=== PATIENT | female | born 1975 | race African-American/Black ===

== ENCOUNTER 2017-07-09 13:22 | Observation (INO) ==
--- NOTE | 2017-07-09 14:04 | Emergency Department Note ---
Edwin Ryan Gwan, am scribing for, and in the presence of, Abhishek Edwards MD 13:46 . Grace Ryan James D, MD, personally performed the services described in this documentation, ascribed by Wilda Pineda in my presence, and it is both accurate and complete 404 . Arrival - Arrival Chief Complaint: Chest Pain Stated Complaint: chest pain ED Nursing Triage Note: chest pain 30 minutes into dialysis this morning. Mode of Arrival: Stretcher Limitations: No Limitations Source: Patient, Old Records Reviewed, RN Notes Reviewed - History of Present Illness HPI Narrative: Patient is a 41 y/o female who presents to the ED with a c/o chest pain 30 minutes into dialysis with an onset today. Patient describes her pain as sharp and is located in the center of her chest. Patient is followed by Dr. Gautam and said that she has a hx of stent placement. The pain she has felt today is similar to that chest pain before. No other problems/complaints reported in ED. Onset (ago): minute(s) Consistency: constant Date of Last Menstrual Period: hyst Allergies/Adverse Reactions: Allergies Allergy/AdvReac Type Severity Reaction Status Date / Time clindamycin Allergy Severe Seizure Verified 12/13/16 19:17 levofloxacin [From Levaquin] Allergy Intermediate RASH Verified 12/13/16 19:17 morphine Allergy Intermediate RASH Verified 12/13/16 19:17 Sulfa (Sulfonamide Allergy Intermediate RASH Verified 12/13/16 19:17 Antibiotics) adhesive Allergy Mild RASH Verified 12/13/16 19:17 atorvastatin [From Lipitor] Allergy Mild HIVES Verified 12/13/16 19:17 hydrocodone [From [place]] Allergy Mild RASH Verified 12/13/16 19:17 metoclopramide [From Reglan] Allergy Mild RASH Verified 12/13/16 19:17 Oxycodone [From Percocet] Allergy Mild RASH Verified 12/13/16 19:17 ranolazine [From Ranexa] Allergy Mild Dizziness Verified 12/18/16 09:51 tramadol [From Ultram] Allergy Mild RASH Verified 12/13/16 19:17 Home Medications: Home Medications Medication Instructions Recorded Confirmed Type HYDROcodone/ACETAMIN 10-325 [[place] 1 tablet PO Q6H PRN 05/08/15 07/09/17 History 10-325] Carvedilol [Coreg] 25 mg PO BID #60 tablet 06/09/15 07/09/17 Rx Insulin NPH Hum/Reg Insulin Hm 65 unit SUBCUT DAILY W/BREAKFAST 08/28/15 History [NovoLIN 70/30] Nitroglycerin [Nitroglycerin SL 0.4 mg SL Q5M PRN 05/30/16 07/09/17 History Tab] clonazePAM [Clonazepam] 0.5 mg PO BID 05/30/16 07/09/17 History Pantoprazole Tab [Protonix Tab] 40 mg PO DAILY #30 tablet 06/04/16 07/09/17 Rx Amitriptyline [Elavil] 25 mg PO BEDTIME 07/09/17 07/09/17 History Cinacalcet [Sensipar] 30 mg PO DAILY W/SUPPER 07/09/17 07/09/17 History Ergocalciferol (Vitamin D2) 50,000 unit PO DAILY 07/09/17 07/09/17 History [Vitamin D2] Insulin NPH Hum/Reg Insulin Hm 35 units PO BEDTIME 07/09/17 07/09/17 History [NovoLIN 70/30] Naproxen Sodium [Naproxen Sodium 550 mg PO DAILY PRN 07/09/17 07/09/17 History Ds Tab] Nortriptyline [Pamelor] 10 mg PO DAILY 07/09/17 07/09/17 History amLODIPine [Norvasc] 10 mg PO DAILY 07/09/17 07/09/17 History hydroCHLOROthiazide 25 mg PO DAILY 07/09/17 07/09/17 History [Hydrochlorothiazide] Review of System - Review of System 12 point system: reviewed and no additional remarkable complaints except as stated - Review of System Eyes: Absent: discharge, pain, vision change Cardiovascular: Present: as per HPI, chest pain. Absent: palpitations Medical,Surgical,& Family Hx - Medical History Cardio: History of: CHF, CAD (PCI of the LAD in the remote past and recent PCI the distal left circumflex), Hypertension, SC, Cardiovascular Problems No history of: Aneurysm, Cardiac Dysrhythmia, Cerebrovascular Disease, Pacemaker, PVD, Valvular Heart Disease Psychological: History of: Depression (2011) No history of: Anxiety Disorders, ADHD, Behavior Problems, Bipolar Disorder, Previous Suicide Attempt, Psychiatric/Substance Abuse Tx, Violent Behavior, Psychiatric Problems Neurology: History of: Migraine, Peripheral Neuropathy, Seizures, Vertigo No history of: Brain Aneurysm, Cerebral Hemorrhage, Cerebrovascular Accident , Cerebral Palsy, Dementia, Multiple Sclerosis, Parkinson's Disease, TIA, Neurologocal Cancer HEENT: History of: Ear Problem (ruptured ear drum 10/2014), Eye Problem (wears glasses) No history of: Dental Problems, Glaucoma, Oral Cancer, HEENT Problems Endocrine: History of: Diabetes Mellitus (IDDM), Thyroid Disorder, Endocrine Problems (enlarged thyroid 2013) No history of: Diabetes Mellitus (NIDDM), Endocrine Cancer Rheumatology: No history of;: Fibromyalgia, Gout, Myasthenia Gravis, Rheumatoid Arthritis, Rheumatological Problems Respiratory: History of: Pneumonia No history of: Asthma, Bronchitis, COPD, Intubation, Obstructive Sleep Apnea , Pulmonary Hypertension, Lung Cancer, Respiratory Problems Renal: History of: Renal Failure, Renal Problems (CKD stage 3, followed chronically by Dr Orozco) No history of: Renal (Kidney) Cancer, Dialysis Genitourinary: No history of: Bladder Problem, Kidney Stones, Recurring Urinary Tract Infections, Genitourinary Cancer Gastrointestinal: History of: GERD, GI Problems (GASTROPARESIS) No history of: Bowel Obstruction, Clostridium Difficile, Gastrointestinal Bleed, Hemorrhoids, Hepatitis, Liver Problems, Pancreatitis, Gastrointestinal Cancer Musculoskeletal: History of: Back/Neck Problems (TAKES DILAUDID DAILY), Musculoskeletal Problems No history of: Amputation, Degenerative Disk Disease, Osteoporosis, Musculoskeletal Cancer Hematology: History of: Anemia No history of: Blood Transfusion Reaction, Bleeding Problems, Clotting Problems, Sickle Cell Disease, Hematologic Cancer, Blood Disorders Reproductive: No history of: Abnormal Pap Smear Other: History of: Skin Problems (severly allergic to tape) No history of: Anesthesia Reactions, Cancer, Vancomycin-Resistant Enterococci - Surgical History Cardiac Surgeries: Sugical HX of: Cardiac Catheterization (stents) Patient Denies: Femoral-Popliteal Bypass Graft, Cardiac Surgery, Carotid Endarterectomy, Internal Defibrillator, Vascular Access Devices Thoracic Surgeries: Patient denies;: Kidney (Renal Surgery), Lithotripsy, Nephrectomy, Organ Transplant, Lobectomy Neurologic Surgeries: Patient denies: Brain Aneurysm, Cerebral Hemorrhage, Neurologic Surgery HEENT Surgeries: Surgical HX of: Eye Surgery (right eye unknown surgery) Patient denies: Carotid Endarterectomy, Tonsilectomy & Adenoidectomy Abdominal Surgeries: Surgical HX of: Abdominal Surgery, Cholecystectomy, Colonoscopy Patient denies: Appendectomy, Gastric Bypass Surgery, Hernia Repair, Splenectomy Reproductive Surgeries: Surgical HX of;: Section, Gynecologic Surgery ( hyst), Hysterectomy, Tubal Ligation Patient denies;: Breast Surgery, Cystoscopy, Genitourinary Surgery Orthopedic Surgeries: Surgical HX of;: 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) Patient denies;: Implanted Devices, Total Hip Replacement, Total Knee Replacement - Family History Family History: Reports;: Family Diabetes (mother), Family Hypertension (mother) Denies;: Family Anesthesia Reaction, Family Cancer, Family Heart Disease, Family Psychiatric Problems, Family Stroke - Social History Smoking Status: Never smoker Exam Physical Examination: GENERAL: This is a female in no apparent distress. VITAL SIGNS: HEENT: Head is normocephalic and atraumatic. Pupils are equally round and reactive to light. Extraocular movement are intact. Oropharynx is benign with moist mucous membranes. NECK: Neck is soft and supple without tenderness. There are no masses. There is no lymphadenopathy. LUNGS: Lungs are clear to auscultation bilaterally. Chest rises symmetrically. There is no chest wall tenderness. CV: Heart is regular rate and rhythm without murmurs, rubs, or gallops. ABDOMEN: Abdomen is soft, non-tender to palpation. There are no abnormal masses palpated. There is no organomegaly. Bowel sounds are present and active. SKIN: Skin is warm and dry. No rash. EXTREMITIES: Patient has full range of motion without tenderness. There is no pedal edema. NEUROLOGIC: Awake, alert, and oriented x4. Cranial nerves II through XII are grossly intact. There are no motorsensory deficits. PSYCHIATRIC: Normal affect. Normal mood. Vital Signs: Vital Signs Temperature 98.0 F 07/09/17 13:25 Pulse Rate 89 07/09/17 16:15 Respiratory Rate 18 07/09/17 16:15 Blood Pressure 143/96 07/09/17 16:15 O2 Sat by Pulse Oximetry 95 07/09/17 16:15 Course - Consultations Consultation #1: Discussed with Dr. Lozada. Patient will be admitted to their service. Time: 16:27 Results - Labs CBC & BMP: 07/09/17 14:05 07/09/17 14:05 Lab Results: I have reviewed the patients labs - EKG EKG results: interpreted by ERMD - Impressions EKG: Sinus tachycardia with a rate of 100, nonspecific ST-T wave changes, right axis deviation. - Diagnostic Findings Procedure: Chest x-ray: image reviewed by me (Dialysis catheter present with the tip in the superior vena cava, no infiltrates, no pleural effusions.) Disposition Clinical Impression: Chest pain, End-stage renal disease on hemodialysis Case discussed with: patient Disposition: Still a Patient Condition: Stable Time of Disposition: 16:26
[2017-07-09] MEDS ORDERED: NITROGLYCERIN SL 0.4 MG TABLET SL PRN ×2 (14:05→17:29)
[2017-07-09] MEDS ORDERED: ASPIRIN 325 MG TABLET PO STA (14:05)
[2017-07-09] MEDS ORDERED: ENOXAPARIN 100 MG/ML SYRINGE SUBCUT STA (14:05)
[2017-07-09] MEDS ORDERED: NITROGLYCERIN 2% OINT 1 INCH/GM PACK TOP STA (14:05)
--- NOTE | 2017-07-09 14:08 | EKG Report ---
Stationary ECG Study [facility] ER Test Date: 07/09/2017 1:44:18 PM Pat Name: LINDEN LOERA Department: Room: 272 Gender: F Payment Analyst: : [id number] Requested by: Abhishek Bansal Order Number: [id number] Reading MD: RELL DOYLE Intervals [place] Rate: 100 P: 51 MA: 157 QRS: 94 QRSD: 85 T: 6 QT: 361 QTc: 418 Interpretive Statements SINUS TACHYCARDIA RIGHT ATRIAL ABNORMALITY POSSIBLE LEFT ATRIAL ABNORMALITY NONSPECIFIC T-WAVE ABNORMALITY Electronically Signed On 07-12-17 17:10:50 CDT by RELL DOYLE [email or web address]
[2017-07-09] MEDS ORDERED: ENOXAPARIN 100 MG/ML SYRINGE SUBCUT ONE (14:10)
[2017-07-09] MEDS ORDERED: NITROGLYCERIN 2% OINT 1 INCH/GM PACK TOP ONE (14:11)
[2017-07-09] MEDS ORDERED: ASPIRIN 325 MG TABLET ONE (14:11)
[2017-07-09 14:13] LABS: Basophils % 0.3 % (0.0-0.8); Eosinophils # 0.2 10*3/uL (0.0-0.87); Eosinophils % 1.9 % (0.00-10.9); Hematocrit 32.9 VOL% (35.7-47.0); Hemoglobin 10.6 GM/DL (12.0-16.0); Immature Granulocytes Absolute 0.09 #; Lymphocytes % 21.6 % (21.3-54.2); Mean Corpuscular HGB Conc 32.2 GM/DL (32-36); Mean Corpuscular Hemoglobin 28 PG (27-34); Mean Corpuscular Volume 85.2 FL (87-102); Mean Platelet Volume 10.5 FL (9.6-12.0); Monocytes # 0.4 10*3/uL (0.11-0.8); Monocytes % 4.1 % (1.7-12.7); Neutrophils # 6.5 10*3/uL (1.4-7.4); Neutrophils % 71.1 % (38.7-73.9); Platelet Count 352 T/CUMM (130-400); Red Blood Count 3.86 MC/CUMM (3.8-5.5); Red Cell Distribution Width 14.4 % (9.3-17.3); White Blood Count 9.2 T/CUMM (4-12)
--- NOTE | 2017-07-09 14:27 | XRay Report ---
XR chest 1V portable Indication: Chest pain Comparison: Chest x-ray dated December 16, 2016 Technique: Single frontal view of the chest. Findings: Stable borderline cardiomegaly. Right-sided central venous catheter tip near the atriocaval junction. No focal consolidation, pleural effusion, or pneumothorax. Visualized osseous and surrounding soft tissue structures appear grossly unchanged. IMPRESSION: No acute cardiopulmonary process demonstrated. PROCEDURE INTERPRETED AT [facility] DEPARTMENT OF RADIOLOGY Final Report Signed by: Dr Josse Li
[2017-07-09 14:47] LABS: INR 1.2; PT Patient Result 12.9 SECS
[2017-07-09 14:52] LABS: Alanine Aminotransferase < 9 U/L (13-56); Albumin 2.9 G/DL (3.4-5.0); Alkaline Phosphatase 204 U/L (45-117); Aspartate Amino Transferase 13 U/L (0-37); Blood Urea Nitrogen 31 MG/DL (7-18); Calcium 7.4 MG/DL (8.5-10.1); Glucose 299 MG/DL (74-106); Potassium 4.1 MMOL/L (3.5-5.1); Sodium 136 MMOL/L (136-145); Total Protein 7.2 G/DL (6.4-8.3)
--- NOTE | 2017-07-09 17:40 | Cardiology History & Physical ---
Assessment and Plan - Time spent with patient Time spent with patient: Greater than 30 minutes (1) End stage renal disease Status: Chronic Assessment and plan: SEE PLAN OF CARE LISTED BELOW Current Visit: Yes (2) Seizure Status: Chronic Assessment and plan: SEE PLAN OF CARE LISTED BELOW Current Visit: Yes (3) Chest pain Status: Acute Assessment and plan: SEE PLAN OF CARE LISTED BELOW Current Visit: No Qualifiers: Chest pain type: precordial chest pain (4) Coronary artery disease Status: Chronic Assessment and plan: SEE PLAN OF CARE LISTED BELOW Current Visit: No Qualifiers: Coronary Disease-Associated Artery/Lesion type: rincon coronary artery Associated angina: with unspecified angina pectoris (5) History of coronary artery stent placement Problem details: LAD 2001, OM3 06/28/15 Status: Chronic Assessment and plan: SEE PLAN OF CARE LISTED BELOW Current Visit: No (6) Hyperlipidemia Status: Chronic Assessment and plan: SEE PLAN OF CARE LISTED BELOW Current Visit: No Qualifiers: Hyperlipidemia type: Mixed hyperlipidemia (7) Diabetes mellitus Status: Chronic Assessment and plan: SEE PLAN OF CARE LISTED BELOW Current Visit: No Qualifiers: Diabetes mellitus complication status: with other specified complication (8) Gastroparesis Status: Chronic Assessment and plan: SEE PLAN OF CARE LISTED BELOW Current Visit: No History of Present Illness Chief complaint: Chest pain 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 WILKES Patient is being seen in the emergency department Ms. Bell, 41BF, with risk factors significant for: CAD, hypertension, dyslipidemia, diabetes obesity, sedentary lifestyle. History of grand mal seizures, gastroparesis and end-stage renal disease on hemodialysis. Patient required PCI to mid LAD 2001, PCI to OM 3 June 28, 2015. Patient presented to the emergency department today after experiencing recurrent chest pain since last evening. Patient was sitting when this occurred. She is a poor historian and finds it more difficult to elaborate. She states it was in the center of her chest without radiation to her arm but towards her neck. Associated with mild shortness of breath and nausea. Lasted intermittently and worsened while she was at hemodialysis today. Described as squeezing and heavy. She can identify no aggravating nor any alleviating factors. Rates the discomfort as a 7 on a scale of 1-10. Currently chest pain-free. Cardiac biomarkers are negative, EKG does not reveal acute TX. Patient has been seen by Dr. Mora in the emergency department and will be admitted for following of her cardiac biomarkers, EKG. I will keep her NPO after midnight tonight for possible further cardiac workup tomorrow. We will limit her narcotic use with Ms. Bell, using only her home medications for treatment of her chronic pain. WE WILL AVOID NITRATES WITH THIS PATIENT THIS FREQUENTLY CAUSES MIGRAINE HEADACHES WHICH PROLONGS HER HOSPITALIZATION IMPRESSION/PLAN: 1. CHEST PAIN - patient's cardiac biomarkers will be followed. We will avoid use of nitroglycerin with this patient as she frequently has migraines while using nitroglycerin. Therefore, treat with aspirin, Lovenox, beta-blockers, lipid-lowering agents. Patient did have recent swelling of her right lower extremity. Will do venous ultrasound to rule out DVT 2. KNOWN CAD - last PCI June 28, 2015 to OM 3. Prior PCI to mid LAD 2001. Aspirin continues. 3. HYPERTENSION - usually well controlled. Avoiding NANETTE inhibitors for fear of worsening renal insufficiency. Continue beta-blockade 4. DYSLIPIDEMIA - fasting lipid profile in the morning. Patient has previously been statin intolerant (myalgias). We will try to incorporate a statin drug as able during hospital stay 5. DIABETES - sliding scale during hospitalization. Hold metformin. 6. GASTROPARESIS - this is been a severe and ongoing problem for patient. Often, her gastroparesis is mistaken for chest pain. Will verify she is continuing to take her medications for this. 7. END-STAGE RENAL DISEASE - underwent dialysis today. If patient stays for several days we will consult nephrology to dialyze. Hopefully, she will be discharged home tomorrow 8. CHRONIC PAIN - we will use only her home medications to treat her pain. Home Medications Medication Instructions Recorded Confirmed Type HYDROcodone/ACETAMIN 10-325 [[place] 1 tablet PO Q6H PRN 05/08/15 07/09/17 History 10-325] Carvedilol [Coreg] 25 mg PO BID #60 tablet 06/09/15 07/09/17 Rx Insulin NPH Hum/Reg Insulin Hm 65 unit SUBCUT DAILY W/BREAKFAST 08/28/15 History [NovoLIN 70/30] Nitroglycerin [Nitroglycerin SL 0.4 mg SL Q5M PRN 05/30/16 07/09/17 History Tab] clonazePAM [Clonazepam] 0.5 mg PO BID 05/30/16 07/09/17 History Pantoprazole Tab [Protonix Tab] 40 mg PO DAILY #30 tablet 06/04/16 07/09/17 Rx Amitriptyline [Elavil] 25 mg PO BEDTIME 07/09/17 07/09/17 History Cinacalcet [Sensipar] 30 mg PO DAILY W/SUPPER 07/09/17 07/09/17 History Ergocalciferol (Vitamin D2) 50,000 unit PO DAILY 07/09/17 07/09/17 History [Vitamin D2] Insulin NPH Hum/Reg Insulin Hm 35 units PO BEDTIME 07/09/17 07/09/17 History [NovoLIN 70/30] Naproxen Sodium [Naproxen Sodium 550 mg PO DAILY PRN 07/09/17 07/09/17 History Ds Tab] Nortriptyline [Pamelor] 10 mg PO DAILY 07/09/17 07/09/17 History amLODIPine [Norvasc] 10 mg PO DAILY 07/09/17 07/09/17 History hydroCHLOROthiazide 25 mg PO DAILY 07/09/17 07/09/17 History [Hydrochlorothiazide] Allergies Allergy/AdvReac Type Severity Reaction Status Date / Time clindamycin Allergy Severe Seizure Verified 12/13/16 19:17 levofloxacin [From Levaquin] Allergy Intermediate RASH Verified 12/13/16 19:17 morphine Allergy Intermediate RASH Verified 12/13/16 19:17 Sulfa (Sulfonamide Allergy Intermediate RASH Verified 12/13/16 19:17 Antibiotics) adhesive Allergy Mild RASH Verified 12/13/16 19:17 atorvastatin [From Lipitor] Allergy Mild HIVES Verified 12/13/16 19:17 hydrocodone [From [place]] Allergy Mild RASH Verified 12/13/16 19:17 metoclopramide [From Reglan] Allergy Mild RASH Verified 12/13/16 19:17 Oxycodone [From Percocet] Allergy Mild RASH Verified 12/13/16 19:17 ranolazine [From Ranexa] Allergy Mild Dizziness Verified 12/18/16 09:51 tramadol [From Ultram] Allergy Mild RASH Verified 12/13/16 19:17 Review of systems: REVIEW OF SYSTEMS: - Constitutional Constitutional: Present: Fatigue. Loss of stress in her personal life absent: syncope, anorexia, night sweats - EENT Eyes: Absent: blurry vision, loss of vision, diplopia Ears: Absent: decreased hearing, ear pain, ear discharge - Cardiovascular Cardiovascular: Present: chest pain with exertion and at rest. Recent right lower extremity edema. Denies palpitations. - Respiratory Respiratory: Present: Chronic NUNES, denies cough. Absent: wheezing, hemoptysis, change in phlegm color - Gastrointestinal Gastrointestinal: Denies: constipation. Absent: abdominal pain, hematemesis, hematochezia, melena, change in bowel habits, nausea - Genitourinary Genitourinary: Absent: difficulty urinating, dysuria, urinary hesitancy, flank pain - Musculoskeletal Musculoskeletal: Present: back pain Absent: joint swelling, muscle cramps, muscle weakness - Neurological Neurological: Present: normal gait without frequent falls. Absent: dizziness, hemiparesis - Psychiatric Psychiatric: Anxiety is present. Absent: depression, difficulty concentrating - Endocrine Endocrine: Present: fatigue. Absent: cold intolerance, heat intolerance, polyuria, polyphagia, polydipsia - Hematologic/Lymphatic Hematologic/Lymphatic: Present: easy bruising. Absent: easy bleeding -Integumentary Integumentary: Absent: lesions, rashes, skin breakdown Medical,Surgical,& Family Hx - Medical History Cardio: History of: CHF, CAD (PCI of the LAD in the remote past and recent PCI the distal left circumflex), Hypertension, TX, Cardiovascular Problems No history of: Aneurysm, Cardiac Dysrhythmia, Cerebrovascular Disease, Pacemaker, PVD, Valvular Heart Disease Psychological: History of: Depression (2011) No history of: Anxiety Disorders, ADHD, Behavior Problems, Bipolar Disorder, Previous Suicide Attempt, Psychiatric/Substance Abuse Tx, Violent Behavior, Psychiatric Problems Neurology: History of: Migraine, Peripheral Neuropathy, Seizures, Vertigo No history of: Brain Aneurysm, Cerebral Hemorrhage, Cerebrovascular Accident , Cerebral Palsy, Dementia, Multiple Sclerosis, Parkinson's Disease, TIA, Neurologocal Cancer HEENT: History of: Ear Problem (ruptured ear drum 10/2014), Eye Problem (wears glasses) No history of: Dental Problems, Glaucoma, Oral Cancer, HEENT Problems Endocrine: History of: Diabetes Mellitus (IDDM), Thyroid Disorder, Endocrine Problems (enlarged thyroid 2013) No history of: Diabetes Mellitus (NIDDM), Endocrine Cancer Rheumatology: No history of;: Fibromyalgia, Gout, Myasthenia Gravis, Rheumatoid Arthritis, Rheumatological Problems Respiratory: History of: Pneumonia No history of: Asthma, Bronchitis, COPD, Intubation, Obstructive Sleep Apnea , Pulmonary Hypertension, Lung Cancer, Respiratory Problems Renal: History of: Renal Failure, Renal Problems (CKD stage 3, followed chronically by Dr Orozco) No history of: Renal (Kidney) Cancer, Dialysis Genitourinary: No history of: Bladder Problem, Kidney Stones, Recurring Urinary Tract Infections, Genitourinary Cancer Gastrointestinal: History of: GERD, GI Problems (GASTROPARESIS) No history of: Bowel Obstruction, Clostridium Difficile, Gastrointestinal Bleed, Hemorrhoids, Hepatitis, Liver Problems, Pancreatitis, Gastrointestinal Cancer Musculoskeletal: History of: Back/Neck Problems (TAKES DILAUDID DAILY), Musculoskeletal Problems No history of: Amputation, Degenerative Disk Disease, Osteoporosis, Musculoskeletal Cancer Hematology: History of: Anemia No history of: Blood Transfusion Reaction, Bleeding Problems, Clotting Problems, Sickle Cell Disease, Hematologic Cancer, Blood Disorders Reproductive: No history of: Abnormal Pap Smear Other: History of: Skin Problems (severly allergic to tape) No history of: Anesthesia Reactions, Cancer, Vancomycin-Resistant Enterococci - Surgical History Cardiac Surgeries: Sugical HX of: Cardiac Catheterization (stents) Patient Denies: Femoral-Popliteal Bypass Graft, Cardiac Surgery, Carotid Endarterectomy, Internal Defibrillator, Vascular Access Devices Thoracic Surgeries: Patient denies;: Kidney (Renal Surgery), Lithotripsy, Nephrectomy, Organ Transplant, Lobectomy Neurologic Surgeries: Patient denies: Brain Aneurysm, Cerebral Hemorrhage, Neurologic Surgery HEENT Surgeries: Surgical HX of: Eye Surgery (right eye unknown surgery) Patient denies: Carotid Endarterectomy, Tonsilectomy & Adenoidectomy Abdominal Surgeries: Surgical HX of: Abdominal Surgery, Cholecystectomy, Colonoscopy Patient denies: Appendectomy, Gastric Bypass Surgery, Hernia Repair, Splenectomy Reproductive Surgeries: Surgical HX of;: Section, Gynecologic Surgery ( hyst), Hysterectomy, Tubal Ligation Patient denies;: Breast Surgery, Cystoscopy, Genitourinary Surgery Orthopedic Surgeries: Surgical HX of;: 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) Patient denies;: Implanted Devices, Total Hip Replacement, Total Knee Replacement - Family History Family History: Reports;: Family Diabetes (mother), Family Hypertension (mother) Denies;: Family Anesthesia Reaction, Family Cancer, Family Heart Disease, Family Psychiatric Problems, Family Stroke - Social History Smoking Status: Never smoker Have you smoked in the last 12 months: No Frequency of Alcohol Use: None Type of Drug Use: None Functional capacity: independent ambulation Cardiology Physical Exam - Constitutional Vitals: Vital Signs Temp Pulse Resp BP Pulse Ox 98.0 F 89 18 143/96 95 07/09/17 13:25 07/09/17 16:15 07/09/17 16:15 07/09/17 16:15 07/09/17 16:15 Intake and Output 07/09/17 07/09/17 07/09/17 07:59 15:59 23:59 Other: Weight 78.018 kg Patient Weight 07/09/17 23:59 Weight 78.018 kg Exam: General: [Appears well with no apparent distress.] [Pleasant and cooperative. ] [Appears comfortable.] HEENT: [PERRL, normocephalic, atraumatic. Mucous membranes moist. No jaundice noted. Conjunctiva moist and clear, sclerae anicteric] Neck: No JVD/HJR, no thyromegaly or lymphadenopathy noted. No carotid bruit appreciated Cardiac: [Regular rate and rhythm.] [No obvious murmur rub or gallop.] Lungs: [Clear to auscultation without accessory muscle use to assist the respiratory pattern.] Oxygen in use via nasal cannula Abdomen: Soft, bowel sounds normoactive. Nontender and nondistended. No abdominal bruit or thrill noted. No masses noted. Musculoskeletal: No fluid collection. Decreased range of motion is noted. Extremities: No clubbing, cyanosis noted. [ No edema noted.] Upper extremity pulses 2+. Lower extremity pulses 2+. Capillary refill less than 3 seconds. Skin: No unusual lesions or rashes. No skin breakdown appreciated. Neuro: Awake, alert and oriented 3. Moves all extremities well without hemiparesis or paralysis. No essential tremor is appreciated. Result/EKG - Labs CBC & BMP: 07/09/17 14:05 07/09/17 14:05 Lab Results: I have reviewed the past 24 hour labs Labs: Laboratory Results - last 24 hr 07/09/17 07/09/17 07/09/17 14:05 14:05 14:05 WBC 9.2 RBC 3.86 Hgb 10.6 L Hct 32.9 L MCV 85.2 L MCH 28 MCHC 32.2 RDW 14.4 Plt Count 352 MPV 10.5 Neut % (Auto) 71.1 Lymph % (Auto) 21.6 [place] % (Auto) 4.1 Eos % (Auto) 1.9 Baso % (Auto) 0.3 Neut # (Auto) 6.5 Lymph # (Auto) 2.0 [place] # (Auto) 0.4 Eos # (Auto) 0.2 Baso # (Auto) 0.0 Immature Gran % 1.0 Nucleated RBC % 0.0 Immature Gran # 0.09 Nucleated RBCs # 0.00 Immature Plt Fraction 0.0 INR 1.2 PT Patient/Control Mix 12.9 D Circ Anticoag PTT 57.0 H D Sodium 136 Potassium 4.1 Chloride 100 Carbon Dioxide 27 Anion Gap 13.1 BUN 31 H Creatinine 5.60 H GFR Calculation 11 BUN/Creatinine Ratio 5.00 L Glucose 299 H Calculated Osmolality 289.0 Calcium 7.4 L Total Bilirubin 0.60 AST 13 ALT < 9 L Alkaline Phosphatase 204 H Troponin I Total Protein 7.2 Albumin 2.9 L Globulin 4.3 H Albumin/Globulin Ratio 0.6 L 07/09/17 14:05 WBC RBC Hgb Hct MCV MCH MCHC RDW Plt Count MPV Neut % (Auto) Lymph % (Auto) [place] % (Auto) Eos % (Auto) Baso % (Auto) Neut # (Auto) Lymph # (Auto) [place] # (Auto) Eos # (Auto) Baso # (Auto) Immature Gran % Nucleated RBC % Immature Gran # Nucleated RBCs # Immature Plt Fraction INR PT Patient/Control Mix Circ Anticoag PTT Sodium Potassium Chloride Carbon Dioxide Anion Gap BUN Creatinine GFR Calculation BUN/Creatinine Ratio Glucose Calculated Osmolality Calcium Total Bilirubin AST ALT Alkaline Phosphatase Troponin I < 0.015 Total Protein Albumin Globulin Albumin/Globulin Ratio - Diagnostic Findings Procedure: Chest x-ray: report reviewed by me - EKG EKG results: interpreted by me EKG shows: sinus rhythm
[2017-07-09] MEDS ORDERED: ACETAMINOPHEN 500 MG TABLET PO PRN (17:47)
[2017-07-09] MEDS ORDERED: DEXTROSE 50% 25 GM/50 ML SYRINGE IV PRN (18:30)
[2017-07-09] MEDS ORDERED: GLUCAGON 1 MG VIAL IM PRN (18:30)
[2017-07-09] MEDS ORDERED: MAGNESIUM SULF RIDER 4 GM in PREMIX 1 EACH IV PRN (18:30)
[2017-07-09] MEDS ORDERED: MAGNESIUM SULF RIDER 2 GM in PREMIX 1 EACH IV PRN (18:30)
[2017-07-09 20:31] LABS: Free T4 (Free Thyroxine) 1.15 NG/DL (0.76-1.46); Thyroid Stimulating Hormone < 0.005 uIU/ml (0.358-3.74)
[2017-07-09] MEDS ORDERED: INSULIN NPH/REGULAR 70/30 100 UNIT/ML SUBCUT SCH (21:00)
[2017-07-09] MEDS ORDERED: AMITRIPTYLINE 25 MG TABLET PO SCH (21:00)
[2017-07-09] MEDS: clonazePAM 0.5 MG TABLET PO SCH (21:40)
[2017-07-09] MEDS: INSULIN LISPRO 100 UNIT/ML SUBCUT SCH (21:40)
[2017-07-09] MEDS: CARVEDILOL 25 MG TABLET PO SCH (21:40)
[2017-07-10 05:50] LABS: Basophils % 0.6 % (0.0-0.8); Eosinophils # 0.1 10*3/uL (0.0-0.87); Eosinophils % 1.8 % (0.00-10.9); Hematocrit 34.6 VOL% (35.7-47.0); Immature Granulocytes % 0.4 %; Immature Granulocytes Absolute 0.03 #; Lymphocytes # 2.1 10*3/uL (1.4-4.0); Lymphocytes % 28.8 % (21.3-54.2); Mean Corpuscular HGB Conc 31.8 GM/DL (32-36); Mean Corpuscular Hemoglobin 27 PG (27-34); Mean Corpuscular Volume 84.8 FL (87-102); Mean Platelet Volume 10.7 FL (9.6-12.0); Monocytes # 0.4 10*3/uL (0.11-0.8); Monocytes % 5.1 % (1.7-12.7); Neutrophils # 4.6 10*3/uL (1.4-7.4); Neutrophils % 63.3 % (38.7-73.9); Platelet Count 375 T/CUMM (130-400); Red Blood Count 4.08 MC/CUMM (3.8-5.5); Red Cell Distribution Width 14.2 % (9.3-17.3); White Blood Count 7.2 T/CUMM (4-12)
--- NOTE | 2017-07-10 06:18 | EKG Report ---
Stationary ECG Study 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
[2017-07-10 06:34] LABS: Calcium 7.8 MG/DL (8.5-10.1); Magnesium 2.7 MG/DL (1.8-2.4); Osmolality,Calculated 296.5 MOS/KG (273-304); Potassium 5.1 MMOL/L (3.5-5.1); Risk Ratio 3.28; VLDL CHOLESTEROL 15.2 MG/DL
[2017-07-10] MEDS ORDERED: INSULIN NPH/REGULAR 70/30 100 UNIT/ML SUBCUT SCH (08:00)
--- NOTE | 2017-07-10 08:23 | EKG Report ---
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
--- NOTE | 2017-07-10 08:23 | EKG Report ---
Stationary ECG Study 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
[2017-07-10] MEDS ORDERED: ERGOCALCIFEROL 50,000 UNIT CAPSULE PO SCH (09:00)
[2017-07-10] MEDS ORDERED: NORTRIPTYLINE 10 MG CAPSULE PO SCH (09:00)
[2017-07-10] MEDS ORDERED: hydroCHLOROthiazide 25 MG TABLET PO SCH (09:00)
[2017-07-10] MEDS ORDERED: amLODIPine 10 MG TABLET PO SCH (09:00)
[2017-07-10] MEDS ORDERED: PANTOPRAZOLE 40 MG TABLET PO SCH (09:00)
--- NOTE | 2017-07-10 09:23 | Discharge Summary ---
Hospital Course - Hospital Course Hospital Course: WARDROBE ASSISTANT: DR. GAUTAM PCP: COSME CAZARES SUMMARY: Ms. Bell, 41BF, has risk factors significant for: CAD, hypertension, dyslipidemia, diabetes obesity, sedentary lifestyle. History of grand mal seizures, gastroparesis and end-stage renal disease on hemodialysis. History of migraine headaches worsened with nitroglycerin. Consists patient required PCI to mid LAD 2001, PCI to OM 3 June 28, 2015). Admitted July 09, 2017 through the ED after experiencing atypical chest pain. Cardiac biomarkers negative, EKG stable unchanged. Patient slept through the majority of my interview in the emergency department initially though she was in an exquisite amount of chest pain reproducible in certain positions. Patient was treated according to the acute coronary protocol with the exception of use of nitroglycerin. AVOID NITRATES WITH THIS PATIENT THIS FREQUENTLY CAUSES MIGRAINE HEADACHES WHICH PROLONGS HER HOSPITALIZATIONS. It is felt that her chest pain was musculoskeletal in nature versus GI. Also, we avoid narcotic use with this patient other than her home medications. Refuses statin drugs because they worsen myalgias. Having that she is met maximal medical therapy, patient is being discharged home in stable condition. Avoiding NANETTE for fear of worsening renal insufficiency with history of hyperkalemia. Increasing PPI to twice daily for 2 weeks. Patient will resume all of her preadmission medications. She has been given a date for stress testing within the week to take place at [facility]. She is also being given a follow-up appoint with Dr. Gautam 1 week following the stress test. Also, she has been given a follow-up appointment within 1 week with COSME Cazares to treat her noncardiac chest pain and abnormal TSH. - Time spent with patient Time with patient DS: Greater than 30 minutes Diagnosis - Discharge Diagnosis (1) End stage renal disease Status: Chronic (2) Seizure Status: Chronic (3) Chest pain Status: Acute (4) Coronary artery disease Status: Chronic (5) History of coronary artery stent placement Status: Chronic (6) Hyperlipidemia Status: Chronic (7) Diabetes mellitus Status: Chronic (8) Gastroparesis Status: Chronic Specialty Discharge - Follow Up or Referrals Follow up with: Gabrielle Gautam MD [Physician] - (Please schedule outpatient cardiolyte stress test at [facility] within one week. Also, please obtain F/U appointment with Dr. Gautam within 1-2 weeks after stress test. ) Amy Palacio [Primary Care Provider] - 1 Week (F/U appointment within one week. Non-cardiac chest pain. Also, low TSH. ) Discharge Plan - Discharge Data Disposition: Disch To Home/Self Care Condition at Discharge: Stable Discharge Diet: heart healthy Activity: resume usual activities as tolerated Hygiene: no restrictions Weight Bearing at Discharge: full weight bearing Driving: not until seen by doctor Contact your physician if you experience:: fever over 101, Difficulty voiding, Redness or swelling, Nausea/Vomiting, Shortness of breath, Bleeding, pain uncontrolled by pain medications - Discharge Medications New Omeprazole [Prilosec] 20 mg PO BID #60 capsule Aspirin EC Tab 325 mg PO DAILY #30 tablet Continue HYDROcodone/ACETAMIN 10-325 [[place] 10-325] 1 tablet PO Q6H PRN PRN Reason: Pain Mild To Moderate (1-7) Carvedilol [Coreg] 25 mg PO BID #60 tablet Insulin NPH Hum/Reg Insulin Hm [NovoLIN 70/30] 65 unit SUBCUT DAILY W/ BREAKFAST clonazePAM [Clonazepam] 0.5 mg PO BID Nitroglycerin [Nitroglycerin SL Tab] 0.4 mg SL Q5M PRN PRN Reason: Chest Pain amLODIPine [Norvasc] 10 mg PO DAILY Nortriptyline [Pamelor] 10 mg PO DAILY hydroCHLOROthiazide [Hydrochlorothiazide] 25 mg PO DAILY Amitriptyline [Elavil] 25 mg PO BEDTIME Ergocalciferol (Vitamin D2) [Vitamin D2] 50,000 unit PO DAILY Cinacalcet [Sensipar] 30 mg PO DAILY W/SUPPER Insulin NPH Hum/Reg Insulin Hm [NovoLIN 70/30] 35 units PO BEDTIME Discontinued Pantoprazole Tab [Protonix Tab] 40 mg PO DAILY #30 tablet Naproxen Sodium [Naproxen Sodium Ds Tab] 550 mg PO DAILY PRN PRN Reason: Pain - Follow Up or Referral - Forms/Instructions Exam - Constitutional Vitals: Period Temp Pulse Resp BP Sys/Rodriguez Pulse Ox Last 24 Hr 96.6 F-98.5 F 78-99 16-21 129-171/83-101 94-100 Exam: General: [Appears well with no apparent distress.] [Pleasant and cooperative. ] [Appears comfortable.] HEENT: [PERRL, normocephalic, atraumatic. Mucous membranes moist. No jaundice noted. Conjunctiva moist and clear, sclerae anicteric] Neck: No JVD/HJR, no thyromegaly or lymphadenopathy noted. No carotid bruit appreciated Cardiac: [Regular rate and rhythm.] [No murmur rub or gallop.] Lungs: [Clear to auscultation without accessory muscle use to assist the respiratory pattern.] Not requiring oxygen Abdomen: Soft, bowel sounds normoactive. Nontender and nondistended. No abdominal bruit or thrill noted. No masses noted. Musculoskeletal: No fluid collection. Decreased range of motion is noted. Extremities: No clubbing, cyanosis noted. [ No edema noted.] Upper extremity pulses 2+. Lower extremity pulses 1+. Capillary refill less than 3 seconds. Skin: No unusual lesions or rashes. No skin breakdown appreciated. Neuro: Awake, alert and oriented 3. Moves all extremities well without hemiparesis or paralysis. No essential tremor is appreciated. Discharge Results Labs on day of discharge: Labs from last 24 hours 07/10/17 07/10/17 07/10/17 08:08 04:55 04:55 WBC 7.2 RBC 4.08 Hgb 11.0 L Hct 34.6 L MCV 84.8 L MCH 27 MCHC 31.8 L RDW 14.2 Plt Count 375 MPV 10.7 Neut % (Auto) 63.3 Lymph % (Auto) 28.8 [place] % (Auto) 5.1 Eos % (Auto) 1.8 Baso % (Auto) 0.6 Neut # (Auto) 4.6 Lymph # (Auto) 2.1 [place] # (Auto) 0.4 Eos # (Auto) 0.1 Baso # (Auto) 0.0 Immature Gran % 0.4 Nucleated RBC % 0.0 Immature Gran # 0.03 Nucleated RBCs # 0.00 Immature Plt Fraction 0.0 INR PT Patient/Control Mix Circ Anticoag PTT Sodium 139 Potassium 5.1 Chloride 102 Carbon Dioxide 27 Anion Gap 15.1 H BUN 40 H Creatinine 6.50 H GFR Calculation 9 BUN/Creatinine Ratio 6.00 Glucose 279 H POC Glucose 201 H Calculated Osmolality 296.5 Calcium 7.8 L Magnesium 2.7 H Total Bilirubin AST ALT Alkaline Phosphatase Troponin I Total Protein Albumin Globulin Albumin/Globulin Ratio Triglycerides 76 Cholesterol 210 H LDL Cholesterol 133.0 VLDL Cholesterol 15.2 HDL Cholesterol 64 H Heart Disease Risk Ratio 3.28 Free T4 TSH 3rd Generation 07/09/17 07/09/17 07/09/17 19:42 19:42 19:42 WBC RBC Hgb Hct MCV MCH MCHC RDW Plt Count MPV Neut % (Auto) Lymph % (Auto) [place] % (Auto) Eos % (Auto) Baso % (Auto) Neut # (Auto) Lymph # (Auto) [place] # (Auto) Eos # (Auto) Baso # (Auto) Immature Gran % Nucleated RBC % Immature Gran # Nucleated RBCs # Immature Plt Fraction INR PT Patient/Control Mix Circ Anticoag PTT Sodium Potassium Chloride Carbon Dioxide Anion Gap BUN Creatinine GFR Calculation BUN/Creatinine Ratio Glucose POC Glucose Calculated Osmolality Calcium Magnesium Total Bilirubin AST ALT Alkaline Phosphatase Troponin I < 0.015 Cancelled Total Protein Albumin Globulin Albumin/Globulin Ratio Triglycerides Cholesterol LDL Cholesterol VLDL Cholesterol HDL Cholesterol Heart Disease Risk Ratio Free T4 1.15 TSH 3rd Generation < 0.005 L 07/09/17 07/09/17 07/09/17 19:18 14:05 14:05 WBC 9.2 RBC 3.86 Hgb 10.6 L Hct 32.9 L MCV 85.2 L MCH 28 MCHC 32.2 RDW 14.4 Plt Count 352 MPV 10.5 Neut % (Auto) 71.1 Lymph % (Auto) 21.6 [place] % (Auto) 4.1 Eos % (Auto) 1.9 Baso % (Auto) 0.3 Neut # (Auto) 6.5 Lymph # (Auto) 2.0 [place] # (Auto) 0.4 Eos # (Auto) 0.2 Baso # (Auto) 0.0 Immature Gran % 1.0 Nucleated RBC % 0.0 Immature Gran # 0.09 Nucleated RBCs # 0.00 Immature Plt Fraction 0.0 INR PT Patient/Control Mix Circ Anticoag PTT Sodium Potassium Chloride Carbon Dioxide Anion Gap BUN Creatinine GFR Calculation BUN/Creatinine Ratio Glucose POC Glucose 231 H Calculated Osmolality Calcium Magnesium Total Bilirubin AST ALT Alkaline Phosphatase Troponin I < 0.015 Total Protein Albumin Globulin Albumin/Globulin Ratio Triglycerides Cholesterol LDL Cholesterol VLDL Cholesterol HDL Cholesterol Heart Disease Risk Ratio Free T4 TSH 3rd Generation 07/09/17 07/09/17 14:05 14:05 WBC RBC Hgb Hct MCV MCH MCHC RDW Plt Count MPV Neut % (Auto) Lymph % (Auto) [place] % (Auto) Eos % (Auto) Baso % (Auto) Neut # (Auto) Lymph # (Auto) [place] # (Auto) Eos # (Auto) Baso # (Auto) Immature Gran % Nucleated RBC % Immature Gran # Nucleated RBCs # Immature Plt Fraction INR 1.2 PT Patient/Control Mix 12.9 D Circ Anticoag PTT 57.0 H D Sodium 136 Potassium 4.1 Chloride 100 Carbon Dioxide 27 Anion Gap 13.1 BUN 31 H Creatinine 5.60 H GFR Calculation 11 BUN/Creatinine Ratio 5.00 L Glucose 299 H POC Glucose Calculated Osmolality 289.0 Calcium 7.4 L Magnesium Total Bilirubin 0.60 AST 13 ALT < 9 L Alkaline Phosphatase 204 H Troponin I Total Protein 7.2 Albumin 2.9 L Globulin 4.3 H Albumin/Globulin Ratio 0.6 L Triglycerides Cholesterol LDL Cholesterol VLDL Cholesterol HDL Cholesterol Heart Disease Risk Ratio Free T4 TSH 3rd Generation - Imaging and Cardiology Cardiology Procedure: report reviewed by Procedure: Chest x-ray: report reviewed by DS: Provider Date of admission: 07/09/17 16:46 Primary care physician: Amy Palacio Attending physician on admission: Aj Dale Discharging clinician: Lynn Venegas NP Expected date of discharge: 07/10/17
[2017-07-10] MEDS: clonazePAM 0.5 MG TABLET PO SCH (10:14)
[2017-07-10] MEDS: CARVEDILOL 25 MG TABLET PO SCH (10:14)
[2017-07-10] MEDS: INSULIN LISPRO 100 UNIT/ML SUBCUT SCH ×2 (10:18→12:08)
[2017-07-10 12:27] VITALS: BP 142/92
[2017-07-10] MEDS ORDERED: ENOXAPARIN 30 MG/0.3 ML SYRINGE SUBCUT SCH (14:00)
[2017-07-10] MEDS ORDERED: CINACALCET 30 MG TABLET PO SCH (17:00)
== END 2017-07-10 13:34 | disposition home or self-care (01) ==
LOC: EDUNIT# → EDBD → N.ED 13:22 → N.EDINP 13:22 → N.TELES 18:00
PROVIDERS: ADMIT Internal Medicine Cardiovascular Disease; ATTEND Internal Medicine Cardiovascular Disease

== ENCOUNTER 2017-09-05 08:31 | Inpatient (IN) ==
[2017-09-05] MEDS ORDERED: HEPARIN LOCK FLUSH 500 UNIT/5 ML SYRINGE IV ONE (09:09)
[2017-09-05 09:23] LABS: Basophils # 0.1 10*3/uL (0.0-0.2); Basophils % 0.5 % (0.0-0.8); Eosinophils # 0.4 10*3/uL (0.0-0.87); Eosinophils % 4.1 % (0.00-10.9); Hematocrit 31.9 VOL% (35.7-47.0); Hemoglobin 10.4 GM/DL (12.0-16.0); Immature Granulocytes % 0.4 %; Immature Granulocytes Absolute 0.04 #; Lymphocytes % 32.3 % (21.3-54.2); Mean Corpuscular HGB Conc 32.6 GM/DL (32-36); Mean Corpuscular Hemoglobin 27 PG (27-34); Mean Corpuscular Volume 83.3 FL (87-102); Mean Platelet Volume 9.8 FL (9.6-12.0); Monocytes # 0.5 10*3/uL (0.11-0.8); Monocytes % 5.1 % (1.7-12.7); Neutrophils # 5.4 10*3/uL (1.4-7.4); Neutrophils % 57.6 % (38.7-73.9); Platelet Count 310 T/CUMM (130-400); Red Blood Count 3.83 MC/CUMM (3.8-5.5); White Blood Count 9.3 T/CUMM (4-12)
[2017-09-05 09:59] LABS: Alanine Aminotransferase 15 U/L (13-56); Albumin 3.3 G/DL (3.4-5.0); Alkaline Phosphatase 203 U/L (45-117); Aspartate Amino Transferase 16 U/L (0-37); Bilirubin,Total < 0.39 MG/DL (0.2-1.0); Blood Urea Nitrogen 63 MG/DL (7-18); Calcium 7.3 MG/DL (8.5-10.1); Glucose 191 MG/DL (74-106); Magnesium 2.3 MG/DL (1.8-2.4); Osmolality,Calculated 292.1 MOS/KG (273-304); Potassium 4.3 MMOL/L (3.5-5.1); Sodium 135 MMOL/L (136-145); Total Protein 7.6 G/DL (6.4-8.3)
[2017-09-05] MEDS ORDERED: GLUCAGON 1 MG VIAL IM PRN (11:25)
[2017-09-05] MEDS ORDERED: DEXTROSE 50% 25 GM/50 ML VIAL IV PRN (11:25)
[2017-09-05] MEDS: INSULIN REGULAR 100 UNIT/ML SUBCUT SCH ×3 (14:47→21:18)
[2017-09-05] MEDS: CARVEDILOL 3.125 MG TABLET PO SCH ×2 (15:31→21:18)
[2017-09-05] MEDS ORDERED: NITROGLYCERIN SL 0.4 MG TABLET SL PRN (16:00)
[2017-09-05] MEDS ORDERED: PROCHLORPERAZINE 10 MG TABLET PO PRN (16:00)
[2017-09-05] MEDS ORDERED: ACETAMINOPHEN 325 MG TABLET PO PRN (16:02)
[2017-09-05] MEDS: CINACALCET 30 MG TABLET PO SCH (17:13)
[2017-09-05] MEDS: CALCITRIOL 0.5 MCG CAPSULE PO SCH (17:13)
[2017-09-05] MEDS: PREGABALIN 75 MG CAPSULE PO SCH (17:14)
[2017-09-05] MEDS: PANTOPRAZOLE 40 MG TABLET PO SCH (21:18)
[2017-09-05] MEDS: ROSUVASTATIN 10 MG TABLET PO SCH (21:18)
[2017-09-05] MEDS: clonazePAM 0.5 MG TABLET PO SCH (21:18)
[2017-09-05] MEDS: AMITRIPTYLINE 25 MG TABLET PO SCH (21:18)
[2017-09-06] MEDS: PREGABALIN 75 MG CAPSULE PO SCH ×3 (00:10→17:17)
[2017-09-06 06:15] LABS: Basophils # 0.1 10*3/uL (0.0-0.2); Basophils % 0.6 % (0.0-0.8); Eosinophils # 0.4 10*3/uL (0.0-0.87); Eosinophils % 5.2 % (0.00-10.9); Hematocrit 33.7 VOL% (35.7-47.0); Hemoglobin 10.7 GM/DL (12.0-16.0); Immature Granulocytes % 0.5 %; Immature Granulocytes Absolute 0.04 #; Lymphocytes # 3.2 10*3/uL (1.4-4.0); Lymphocytes % 40.7 % (21.3-54.2); Mean Corpuscular HGB Conc 31.8 GM/DL (32-36); Mean Corpuscular Hemoglobin 26 PG (27-34); Mean Corpuscular Volume 82.6 FL (87-102); Mean Platelet Volume 10.3 FL (9.6-12.0); Monocytes # 0.4 10*3/uL (0.11-0.8); Monocytes % 5.6 % (1.7-12.7); Neutrophils # 3.8 10*3/uL (1.4-7.4); Neutrophils % 47.4 % (38.7-73.9); Platelet Count 354 T/CUMM (130-400); Red Blood Count 4.08 MC/CUMM (3.8-5.5); Red Cell Distribution Width 15.9 % (9.3-17.3); White Blood Count 7.9 T/CUMM (4-12)
[2017-09-06 06:45] LABS: Calcium 7.7 MG/DL (8.5-10.1); Magnesium 2.6 MG/DL (1.8-2.4); Potassium 5.1 MMOL/L (3.5-5.1)
[2017-09-06] MEDS: INSULIN REGULAR 100 UNIT/ML SUBCUT SCH ×4 (08:44→22:42)
[2017-09-06] MEDS: CARVEDILOL 3.125 MG TABLET PO SCH ×2 (08:45→22:41)
[2017-09-06] MEDS: PANTOPRAZOLE 40 MG TABLET PO SCH ×2 (08:46→22:42)
[2017-09-06] MEDS: ASPIRIN EC 325 MG TABLET PO SCH (08:46)
[2017-09-06] MEDS: clonazePAM 0.5 MG TABLET PO SCH ×2 (08:46→22:41)
[2017-09-06] MEDS: hydroCHLOROthiazide 25 MG TABLET PO SCH (08:46)
[2017-09-06] MEDS: amLODIPine 10 MG TABLET PO SCH (08:46)
[2017-09-06] MEDS: NORTRIPTYLINE 10 MG CAPSULE PO SCH (08:57)
[2017-09-06] MEDS ORDERED: ALUM/MAG/SIMETH/LIDO VISC 1:1 30 ML BOTTLE PO ONE (09:05)
[2017-09-06] MEDS: ONDANSETRON 4 MG/2 ML VIAL IV PRN ×2 (12:53→17:24)
[2017-09-06] MEDS: CINACALCET 30 MG TABLET PO SCH (17:17)
[2017-09-06] MEDS: ROSUVASTATIN 10 MG TABLET PO SCH (22:41)
[2017-09-06] MEDS: AMITRIPTYLINE 25 MG TABLET PO SCH (22:41)
[2017-09-07] MEDS: PREGABALIN 75 MG CAPSULE PO SCH ×3 (00:27→16:46)
[2017-09-07] MEDS: ONDANSETRON 4 MG/2 ML VIAL IV PRN ×2 (00:32→10:40)
[2017-09-07 06:20] LABS: Basophils # 0.1 10*3/uL (0.0-0.2); Eosinophils # 0.3 10*3/uL (0.0-0.87); Eosinophils % 4.6 % (0.00-10.9); Hematocrit 34.7 VOL% (35.7-47.0); Hemoglobin 11.4 GM/DL (12.0-16.0); Immature Granulocytes % 0.2 %; Immature Granulocytes Absolute 0.01 #; Lymphocytes # 2.3 10*3/uL (1.4-4.0); Mean Corpuscular HGB Conc 32.9 GM/DL (32-36); Mean Corpuscular Hemoglobin 27 PG (27-34); Mean Platelet Volume 10.1 FL (9.6-12.0); Monocytes # 0.3 10*3/uL (0.11-0.8); Monocytes % 4.8 % (1.7-12.7); Neutrophils # 3.3 10*3/uL (1.4-7.4); Neutrophils % 52.4 % (38.7-73.9); Platelet Count 348 T/CUMM (130-400); Red Blood Count 4.23 MC/CUMM (3.8-5.5); White Blood Count 6.3 T/CUMM (4-12)
[2017-09-07 06:50] LABS: Calcium 8.1 MG/DL (8.5-10.1)
[2017-09-07 06:51] LABS: Magnesium 2.4 MG/DL (1.8-2.4); Osmolality,Calculated 273.1 MOS/KG (273-304); Potassium 5.3 MMOL/L (3.5-5.1)
[2017-09-07] MEDS: INSULIN REGULAR 100 UNIT/ML SUBCUT SCH ×4 (08:30→22:13)
[2017-09-07] MEDS: amLODIPine 10 MG TABLET PO SCH (08:32)
[2017-09-07] MEDS: CARVEDILOL 3.125 MG TABLET PO SCH ×2 (08:33→22:08)
[2017-09-07] MEDS: clonazePAM 0.5 MG TABLET PO SCH ×2 (08:33→22:08)
[2017-09-07] MEDS: PANTOPRAZOLE 40 MG TABLET PO SCH ×2 (08:33→22:08)
[2017-09-07] MEDS: hydroCHLOROthiazide 25 MG TABLET PO SCH (08:33)
[2017-09-07] MEDS: ASPIRIN EC 325 MG TABLET PO SCH (08:33)
[2017-09-07] MEDS: NORTRIPTYLINE 10 MG CAPSULE PO SCH (08:36)
[2017-09-07] MEDS: CINACALCET 30 MG TABLET PO SCH (16:46)
[2017-09-07] MEDS: ROSUVASTATIN 10 MG TABLET PO SCH (22:08)
[2017-09-07] MEDS: AMITRIPTYLINE 25 MG TABLET PO SCH (22:08)
[2017-09-07] MEDS: HYDROmorphone 2 MG/1 ML VIAL IV PRN (22:30)
[2017-09-08] MEDS: PREGABALIN 75 MG CAPSULE PO SCH ×3 (00:36→17:17)
[2017-09-08] MEDS: HYDROmorphone 2 MG/1 ML VIAL IV PRN ×3 (01:48→15:59)
[2017-09-08 06:05] LABS: Basophils # 0.1 10*3/uL (0.0-0.2); Basophils % 0.7 % (0.0-0.8); Eosinophils # 0.3 10*3/uL (0.0-0.87); Eosinophils % 4.7 % (0.00-10.9); Hematocrit 35.2 VOL% (35.7-47.0); Hemoglobin 11.4 GM/DL (12.0-16.0); Immature Granulocytes % 0.3 %; Immature Granulocytes Absolute 0.02 #; Lymphocytes # 2.9 10*3/uL (1.4-4.0); Lymphocytes % 39.7 % (21.3-54.2); Mean Corpuscular HGB Conc 32.4 GM/DL (32-36); Mean Corpuscular Hemoglobin 27 PG (27-34); Mean Corpuscular Volume 82.6 FL (87-102); Mean Platelet Volume 9.8 FL (9.6-12.0); Monocytes # 0.5 10*3/uL (0.11-0.8); Monocytes % 6.2 % (1.7-12.7); Neutrophils # 3.5 10*3/uL (1.4-7.4); Neutrophils % 48.4 % (38.7-73.9); Platelet Count 362 T/CUMM (130-400); Red Blood Count 4.26 MC/CUMM (3.8-5.5); White Blood Count 7.3 T/CUMM (4-12)
[2017-09-08 06:31] LABS: Calcium 7.7 MG/DL (8.5-10.1); Magnesium 2.6 MG/DL (1.8-2.4); Osmolality,Calculated 281.2 MOS/KG (273-304)
[2017-09-08 06:40] LABS: Potassium 6.4 MMOL/L (3.5-5.1)
[2017-09-08] MEDS: INSULIN REGULAR 100 UNIT/ML SUBCUT SCH ×3 (13:36→17:18)
[2017-09-08] MEDS ORDERED: PROPOFOL 200 MG/20 ML VIAL IV ONE (14:46)
[2017-09-08] MEDS ORDERED: LIDOCAINE 1% 5 ML VIAL ONE (14:46)
[2017-09-08] MEDS ORDERED: PHENYLEPHRINE 1 MG/10 ML SYRINGE IV ONE (14:46)
[2017-09-08] MEDS: NORTRIPTYLINE 10 MG CAPSULE PO SCH (16:01)
[2017-09-08] MEDS: amLODIPine 10 MG TABLET PO SCH (16:01)
[2017-09-08] MEDS: hydroCHLOROthiazide 25 MG TABLET PO SCH (16:01)
[2017-09-08] MEDS: clonazePAM 0.5 MG TABLET PO SCH (16:02)
[2017-09-08] MEDS: PANTOPRAZOLE 40 MG TABLET PO SCH (16:02)
[2017-09-08] MEDS: ASPIRIN EC 325 MG TABLET PO SCH (16:02)
[2017-09-08] MEDS: CARVEDILOL 3.125 MG TABLET PO SCH (16:02)
[2017-09-08 16:47] VITALS: BP 117/72
[2017-09-08] MEDS: CALCITRIOL 0.5 MCG CAPSULE PO SCH (17:21)
[2017-09-08] MEDS: CINACALCET 30 MG TABLET PO SCH (17:29)
== END 2017-09-08 18:45 | disposition home or self-care (01) | DRG 313 ==
LOC: EDBD → EDUNIT# → N.ED 08:31 → N.EDINP 08:31 → N.TELEN 11:03
PROVIDERS: ADMIT Internal Medicine; ATTEND Internal Medicine

== ENCOUNTER 2018-01-05 07:16 | Observation (INO) ==
[2018-01-05] MEDS ORDERED: ONDANSETRON 4 MG/2 ML VIAL IV PRN (07:57)
[2018-01-05] MEDS ORDERED: ASPIRIN 325 MG TABLET PO STA (07:57)
[2018-01-05] MEDS ORDERED: NITROGLYCERIN 2% OINT 1 INCH/GM PACK TOP STA (07:57)
[2018-01-05] MEDS ORDERED: ALUM/MAG/SIMETH/LIDO VISC 1:1 30 ML BOTTLE PO STA (07:57)
[2018-01-05] MEDS ORDERED: NITROGLYCERIN 2% OINT 1 INCH/GM PACK TOP ONE (08:32)
[2018-01-05] MEDS ORDERED: ASPIRIN 325 MG TABLET ONE (08:33)
[2018-01-05] MEDS ORDERED: ALUM/MAG/SIMETH/LIDO VISC 1:1 30 ML BOTTLE PO ONE (08:33)
[2018-01-05] MEDS ORDERED: ONDANSETRON ODT 4 MG TABLET PO ONE (08:33)
[2018-01-05 08:35] LABS: Basophils # 0.1 10*3/uL (0.0-0.2); Basophils % 0.9 % (0.0-0.8); Eosinophils # 0.2 10*3/uL (0.0-0.87); Eosinophils % 2.8 % (0.00-10.9); Hematocrit 41.4 VOL% (35.7-47.0); Hemoglobin 12.7 GM/DL (12.0-16.0); Immature Granulocytes % 0.3 %; Immature Granulocytes Absolute 0.02 #; Lymphocytes # 1.7 10*3/uL (1.4-4.0); Lymphocytes % 26.3 % (21.3-54.2); Mean Corpuscular HGB Conc 30.7 GM/DL (32-36); Mean Corpuscular Hemoglobin 25 PG (27-34); Mean Corpuscular Volume 82.5 FL (87-102); Monocytes # 0.4 10*3/uL (0.11-0.8); Monocytes % 6.6 % (1.7-12.7); Neutrophils % 63.1 % (38.7-73.9); Platelet Count 351 T/CUMM (130-400); Red Blood Count 5.02 MC/CUMM (3.8-5.5); Red Cell Distribution Width 17.1 % (9.3-17.3); White Blood Count 6.4 T/CUMM (4-12)
[2018-01-05] MEDS ORDERED: ONDANSETRON ODT 4 MG TABLET PO STA (08:57)
[2018-01-05 09:06] LABS: Alanine Aminotransferase < 9 U/L (13-56); Albumin 3.4 G/DL (3.4-5.0); Alkaline Phosphatase 153 U/L (45-117); Aspartate Amino Transferase 10 U/L (0-37); Blood Urea Nitrogen 33 MG/DL (7-18); Calcium 8.4 MG/DL (8.5-10.1); Glucose 106 MG/DL (74-106); Osmolality,Calculated 279.8 MOS/KG (273-304); Potassium 3.6 MMOL/L (3.5-5.1); Sodium 137 MMOL/L (136-145); Total Protein 7.8 G/DL (6.4-8.3); Troponin I Only < 0.015 NG/ML (0.00-0.045)
[2018-01-05] MEDS ORDERED: ACETAMINOPHEN 325 MG TABLET ONE (09:35)
[2018-01-05] MEDS ORDERED: ACETAMINOPHEN 325 MG TABLET PO ONE (09:36)
[2018-01-05] MEDS ORDERED: NITROGLYCERIN SL 0.4 MG TABLET SL PRN (09:59)
[2018-01-05] MEDS ORDERED: amLODIPine 10 MG TABLET PO SCH (10:00)
[2018-01-05] MEDS: CALCITRIOL 0.5 MCG CAPSULE PO SCH (12:31)
[2018-01-05] MEDS: CALCIUM ACETATE 667 MG CAPSULE PO SCH ×2 (12:33→18:38)
[2018-01-05] MEDS: hydroCHLOROthiazide 25 MG TABLET PO SCH (12:34)
[2018-01-05] MEDS: CARVEDILOL 3.125 MG TABLET PO SCH ×2 (12:34→21:33)
[2018-01-05] MEDS: PANTOPRAZOLE 40 MG TABLET PO SCH ×2 (12:34→21:33)
[2018-01-05] MEDS: ONDANSETRON 4 MG/2 ML VIAL IV PRN ×2 (14:44→19:58)
[2018-01-05] MEDS: PREGABALIN 75 MG CAPSULE PO SCH ×2 (14:44→21:33)
[2018-01-05] MEDS ORDERED: HEPARIN 10,000 UNIT/10 ML VIAL IV PRN (16:02)
[2018-01-05] MEDS: CINACALCET 30 MG TABLET PO SCH (18:38)
[2018-01-05] MEDS ORDERED: ERYTHROMYCIN INJ 125 MG in SODIUM CHLORIDE 0.9% 100 ML IV SCH (20:00)
[2018-01-05] MEDS: ZALEPLON 5 MG CAPSULE PO SCH (21:33)
[2018-01-05] MEDS: clonazePAM 0.5 MG TABLET PO SCH ×2 (21:33→21:36)
[2018-01-05] MEDS: INSULIN NPH/REGULAR 70/30 100 UNIT/ML SUBCUT SCH (21:33)
[2018-01-06] MEDS: PREGABALIN 75 MG CAPSULE PO SCH ×3 (06:11→21:15)
[2018-01-06 07:09] LABS: Basophils # 0.1 10*3/uL (0.0-0.2); Basophils % 1.1 % (0.0-0.8); Eosinophils # 0.4 10*3/uL (0.0-0.87); Eosinophils % 5.1 % (0.00-10.9); Hematocrit 42.2 VOL% (35.7-47.0); Hemoglobin 13.2 GM/DL (12.0-16.0); Immature Granulocytes % 0.3 %; Immature Granulocytes Absolute 0.02 #; Lymphocytes # 1.6 10*3/uL (1.4-4.0); Lymphocytes % 23.1 % (21.3-54.2); Mean Corpuscular HGB Conc 31.3 GM/DL (32-36); Mean Corpuscular Hemoglobin 25 PG (27-34); Mean Corpuscular Volume 81.2 FL (87-102); Monocytes # 0.6 10*3/uL (0.11-0.8); Monocytes % 7.7 % (1.7-12.7); Neutrophils # 4.5 10*3/uL (1.4-7.4); Neutrophils % 62.7 % (38.7-73.9); Platelet Count 356 T/CUMM (130-400); Red Cell Distribution Width 17.1 % (9.3-17.3); White Blood Count 7.1 T/CUMM (4-12)
[2018-01-06 07:47] LABS: Alanine Aminotransferase < 6 U/L (13-56); Albumin 3.4 G/DL (3.4-5.0); Alkaline Phosphatase 159 U/L (45-117); Aspartate Amino Transferase 13 U/L (0-37); Blood Urea Nitrogen 19 MG/DL (7-18); Calcium 8.2 MG/DL (8.5-10.1); Glucose 94 MG/DL (74-106); Osmolality,Calculated 271.1 MOS/KG (273-304); Potassium 4.1 MMOL/L (3.5-5.1); Sodium 135 MMOL/L (136-145); Total Protein 7.3 G/DL (6.4-8.3)
[2018-01-06] MEDS: ONDANSETRON 4 MG/2 ML VIAL IV PRN ×2 (08:24→14:14)
[2018-01-06] MEDS: CALCIUM ACETATE 667 MG CAPSULE PO SCH ×3 (08:25→17:33)
[2018-01-06] MEDS: INSULIN NPH/REGULAR 70/30 100 UNIT/ML SUBCUT SCH ×2 (08:25→21:15)
[2018-01-06] MEDS: hydroCHLOROthiazide 25 MG TABLET PO SCH (08:25)
[2018-01-06] MEDS: ASPIRIN EC 325 MG TABLET PO SCH (08:26)
[2018-01-06] MEDS: PANTOPRAZOLE 40 MG TABLET PO SCH ×2 (08:26→21:14)
[2018-01-06] MEDS: levETIRAcetam 500 MG TABLET PO SCH (08:26)
[2018-01-06] MEDS: clonazePAM 0.5 MG TABLET PO SCH ×2 (08:26→21:14)
[2018-01-06] MEDS: CARVEDILOL 3.125 MG TABLET PO SCH ×2 (08:26→21:19)
[2018-01-06] MEDS: ERYTHROMYCIN BASE 250 MG TABLET PO SCH ×2 (13:10→21:13)
[2018-01-06] MEDS: CINACALCET 30 MG TABLET PO SCH (17:34)
[2018-01-06] MEDS: ZALEPLON 5 MG CAPSULE PO SCH (21:14)
[2018-01-07] MEDS: ERYTHROMYCIN BASE 250 MG TABLET PO SCH ×2 (05:34→14:56)
[2018-01-07] MEDS: PREGABALIN 75 MG CAPSULE PO SCH ×2 (05:34→14:56)
[2018-01-07 07:33] LABS: Calcium 7.6 MG/DL (8.5-10.1); Osmolality,Calculated 267.5 MOS/KG (273-304); Potassium 4.6 MMOL/L (3.5-5.1)
[2018-01-07] MEDS: INSULIN NPH/REGULAR 70/30 100 UNIT/ML SUBCUT SCH (10:50)
[2018-01-07] MEDS ORDERED: PROPOFOL 200 MG/20 ML VIAL IV ONE (14:09)
[2018-01-07] MEDS ORDERED: LIDOCAINE 2% 5 ML VIAL ONE (14:09)
[2018-01-07] MEDS: CALCIUM ACETATE 667 MG CAPSULE PO SCH ×2 (14:55→17:15)
[2018-01-07 15:06] VITALS: BP 136/90
[2018-01-07] MEDS: hydroCHLOROthiazide 25 MG TABLET PO SCH (16:16)
[2018-01-07] MEDS: CARVEDILOL 3.125 MG TABLET PO SCH (16:16)
[2018-01-07] MEDS: ASPIRIN EC 325 MG TABLET PO SCH (16:16)
[2018-01-07] MEDS: PANTOPRAZOLE 40 MG TABLET PO SCH (16:17)
[2018-01-07] MEDS: levETIRAcetam 500 MG TABLET PO SCH (16:17)
[2018-01-07] MEDS: clonazePAM 0.5 MG TABLET PO SCH (16:26)
[2018-01-07] MEDS: CALCITRIOL 0.5 MCG CAPSULE PO SCH (16:26)
[2018-01-07] MEDS: CINACALCET 30 MG TABLET PO SCH (17:15)
== END 2018-01-07 19:24 | disposition home or self-care (01) ==
LOC: EDBD → EDUNIT# → N.EDINP 07:16 → N.ED 07:16 → N.EDINP 11:21 → N.TELES 11:26
PROVIDERS: ADMIT Family Medicine; ATTEND Family Medicine

== ENCOUNTER 2018-01-21 17:23 | Inpatient (IN) ==
[2018-01-21 18:03] LABS: Basophils # 0.1 10*3/uL (0.0-0.2); Basophils % 0.7 % (0.0-0.8); Eosinophils % 0.1 % (0.00-10.9); Hematocrit 32.7 VOL% (35.7-47.0); Hemoglobin 10.6 GM/DL (12.0-16.0); Immature Granulocytes % 0.6 %; Immature Granulocytes Absolute 0.05 #; Lymphocytes # 1.4 10*3/uL (1.4-4.0); Lymphocytes % 15.6 % (21.3-54.2); Mean Corpuscular HGB Conc 32.4 GM/DL (32-36); Mean Corpuscular Hemoglobin 26 PG (27-34); Mean Corpuscular Volume 78.6 FL (87-102); Mean Platelet Volume 11.7 FL (9.6-12.0); Monocytes # 0.4 10*3/uL (0.11-0.8); Neutrophils # 6.9 10*3/uL (1.4-7.4); Platelet Count 261 T/CUMM (130-400); Red Blood Count 4.16 MC/CUMM (3.8-5.5); White Blood Count 8.7 T/CUMM (4-12)
[2018-01-21 18:23] LABS: Alanine Aminotransferase 11 U/L (13-56); Albumin 3.1 G/DL (3.4-5.0); Alkaline Phosphatase 143 U/L (45-117); Aspartate Amino Transferase 13 U/L (0-37); Blood Urea Nitrogen 75 MG/DL (7-18); Calcium 8.2 MG/DL (8.5-10.1); Glucose 68 MG/DL (74-106); Osmolality,Calculated 287.2 MOS/KG (273-304); Potassium 5.5 MMOL/L (3.5-5.1); Sodium 134 MMOL/L (136-145); Total Protein 7.6 G/DL (6.4-8.3)
[2018-01-21 18:24] LABS: Lactic Acid 0.9 MMOL/L (0.4-2.0)
[2018-01-21 18:27] LABS: Ammonia < 10 UMOL/L (11-32)
[2018-01-21 18:36] LABS: Acetaminophen < 2.0 UG/ML (10-30); Salicylate < 2.8 MG/DL (2.8-20)
[2018-01-21] MEDS ORDERED: DEXTROSE 50% 25 GM/50 ML VIAL IV STA (18:40)
[2018-01-21] MEDS ORDERED: CALCIUM GLUCONATE 1,000 MG in SODIUM CHLORIDE 0.9% 100 ML IV ONE (19:24)
[2018-01-21] MEDS ORDERED: DEXTROSE 50% 25 GM/50 ML VIAL IV ONE (19:28)
[2018-01-21 19:31] LABS: T4 (Thyroxine) 8.1 UG/DL (4.7-13.3); Thyroid Stimulating Hormone 0.094 uIU/ml (0.358-3.74)
[2018-01-21] MEDS ORDERED: GLUCAGON 1 MG VIAL IM PRN (21:12)
[2018-01-21] MEDS: hydrALAZINE 20 MG/1 ML VIAL IV PRN (21:57)
[2018-01-21] MEDS: DEXTROSE 50% 25 GM/50 ML VIAL IV PRN (23:12)
[2018-01-22] MEDS: PIPERACILLIN/TAZOBACTAM 3,375 MG in SODIUM CHLORIDE 0.9% 100 ML IV SCH ×2 (00:07→17:15)
[2018-01-22] MEDS ORDERED: ACETAMINOPHEN 650 MG SUPP RECTAL ONE (01:12)
[2018-01-22] MEDS ORDERED: ACETAMINOPHEN 650 MG SUPP RECTAL PRN (01:19)
[2018-01-22] MEDS ORDERED: ASPIRIN CHEW 81 MG TABLET PO PRN (01:29)
[2018-01-22 01:42] LABS: Apearance,Urine CLEAR (Clear); Bacteria,Urine Occasional /HPF (Few); Bilirubin,Urine Negative (Negative); Blood, Urine Small mg/dL (Negative); Glucose,Urine (UA) 50 mg/dL (Negative); Hyaline Casts,Urine 1 /LPF (0-3); Ketones,Urine 5 mg/dL (Negative); Nitrite,Urine Negative (Negative); Protein,Urine >=500 MG/DL; RBC,Urine 3 /HPF (0-4); Squamous Epithelial Cell,Urine Occasional /HPF (0-10); Urine Color Yellow (Yellow); Urine Specific Gravity 1.014 (1.001-1.035); Urine Urobilinogen < 2.0 EU/DL (0.2-1.0); WBC,Urine 2 /HPF (0-6)
[2018-01-22 02:05] LABS: Barbiturates Screen,Urine Negative (Negative); Benzodiazepines Screen,Urine Positive (Negative); Cannabinoid Screen,Urine Negative (Negative); Opiate Screen,Urine Negative (Negative); Phencyclidine Screen,Urine Negative (Negative)
[2018-01-22] MEDS: hydrALAZINE 20 MG/1 ML VIAL IV PRN (02:17)
[2018-01-22 02:21] LABS: Basophils # 0.1 10*3/uL (0.0-0.2); Basophils % 0.5 % (0.0-0.8); Hematocrit 32.4 VOL% (35.7-47.0); Hemoglobin 10.3 GM/DL (12.0-16.0); Immature Granulocytes % 0.6 %; Immature Granulocytes Absolute 0.06 #; Lymphocytes # 0.9 10*3/uL (1.4-4.0); Lymphocytes % 9.3 % (21.3-54.2); Mean Corpuscular HGB Conc 31.8 GM/DL (32-36); Mean Corpuscular Hemoglobin 25 PG (27-34); Mean Corpuscular Volume 79.6 FL (87-102); Mean Platelet Volume 11.2 FL (9.6-12.0); Monocytes # 0.4 10*3/uL (0.11-0.8); Neutrophils # 8.2 10*3/uL (1.4-7.4); Neutrophils % 85.6 % (38.7-73.9); Platelet Count 232 T/CUMM (130-400); Red Blood Count 4.07 MC/CUMM (3.8-5.5); Red Cell Distribution Width 18.3 % (9.3-17.3); White Blood Count 9.6 T/CUMM (4-12)
[2018-01-22 02:39] LABS: Albumin 3.3 G/DL (3.4-5.0); Bilirubin,Total 0.7 MG/DL (0.2-1.0); Osmolality,Calculated 289.4 MOS/KG (273-304); Potassium 5.4 MMOL/L (3.5-5.1); Total Protein 7.2 G/DL (6.4-8.3)
[2018-01-22] MEDS: INSULIN LISPRO 100 UNIT/ML SUBCUT SCH ×4 (07:36→18:14)
[2018-01-22] MEDS: amLODIPine 10 MG TABLET PO SCH (09:25)
[2018-01-22] MEDS ORDERED: HEPARIN 10,000 UNIT/10 ML VIAL IV SCH (11:30)
[2018-01-22] MEDS ORDERED: ONDANSETRON 4 MG TABLET PO PRN (12:17)
[2018-01-22] MEDS ORDERED: VANCOMYCIN INJ 1,000 MG in SODIUM CHLORIDE 0.9% 250 ML IV SCH (14:00)
[2018-01-22] MEDS: PROPRANOLOL 20 MG TABLET PO SCH ×2 (14:11→21:00)
[2018-01-22] MEDS ORDERED: CALCIUM ACETATE 667 MG CAPSULE PO SCH (17:00)
[2018-01-22] MEDS: ENOXAPARIN 30 MG/0.3 ML SYRINGE SUBCUT SCH (18:35)
[2018-01-22] MEDS: PANTOPRAZOLE 40 MG TABLET PO SCH (20:19)
[2018-01-22] MEDS ORDERED: ASPIRIN 325 MG TABLET PO ONE (21:00)
[2018-01-23] MEDS: DEXTROSE 50% 25 GM/50 ML VIAL IV PRN ×2 (00:57→06:19)
[2018-01-23] MEDS: INSULIN LISPRO 100 UNIT/ML SUBCUT SCH ×5 (00:57→23:58)
[2018-01-23] MEDS: PIPERACILLIN/TAZOBACTAM 3,375 MG in SODIUM CHLORIDE 0.9% 100 ML IV SCH ×2 (03:34→17:29)
[2018-01-23] MEDS: PROPRANOLOL 20 MG TABLET PO SCH ×3 (06:12→21:58)
[2018-01-23] MEDS: PANTOPRAZOLE 40 MG TABLET PO SCH ×2 (08:38→21:57)
[2018-01-23] MEDS: levETIRAcetam 500 MG TABLET PO SCH (08:38)
[2018-01-23] MEDS: LOPERAMIDE 2 MG CAPSULE PO PRN ×2 (08:38→22:00)
[2018-01-23] MEDS: ASPIRIN CHEW 81 MG TABLET PO SCH (08:39)
[2018-01-23] MEDS: amLODIPine 10 MG TABLET PO SCH (08:39)
[2018-01-23] MEDS: CINACALCET 30 MG TABLET PO SCH (08:39)
[2018-01-23] MEDS ORDERED: PREGABALIN 75 MG CAPSULE PO SCH (09:00)
[2018-01-23 09:21] LABS: Basophils # 0.1 10*3/uL (0.0-0.2); Basophils % 1.1 % (0.0-0.8); Eosinophils # 0.1 10*3/uL (0.0-0.87); Eosinophils % 1.1 % (0.00-10.9); Hematocrit 36.7 VOL% (35.7-47.0); Hemoglobin 11.4 GM/DL (12.0-16.0); Immature Granulocytes % 0.5 %; Immature Granulocytes Absolute 0.03 #; Lymphocytes # 1.1 10*3/uL (1.4-4.0); Mean Corpuscular HGB Conc 31.1 GM/DL (32-36); Mean Corpuscular Hemoglobin 25 PG (27-34); Mean Corpuscular Volume 81.4 FL (87-102); Mean Platelet Volume 12.1 FL (9.6-12.0); Monocytes # 0.3 10*3/uL (0.11-0.8); NRBC # 0.06 10*3/uL; Neutrophils % 76.3 % (38.7-73.9); Platelet Count 284 T/CUMM (130-400); Red Blood Count 4.51 MC/CUMM (3.8-5.5); Red Cell Distribution Width 18.2 % (9.3-17.3); White Blood Count 6.5 T/CUMM (4-12)
[2018-01-23 10:36] LABS: Calcium 8.1 MG/DL (8.5-10.1); Osmolality,Calculated 283.1 MOS/KG (273-304); Potassium 4.5 MMOL/L (3.5-5.1)
[2018-01-23 11:19] LABS: VLDL CHOLESTEROL 29.8 MG/DL
[2018-01-23] MEDS: ENOXAPARIN 30 MG/0.3 ML SYRINGE SUBCUT SCH (18:18)
[2018-01-23] MEDS ORDERED: ZINC OXIDE PASTE 113 GM TUBE TOP PRN (21:27)
[2018-01-23] MEDS: BENZONATATE 100 MG CAPSULE PO PRN (21:57)
[2018-01-24] MEDS: PIPERACILLIN/TAZOBACTAM 3,375 MG in SODIUM CHLORIDE 0.9% 100 ML IV SCH (04:36)
[2018-01-24] MEDS: INSULIN LISPRO 100 UNIT/ML SUBCUT SCH ×2 (06:27→13:53)
[2018-01-24] MEDS: PROPRANOLOL 20 MG TABLET PO SCH ×2 (06:28→13:59)
[2018-01-24] MEDS: LOPERAMIDE 2 MG CAPSULE PO PRN (06:41)
[2018-01-24] MEDS: BENZONATATE 100 MG CAPSULE PO PRN (08:02)
[2018-01-24 09:42] LABS: Basophils % 0.7 % (0.0-0.8); Eosinophils # 0.3 10*3/uL (0.0-0.87); Eosinophils % 6.6 % (0.00-10.9); Hematocrit 33.5 VOL% (35.7-47.0); Hemoglobin 10.4 GM/DL (12.0-16.0); Immature Granulocytes % 0.7 %; Immature Granulocytes Absolute 0.03 #; Lymphocytes # 1.5 10*3/uL (1.4-4.0); Lymphocytes % 33.6 % (21.3-54.2); Mean Corpuscular Hemoglobin 26 PG (27-34); Mean Corpuscular Volume 82.3 FL (87-102); Mean Platelet Volume 11.2 FL (9.6-12.0); Monocytes # 0.2 10*3/uL (0.11-0.8); Monocytes % 4.2 % (1.7-12.7); Neutrophils # 2.5 10*3/uL (1.4-7.4); Neutrophils % 54.2 % (38.7-73.9); Platelet Count 264 T/CUMM (130-400); Red Blood Count 4.07 MC/CUMM (3.8-5.5); Red Cell Distribution Width 17.9 % (9.3-17.3); White Blood Count 4.6 T/CUMM (4-12)
[2018-01-24 10:18] LABS: Osmolality,Calculated 277.4 MOS/KG (273-304); Potassium 4.4 MMOL/L (3.5-5.1)
[2018-01-24 13:48] VITALS: BP 111/77
[2018-01-24] MEDS: amLODIPine 10 MG TABLET PO SCH (13:57)
[2018-01-24] MEDS: levETIRAcetam 500 MG TABLET PO SCH (13:58)
[2018-01-24] MEDS: PANTOPRAZOLE 40 MG TABLET PO SCH (13:58)
[2018-01-24] MEDS: CINACALCET 30 MG TABLET PO SCH (13:58)
[2018-01-24] MEDS: ASPIRIN CHEW 81 MG TABLET PO SCH (13:59)
== END 2018-01-24 16:00 | disposition home or self-care (01) | DRG 70 ==
LOC: EDBD → EDUNIT# → N.ED 17:23 → SUATTDRO 21:01 → N.EDINP 21:01 → N.ICU 21:25 → N.5E 01-23 18:51
PROVIDERS: ADMIT Internal Medicine; ATTEND Internal Medicine Infectious Disease

== ENCOUNTER 2018-02-18 03:40 | Inpatient (IN) ==
[2018-02-18] MEDS ORDERED: ONDANSETRON 4 MG/2 ML VIAL IV PRN (04:02)
[2018-02-18] MEDS ORDERED: ACETAMINOPHEN 325 MG TABLET PO PRN (04:02)
[2018-02-18] MEDS ORDERED: GLUCAGON 1 MG VIAL IM PRN (04:02)
[2018-02-18] MEDS ORDERED: PROMETHAZINE 25 MG/1 ML VIAL IM PRN (04:02)
[2018-02-18] MEDS ORDERED: DEXTROSE 50% 25 GM/50 ML VIAL IV PRN (04:02)
[2018-02-18] MEDS: INSULIN REGULAR 100 UNIT/ML SUBCUT SCH ×4 (08:32→21:52)
[2018-02-18] MEDS: PANTOPRAZOLE 40 MG TABLET PO SCH ×2 (08:33→21:54)
[2018-02-18] MEDS: ALBUTEROL/IPRATROPIUM 3 ML NEB RESP TX PRN (10:03)
[2018-02-18] MEDS ORDERED: ONDANSETRON 4 MG TABLET PO PRN (10:40)
[2018-02-18] MEDS ORDERED: NITROGLYCERIN SL 0.4 MG TABLET SL PRN (10:40)
[2018-02-18] MEDS: CINACALCET 30 MG TABLET PO SCH (12:28)
[2018-02-18] MEDS: ASPIRIN EC 325 MG TABLET PO SCH (12:28)
[2018-02-18] MEDS: hydroCHLOROthiazide 25 MG TABLET PO SCH (12:28)
[2018-02-18] MEDS: amLODIPine 10 MG TABLET PO SCH (12:28)
[2018-02-18] MEDS: PREGABALIN 75 MG CAPSULE PO SCH ×2 (12:28→18:02)
[2018-02-18] MEDS: CALCIUM ACETATE 667 MG CAPSULE PO SCH ×2 (12:28→17:53)
[2018-02-18] MEDS: CALCITRIOL 0.5 MCG CAPSULE PO SCH (12:28)
[2018-02-18] MEDS: levETIRAcetam 500 MG TABLET PO SCH (12:32)
[2018-02-18] MEDS: PROPRANOLOL 40 MG TABLET PO SCH ×2 (14:33→21:54)
[2018-02-18] MEDS: INSULIN NPH/REGULAR 70/30 100 UNIT/ML SUBCUT SCH ×2 (21:53→21:58)
[2018-02-18] MEDS: ZALEPLON 5 MG CAPSULE PO SCH (21:54)
[2018-02-19 02:05] LABS: Basophils # 0.1 10*3/uL (0.0-0.2); Basophils % 0.6 % (0.0-0.8); Eosinophils # 0.6 10*3/uL (0.0-0.87); Eosinophils % 7.1 % (0.00-10.9); Hematocrit 24.7 VOL% (35.7-47.0); Hemoglobin 7.6 GM/DL (12.0-16.0); Immature Granulocytes % 0.5 %; Immature Granulocytes Absolute 0.04 #; Lymphocytes # 2.6 10*3/uL (1.4-4.0); Lymphocytes % 32.5 % (21.3-54.2); Mean Corpuscular HGB Conc 30.8 GM/DL (32-36); Mean Corpuscular Hemoglobin 26 PG (27-34); Mean Corpuscular Volume 85.5 FL (87-102); Mean Platelet Volume 11.5 FL (9.6-12.0); Monocytes # 0.5 10*3/uL (0.11-0.8); Monocytes % 5.6 % (1.7-12.7); Neutrophils # 4.3 10*3/uL (1.4-7.4); Neutrophils % 53.7 % (38.7-73.9); Platelet Count 317 T/CUMM (130-400); Red Blood Count 2.89 MC/CUMM (3.8-5.5); Red Cell Distribution Width 20.1 % (9.3-17.3)
[2018-02-19] MEDS: ALBUTEROL/IPRATROPIUM 3 ML NEB RESP TX PRN (02:09)
[2018-02-19] MEDS: PREGABALIN 75 MG CAPSULE PO SCH ×3 (02:20→18:10)
[2018-02-19 02:27] LABS: Alanine Aminotransferase < 9 U/L (13-56); Albumin 2.8 G/DL (3.4-5.0); Alkaline Phosphatase 143 U/L (45-117); Aspartate Amino Transferase 11 U/L (0-37); Blood Urea Nitrogen 41 MG/DL (7-18); Calcium 7.5 MG/DL (8.5-10.1); Glucose 151 MG/DL (74-106); Osmolality,Calculated 289.5 MOS/KG (273-304); Sodium 139 MMOL/L (136-145); Total Protein 6.1 G/DL (6.4-8.3)
[2018-02-19 02:38] LABS: Potassium 6.5 MMOL/L (3.5-5.1)
[2018-02-19] MEDS ORDERED: SODIUM POLYSTYRENE SULFATE 15 GM/60 ML BOTTLE PO ONE (02:44)
[2018-02-19] MEDS ORDERED: CALCIUM GLUCONATE 1,000 MG in SODIUM CHLORIDE 0.9% 100 ML IV ONE (02:45)
[2018-02-19] MEDS: PROPRANOLOL 40 MG TABLET PO SCH ×3 (05:37→22:04)
[2018-02-19] MEDS ORDERED: SODIUM CHLORIDE 0.9% 1,000 ML IV PRN (08:03)
[2018-02-19] MEDS: CALCIUM ACETATE 667 MG CAPSULE PO SCH ×3 (08:12→17:37)
[2018-02-19] MEDS: levETIRAcetam 500 MG TABLET PO SCH (08:12)
[2018-02-19] MEDS: ASPIRIN EC 325 MG TABLET PO SCH (08:12)
[2018-02-19] MEDS: CINACALCET 30 MG TABLET PO SCH (08:12)
[2018-02-19] MEDS: PANTOPRAZOLE 40 MG TABLET PO SCH ×3 (08:12→22:03)
[2018-02-19] MEDS: hydroCHLOROthiazide 25 MG TABLET PO SCH (08:12)
[2018-02-19] MEDS: amLODIPine 10 MG TABLET PO SCH (08:12)
[2018-02-19] MEDS: INSULIN NPH/REGULAR 70/30 100 UNIT/ML SUBCUT SCH ×3 (08:14→22:04)
[2018-02-19] MEDS: INSULIN REGULAR 100 UNIT/ML SUBCUT SCH ×4 (09:58→22:04)
[2018-02-19] MEDS: ZALEPLON 5 MG CAPSULE PO SCH (22:03)
[2018-02-20] MEDS: PREGABALIN 75 MG CAPSULE PO SCH ×2 (02:33→11:28)
[2018-02-20] MEDS: PROPRANOLOL 40 MG TABLET PO SCH ×2 (05:23→14:14)
[2018-02-20] MEDS: INSULIN REGULAR 100 UNIT/ML SUBCUT SCH ×2 (10:09→12:44)
[2018-02-20] MEDS: INSULIN NPH/REGULAR 70/30 100 UNIT/ML SUBCUT SCH (10:12)
[2018-02-20] MEDS: hydroCHLOROthiazide 25 MG TABLET PO SCH (10:12)
[2018-02-20] MEDS: ASPIRIN EC 325 MG TABLET PO SCH (10:12)
[2018-02-20] MEDS: CALCIUM ACETATE 667 MG CAPSULE PO SCH ×2 (10:12→12:20)
[2018-02-20] MEDS: levETIRAcetam 500 MG TABLET PO SCH (10:12)
[2018-02-20] MEDS: CINACALCET 30 MG TABLET PO SCH (10:13)
[2018-02-20] MEDS: amLODIPine 10 MG TABLET PO SCH (10:13)
[2018-02-20] MEDS: PANTOPRAZOLE 40 MG TABLET PO SCH ×2 (10:13)
[2018-02-20] MEDS: CALCITRIOL 0.5 MCG CAPSULE PO SCH (11:28)
[2018-02-20 11:47] VITALS: BP 160/80
== END 2018-02-20 16:03 | disposition home or self-care (01) | DRG 640 ==
LOC: N.TELES 05:25 → SUATTDRO 05:25
PROVIDERS: ADMIT Internal Medicine; ATTEND Internal Medicine Geriatric Medicine

== ENCOUNTER 2018-03-07 00:38 | Inpatient (IN) ==
[2018-03-07 01:08] LABS: Basophils # 0.1 10*3/uL (0.0-0.2); Basophils % 0.4 % (0.0-0.8); Eosinophils # 0.2 10*3/uL (0.0-0.87); Eosinophils % 1.5 % (0.00-10.9); Hematocrit 42.3 VOL% (35.7-47.0); Hemoglobin 13.1 GM/DL (12.0-16.0); Immature Granulocytes % 0.5 %; Immature Granulocytes Absolute 0.06 #; Lymphocytes # 2.7 10*3/uL (1.4-4.0); Lymphocytes % 22.1 % (21.3-54.2); Mean Corpuscular Hemoglobin 27 PG (27-34); Mean Corpuscular Volume 86.3 FL (87-102); Mean Platelet Volume 10.6 FL (9.6-12.0); Monocytes # 0.5 10*3/uL (0.11-0.8); Monocytes % 3.7 % (1.7-12.7); NRBC # 0.02 10*3/uL; Neutrophils # 8.8 10*3/uL (1.4-7.4); Neutrophils % 71.8 % (38.7-73.9); Platelet Count 155 T/CUMM (130-400); Red Cell Distribution Width 18.1 % (9.3-17.3); White Blood Count 12.3 T/CUMM (4-12)
[2018-03-07 01:37] LABS: Blood Urea Nitrogen 29 MG/DL (7-18); Calcium 8.6 MG/DL (8.5-10.1); Glucose 189 MG/DL (74-106); Osmolality,Calculated 280.1 MOS/KG (273-304); Potassium 5.7 MMOL/L (3.5-5.1); Sodium 135 MMOL/L (136-145)
[2018-03-07] MEDS ORDERED: cefTRIAXone 1,000 MG VIAL IM STA (01:46)
[2018-03-07 01:47] LABS: PT Patient Result 10.7 SECS; Partial Thromboplastin Time 29.2 SECS (0-40)
[2018-03-07 01:49] LABS: Troponin I Only < 0.015 NG/ML (0.00-0.045)
[2018-03-07 02:23] LABS: Albumin 3.2 G/DL (3.4-5.0); Bilirubin,Direct 0.13 MG/DL (0.0-0.20); Bilirubin,Indirect 0.5 MG/DL (0.0-1.0); Bilirubin,Total 0.6 MG/DL (0.2-1.0); Total Protein 7.7 G/DL (6.4-8.3)
[2018-03-07 02:41] LABS: Platelet Estimate Normal; Polychromasia Few
[2018-03-07 02:42] LABS: Giant Platelets Few; Hypochromasia 1+; Ovalocytes 2+
[2018-03-07] MEDS ORDERED: BISACODYL 5 MG TABLET PO PRN (02:49)
[2018-03-07] MEDS ORDERED: ONDANSETRON 4 MG/2 ML VIAL IV PRN (02:49)
[2018-03-07] MEDS ORDERED: ACETAMINOPHEN 325 MG TABLET PO PRN (02:49)
[2018-03-07] MEDS ORDERED: ONDANSETRON 4 MG TABLET PO PRN (02:51)
[2018-03-07] MEDS ORDERED: NITROGLYCERIN SL 0.4 MG TABLET SL PRN (02:51)
[2018-03-07] MEDS ORDERED: GLUCAGON 1 MG VIAL IM PRN (03:06)
[2018-03-07] MEDS ORDERED: DEXTROSE 50% 25 GM/50 ML VIAL IV PRN (03:06)
[2018-03-07] MEDS: CALCIUM ACETATE 667 MG CAPSULE PO SCH ×3 (07:20→17:15)
[2018-03-07] MEDS: INSULIN NPH/REGULAR 70/30 100 UNIT/ML SUBCUT SCH (07:20)
[2018-03-07] MEDS: INSULIN REGULAR 100 UNIT/ML SUBCUT SCH ×4 (07:20→21:35)
[2018-03-07 07:21] LABS: Calcium 7.7 MG/DL (8.5-10.1); Osmolality,Calculated 276.2 MOS/KG (273-304)
[2018-03-07 07:24] LABS: Potassium 6.3 MMOL/L (3.5-5.1)
[2018-03-07] MEDS ORDERED: PANTOPRAZOLE 40 MG TABLET PO SCH (09:00)
[2018-03-07] MEDS: clonazePAM 0.5 MG TABLET PO SCH ×2 (12:40→21:50)
[2018-03-07] MEDS: levETIRAcetam 500 MG TABLET PO SCH ×2 (12:40→21:50)
[2018-03-07] MEDS: amLODIPine 10 MG TABLET PO SCH (12:40)
[2018-03-07] MEDS: AZITHROMYCIN 250 MG TABLET PO SCH (12:40)
[2018-03-07] MEDS: PANTOPRAZOLE 40 MG TABLET PO SCH ×2 (12:40→21:50)
[2018-03-07] MEDS: PREGABALIN 75 MG CAPSULE PO SCH ×2 (13:20→21:50)
[2018-03-07] MEDS: CYCLOBENZAPRINE 10 MG TABLET PO SCH ×2 (15:45→21:50)
[2018-03-07] MEDS ORDERED: cefTRIAXone 1,000 MG VIAL IM SCH (21:00)
[2018-03-07] MEDS ORDERED: INSULIN NPH/REGULAR 70/30 100 UNIT/ML SUBCUT SCH (21:00)
[2018-03-08] MEDS ORDERED: cefTRIAXone 1,000 MG in SYRINGE 1 EACH IV SCH (02:00)
[2018-03-08 02:51] LABS: Calcium 8.1 MG/DL (8.5-10.1); Osmolality,Calculated 275.1 MOS/KG (273-304)
[2018-03-08 02:52] LABS: Risk Ratio 2.52; VLDL CHOLESTEROL 15.6 MG/DL
[2018-03-08] MEDS: PREGABALIN 75 MG CAPSULE PO SCH ×2 (05:55→12:30)
[2018-03-08] MEDS: INSULIN REGULAR 100 UNIT/ML SUBCUT SCH ×2 (08:00→12:00)
[2018-03-08] MEDS: PANTOPRAZOLE 40 MG TABLET PO SCH (08:15)
[2018-03-08] MEDS: INSULIN NPH/REGULAR 70/30 100 UNIT/ML SUBCUT SCH (08:15)
[2018-03-08] MEDS: CYCLOBENZAPRINE 10 MG TABLET PO SCH (08:15)
[2018-03-08] MEDS: levETIRAcetam 500 MG TABLET PO SCH (08:15)
[2018-03-08] MEDS: amLODIPine 10 MG TABLET PO SCH (08:15)
[2018-03-08] MEDS: AZITHROMYCIN 250 MG TABLET PO SCH (08:15)
[2018-03-08] MEDS: clonazePAM 0.5 MG TABLET PO SCH (08:15)
[2018-03-08] MEDS: CALCIUM ACETATE 667 MG CAPSULE PO SCH ×2 (08:15→12:30)
[2018-03-08 12:35] VITALS: BP 110/77
[2018-03-09] MEDS ORDERED: CALCITRIOL 0.5 MCG CAPSULE PO SCH (02:51)
== END 2018-03-08 13:10 | disposition home or self-care (01) | DRG 640 ==
LOC: N.ED 00:38 → N.EDINP 02:02 → N.3E 02:22
PROVIDERS: ADMIT Internal Medicine Infectious Disease; ATTEND Internal Medicine Infectious Disease

== ENCOUNTER 2018-03-17 10:24 | Inpatient (IN) ==
[2018-03-17] MEDS ORDERED: FUROSEMIDE 100 MG/10 ML VIAL IV STA (10:31)
[2018-03-17] MEDS ORDERED: PROPOFOL 1,000 MG/100 ML BOTTLE IV ONE (10:34)
[2018-03-17] MEDS ORDERED: ETOMIDATE 20 MG/10 ML VIAL IV ONE (10:42)
[2018-03-17] MEDS ORDERED: ROCURONIUM 100 MG/10 ML VIAL IV ONE (10:42)
[2018-03-17 10:47] LABS: Basophils # 0.1 10*3/uL (0.0-0.2); Basophils % 0.6 % (0.0-0.8); Eosinophils # 0.2 10*3/uL (0.0-0.87); Eosinophils % 2.2 % (0.00-10.9); Hematocrit 39.7 VOL% (35.7-47.0); Hemoglobin 12.2 GM/DL (12.0-16.0); Immature Granulocytes % 0.5 %; Immature Granulocytes Absolute 0.05 #; Lymphocytes # 2.7 10*3/uL (1.4-4.0); Mean Corpuscular HGB Conc 30.7 GM/DL (32-36); Mean Corpuscular Hemoglobin 27 PG (27-34); Mean Corpuscular Volume 87.8 FL (87-102); Mean Platelet Volume 10.5 FL (9.6-12.0); Monocytes # 0.4 10*3/uL (0.11-0.8); Monocytes % 4.1 % (1.7-12.7); NRBC # 0.05 10*3/uL; Neutrophils # 7.3 10*3/uL (1.4-7.4); Neutrophils % 67.6 % (38.7-73.9); Platelet Count 392 T/CUMM (130-400); Red Blood Count 4.52 MC/CUMM (3.8-5.5); Red Cell Distribution Width 18.6 % (9.3-17.3); White Blood Count 10.8 T/CUMM (4-12)
[2018-03-17] MEDS ORDERED: MIDAZOLAM 10 MG/2 ML VIAL IV STA (10:49)
[2018-03-17 10:57] LABS: ABG Base Excess -0.6 MMOL/L (-2.5-2.5); ABG PCO2 47.5 MM HG (35-48); ABG PH 7.339 (7.35-7.45)
[2018-03-17 10:58] LABS: PT Patient Result 10.4 SECS; Partial Thromboplastin Time 28.9 SECS (0-40)
[2018-03-17] MEDS: PROPOFOL 1,000 MG/100 ML BOTTLE IV SCH ×2 (11:11→19:19)
[2018-03-17 11:25] LABS: Alanine Aminotransferase 13 U/L (13-56); Albumin 3.3 G/DL (3.4-5.0); Alkaline Phosphatase 178 U/L (45-117); Aspartate Amino Transferase 19 U/L (0-37); Blood Urea Nitrogen 37 MG/DL (7-18); Calcium 8.2 MG/DL (8.5-10.1); Glucose 173 MG/DL (74-106); Osmolality,Calculated 285.8 MOS/KG (273-304); Sodium 137 MMOL/L (136-145); Total Protein 8.1 G/DL (6.4-8.3); Troponin I Only < 0.015 NG/ML (0.00-0.045)
[2018-03-17] MEDS ORDERED: ALBUTEROL 2.5 MG/3 ML NEB RESP TX PRN (11:27)
[2018-03-17 11:29] LABS: Potassium 6.3 MMOL/L (3.5-5.1)
[2018-03-17] MEDS ORDERED: INSULIN REGULAR 100 UNIT/ML IV STA (11:32)
[2018-03-17] MEDS ORDERED: DEXTROSE 50% 25 GM/50 ML VIAL IV STA (11:32)
[2018-03-17] MEDS ORDERED: SODIUM BICARBONATE 50 MEQ/50 ML VIAL IV STA (11:32)
[2018-03-17] MEDS ORDERED: SODIUM BICARBONATE 50 MEQ/50 ML SYRINGE IV ONE (11:37)
[2018-03-17] MEDS ORDERED: SODIUM POLYSTYRENE SULFATE 15 GM/60 ML BOTTLE PO STA (11:38)
[2018-03-17] MEDS ORDERED: DEXTROSE 50% 25 GM/50 ML SYRINGE IV ONE (11:46)
[2018-03-17 12:03] LABS: Thyroid Stimulating Hormone 1.02 uIU/ml (0.358-3.74)
[2018-03-17] MEDS ORDERED: GLUCAGON 1 MG VIAL IM PRN (12:20)
[2018-03-17] MEDS: ENOXAPARIN 30 MG/0.3 ML SYRINGE SUBCUT SCH (13:16)
[2018-03-17] MEDS: PANTOPRAZOLE 40 MG VIAL IV SCH (13:17)
[2018-03-17 13:55] LABS: ABG Base Excess 3.4 MMOL/L (-2.5-2.5); ABG HCO3 27.5 MMOL/L (20-26); ABG Oxygen Saturation 98.7 % (95-100); ABG PCO2 39.8 MM HG (35-48); ABG PH 7.449 (7.35-7.45); ABG TCO2 24.9 MMOL/L (23-27)
[2018-03-17] MEDS ORDERED: MIDAZOLAM 2 MG/2 ML VIAL IV STA ×2 (14:06→15:39)
[2018-03-17 17:59] LABS: ABG Base Excess 3.7 MMOL/L (-2.5-2.5); ABG HCO3 27.8 MMOL/L (20-26); ABG Oxygen Saturation 99.5 % (95-100); ABG PCO2 38.3 MM HG (35-48); ABG PH 7.465 (7.35-7.45); ABG TCO2 24.5 MMOL/L (23-27)
[2018-03-17] MEDS: INSULIN LISPRO 100 UNIT/ML SUBCUT SCH (19:18)
[2018-03-18] MEDS: INSULIN LISPRO 100 UNIT/ML SUBCUT SCH ×4 (00:37→17:22)
[2018-03-18] MEDS: DEXTROSE 50% 25 GM/50 ML VIAL IV PRN (00:38)
[2018-03-18 03:19] LABS: ABG Base Excess 6.1 MMOL/L (-2.5-2.5); ABG PCO2 27.5 MM HG (35-48); ABG TCO2 24.6 MMOL/L (23-27)
[2018-03-18 03:22] LABS: ABG PH 7.604 (7.35-7.45)
[2018-03-18 05:21] LABS: ABG Base Excess 5.6 MMOL/L (-2.5-2.5); ABG HCO3 29.4 MMOL/L (20-26); ABG Oxygen Saturation 95.8 % (95-100); ABG PCO2 42.2 MM HG (35-48); ABG PO2 81.6 MM HG (80-95); ABG TCO2 26.9 MMOL/L (23-27); Allen Test Positive; Pt O2 Delivery Device Ventilator
[2018-03-18 05:23] LABS: Basophils # 0.1 10*3/uL (0.0-0.2); Basophils % 0.6 % (0.0-0.8); Eosinophils # 0.3 10*3/uL (0.0-0.87); Hematocrit 33.1 VOL% (35.7-47.0); Hemoglobin 10.3 GM/DL (12.0-16.0); Immature Granulocytes % 0.5 %; Immature Granulocytes Absolute 0.05 #; Lymphocytes # 1.5 10*3/uL (1.4-4.0); Lymphocytes % 14.3 % (21.3-54.2); Mean Corpuscular HGB Conc 31.1 GM/DL (32-36); Mean Corpuscular Hemoglobin 26 PG (27-34); Mean Corpuscular Volume 84.7 FL (87-102); Mean Platelet Volume 10.7 FL (9.6-12.0); Monocytes # 0.4 10*3/uL (0.11-0.8); Monocytes % 3.7 % (1.7-12.7); Neutrophils # 8.1 10*3/uL (1.4-7.4); Neutrophils % 77.9 % (38.7-73.9); Platelet Count 299 T/CUMM (130-400); Red Blood Count 3.91 MC/CUMM (3.8-5.5); Red Cell Distribution Width 18.6 % (9.3-17.3); White Blood Count 10.3 T/CUMM (4-12)
[2018-03-18 06:01] LABS: Albumin 3.1 G/DL (3.4-5.0); Bilirubin,Total 0.8 MG/DL (0.2-1.0); Calcium 8.4 MG/DL (8.5-10.1); Osmolality,Calculated 275.8 MOS/KG (273-304); Potassium 5.4 MMOL/L (3.5-5.1)
[2018-03-18] MEDS: PROPOFOL 1,000 MG/100 ML BOTTLE IV SCH ×3 (09:05→20:45)
[2018-03-18] MEDS: PANTOPRAZOLE 40 MG VIAL IV SCH (12:49)
[2018-03-18] MEDS: ENOXAPARIN 30 MG/0.3 ML SYRINGE SUBCUT SCH (12:49)
[2018-03-18] MEDS ORDERED: CYCLOBENZAPRINE 10 MG TABLET PO PRN (17:04)
[2018-03-18] MEDS ORDERED: ONDANSETRON 4 MG TABLET PO PRN (17:04)
[2018-03-18] MEDS ORDERED: amLODIPine 10 MG TABLET PO ONE (17:13)
[2018-03-18] MEDS ORDERED: hydroCHLOROthiazide 25 MG TABLET PO ONE (17:14)
[2018-03-18] MEDS: CALCITRIOL 0.5 MCG CAPSULE PO SCH (17:31)
[2018-03-18] MEDS: INSULIN ASPART PROTAMINE/ASPART 70/30 100 UNIT/ML SUBCUT SCH (17:31)
[2018-03-18] MEDS ORDERED: PANTOPRAZOLE 40 MG TABLET PO SCH (21:00)
[2018-03-18] MEDS: clonazePAM 0.5 MG TABLET PO SCH (21:33)
[2018-03-18] MEDS: PREGABALIN 75 MG CAPSULE PO SCH (21:33)
[2018-03-19] MEDS: INSULIN LISPRO 100 UNIT/ML SUBCUT SCH ×4 (00:16→19:11)
[2018-03-19] MEDS: PROPOFOL 1,000 MG/100 ML BOTTLE IV SCH ×4 (02:00→22:15)
[2018-03-19 04:56] LABS: ABG Base Excess 3.5 MMOL/L (-2.5-2.5); ABG HCO3 27.6 MMOL/L (20-26); ABG Oxygen Saturation 97.5 % (95-100); ABG PCO2 41.9 MM HG (35-48); ABG PH 7.434 (7.35-7.45); ABG PO2 98.9 MM HG (80-95); ABG TCO2 25.5 MMOL/L (23-27); Allen Test Positive; Pt O2 Delivery Device Ventilator
[2018-03-19 05:55] LABS: Calcium 8.4 MG/DL (8.5-10.1); Osmolality,Calculated 280.8 MOS/KG (273-304); Potassium 4.8 MMOL/L (3.5-5.1)
[2018-03-19] MEDS: PREGABALIN 75 MG CAPSULE PO SCH ×3 (06:01→21:47)
[2018-03-19 06:13] LABS: Prealbumin 19.8 MG/DL (20-40)
[2018-03-19] MEDS: CALCIUM ACETATE 667 MG CAPSULE PO SCH ×3 (07:51→16:55)
[2018-03-19] MEDS: INSULIN ASPART PROTAMINE/ASPART 70/30 100 UNIT/ML SUBCUT SCH ×2 (07:53→16:55)
[2018-03-19 07:54] LABS: Basophils # 0.1 10*3/uL (0.0-0.2); Basophils % 0.5 % (0.0-0.8); Eosinophils # 0.3 10*3/uL (0.0-0.87); Eosinophils % 3.3 % (0.00-10.9); Hematocrit 30.2 VOL% (35.7-47.0); Hemoglobin 9.6 GM/DL (12.0-16.0); Immature Granulocytes % 0.6 %; Immature Granulocytes Absolute 0.06 #; Lymphocytes # 1.8 10*3/uL (1.4-4.0); Lymphocytes % 17.5 % (21.3-54.2); Mean Corpuscular HGB Conc 31.8 GM/DL (32-36); Mean Corpuscular Hemoglobin 26 PG (27-34); Mean Corpuscular Volume 83.2 FL (87-102); Mean Platelet Volume 10.8 FL (9.6-12.0); Monocytes # 0.8 10*3/uL (0.11-0.8); Monocytes % 8.1 % (1.7-12.7); Neutrophils # 7.2 10*3/uL (1.4-7.4); Platelet Count 272 T/CUMM (130-400); Red Blood Count 3.63 MC/CUMM (3.8-5.5); Red Cell Distribution Width 18.6 % (9.3-17.3); White Blood Count 10.3 T/CUMM (4-12)
[2018-03-19] MEDS: hydroCHLOROthiazide 25 MG TABLET PO SCH (08:01)
[2018-03-19] MEDS: clonazePAM 0.5 MG TABLET PO SCH ×2 (08:01→21:47)
[2018-03-19] MEDS: amLODIPine 10 MG TABLET PO SCH (08:01)
[2018-03-19] MEDS: ENOXAPARIN 30 MG/0.3 ML SYRINGE SUBCUT SCH (12:13)
[2018-03-19] MEDS: PANTOPRAZOLE 40 MG VIAL IV SCH (12:13)
[2018-03-19] MEDS: DEXTROSE 50% 25 GM/50 ML VIAL IV PRN (12:25)
[2018-03-19] MEDS: hydrALAZINE 20 MG/1 ML VIAL IV PRN ×2 (16:56→23:06)
[2018-03-20] MEDS: INSULIN LISPRO 100 UNIT/ML SUBCUT SCH ×4 (01:09→18:33)
[2018-03-20 04:38] LABS: ABG Base Excess 4.8 MMOL/L (-2.5-2.5); ABG HCO3 28.7 MMOL/L (20-26); ABG Oxygen Saturation 98.7 % (95-100); ABG PH 7.387 (7.35-7.45); ABG TCO2 28.1 MMOL/L (23-27); Allen Test Positive; Pt O2 Delivery Device Ventilator
[2018-03-20 05:06] LABS: Basophils % 0.3 % (0.0-0.8); Eosinophils # 0.2 10*3/uL (0.0-0.87); Eosinophils % 1.5 % (0.00-10.9); Hematocrit 29.6 VOL% (35.7-47.0); Hemoglobin 9.5 GM/DL (12.0-16.0); Immature Granulocytes % 0.5 %; Immature Granulocytes Absolute 0.06 #; Lymphocytes # 1.5 10*3/uL (1.4-4.0); Lymphocytes % 12.6 % (21.3-54.2); Mean Corpuscular HGB Conc 32.1 GM/DL (32-36); Mean Corpuscular Hemoglobin 27 PG (27-34); Mean Corpuscular Volume 82.9 FL (87-102); Mean Platelet Volume 10.6 FL (9.6-12.0); Monocytes # 0.9 10*3/uL (0.11-0.8); Monocytes % 7.6 % (1.7-12.7); Neutrophils # 9.1 10*3/uL (1.4-7.4); Neutrophils % 77.5 % (38.7-73.9); Platelet Count 251 T/CUMM (130-400); Red Blood Count 3.57 MC/CUMM (3.8-5.5); Red Cell Distribution Width 17.8 % (9.3-17.3); White Blood Count 11.7 T/CUMM (4-12)
[2018-03-20 05:24] LABS: Calcium 8.7 MG/DL (8.5-10.1); Osmolality,Calculated 277.8 MOS/KG (273-304); Potassium 4.9 MMOL/L (3.5-5.1)
[2018-03-20] MEDS: PROPOFOL 1,000 MG/100 ML BOTTLE IV SCH ×2 (06:15→12:40)
[2018-03-20] MEDS: PREGABALIN 75 MG CAPSULE PO SCH ×3 (06:37→23:51)
[2018-03-20] MEDS: clonazePAM 0.5 MG TABLET PO SCH ×2 (10:15→23:50)
[2018-03-20] MEDS: INSULIN ASPART PROTAMINE/ASPART 70/30 100 UNIT/ML SUBCUT SCH ×2 (10:15→18:33)
[2018-03-20] MEDS: amLODIPine 10 MG TABLET PO SCH (10:15)
[2018-03-20] MEDS: CALCITRIOL 0.5 MCG CAPSULE PO SCH (10:15)
[2018-03-20] MEDS: hydroCHLOROthiazide 25 MG TABLET PO SCH (10:16)
[2018-03-20] MEDS: CALCIUM ACETATE 667 MG CAPSULE PO SCH ×3 (10:16→18:33)
[2018-03-20] MEDS: PANTOPRAZOLE 40 MG VIAL IV SCH (12:00)
[2018-03-20] MEDS: ENOXAPARIN 30 MG/0.3 ML SYRINGE SUBCUT SCH (12:40)
[2018-03-20] MEDS: DEXTROSE 50% 25 GM/50 ML VIAL IV PRN (14:20)
[2018-03-20] MEDS: levETIRAcetam 500 MG TABLET PO SCH (20:30)
[2018-03-21] MEDS: INSULIN LISPRO 100 UNIT/ML SUBCUT SCH ×4 (00:38→18:47)
[2018-03-21] MEDS: DEXTROSE 50% 25 GM/50 ML VIAL IV PRN (00:46)
[2018-03-21 03:35] LABS: ABG HCO3 29.9 MMOL/L (20-26); ABG Oxygen Saturation 96.2 % (95-100); ABG PCO2 46.2 MM HG (35-48); ABG PH 7.429 (7.35-7.45); ABG PO2 92.7 MM HG (80-95); ABG TCO2 31.3 MMOL/L (23-27); Allen Test Positive
[2018-03-21 05:36] LABS: Basophils # 0.1 10*3/uL (0.0-0.2); Basophils % 0.5 % (0.0-0.8); Eosinophils # 0.5 10*3/uL (0.0-0.87); Eosinophils % 4.1 % (0.00-10.9); Hematocrit 26.8 VOL% (35.7-47.0); Hemoglobin 8.6 GM/DL (12.0-16.0); Immature Granulocytes % 0.5 %; Immature Granulocytes Absolute 0.05 #; Lymphocytes # 1.8 10*3/uL (1.4-4.0); Lymphocytes % 16.8 % (21.3-54.2); Mean Corpuscular HGB Conc 32.1 GM/DL (32-36); Mean Corpuscular Hemoglobin 27 PG (27-34); Mean Corpuscular Volume 82.7 FL (87-102); Mean Platelet Volume 10.8 FL (9.6-12.0); Monocytes % 8.9 % (1.7-12.7); Neutrophils # 7.5 10*3/uL (1.4-7.4); Neutrophils % 69.2 % (38.7-73.9); Platelet Count 260 T/CUMM (130-400); Red Blood Count 3.24 MC/CUMM (3.8-5.5); Red Cell Distribution Width 17.6 % (9.3-17.3); White Blood Count 10.9 T/CUMM (4-12)
[2018-03-21 06:20] LABS: Calcium 8.9 MG/DL (8.5-10.1); Potassium 4.6 MMOL/L (3.5-5.1)
[2018-03-21] MEDS: PREGABALIN 75 MG CAPSULE PO SCH ×3 (06:35→22:01)
[2018-03-21] MEDS: INSULIN ASPART PROTAMINE/ASPART 70/30 100 UNIT/ML SUBCUT SCH ×2 (07:15→17:31)
[2018-03-21] MEDS: CALCIUM ACETATE 667 MG CAPSULE PO SCH ×3 (07:55→18:17)
[2018-03-21] MEDS: levETIRAcetam 500 MG TABLET PO SCH ×2 (09:53→22:02)
[2018-03-21] MEDS ORDERED: PHENOL 1.4% THROAT SPRAY 177 ML BOTTLE PO PRN (12:14)
[2018-03-21] MEDS: amLODIPine 10 MG TABLET PO SCH (13:53)
[2018-03-21] MEDS: hydroCHLOROthiazide 25 MG TABLET PO SCH (13:53)
[2018-03-21] MEDS: clonazePAM 0.5 MG TABLET PO SCH ×2 (13:54→22:02)
[2018-03-21] MEDS: ENOXAPARIN 30 MG/0.3 ML SYRINGE SUBCUT SCH (13:55)
[2018-03-21] MEDS: PANTOPRAZOLE 40 MG VIAL IV SCH (13:57)
[2018-03-22] MEDS: INSULIN LISPRO 100 UNIT/ML SUBCUT SCH ×4 (00:13→18:32)
[2018-03-22] MEDS: PREGABALIN 75 MG CAPSULE PO SCH ×3 (06:13→21:34)
[2018-03-22] MEDS: CALCIUM ACETATE 667 MG CAPSULE PO SCH ×3 (07:30→16:43)
[2018-03-22] MEDS: INSULIN ASPART PROTAMINE/ASPART 70/30 100 UNIT/ML SUBCUT SCH ×2 (07:55→18:30)
[2018-03-22] MEDS: amLODIPine 10 MG TABLET PO SCH (10:00)
[2018-03-22] MEDS: hydroCHLOROthiazide 25 MG TABLET PO SCH (10:00)
[2018-03-22] MEDS: levETIRAcetam 500 MG TABLET PO SCH ×2 (10:01→21:33)
[2018-03-22] MEDS: clonazePAM 0.5 MG TABLET PO SCH ×2 (10:01→21:33)
[2018-03-22] MEDS: PANTOPRAZOLE 40 MG VIAL IV SCH (11:38)
[2018-03-22] MEDS: ENOXAPARIN 30 MG/0.3 ML SYRINGE SUBCUT SCH (14:40)
[2018-03-22] MEDS: hydrALAZINE 20 MG/1 ML VIAL IV PRN (23:08)
[2018-03-23] MEDS: INSULIN LISPRO 100 UNIT/ML SUBCUT SCH ×4 (00:34→18:00)
[2018-03-23 06:17] LABS: Prealbumin 19.4 MG/DL (20-40)
[2018-03-23] MEDS: PREGABALIN 75 MG CAPSULE PO SCH ×2 (08:01→16:50)
[2018-03-23] MEDS: amLODIPine 10 MG TABLET PO SCH (08:01)
[2018-03-23] MEDS: hydroCHLOROthiazide 25 MG TABLET PO SCH (08:01)
[2018-03-23] MEDS: CALCITRIOL 0.5 MCG CAPSULE PO SCH (08:01)
[2018-03-23] MEDS: clonazePAM 0.5 MG TABLET PO SCH (08:01)
[2018-03-23] MEDS: CALCIUM ACETATE 667 MG CAPSULE PO SCH ×3 (08:02→17:59)
[2018-03-23] MEDS: levETIRAcetam 500 MG TABLET PO SCH (08:02)
[2018-03-23] MEDS: INSULIN ASPART PROTAMINE/ASPART 70/30 100 UNIT/ML SUBCUT SCH ×2 (08:03→17:59)
[2018-03-23 11:52] VITALS: BP 166/86
[2018-03-23] MEDS: PANTOPRAZOLE 40 MG VIAL IV SCH (12:04)
[2018-03-23] MEDS: ENOXAPARIN 30 MG/0.3 ML SYRINGE SUBCUT SCH (13:19)
== END 2018-03-23 19:10 | disposition home or self-care (01) | DRG 208 ==
LOC: N.ED 10:24 → SUATTDRO 11:27 → N.EDINP 11:27 → N.ICU 16:43 → N.2E 03-20 21:19
PROVIDERS: ADMIT Family Medicine; ATTEND Internal Medicine

== ENCOUNTER 2018-04-10 09:34 | Observation (INO) ==
[2018-04-10] MEDS ORDERED: amLODIPine 5 MG TABLET PO STA (10:18)
[2018-04-10 10:53] LABS: Calcium 9.5 MG/DL (8.5-10.1); Osmolality,Calculated 276.5 MOS/KG (273-304); Potassium 4.7 MMOL/L (3.5-5.1)
[2018-04-10 13:41] LABS: Basophils % 0.7 % (0.0-0.8); Eosinophils # 0.1 10*3/uL (0.0-0.87); Eosinophils % 2.1 % (0.00-10.9); Hematocrit 34.5 VOL% (35.7-47.0); Hemoglobin 10.6 GM/DL (12.0-16.0); Immature Granulocytes % 0.2 %; Immature Granulocytes Absolute 0.01 #; Lymphocytes # 0.9 10*3/uL (1.4-4.0); Lymphocytes % 21.6 % (21.3-54.2); Mean Corpuscular HGB Conc 30.7 GM/DL (32-36); Mean Corpuscular Hemoglobin 27 PG (27-34); Mean Corpuscular Volume 87.1 FL (87-102); Mean Platelet Volume 10.9 FL (9.6-12.0); Monocytes # 0.2 10*3/uL (0.11-0.8); Neutrophils % 70.4 % (38.7-73.9); Platelet Count 326 T/CUMM (130-400); Red Blood Count 3.96 MC/CUMM (3.8-5.5); Red Cell Distribution Width 16.5 % (9.3-17.3); White Blood Count 4.2 T/CUMM (4-12)
[2018-04-10] MEDS ORDERED: hydrALAZINE 20 MG/1 ML VIAL IV PRN (13:50)
[2018-04-10] MEDS ORDERED: NITROGLYCERIN SL 0.4 MG TABLET SL PRN (13:51)
[2018-04-10] MEDS ORDERED: DEXTROSE 50% 25 GM/50 ML VIAL IV PRN (15:28)
[2018-04-10] MEDS ORDERED: GLUCAGON 1 MG VIAL IM PRN (15:28)
[2018-04-10] MEDS: INSULIN LISPRO 100 UNIT/ML SUBCUT SCH ×2 (19:13→21:50)
[2018-04-10] MEDS: CALCIUM ACETATE 667 MG CAPSULE PO SCH (19:14)
[2018-04-10] MEDS: CALCITRIOL 0.5 MCG CAPSULE PO SCH (19:14)
[2018-04-10] MEDS: levETIRAcetam 500 MG TABLET PO SCH (21:49)
[2018-04-10] MEDS: PROPRANOLOL 40 MG TABLET PO SCH (21:49)
[2018-04-10 22:30] LABS: Apearance,Urine CLOUDY (Clear); Bilirubin,Urine Negative (Negative); Blood, Urine Small mg/dL (Negative); Glucose,Urine (UA) Negative (Negative); Ketones,Urine 20 mg/dL (Negative); Nitrite,Urine Negative (Negative); Protein,Urine >=500 MG/DL; RBC,Urine 15 /HPF (0-4); Squamous Epithelial Cell,Urine Many /HPF (0-10); Urine Color Yellow (Yellow); Urine Specific Gravity 1.009 (1.001-1.035); Urine Urobilinogen < 2.0 EU/DL (0.2-1.0); WBC,Urine 244 /HPF (0-6)
[2018-04-11] MEDS: PROPRANOLOL 40 MG TABLET PO SCH ×3 (06:00→21:07)
[2018-04-11 07:35] LABS: Basophils % 0.9 % (0.0-0.8); Eosinophils # 0.2 10*3/uL (0.0-0.87); Eosinophils % 3.5 % (0.00-10.9); Hematocrit 35.5 VOL% (35.7-47.0); Hemoglobin 10.8 GM/DL (12.0-16.0); Immature Granulocytes % 0.4 %; Immature Granulocytes Absolute 0.02 #; Lymphocytes # 1.8 10*3/uL (1.4-4.0); Lymphocytes % 39.1 % (21.3-54.2); Mean Corpuscular HGB Conc 30.4 GM/DL (32-36); Mean Corpuscular Hemoglobin 26 PG (27-34); Mean Corpuscular Volume 85.1 FL (87-102); Mean Platelet Volume 10.5 FL (9.6-12.0); Monocytes # 0.4 10*3/uL (0.11-0.8); Monocytes % 8.6 % (1.7-12.7); Neutrophils # 2.2 10*3/uL (1.4-7.4); Neutrophils % 47.5 % (38.7-73.9); Platelet Count 271 T/CUMM (130-400); Red Blood Count 4.17 MC/CUMM (3.8-5.5); Red Cell Distribution Width 16.2 % (9.3-17.3); White Blood Count 4.5 T/CUMM (4-12)
[2018-04-11 07:50] LABS: Calcium 9.3 MG/DL (8.5-10.1); Osmolality,Calculated 275.7 MOS/KG (273-304); Potassium 4.4 MMOL/L (3.5-5.1)
[2018-04-11 08:00] LABS: Free T4 (Free Thyroxine) 1.41 NG/DL (0.76-1.46); Thyroid Stimulating Hormone 0.064 uIU/ml (0.358-3.74)
[2018-04-11] MEDS: INSULIN LISPRO 100 UNIT/ML SUBCUT SCH ×4 (08:40→21:07)
[2018-04-11] MEDS: CALCIUM ACETATE 667 MG CAPSULE PO SCH ×3 (09:01→17:23)
[2018-04-11] MEDS: CINACALCET 30 MG TABLET PO SCH (09:01)
[2018-04-11] MEDS: CITALOPRAM 20 MG TABLET PO SCH (09:01)
[2018-04-11] MEDS: levETIRAcetam 500 MG TABLET PO SCH ×2 (09:02→21:07)
[2018-04-11] MEDS: cefTRIAXone 1,000 MG in SYRINGE 1 EACH IV SCH (09:02)
[2018-04-11] MEDS: amLODIPine 10 MG TABLET PO SCH (09:02)
[2018-04-12] MEDS ORDERED: ASPIRIN 325 MG TABLET ONE (01:31)
[2018-04-12] MEDS ORDERED: NITROGLYCERIN SL 0.4 MG TABLET SL PRN (01:32)
[2018-04-12] MEDS ORDERED: ASPIRIN CHEW 81 MG TABLET PO ONE (02:00)
[2018-04-12] MEDS ORDERED: HYDROmorphone 2 MG/1 ML VIAL IV ONE (02:00)
[2018-04-12 02:08] LABS: Basophils # 0.1 10*3/uL (0.0-0.2); Basophils % 0.9 % (0.0-0.8); Eosinophils # 0.2 10*3/uL (0.0-0.87); Eosinophils % 4.5 % (0.00-10.9); Hematocrit 35.5 VOL% (35.7-47.0); Hemoglobin 10.8 GM/DL (12.0-16.0); Immature Granulocytes % 0.4 %; Immature Granulocytes Absolute 0.02 #; Lymphocytes # 2.3 10*3/uL (1.4-4.0); Lymphocytes % 43.9 % (21.3-54.2); Mean Corpuscular HGB Conc 30.4 GM/DL (32-36); Mean Corpuscular Hemoglobin 26 PG (27-34); Mean Corpuscular Volume 84.9 FL (87-102); Mean Platelet Volume 11.2 FL (9.6-12.0); Monocytes # 0.6 10*3/uL (0.11-0.8); Monocytes % 11.3 % (1.7-12.7); Neutrophils # 2.1 10*3/uL (1.4-7.4); Platelet Count 225 T/CUMM (130-400); Red Blood Count 4.18 MC/CUMM (3.8-5.5); Red Cell Distribution Width 16.3 % (9.3-17.3); White Blood Count 5.3 T/CUMM (4-12)
[2018-04-12 02:29] LABS: Alanine Aminotransferase 11 U/L (13-56); Albumin 2.9 G/DL (3.4-5.0); Alkaline Phosphatase 117 U/L (45-117); Aspartate Amino Transferase 14 U/L (0-37); Blood Urea Nitrogen 22 MG/DL (7-18); Glucose 105 MG/DL (74-106); Osmolality,Calculated 264.7 MOS/KG (273-304); Potassium 4.1 MMOL/L (3.5-5.1); Sodium 131 MMOL/L (136-145); Total Protein 7.7 G/DL (6.4-8.3); Troponin I Only < 0.015 NG/ML (0.00-0.045)
[2018-04-12 02:48] LABS: Lymphocytes 41 % (20-55); Platelet Estimate Normal; Segmented Neutrophils 55 % (50-85); Total Cells Counted 100
[2018-04-12] MEDS: PROPRANOLOL 40 MG TABLET PO SCH ×4 (06:20→23:36)
[2018-04-12] MEDS: cefTRIAXone 1,000 MG in SYRINGE 1 EACH IV SCH (08:43)
[2018-04-12] MEDS: levETIRAcetam 500 MG TABLET PO SCH ×2 (08:44→20:23)
[2018-04-12] MEDS: CINACALCET 30 MG TABLET PO SCH (08:45)
[2018-04-12] MEDS: INSULIN LISPRO 100 UNIT/ML SUBCUT SCH ×4 (08:45→23:36)
[2018-04-12] MEDS: CITALOPRAM 20 MG TABLET PO SCH (08:47)
[2018-04-12] MEDS: CALCIUM ACETATE 667 MG CAPSULE PO SCH ×3 (08:47→18:44)
[2018-04-12] MEDS: amLODIPine 10 MG TABLET PO SCH (08:47)
[2018-04-12] MEDS ORDERED: ONDANSETRON 4 MG/2 ML VIAL ONE (09:02)
[2018-04-12] MEDS ORDERED: ONDANSETRON 4 MG/2 ML VIAL IV PRN (09:09)
[2018-04-12] MEDS ORDERED: PROMETHAZINE 25 MG/1 ML VIAL IM PRN ×2 (14:44→19:45)
[2018-04-12 15:19] LABS: Barbiturates Screen,Urine Negative (Negative); Benzodiazepines Screen,Urine Negative (Negative); Cannabinoid Screen,Urine Negative (Negative); Opiate Screen,Urine Positive (Negative); Phencyclidine Screen,Urine Negative (Negative)
[2018-04-12] MEDS ORDERED: LORazepam 2 MG/1 ML VIAL IM PRN (15:26)
[2018-04-12 22:55] LABS: Barbiturates Screen,Urine Negative (Negative); Benzodiazepines Screen,Urine Negative (Negative); Cannabinoid Screen,Urine Negative (Negative); Opiate Screen,Urine Positive (Negative); Phencyclidine Screen,Urine Negative (Negative)
[2018-04-13] MEDS: PROPRANOLOL 40 MG TABLET PO SCH (05:24)
[2018-04-13] MEDS: CITALOPRAM 20 MG TABLET PO SCH (09:10)
[2018-04-13] MEDS: amLODIPine 10 MG TABLET PO SCH (09:10)
[2018-04-13] MEDS: CALCITRIOL 0.5 MCG CAPSULE PO SCH (09:13)
[2018-04-13] MEDS: levETIRAcetam 500 MG TABLET PO SCH (09:13)
[2018-04-13] MEDS: CALCIUM ACETATE 667 MG CAPSULE PO SCH (09:13)
[2018-04-13] MEDS: CINACALCET 30 MG TABLET PO SCH (09:13)
[2018-04-13] MEDS: cefTRIAXone 1,000 MG in SYRINGE 1 EACH IV SCH (09:14)
[2018-04-13] MEDS ORDERED: ALBUTEROL 1.25 MG/3 ML NEB RESP TX STA (10:33)
[2018-04-13] MEDS: INSULIN LISPRO 100 UNIT/ML SUBCUT SCH (12:50)
[2018-04-13] MEDS ORDERED: ALBUTEROL/IPRATROPIUM 3 ML NEB RESP TX SCH (13:00)
[2018-04-13 14:33] VITALS: BP 155/97
== END 2018-04-13 14:50 | disposition home health service (06) ==
LOC: EDUNIT# → N.ED 09:34 → N.EDINP 09:34 → SUATTDRO 11:04 → N.5E 13:21
PROVIDERS: ADMIT Internal Medicine; ATTEND Internal Medicine

== ENCOUNTER 2018-07-30 22:09 | Inpatient (IN) ==
[2018-07-30] MEDS ORDERED: NITROGLYCERIN 2% OINT 1 INCH/GM PACK TOP STA (22:39)
[2018-07-30] MEDS ORDERED: ONDANSETRON 4 MG/2 ML VIAL IV STA (22:39)
[2018-07-30] MEDS ORDERED: ASPIRIN 325 MG TABLET PO STA (22:39)
[2018-07-30] MEDS ORDERED: MEPERIDINE 25 MG/1 ML VIAL IV STA (22:40)
[2018-07-30 23:39] LABS: Basophils # 0.1 10*3/uL (0.0-0.2); Basophils % 0.7 % (0.0-0.8); Eosinophils # 0.2 10*3/uL (0.0-0.87); Eosinophils % 2.3 % (0.00-10.9); Hematocrit 37.8 VOL% (35.7-47.0); Hemoglobin 11.8 GM/DL (12.0-16.0); Immature Granulocytes % 0.3 %; Immature Granulocytes Absolute 0.02 #; Lymphocytes # 2.6 10*3/uL (1.4-4.0); Lymphocytes % 35.9 % (21.3-54.2); Mean Corpuscular HGB Conc 31.2 GM/DL (32-36); Mean Corpuscular Hemoglobin 28 PG (27-34); Mean Corpuscular Volume 88.1 FL (87-102); Mean Platelet Volume 10.2 FL (9.6-12.0); Monocytes # 0.4 10*3/uL (0.11-0.8); Monocytes % 5.9 % (1.7-12.7); Neutrophils % 54.9 % (38.7-73.9); Platelet Count 258 T/CUMM (130-400); Red Blood Count 4.29 MC/CUMM (3.8-5.5); Red Cell Distribution Width 18.5 % (9.3-17.3); White Blood Count 7.4 T/CUMM (4-12)
[2018-07-30 23:48] LABS: PT Patient Result 10.2 SECS
[2018-07-30 23:59] LABS: Alanine Aminotransferase 16 U/L (13-56); Albumin 3.7 G/DL (3.4-5.0); Alkaline Phosphatase 78 U/L (45-117); Aspartate Amino Transferase 15 U/L (0-37); Blood Urea Nitrogen 40 MG/DL (7-18); Calcium 9.5 MG/DL (8.5-10.1); Glucose 80 MG/DL (74-106); Osmolality,Calculated 285.5 MOS/KG (273-304); Sodium 139 MMOL/L (136-145); Total Protein 8.1 G/DL (6.4-8.3); Troponin I < 0.015 NG/ML (0.00-0.045)
[2018-07-31 00:07] LABS: Potassium 6.2 MMOL/L (3.5-5.1)
[2018-07-31] MEDS ORDERED: CALCIUM CHLORIDE 1,000 MG/10 ML SYRINGE IV STA (00:11)
[2018-07-31] MEDS ORDERED: ONDANSETRON 4 MG/2 ML VIAL IV STA (00:33)
[2018-07-31] MEDS ORDERED: HYDROmorphone 2 MG/1 ML VIAL IV ONE (00:33)
[2018-07-31] MEDS ORDERED: hydrALAZINE 20 MG/1 ML VIAL IV STA (01:06)
[2018-07-31] MEDS ORDERED: cloNIDine 0.1 MG TABLET PO STA (02:05)
[2018-07-31] MEDS ORDERED: cloNIDine 0.1 MG TABLET PO PRN (02:13)
[2018-07-31] MEDS ORDERED: ONDANSETRON 4 MG/2 ML VIAL IV PRN (02:13)
[2018-07-31] MEDS ORDERED: NITROGLYCERIN SL 0.4 MG TABLET SL PRN (02:18)
[2018-07-31] MEDS: ACETAMINOPHEN 325 MG TABLET PO PRN (03:27)
[2018-07-31] MEDS: PREGABALIN 75 MG CAPSULE PO SCH ×3 (06:16→21:01)
[2018-07-31] MEDS: MEPERIDINE 25 MG/1 ML VIAL IV PRN ×4 (06:32→22:07)
[2018-07-31] MEDS ORDERED: CALCIUM ACETATE 667 MG CAPSULE PO SCH (08:00)
[2018-07-31 08:06] LABS: Basophils % 0.7 % (0.0-0.8); Eosinophils # 0.2 10*3/uL (0.0-0.87); Eosinophils % 2.6 % (0.00-10.9); Hematocrit 33.9 VOL% (35.7-47.0); Hemoglobin 10.4 GM/DL (12.0-16.0); Immature Granulocytes % 0.2 %; Immature Granulocytes Absolute 0.01 #; Lymphocytes # 2.3 10*3/uL (1.4-4.0); Lymphocytes % 37.2 % (21.3-54.2); Mean Corpuscular HGB Conc 30.7 GM/DL (32-36); Mean Corpuscular Hemoglobin 27 PG (27-34); Mean Corpuscular Volume 87.1 FL (87-102); Mean Platelet Volume 10.4 FL (9.6-12.0); Monocytes # 0.4 10*3/uL (0.11-0.8); Monocytes % 6.6 % (1.7-12.7); Neutrophils # 3.2 10*3/uL (1.4-7.4); Neutrophils % 52.7 % (38.7-73.9); Platelet Count 245 T/CUMM (130-400); Red Blood Count 3.89 MC/CUMM (3.8-5.5); Red Cell Distribution Width 18.4 % (9.3-17.3); White Blood Count 6.1 T/CUMM (4-12)
[2018-07-31 08:32] LABS: Risk Ratio 3.09; Thyroid Stimulating Hormone 0.197 uIU/ml (0.358-3.74); VLDL CHOLESTEROL 11.6 MG/DL
[2018-07-31 08:33] LABS: Calcium 9.9 MG/DL (8.5-10.1); Osmolality,Calculated 287.5 MOS/KG (273-304)
[2018-07-31] MEDS ORDERED: CINACALCET 30 MG TABLET PO SCH (09:00)
[2018-07-31] MEDS: SEVELAMER CARBONATE 800 MG TABLET PO SCH ×3 (09:46→16:00)
[2018-07-31] MEDS: amLODIPine 10 MG TABLET PO SCH (09:46)
[2018-07-31] MEDS: CITALOPRAM 20 MG TABLET PO SCH (09:46)
[2018-07-31] MEDS: PANTOPRAZOLE 40 MG TABLET PO SCH ×2 (09:47→21:01)
[2018-07-31] MEDS: levETIRAcetam 500 MG TABLET PO SCH (09:47)
[2018-07-31] MEDS ORDERED: CALCIUM GLUCONATE 1,000 MG in SODIUM CHLORIDE 0.9% 100 ML IV ONE (11:04)
[2018-07-31] MEDS ORDERED: DEXTROSE 50% 25 GM/50 ML VIAL IV ONE (11:05)
[2018-07-31] MEDS ORDERED: INSULIN REGULAR 100 UNIT/ML IV ONE (11:05)
[2018-07-31] MEDS: hydrALAZINE 25 MG TABLET PO SCH ×3 (12:08→21:01)
[2018-07-31] MEDS: CARVEDILOL 6.25 MG TABLET PO SCH ×2 (12:44→16:00)
[2018-08-01] MEDS: PREGABALIN 75 MG CAPSULE PO SCH (05:34)
[2018-08-01 07:32] LABS: Basophils # 0.1 10*3/uL (0.0-0.2); Basophils % 0.7 % (0.0-0.8); Eosinophils # 0.2 10*3/uL (0.0-0.87); Eosinophils % 2.8 % (0.00-10.9); Hematocrit 34.1 VOL% (35.7-47.0); Hemoglobin 10.7 GM/DL (12.0-16.0); Immature Granulocytes % 0.3 %; Immature Granulocytes Absolute 0.02 #; Lymphocytes # 2.6 10*3/uL (1.4-4.0); Lymphocytes % 37.1 % (21.3-54.2); Mean Corpuscular HGB Conc 31.4 GM/DL (32-36); Mean Corpuscular Hemoglobin 28 PG (27-34); Mean Corpuscular Volume 87.7 FL (87-102); Mean Platelet Volume 9.8 FL (9.6-12.0); Monocytes # 0.5 10*3/uL (0.11-0.8); Monocytes % 7.5 % (1.7-12.7); Neutrophils # 3.6 10*3/uL (1.4-7.4); Neutrophils % 51.6 % (38.7-73.9); Platelet Count 219 T/CUMM (130-400); Red Blood Count 3.89 MC/CUMM (3.8-5.5); Red Cell Distribution Width 18.2 % (9.3-17.3)
[2018-08-01 07:57] LABS: Potassium 5.4 MMOL/L (3.5-5.1)
[2018-08-01] MEDS: amLODIPine 10 MG TABLET PO SCH (09:00)
[2018-08-01] MEDS: ASPIRIN EC 81 MG TABLET PO SCH (09:00)
[2018-08-01] MEDS: PANTOPRAZOLE 40 MG TABLET PO SCH ×2 (09:00→20:21)
[2018-08-01] MEDS: SEVELAMER CARBONATE 800 MG TABLET PO SCH ×3 (09:00→17:01)
[2018-08-01] MEDS: levETIRAcetam 500 MG TABLET PO SCH (09:00)
[2018-08-01] MEDS: CITALOPRAM 20 MG TABLET PO SCH (09:00)
[2018-08-01] MEDS: CARVEDILOL 6.25 MG TABLET PO SCH (09:01)
[2018-08-01] MEDS: hydrALAZINE 25 MG TABLET PO SCH ×3 (09:01→20:21)
[2018-08-01] MEDS: ACETAMINOPHEN 325 MG TABLET PO PRN (12:31)
[2018-08-01] MEDS: CARVEDILOL 12.5 MG TABLET PO SCH (17:01)
[2018-08-02] MEDS: PANTOPRAZOLE 40 MG TABLET PO SCH ×2 (08:49→21:03)
[2018-08-02] MEDS: CITALOPRAM 20 MG TABLET PO SCH (08:49)
[2018-08-02] MEDS: SEVELAMER CARBONATE 800 MG TABLET PO SCH ×3 (08:49→17:18)
[2018-08-02] MEDS: amLODIPine 10 MG TABLET PO SCH (08:49)
[2018-08-02] MEDS: levETIRAcetam 500 MG TABLET PO SCH (08:50)
[2018-08-02] MEDS: PREGABALIN 75 MG CAPSULE PO SCH (08:50)
[2018-08-02] MEDS: ASPIRIN EC 81 MG TABLET PO SCH (08:50)
[2018-08-02] MEDS: CARVEDILOL 12.5 MG TABLET PO SCH (08:50)
[2018-08-02] MEDS: hydrALAZINE 25 MG TABLET PO SCH ×3 (08:50→21:03)
[2018-08-02] MEDS ORDERED: metOLazone 5 MG TABLET PO SCH (10:30)
[2018-08-02] MEDS ORDERED: FUROSEMIDE 80 MG TABLET PO SCH (16:00)
[2018-08-02] MEDS: CARVEDILOL 25 MG TABLET PO SCH (17:18)
[2018-08-03] MEDS: PREGABALIN 75 MG CAPSULE PO SCH (09:16)
[2018-08-03] MEDS: CARVEDILOL 25 MG TABLET PO SCH (09:17)
[2018-08-03] MEDS: IBUPROFEN 200 MG TABLET PO SCH ×2 (09:17→14:49)
[2018-08-03] MEDS: SEVELAMER CARBONATE 800 MG TABLET PO SCH ×2 (09:17→12:47)
[2018-08-03] MEDS: hydrALAZINE 25 MG TABLET PO SCH ×2 (09:17→14:49)
[2018-08-03] MEDS: ASPIRIN EC 81 MG TABLET PO SCH (12:45)
[2018-08-03] MEDS: PANTOPRAZOLE 40 MG TABLET PO SCH (12:46)
[2018-08-03] MEDS: amLODIPine 10 MG TABLET PO SCH (12:46)
[2018-08-03] MEDS: levETIRAcetam 500 MG TABLET PO SCH (12:46)
[2018-08-03] MEDS: CITALOPRAM 20 MG TABLET PO SCH (12:47)
[2018-08-03 15:58] VITALS: BP 139/81
== END 2018-08-03 16:31 | disposition home or self-care (01) | DRG 313 ==
LOC: EDBD → EDUNIT# → N.ED 22:09 → N.EDINP 22:09 → N.TELEN 07-31 01:59 → SUATTDRO 07-31 13:12
PROVIDERS: ADMIT Internal Medicine

== ENCOUNTER 2018-09-07 20:07 | Inpatient (IN) ==
[2018-09-07] MEDS ORDERED: ONDANSETRON 4 MG/2 ML VIAL IV PRN (20:09)
[2018-09-07] MEDS ORDERED: ALBUTEROL 2.5 MG/3 ML NEB RESP TX PRN (20:09)
[2018-09-07] MEDS ORDERED: cloNIDine 0.1 MG TABLET PO PRN (23:22)
[2018-09-07] MEDS ORDERED: amLODIPine 10 MG TABLET PO ONE (23:30)
[2018-09-07] MEDS: ENOXAPARIN 30 MG/0.3 ML SYRINGE SUBCUT SCH (23:34)
[2018-09-07] MEDS: levETIRAcetam 500 MG TABLET PO SCH (23:35)
[2018-09-07] MEDS ORDERED: DEXTROSE 50% 25 GM/50 ML VIAL IV PRN (23:40)
[2018-09-07] MEDS ORDERED: GLUCAGON 1 MG VIAL IM PRN (23:40)
[2018-09-08 08:09] LABS: Basophils # 0.1 10*3/uL (0.0-0.2); Basophils % 0.7 % (0.0-0.8); Eosinophils # 0.1 10*3/uL (0.0-0.87); Eosinophils % 1.8 % (0.00-10.9); Hematocrit 25.8 VOL% (35.7-47.0); Hemoglobin 8.2 GM/DL (12.0-16.0); Immature Granulocytes % 0.3 %; Immature Granulocytes Absolute 0.02 #; Lymphocytes # 1.8 10*3/uL (1.4-4.0); Lymphocytes % 24.5 % (21.3-54.2); Mean Corpuscular HGB Conc 31.8 GM/DL (32-36); Mean Corpuscular Hemoglobin 28 PG (27-34); Mean Corpuscular Volume 88.1 FL (87-102); Monocytes # 0.5 10*3/uL (0.11-0.8); Monocytes % 6.8 % (1.7-12.7); Neutrophils # 4.9 10*3/uL (1.4-7.4); Neutrophils % 65.9 % (38.7-73.9); Platelet Count 296 T/CUMM (130-400); Red Blood Count 2.93 MC/CUMM (3.8-5.5); Red Cell Distribution Width 15.6 % (9.3-17.3); White Blood Count 7.4 T/CUMM (4-12)
[2018-09-08] MEDS: amLODIPine 10 MG TABLET PO SCH (08:22)
[2018-09-08] MEDS: ASPIRIN EC 81 MG TABLET PO SCH (08:22)
[2018-09-08] MEDS: levETIRAcetam 500 MG TABLET PO SCH ×2 (08:22→21:23)
[2018-09-08] MEDS: PANTOPRAZOLE 40 MG TABLET PO SCH (08:22)
[2018-09-08] MEDS: INSULIN REGULAR 100 UNIT/ML SUBCUT SCH ×4 (08:23→21:22)
[2018-09-08 08:55] LABS: Albumin 3.3 G/DL (3.4-5.0); Bilirubin,Total 0.6 MG/DL (0.2-1.0); Calcium 9.5 MG/DL (8.5-10.1); Total Protein 6.9 G/DL (6.4-8.3)
[2018-09-08 08:58] LABS: Potassium 6.3 MMOL/L (3.5-5.1)
[2018-09-08] MEDS: PREGABALIN 75 MG CAPSULE PO SCH (17:07)
[2018-09-08] MEDS: ENOXAPARIN 30 MG/0.3 ML SYRINGE SUBCUT SCH (21:23)
[2018-09-09] MEDS: PREGABALIN 75 MG CAPSULE PO SCH ×2 (01:18→10:15)
[2018-09-09 07:29] VITALS: BP 163/84
[2018-09-09 08:03] LABS: Basophils # 0.1 10*3/uL (0.0-0.2); Basophils % 0.9 % (0.0-0.8); Eosinophils # 0.2 10*3/uL (0.0-0.87); Eosinophils % 4.6 % (0.00-10.9); Hematocrit 26.7 VOL% (35.7-47.0); Hemoglobin 8.6 GM/DL (12.0-16.0); Immature Granulocytes % 0.4 %; Immature Granulocytes Absolute 0.02 #; Lymphocytes # 1.6 10*3/uL (1.4-4.0); Lymphocytes % 29.6 % (21.3-54.2); Mean Corpuscular HGB Conc 32.2 GM/DL (32-36); Mean Corpuscular Hemoglobin 28 PG (27-34); Mean Corpuscular Volume 87.8 FL (87-102); Mean Platelet Volume 10.3 FL (9.6-12.0); Monocytes # 0.4 10*3/uL (0.11-0.8); Neutrophils % 57.5 % (38.7-73.9); Platelet Count 312 T/CUMM (130-400); Red Blood Count 3.04 MC/CUMM (3.8-5.5); Red Cell Distribution Width 15.8 % (9.3-17.3); White Blood Count 5.3 T/CUMM (4-12)
[2018-09-09 08:21] LABS: Calcium 9.6 MG/DL (8.5-10.1); Osmolality,Calculated 278.7 MOS/KG (273-304); Potassium 4.7 MMOL/L (3.5-5.1)
[2018-09-09] MEDS ORDERED: CLOPIDOGREL 75 MG TABLET PO SCH (09:00)
[2018-09-09] MEDS ORDERED: CITALOPRAM 20 MG TABLET PO SCH (09:30)
[2018-09-09] MEDS ORDERED: ATENOLOL 50 MG TABLET PO SCH (09:30)
[2018-09-09] MEDS: levETIRAcetam 500 MG TABLET PO SCH (10:00)
[2018-09-09] MEDS: PANTOPRAZOLE 40 MG TABLET PO SCH (10:05)
[2018-09-09] MEDS: ASPIRIN EC 81 MG TABLET PO SCH (10:10)
[2018-09-09] MEDS: INSULIN REGULAR 100 UNIT/ML SUBCUT SCH ×2 (10:58→13:00)
[2018-09-09] MEDS ORDERED: ACETAMINOPHEN 325 MG TABLET PO PRN (12:25)
[2018-09-09] MEDS: amLODIPine 10 MG TABLET PO SCH (12:26)
[2018-09-09] MEDS ORDERED: DICLOFENAC 1% GEL 100 GM TUBE TOP SCH (13:00)
[2018-09-09] MEDS ORDERED: HEPARIN 5,000 UNIT/1 ML VIAL SUBCUT SCH (21:00)
[2018-09-09] MEDS ORDERED: amLODIPine 10 MG TABLET PO SCH (21:00)
== END 2018-09-09 16:07 | disposition home or self-care (01) | DRG 291 ==
LOC: N.CC 22:13 → SUATTDRO 22:13 → N.5E 09-08 18:33
PROVIDERS: ADMIT Internal Medicine; ATTEND Internal Medicine

== ENCOUNTER 2018-11-20 08:14 | Observation (INO) ==
[2018-11-20] MEDS ORDERED: NITROGLYCERIN SL 0.4 MG TABLET SL PRN (08:31)
[2018-11-20] MEDS ORDERED: ASPIRIN 325 MG TABLET PO STA (08:31)
[2018-11-20] MEDS ORDERED: NITROGLYCERIN 2% OINT 1 INCH/GM PACK TOP STA (08:31)
[2018-11-20] MEDS ORDERED: ONDANSETRON 4 MG/2 ML VIAL IV STA (08:33)
[2018-11-20] MEDS ORDERED: HYDROmorphone 2 MG/1 ML VIAL IV STA (08:33)
[2018-11-20 09:36] LABS: Basophils # 0.1 10*3/uL (0.0-0.2); Basophils % 0.8 % (0.0-0.8); Eosinophils # 0.1 10*3/uL (0.0-0.87); Hematocrit 38.1 VOL% (35.7-47.0); Immature Granulocytes % 0.6 %; Immature Granulocytes Absolute 0.04 #; Lymphocytes # 1.5 10*3/uL (1.4-4.0); Lymphocytes % 23.4 % (21.3-54.2); Mean Corpuscular HGB Conc 30.4 GM/DL (32-36); Mean Corpuscular Hemoglobin 27 PG (27-34); Mean Platelet Volume 11.6 FL (9.6-12.0); Monocytes # 0.5 10*3/uL (0.11-0.8); Monocytes % 7.3 % (1.7-12.7); NRBC # 0.03 10*3/uL; Neutrophils # 4.2 10*3/uL (1.4-7.4); Neutrophils % 65.9 % (38.7-73.9); Platelet Count 291 T/CUMM (130-400); Red Blood Count 4.33 MC/CUMM (3.8-5.5); Red Cell Distribution Width 19.9 % (9.3-17.3); White Blood Count 6.4 T/CUMM (4-12)
[2018-11-20 09:37] LABS: Hemoglobin 11.6 GM/DL (12.0-16.0)
[2018-11-20 10:07] LABS: Calcium 9.3 MG/DL (8.5-10.1); Osmolality,Calculated 272.1 MOS/KG (273-304); Potassium 5.1 MMOL/L (3.5-5.1)
[2018-11-20] MEDS ORDERED: MAGNESIUM SULF RIDER 4 GM in PREMIX 1 EACH IV PRN (10:12)
[2018-11-20] MEDS ORDERED: DOCUSATE SODIUM 100 MG CAPSULE PO PRN (10:12)
[2018-11-20] MEDS ORDERED: BISACODYL 5 MG TABLET PO PRN (10:12)
[2018-11-20] MEDS ORDERED: MAGNESIUM SULF RIDER 2 GM in PREMIX 1 EACH IV PRN (10:12)
[2018-11-20] MEDS ORDERED: ONDANSETRON 4 MG/2 ML VIAL IV PRN (10:12)
[2018-11-20] MEDS ORDERED: ACETAMINOPHEN 325 MG TABLET PO PRN (10:12)
[2018-11-20] MEDS ORDERED: PANTOPRAZOLE 40 MG TABLET PO STA (10:12)
[2018-11-20] MEDS ORDERED: cloNIDine 0.1 MG TABLET PO PRN (10:15)
[2018-11-20] MEDS ORDERED: DEXTROSE 50% 25 GM/50 ML SYRINGE IV PRN (13:44)
[2018-11-20] MEDS ORDERED: GLUCAGON 1 MG VIAL IM PRN (13:44)
[2018-11-20] MEDS: INSULIN REGULAR 100 UNIT/ML SUBCUT SCH ×2 (16:51→22:53)
[2018-11-20] MEDS: CARVEDILOL 6.25 MG TABLET PO SCH (17:31)
[2018-11-20] MEDS: FERROUS SULFATE 325 MG TABLET PO SCH ×3 (17:35→17:43)
[2018-11-20] MEDS ORDERED: amLODIPine 10 MG TABLET PO SCH (21:00)
[2018-11-20] MEDS ORDERED: NITROGLYCERIN 2% OINT 1 INCH/GM PACK TOP SCH (21:00)
[2018-11-20] MEDS: ENOXAPARIN 30 MG/0.3 ML SYRINGE SUBCUT SCH (21:34)
[2018-11-20] MEDS: DICLOFENAC 1% GEL 100 GM TUBE TOP SCH (21:37)
[2018-11-20] MEDS: ONDANSETRON 4 MG/2 ML VIAL IV PRN (22:06)
[2018-11-20] MEDS: CLOPIDOGREL 75 MG TABLET PO SCH (22:53)
[2018-11-20] MEDS: levETIRAcetam 500 MG TABLET PO SCH (22:53)
[2018-11-20] MEDS: METOCLOPRAMIDE 5 MG TABLET PO SCH (22:53)
[2018-11-21] MEDS: HYDROmorphone 2 MG/1 ML VIAL IV PRN ×3 (01:07→16:41)
[2018-11-21 05:53] LABS: Albumin 3.1 G/DL (3.4-5.0); Bilirubin,Total 0.8 MG/DL (0.2-1.0); Calcium 9.5 MG/DL (8.5-10.1); Osmolality,Calculated 271.8 MOS/KG (273-304); Potassium 4.6 MMOL/L (3.5-5.1); Risk Ratio 3.18; Total Protein 6.8 G/DL (6.4-8.3); VLDL CHOLESTEROL 17.4 MG/DL
[2018-11-21] MEDS: INSULIN REGULAR 100 UNIT/ML SUBCUT SCH ×4 (08:15→23:55)
[2018-11-21] MEDS: METOCLOPRAMIDE 5 MG TABLET PO SCH (08:54)
[2018-11-21] MEDS: CITALOPRAM 20 MG TABLET PO SCH (08:55)
[2018-11-21] MEDS: CARVEDILOL 6.25 MG TABLET PO SCH ×2 (08:55→16:41)
[2018-11-21] MEDS: FERROUS SULFATE 325 MG TABLET PO SCH ×3 (08:55→16:41)
[2018-11-21] MEDS: PREGABALIN 75 MG CAPSULE PO SCH (08:55)
[2018-11-21] MEDS: ASPIRIN EC 81 MG TABLET PO SCH (08:56)
[2018-11-21] MEDS ORDERED: PANTOPRAZOLE 40 MG TABLET PO SCH (09:00)
[2018-11-21] MEDS ORDERED: PREGABALIN 75 MG CAPSULE PO SCH (09:00)
[2018-11-21 09:32] LABS: Basophils # 0.1 10*3/uL (0.0-0.2); Basophils % 0.8 % (0.0-0.8); Eosinophils # 0.2 10*3/uL (0.0-0.87); Eosinophils % 3.1 % (0.00-10.9); Hemoglobin 10.4 GM/DL (12.0-16.0); Immature Granulocytes % 0.3 %; Immature Granulocytes Absolute 0.02 #; Lymphocytes % 32.1 % (21.3-54.2); Mean Corpuscular HGB Conc 29.7 GM/DL (32-36); Mean Corpuscular Hemoglobin 27 PG (27-34); Mean Corpuscular Volume 89.5 FL (87-102); Monocytes # 0.6 10*3/uL (0.11-0.8); Monocytes % 9.5 % (1.7-12.7); NRBC # 0.04 10*3/uL; Neutrophils # 3.3 10*3/uL (1.4-7.4); Neutrophils % 54.2 % (38.7-73.9); Platelet Count 259 T/CUMM (130-400); Red Blood Count 3.91 MC/CUMM (3.8-5.5); Red Cell Distribution Width 19.7 % (9.3-17.3); White Blood Count 6.1 T/CUMM (4-12)
[2018-11-21] MEDS ORDERED: SIMETHICONE CHEW 125 MG TABLET PO PRN (14:35)
[2018-11-21] MEDS: ONDANSETRON 4 MG/2 ML VIAL IV PRN (20:00)
[2018-11-22] MEDS: CLOPIDOGREL 75 MG TABLET PO SCH (00:04)
[2018-11-22] MEDS: DILTIAZEM CD 180 MG CAPSULE PO SCH ×2 (00:04→09:00)
[2018-11-22] MEDS: ENOXAPARIN 30 MG/0.3 ML SYRINGE SUBCUT SCH (00:05)
[2018-11-22] MEDS: DICLOFENAC 1% GEL 100 GM TUBE TOP SCH (00:05)
[2018-11-22] MEDS: levETIRAcetam 500 MG TABLET PO SCH (00:05)
[2018-11-22] MEDS: METOCLOPRAMIDE 5 MG TABLET PO SCH ×2 (00:05→09:00)
[2018-11-22] MEDS: PANTOPRAZOLE 40 MG TABLET PO SCH ×2 (00:05→09:02)
[2018-11-22] MEDS: HYDROmorphone 2 MG/1 ML VIAL IV PRN ×3 (00:19→11:59)
[2018-11-22] MEDS: ONDANSETRON 4 MG/2 ML VIAL IV PRN (06:12)
[2018-11-22] MEDS: INSULIN REGULAR 100 UNIT/ML SUBCUT SCH ×2 (08:43→12:23)
[2018-11-22] MEDS: PREGABALIN 75 MG CAPSULE PO SCH (09:00)
[2018-11-22] MEDS: CITALOPRAM 20 MG TABLET PO SCH (09:01)
[2018-11-22] MEDS: FERROUS SULFATE 325 MG TABLET PO SCH ×2 (09:01→12:00)
[2018-11-22] MEDS: ASPIRIN EC 81 MG TABLET PO SCH (09:01)
[2018-11-22] MEDS: CARVEDILOL 6.25 MG TABLET PO SCH (09:02)
[2018-11-22 13:23] VITALS: BP 125/79
== END 2018-11-22 16:35 | disposition home or self-care (01) ==
LOC: EDBD → EDUNIT# → N.EDINP 08:14 → N.ED 08:14 → N.EDINP 11:30 → N.TELES 15:48
PROVIDERS: ADMIT Internal Medicine Cardiovascular Disease; ATTEND Internal Medicine Cardiovascular Disease

== ENCOUNTER 2018-12-05 13:58 | Observation (INO) ==
[2018-12-05] MEDS ORDERED: LACTULOSE 20 GM/30 ML UDCUP PO PRN (16:07)
[2018-12-05] MEDS ORDERED: ACETAMINOPHEN 325 MG TABLET PO PRN (16:07)
[2018-12-05] MEDS ORDERED: PROMETHAZINE 25 MG/1 ML VIAL IM PRN (16:07)
[2018-12-05] MEDS: PANTOPRAZOLE 40 MG TABLET PO SCH ×2 (17:05→20:53)
[2018-12-05] MEDS: CARVEDILOL 6.25 MG TABLET PO SCH (17:05)
[2018-12-05 17:11] LABS: Basophils # 0.1 10*3/uL (0.0-0.2); Basophils % 0.8 % (0.0-0.8); Eosinophils # 0.2 10*3/uL (0.0-0.87); Eosinophils % 2.3 % (0.00-10.9); Hematocrit 40.4 VOL% (35.7-47.0); Hemoglobin 12.2 GM/DL (12.0-16.0); Immature Granulocytes % 0.4 %; Immature Granulocytes Absolute 0.03 #; Lymphocytes # 1.3 10*3/uL (1.4-4.0); Lymphocytes % 17.6 % (21.3-54.2); Mean Corpuscular HGB Conc 30.2 GM/DL (32-36); Mean Corpuscular Hemoglobin 26 PG (27-34); Mean Corpuscular Volume 86.3 FL (87-102); Mean Platelet Volume 10.2 FL (9.6-12.0); Monocytes # 0.5 10*3/uL (0.11-0.8); Monocytes % 7.3 % (1.7-12.7); NRBC # 0.02 10*3/uL; Neutrophils # 5.2 10*3/uL (1.4-7.4); Neutrophils % 71.6 % (38.7-73.9); Platelet Count 265 T/CUMM (130-400); Red Blood Count 4.68 MC/CUMM (3.8-5.5); Red Cell Distribution Width 18.6 % (9.3-17.3); White Blood Count 7.3 T/CUMM (4-12)
[2018-12-05 17:41] LABS: Albumin 3.3 G/DL (3.4-5.0); Bilirubin,Total 0.6 MG/DL (0.2-1.0); Calcium 9.3 MG/DL (8.5-10.1); Osmolality,Calculated 272.8 MOS/KG (273-304); Potassium 3.8 MMOL/L (3.5-5.1); Thyroid Stimulating Hormone 0.036 uIU/ml (0.358-3.74); Total Protein 7.2 G/DL (6.4-8.3)
[2018-12-05 18:17] LABS: Apearance,Urine CLOUDY (Clear); Bacteria,Urine Many /HPF (Few); Bilirubin,Urine Negative (Negative); Blood, Urine Small mg/dL (Negative); Glucose,Urine (UA) 150 mg/dL (Negative); Ketones,Urine Negative (Negative); Mucus,Urine Occasional /LPF (Occasional); Nitrite,Urine Negative (Negative); Protein,Urine >=500 MG/DL; RBC,Urine 40 /HPF (0-4); Squamous Epithelial Cell,Urine Moderate /HPF (0-10); Urine Color Yellow (Yellow); Urine Specific Gravity 1.004 (1.001-1.035); Urine Urobilinogen < 2.0 EU/DL (0.2-1.0); WBC,Urine 183 /HPF (0-6)
[2018-12-05] MEDS: DILTIAZEM CD 180 MG CAPSULE PO SCH (20:53)
[2018-12-05] MEDS: levETIRAcetam 500 MG TABLET PO SCH (20:53)
[2018-12-05] MEDS: DICLOFENAC 1% GEL 100 GM TUBE TOP SCH (20:53)
[2018-12-05] MEDS: CLOPIDOGREL 75 MG TABLET PO SCH (20:53)
[2018-12-06] MEDS: ONDANSETRON 4 MG/2 ML VIAL IV PRN ×3 (08:19→19:38)
[2018-12-06] MEDS: DILTIAZEM CD 180 MG CAPSULE PO SCH ×2 (08:20→21:06)
[2018-12-06] MEDS: CARVEDILOL 6.25 MG TABLET PO SCH ×2 (08:21→17:48)
[2018-12-06] MEDS: ASPIRIN EC 81 MG TABLET PO SCH (08:21)
[2018-12-06] MEDS: PANTOPRAZOLE 40 MG TABLET PO SCH ×3 (08:21→21:06)
[2018-12-06] MEDS: CITALOPRAM 20 MG TABLET PO SCH (08:22)
[2018-12-06] MEDS ORDERED: KETOROLAC 15 MG/1 ML VIAL IV PRN (08:39)
[2018-12-06] MEDS ORDERED: cefTRIAXone 1,000 MG in SYRINGE 1 EACH IV SCH (09:00)
[2018-12-06] MEDS: diphenhydrAMINE CAP 25 MG CAPSULE PO PRN ×3 (09:54→23:31)
[2018-12-06] MEDS: levETIRAcetam 500 MG TABLET PO SCH (21:06)
[2018-12-06] MEDS: DOXYCYCLINE HYCLATE 100 MG CAPSULE PO SCH (21:06)
[2018-12-06] MEDS: CLOPIDOGREL 75 MG TABLET PO SCH (21:06)
[2018-12-06] MEDS: DICLOFENAC 1% GEL 100 GM TUBE TOP SCH (21:08)
[2018-12-07] MEDS: ONDANSETRON 4 MG/2 ML VIAL IV PRN ×2 (05:09→09:39)
[2018-12-07] MEDS: diphenhydrAMINE CAP 25 MG CAPSULE PO PRN (07:37)
[2018-12-07 08:10] LABS: Free T4 (Free Thyroxine) 1.45 NG/DL (0.76-1.46); Thyroid Stimulating Hormone 0.036 uIU/ml (0.358-3.74)
[2018-12-07] MEDS: CITALOPRAM 20 MG TABLET PO SCH (09:33)
[2018-12-07] MEDS: DOXYCYCLINE HYCLATE 100 MG CAPSULE PO SCH (09:33)
[2018-12-07] MEDS: ASPIRIN EC 81 MG TABLET PO SCH (09:35)
[2018-12-07] MEDS: PANTOPRAZOLE 40 MG TABLET PO SCH (09:35)
[2018-12-07] MEDS: DILTIAZEM CD 180 MG CAPSULE PO SCH (09:36)
[2018-12-07] MEDS: CARVEDILOL 6.25 MG TABLET PO SCH (09:37)
[2018-12-07 12:48] VITALS: BP 145/71
== END 2018-12-07 16:08 | disposition home or self-care (01) ==
LOC: N.TELEN → SUATTDRO 15:41 → N.5E 12-06 16:15
PROVIDERS: ADMIT Internal Medicine; ATTEND Emergency Medicine

== ENCOUNTER 2019-02-02 18:32 | Observation (INO) ==
[2019-02-02] MEDS ORDERED: ALUM/MAG/SIMETH/LIDO VISC 1:1 30 ML BOTTLE PO STA (18:55)
[2019-02-02] MEDS ORDERED: ONDANSETRON 4 MG/2 ML VIAL IV STA (18:55)
[2019-02-02] MEDS ORDERED: NITROGLYCERIN 2% OINT 1 INCH/GM PACK TOP STA (18:55)
[2019-02-02] MEDS ORDERED: MEPERIDINE 25 MG/1 ML VIAL IV STA (18:55)
[2019-02-02] MEDS ORDERED: ASPIRIN 325 MG TABLET PO STA (18:55)
[2019-02-02] MEDS ORDERED: hydrALAZINE 20 MG/1 ML VIAL IV STA (19:04)
[2019-02-02 19:57] LABS: Lipase < 50.0 U/L (73-393)
[2019-02-02 19:59] LABS: Albumin 3.5 G/DL (3.4-5.0); Bilirubin,Total 0.6 MG/DL (0.2-1.0); Calcium 9.6 MG/DL (8.5-10.1); Osmolality,Calculated 275.5 MOS/KG (273-304); Potassium 4.7 MMOL/L (3.5-5.1); Total Protein 7.3 G/DL (6.4-8.3)
[2019-02-02 20:02] LABS: Basophils % 0.6 % (0.0-0.8); Eosinophils # 0.4 10*3/uL (0.0-0.87); Eosinophils % 7.2 % (0.00-10.9); Hematocrit 42.7 VOL% (35.7-47.0); Hemoglobin 12.5 GM/DL (12.0-16.0); Immature Granulocytes % 0.4 %; Immature Granulocytes Absolute 0.02 #; Lymphocytes # 1.4 10*3/uL (1.4-4.0); Lymphocytes % 27.1 % (21.3-54.2); Mean Corpuscular HGB Conc 29.3 GM/DL (32-36); Mean Corpuscular Hemoglobin 26 PG (27-34); Mean Corpuscular Volume 87.7 FL (87-102); Mean Platelet Volume 10.4 FL (9.6-12.0); Monocytes # 0.3 10*3/uL (0.11-0.8); Monocytes % 6.4 % (1.7-12.7); Neutrophils % 58.3 % (38.7-73.9); Platelet Count 234 T/CUMM (130-400); Red Blood Count 4.87 MC/CUMM (3.8-5.5); Red Cell Distribution Width 19.9 % (9.3-17.3); White Blood Count 5.1 T/CUMM (4-12)
[2019-02-02 20:09] LABS: PT Patient Result 10.4 SECS
[2019-02-02] MEDS ORDERED: DEXTROSE 50% 25 GM/50 ML VIAL IV STA (20:11)
[2019-02-02] MEDS ORDERED: DEXTROSE 50% 25 GM/50 ML SYRINGE IV ONE (21:01)
[2019-02-02] MEDS ORDERED: NITROGLYCERIN SL 0.4 MG TABLET SL PRN (21:13)
[2019-02-02] MEDS ORDERED: ALBUTEROL/IPRATROPIUM 3 ML NEB RESP TX PRN (21:13)
[2019-02-02] MEDS ORDERED: ACETAMINOPHEN 325 MG TABLET PO PRN (21:16)
[2019-02-02] MEDS: HEPARIN 5,000 UNIT/1 ML VIAL SUBCUT SCH (23:50)
[2019-02-02] MEDS: CYCLOBENZAPRINE 10 MG TABLET PO SCH (23:58)
[2019-02-03 01:11] LABS: Basophils % 0.8 % (0.0-0.8); Eosinophils # 0.4 10*3/uL (0.0-0.87); Eosinophils % 6.8 % (0.00-10.9); Hematocrit 45.4 VOL% (35.7-47.0); Hemoglobin 13.3 GM/DL (12.0-16.0); Immature Granulocytes % 0.2 %; Immature Granulocytes Absolute 0.01 #; Lymphocytes # 1.9 10*3/uL (1.4-4.0); Mean Corpuscular HGB Conc 29.3 GM/DL (32-36); Mean Corpuscular Hemoglobin 26 PG (27-34); Mean Platelet Volume 10.1 FL (9.6-12.0); Monocytes # 0.3 10*3/uL (0.11-0.8); Neutrophils # 2.6 10*3/uL (1.4-7.4); Neutrophils % 50.2 % (38.7-73.9); Platelet Count 245 T/CUMM (130-400); Red Blood Count 5.16 MC/CUMM (3.8-5.5); White Blood Count 5.1 T/CUMM (4-12)
[2019-02-03 01:35] LABS: Calcium 9.5 MG/DL (8.5-10.1); Osmolality,Calculated 275.7 MOS/KG (273-304); Potassium 4.3 MMOL/L (3.5-5.1)
[2019-02-03 01:39] LABS: Troponin I < 0.015 NG/ML (0.00-0.045)
[2019-02-03] MEDS: HEPARIN 5,000 UNIT/1 ML VIAL SUBCUT SCH ×3 (05:32→21:15)
[2019-02-03] MEDS ORDERED: CARVEDILOL 6.25 MG TABLET PO SCH (08:00)
[2019-02-03] MEDS ORDERED: GLUCAGON 1 MG VIAL IM PRN (08:30)
[2019-02-03] MEDS ORDERED: DILTIAZEM CD 180 MG CAPSULE PO SCH (09:00)
[2019-02-03 10:35] LABS: Troponin I < 0.015 NG/ML (0.00-0.045)
[2019-02-03] MEDS: CYCLOBENZAPRINE 10 MG TABLET PO SCH ×3 (10:53→22:53)
[2019-02-03] MEDS: INSULIN LISPRO 100 UNIT/ML SUBCUT SCH ×3 (13:37→21:17)
[2019-02-03] MEDS: PANTOPRAZOLE 40 MG TABLET PO SCH (13:40)
[2019-02-03] MEDS: CITALOPRAM 20 MG TABLET PO SCH (13:40)
[2019-02-03] MEDS: ASPIRIN EC 325 MG TABLET PO SCH (13:40)
[2019-02-03] MEDS: CINACALCET 30 MG TABLET PO SCH (13:40)
[2019-02-03] MEDS: PREGABALIN 75 MG CAPSULE PO SCH (13:41)
[2019-02-03] MEDS: DILTIAZEM CD 180 MG CAPSULE PO SCH (13:41)
[2019-02-03] MEDS: amLODIPine 10 MG TABLET PO SCH (13:41)
[2019-02-03] MEDS: CARVEDILOL 12.5 MG TABLET PO SCH ×2 (13:41→21:16)
[2019-02-03] MEDS ORDERED: ONDANSETRON 4 MG/2 ML VIAL IV PRN (17:47)
[2019-02-03] MEDS: levETIRAcetam 500 MG TABLET PO SCH (21:15)
[2019-02-03] MEDS: CLOPIDOGREL 75 MG TABLET PO SCH (21:16)
[2019-02-03] MEDS: ROSUVASTATIN 10 MG TABLET PO SCH (21:24)
[2019-02-04] MEDS: HEPARIN 5,000 UNIT/1 ML VIAL SUBCUT SCH ×3 (05:48→21:03)
[2019-02-04] MEDS: CYCLOBENZAPRINE 10 MG TABLET PO SCH ×3 (06:02→23:03)
[2019-02-04] MEDS: INSULIN LISPRO 100 UNIT/ML SUBCUT SCH ×4 (07:39→21:04)
[2019-02-04] MEDS: ASPIRIN EC 325 MG TABLET PO SCH (08:25)
[2019-02-04] MEDS: CITALOPRAM 20 MG TABLET PO SCH (08:25)
[2019-02-04] MEDS: CARVEDILOL 12.5 MG TABLET PO SCH ×2 (08:25→16:32)
[2019-02-04] MEDS: PREGABALIN 75 MG CAPSULE PO SCH (08:25)
[2019-02-04] MEDS: CINACALCET 30 MG TABLET PO SCH (08:25)
[2019-02-04] MEDS: PANTOPRAZOLE 40 MG TABLET PO SCH (08:26)
[2019-02-04] MEDS: amLODIPine 10 MG TABLET PO SCH (09:58)
[2019-02-04] MEDS: CLOPIDOGREL 75 MG TABLET PO SCH (21:02)
[2019-02-04] MEDS: levETIRAcetam 500 MG TABLET PO SCH (21:02)
[2019-02-04] MEDS: ROSUVASTATIN 10 MG TABLET PO SCH (21:02)
[2019-02-05] MEDS: HEPARIN 5,000 UNIT/1 ML VIAL SUBCUT SCH ×2 (05:47→13:00)
[2019-02-05] MEDS: DILTIAZEM CD 180 MG CAPSULE PO SCH (07:35)
[2019-02-05 08:44] LABS: Calcium 8.3 MG/DL (8.5-10.1); Osmolality,Calculated 270.1 MOS/KG (273-304); Potassium 4.5 MMOL/L (3.5-5.1)
[2019-02-05 08:49] LABS: Eosinophils # 0.3 10*3/uL (0.0-0.87); Eosinophils % 7.9 % (0.00-10.9); Hematocrit 37.6 VOL% (35.7-47.0); Lymphocytes # 1.8 10*3/uL (1.4-4.0); Lymphocytes % 43.8 % (21.3-54.2); Mean Corpuscular HGB Conc 30.1 GM/DL (32-36); Mean Corpuscular Hemoglobin 26 PG (27-34); Mean Corpuscular Volume 85.3 FL (87-102); Mean Platelet Volume 10.9 FL (9.6-12.0); Monocytes # 0.2 10*3/uL (0.11-0.8); Monocytes % 5.9 % (1.7-12.7); Neutrophils # 1.7 10*3/uL (1.4-7.4); Neutrophils % 41.4 % (38.7-73.9); Platelet Count 177 T/CUMM (130-400); Red Blood Count 4.41 MC/CUMM (3.8-5.5); Red Cell Distribution Width 19.5 % (9.3-17.3); White Blood Count 4.1 T/CUMM (4-12)
[2019-02-05 08:50] LABS: Hemoglobin 11.3 GM/DL (12.0-16.0)
[2019-02-05] MEDS ORDERED: NITROGLYCERIN 0.4 MG/HR PATCH TRANSDERM SCH (09:00)
[2019-02-05] MEDS: CYCLOBENZAPRINE 10 MG TABLET PO SCH (09:02)
[2019-02-05] MEDS: CARVEDILOL 12.5 MG TABLET PO SCH (09:03)
[2019-02-05] MEDS: INSULIN LISPRO 100 UNIT/ML SUBCUT SCH ×2 (09:03→12:49)
[2019-02-05] MEDS: CITALOPRAM 20 MG TABLET PO SCH (11:36)
[2019-02-05] MEDS: CINACALCET 30 MG TABLET PO SCH (11:36)
[2019-02-05] MEDS: PANTOPRAZOLE 40 MG TABLET PO SCH (11:37)
[2019-02-05] MEDS: PREGABALIN 75 MG CAPSULE PO SCH (11:37)
[2019-02-05] MEDS: amLODIPine 10 MG TABLET PO SCH (11:37)
[2019-02-05] MEDS: ASPIRIN EC 325 MG TABLET PO SCH (11:37)
[2019-02-05 12:40] VITALS: BP 125/64
== END 2019-02-05 14:07 | disposition home or self-care (01) ==
LOC: EDUNIT# → EDBD → N.EDINP 18:32 → N.ED 18:32 → N.TELEN 22:24
PROVIDERS: ADMIT Emergency Medicine; ATTEND Emergency Medicine

== ENCOUNTER 2019-02-11 19:19 | Observation (INO) ==
[2019-02-11] MEDS ORDERED: ONDANSETRON 4 MG/2 ML VIAL IV STA (19:46)
[2019-02-11] MEDS ORDERED: ASPIRIN 325 MG TABLET PO STA (19:46)
[2019-02-11] MEDS ORDERED: ALUM/MAG/SIMETH/LIDO VISC 1:1 30 ML BOTTLE PO STA (19:46)
[2019-02-11] MEDS ORDERED: NITROGLYCERIN 2% OINT 1 INCH/GM PACK TOP STA (19:46)
[2019-02-11] MEDS ORDERED: hydrALAZINE 20 MG/1 ML VIAL IV STA (19:47)
[2019-02-11] MEDS ORDERED: hydrALAZINE 20 MG/1 ML VIAL IM STA (21:06)
[2019-02-11] MEDS ORDERED: ONDANSETRON ODT 4 MG TABLET PO STA (21:06)
[2019-02-12 00:16] LABS: Albumin 3.4 G/DL (3.4-5.0); Bilirubin,Total 0.8 MG/DL (0.2-1.0); Calcium 8.9 MG/DL (8.5-10.1); Osmolality,Calculated 276.8 MOS/KG (273-304); Total Protein 7.4 G/DL (6.4-8.3)
[2019-02-12] MEDS ORDERED: CALCIUM CHLORIDE 1,000 MG/10 ML SYRINGE IV STA (00:44)
[2019-02-12] MEDS ORDERED: DEXTROSE 50% 25 GM/50 ML VIAL IV STA (00:48)
[2019-02-12 01:33] LABS: Basophils # 0.1 10*3/uL (0.0-0.2); Basophils % 1.2 % (0.0-0.8); Eosinophils # 0.3 10*3/uL (0.0-0.87); Eosinophils % 6.8 % (0.00-10.9); Immature Granulocytes % 0.2 %; Immature Granulocytes Absolute 0.01 #; Lymphocytes # 1.8 10*3/uL (1.4-4.0); Lymphocytes % 37.3 % (21.3-54.2); Mean Corpuscular HGB Conc 29.3 GM/DL (32-36); Mean Corpuscular Volume 87.1 FL (87-102); Mean Platelet Volume 10.7 FL (9.6-12.0); Monocytes % 8.5 % (1.7-12.7); Platelet Count 229 T/CUMM (130-400); Red Blood Count 5.13 MC/CUMM (3.8-5.5); Red Cell Distribution Width 18.6 % (9.3-17.3); White Blood Count 4.8 T/CUMM (4-12)
[2019-02-12 01:42] LABS: Hematocrit 44.4 VOL% (35.7-47.0); Hemoglobin 13.1 GM/DL (12.0-16.0)
[2019-02-12 01:45] LABS: INR 0.9
[2019-02-12] MEDS ORDERED: MORPHINE 4 MG/1 ML VIAL IV ONE (03:09)
[2019-02-12] MEDS ORDERED: ACETAMINOPHEN 325 MG TABLET PO PRN (03:14)
[2019-02-12] MEDS ORDERED: DOCUSATE SODIUM 100 MG CAPSULE PO PRN (03:14)
[2019-02-12] MEDS ORDERED: ONDANSETRON 4 MG/2 ML VIAL IV PRN (03:14)
[2019-02-12] MEDS ORDERED: NITROGLYCERIN SL 0.4 MG TABLET SL PRN (03:24)
[2019-02-12] MEDS ORDERED: ATENOLOL 50 MG TABLET PO ONE (04:27)
[2019-02-12] MEDS ORDERED: amLODIPine 10 MG TABLET PO ONE (04:28)
[2019-02-12] MEDS ORDERED: CARVEDILOL 6.25 MG TABLET PO ONE (04:28)
[2019-02-12] MEDS: levETIRAcetam 500 MG TABLET PO SCH (10:34)
[2019-02-12] MEDS: amLODIPine 10 MG TABLET PO SCH (10:34)
[2019-02-12] MEDS: CINACALCET 30 MG TABLET PO SCH (10:34)
[2019-02-12] MEDS: SEVELAMER CARBONATE 800 MG TABLET PO SCH ×2 (13:34→17:24)
[2019-02-12 13:50] LABS: Basophils # 0.1 10*3/uL (0.0-0.2); Basophils % 1.4 % (0.0-0.8); Eosinophils # 0.3 10*3/uL (0.0-0.87); Eosinophils % 7.3 % (0.00-10.9); Immature Granulocytes % 0.3 %; Immature Granulocytes Absolute 0.01 #; Lymphocytes # 1.4 10*3/uL (1.4-4.0); Lymphocytes % 38.4 % (21.3-54.2); Mean Platelet Volume 10.7 FL (9.6-12.0); Monocytes % 6.8 % (1.7-12.7); Neutrophils % 45.8 % (38.7-73.9); Platelet Count 205 T/CUMM (130-400); Red Blood Count 4.65 MC/CUMM (3.8-5.5); Red Cell Distribution Width 18.3 % (9.3-17.3); White Blood Count 3.5 T/CUMM (4-12)
[2019-02-12 14:18] LABS: Calcium 8.6 MG/DL (8.5-10.1); Osmolality,Calculated 274.1 MOS/KG (273-304)
[2019-02-12] MEDS: CLOPIDOGREL 75 MG TABLET PO SCH (16:04)
[2019-02-12] MEDS: CARVEDILOL 6.25 MG TABLET PO SCH (17:23)
[2019-02-12] MEDS ORDERED: ROSUVASTATIN 10 MG TABLET PO SCH (21:00)
[2019-02-13] MEDS ORDERED: ASPIRIN EC 81 MG TABLET PO SCH (09:00)
[2019-02-13] MEDS: levETIRAcetam 500 MG TABLET PO SCH (09:20)
[2019-02-13] MEDS: CARVEDILOL 6.25 MG TABLET PO SCH (09:20)
[2019-02-13] MEDS: CINACALCET 30 MG TABLET PO SCH (09:21)
[2019-02-13] MEDS: SEVELAMER CARBONATE 800 MG TABLET PO SCH ×2 (09:23→13:00)
[2019-02-13] MEDS: amLODIPine 10 MG TABLET PO SCH (09:23)
[2019-02-13] MEDS: CLOPIDOGREL 75 MG TABLET PO SCH (09:23)
[2019-02-13 14:06] VITALS: BP 146/88
== END 2019-02-13 15:35 | disposition home or self-care (01) ==
LOC: EDBD → EDUNIT# → N.EDINP 19:19 → N.ED 19:19 → N.ICU 02-12 02:17 → N.TELEN 02-12 17:28
PROVIDERS: ADMIT Internal Medicine; ATTEND Internal Medicine

== ENCOUNTER 2019-03-18 17:29 | Observation (INO) ==
[2019-03-18] MEDS ORDERED: ONDANSETRON 4 MG/2 ML VIAL IV PRN (20:01)
[2019-03-18] MEDS ORDERED: GLUCAGON 1 MG VIAL IM PRN (20:01)
[2019-03-18] MEDS ORDERED: DEXTROSE 50% 25 GM/50 ML SYRINGE IV PRN (20:01)
[2019-03-18] MEDS ORDERED: hydrALAZINE 20 MG/1 ML VIAL IV PRN (20:29)
[2019-03-19] MEDS ORDERED: NITROGLYCERIN SL 0.4 MG TABLET SL ONE (02:05)
[2019-03-19] MEDS: ACETAMINOPHEN 325 MG TABLET PO PRN ×2 (02:15→08:17)
[2019-03-19] MEDS: INSULIN LISPRO 100 UNIT/ML SUBCUT SCH ×3 (02:17→10:59)
[2019-03-19 05:00] LABS: Basophils # 0.1 10*3/uL (0.0-0.2); Basophils % 0.8 % (0.0-0.8); Eosinophils # 0.1 10*3/uL (0.0-0.87); Eosinophils % 1.4 % (0.00-10.9); Hemoglobin 11.3 GM/DL (12.0-16.0); Immature Granulocytes % 0.3 %; Immature Granulocytes Absolute 0.02 #; Lymphocytes # 1.3 10*3/uL (1.4-4.0); Lymphocytes % 19.2 % (21.3-54.2); Mean Corpuscular HGB Conc 30.5 GM/DL (32-36); Mean Corpuscular Volume 85.8 FL (87-102); Mean Platelet Volume 10.6 FL (9.6-12.0); Monocytes % 7.3 % (1.7-12.7); Platelet Count 273 T/CUMM (130-400); Red Blood Count 4.31 MC/CUMM (3.8-5.5); Red Cell Distribution Width 17.1 % (9.3-17.3); White Blood Count 6.6 T/CUMM (4-12)
[2019-03-19 05:22] LABS: Albumin 3.8 G/DL (3.4-5.0); Bilirubin,Total 0.9 MG/DL (0.2-1.0); Osmolality,Calculated 271.1 MOS/KG (273-304); Risk Ratio 2.11; Thyroid Stimulating Hormone 0.043 uIU/ml (0.358-3.74); Total Protein 7.9 G/DL (6.4-8.3)
[2019-03-19 08:06] VITALS: BP 200/110
[2019-03-19] MEDS ORDERED: PANTOPRAZOLE 40 MG TABLET PO SCH (09:00)
[2019-03-19] MEDS ORDERED: CLOPIDOGREL 75 MG TABLET PO SCH (10:00)
[2019-03-19] MEDS ORDERED: ASPIRIN EC 81 MG TABLET PO SCH (10:00)
[2019-03-19] MEDS ORDERED: amLODIPine 10 MG TABLET PO SCH (10:00)
[2019-03-19] MEDS ORDERED: POLYETHYLENE GLYCOL POWDER 17 GM PACK PO PRN (10:02)
[2019-03-19] MEDS: LACTULOSE 20 GM/30 ML UDCUP PO ONE ×2 (10:11→10:14)
[2019-03-19] MEDS ORDERED: CITALOPRAM 20 MG TABLET PO SCH (11:42)
[2019-03-19] MEDS ORDERED: ONDANSETRON ODT 4 MG TABLET PO PRN (12:51)
[2019-03-19] MEDS ORDERED: NITROGLYCERIN SL 0.4 MG TABLET SL PRN (13:00)
[2019-03-19] MEDS ORDERED: PREGABALIN 75 MG CAPSULE PO SCH (14:00)
[2019-03-19] MEDS ORDERED: SEVELAMER CARBONATE 800 MG TABLET PO SCH (17:00)
[2019-03-19] MEDS ORDERED: CARVEDILOL 6.25 MG TABLET PO SCH (17:00)
[2019-03-19] MEDS ORDERED: DILTIAZEM CD 180 MG CAPSULE PO SCH (21:00)
[2019-03-19] MEDS ORDERED: ROSUVASTATIN 10 MG TABLET PO SCH (21:00)
[2019-03-19] MEDS ORDERED: DICLOFENAC 1% GEL 100 GM TUBE TOP SCH (21:00)
[2019-03-20] MEDS ORDERED: hydrOXYzine HCL 25 MG TABLET PO SCH (09:00)
[2019-03-20] MEDS ORDERED: ATENOLOL 50 MG TABLET PO SCH (09:00)
[2019-03-20] MEDS ORDERED: PANTOPRAZOLE 40 MG TABLET PO SCH (09:00)
[2019-03-20] MEDS ORDERED: levETIRAcetam 500 MG TABLET PO SCH (09:00)
[2019-03-20] MEDS ORDERED: CITALOPRAM 20 MG TABLET PO SCH (09:00)
== END 2019-03-19 15:40 | disposition home or self-care (01) ==
LOC: INTOOBSV 19:34 → N.TELEN 19:34 → SUATTDRO 19:34
PROVIDERS: ADMIT Internal Medicine; ATTEND Internal Medicine

== ENCOUNTER 2019-05-04 21:23 | Observation (INO) ==
[2019-05-04] MEDS ORDERED: LABETALOL 20 MG/4 ML SYRINGE IV ONE (23:18)
[2019-05-04] MEDS ORDERED: LABETALOL 20 MG/4 ML SYRINGE IV PRN (23:30)
[2019-05-05] MEDS ORDERED: DIAZEPAM 5 MG TABLET PO PRN (00:40)
[2019-05-05] MEDS ORDERED: NITROGLYCERIN SL 0.4 MG TABLET SL PRN (00:40)
[2019-05-05] MEDS ORDERED: cloNIDine 0.1 MG TABLET PO PRN (00:44)
[2019-05-05] MEDS ORDERED: DOCUSATE SODIUM 100 MG CAPSULE PO PRN (00:49)
[2019-05-05] MEDS ORDERED: ACETAMINOPHEN 325 MG TABLET PO PRN (00:49)
[2019-05-05] MEDS ORDERED: ONDANSETRON 4 MG/2 ML VIAL IV PRN (00:49)
[2019-05-05] MEDS: DILTIAZEM 90 MG TABLET PO SCH ×3 (01:26→22:43)
[2019-05-05] MEDS: levETIRAcetam 500 MG TABLET PO SCH ×2 (01:27→08:27)
[2019-05-05] MEDS: CARVEDILOL 6.25 MG TABLET PO SCH ×3 (01:27→17:17)
[2019-05-05] MEDS: PREGABALIN 75 MG CAPSULE PO SCH ×3 (01:27→17:17)
[2019-05-05 01:35] LABS: Basophils % 0.6 % (0.0-0.8); Eosinophils # 0.2 10*3/uL (0.0-0.87); Eosinophils % 3.3 % (0.00-10.9); Hematocrit 36.1 VOL% (35.7-47.0); Hemoglobin 10.7 GM/DL (12.0-16.0); Immature Granulocytes % 0.4 %; Immature Granulocytes Absolute 0.03 #; Lymphocytes # 1.5 10*3/uL (1.4-4.0); Lymphocytes % 21.7 % (21.3-54.2); Mean Corpuscular HGB Conc 29.6 GM/DL (32-36); Mean Corpuscular Volume 90.3 FL (87-102); Monocytes % 5.5 % (1.7-12.7); Neutrophils % 68.5 % (38.7-73.9); Platelet Count 230 T/CUMM (130-400); Red Cell Distribution Width 16.4 % (9.3-17.3); White Blood Count 6.9 T/CUMM (4-12)
[2019-05-05 01:58] LABS: Albumin 3.5 G/DL (3.4-5.0); Bilirubin,Total 0.5 MG/DL (0.2-1.0); Calcium 8.9 MG/DL (8.5-10.1); Osmolality,Calculated 285.4 MOS/KG (273-304); Total Protein 7.4 G/DL (6.4-8.3)
[2019-05-05] MEDS: HEPARIN 5,000 UNIT/1 ML VIAL SUBCUT SCH ×3 (02:02→17:18)
[2019-05-05] MEDS: CINACALCET 30 MG TABLET PO SCH (08:27)
[2019-05-05] MEDS: CITALOPRAM 20 MG TABLET PO SCH (08:27)
[2019-05-05] MEDS: ASPIRIN EC 81 MG TABLET PO SCH (08:28)
[2019-05-05] MEDS: CLOPIDOGREL 75 MG TABLET PO SCH (08:28)
[2019-05-05] MEDS: PANTOPRAZOLE 40 MG TABLET PO SCH (08:28)
[2019-05-05] MEDS: SEVELAMER CARBONATE 800 MG TABLET PO SCH ×3 (08:28→17:17)
[2019-05-05] MEDS: amLODIPine 10 MG TABLET PO SCH (09:16)
[2019-05-05] MEDS ORDERED: METOPROLOL TARTRATE 5 MG/5 ML VIAL IV ONE (12:30)
[2019-05-05] MEDS ORDERED: DILTIAZEM 60 MG TABLET PO ONE (12:58)
[2019-05-05] MEDS: ROSUVASTATIN 10 MG TABLET PO SCH (21:25)
[2019-05-06] MEDS: PREGABALIN 75 MG CAPSULE PO SCH ×3 (01:49→17:30)
[2019-05-06] MEDS: HEPARIN 5,000 UNIT/1 ML VIAL SUBCUT SCH ×3 (03:11→17:31)
[2019-05-06 07:53] LABS: Basophils % 0.9 % (0.0-0.8); Eosinophils # 0.3 10*3/uL (0.0-0.87); Eosinophils % 5.5 % (0.00-10.9); Hematocrit 31.3 VOL% (35.7-47.0); Hemoglobin 9.5 GM/DL (12.0-16.0); Immature Granulocytes % 0.2 %; Immature Granulocytes Absolute 0.01 #; Lymphocytes # 1.3 10*3/uL (1.4-4.0); Lymphocytes % 29.3 % (21.3-54.2); Mean Corpuscular HGB Conc 30.4 GM/DL (32-36); Mean Corpuscular Volume 89.7 FL (87-102); Mean Platelet Volume 10.5 FL (9.6-12.0); Monocytes % 9.4 % (1.7-12.7); Neutrophils % 54.7 % (38.7-73.9); Platelet Count 199 T/CUMM (130-400); Red Blood Count 3.49 MC/CUMM (3.8-5.5); Red Cell Distribution Width 16.1 % (9.3-17.3); White Blood Count 4.6 T/CUMM (4-12)
[2019-05-06 08:24] LABS: Calcium 8.5 MG/DL (8.5-10.1); Osmolality,Calculated 269.2 MOS/KG (273-304)
[2019-05-06] MEDS: SEVELAMER CARBONATE 800 MG TABLET PO SCH ×3 (09:40→16:30)
[2019-05-06] MEDS: DILTIAZEM 90 MG TABLET PO SCH ×2 (09:40→20:44)
[2019-05-06] MEDS: CITALOPRAM 20 MG TABLET PO SCH (09:41)
[2019-05-06] MEDS: CINACALCET 30 MG TABLET PO SCH (09:41)
[2019-05-06] MEDS: CLOPIDOGREL 75 MG TABLET PO SCH (09:41)
[2019-05-06] MEDS: amLODIPine 10 MG TABLET PO SCH (09:42)
[2019-05-06] MEDS: CARVEDILOL 6.25 MG TABLET PO SCH ×2 (09:42→16:31)
[2019-05-06] MEDS: PANTOPRAZOLE 40 MG TABLET PO SCH (09:43)
[2019-05-06] MEDS: levETIRAcetam 500 MG TABLET PO SCH (09:44)
[2019-05-06] MEDS: ASPIRIN EC 81 MG TABLET PO SCH (09:49)
[2019-05-06] MEDS: ROSUVASTATIN 10 MG TABLET PO SCH (20:43)
[2019-05-07] MEDS: PREGABALIN 75 MG CAPSULE PO SCH ×3 (02:19→16:36)
[2019-05-07] MEDS: HEPARIN 5,000 UNIT/1 ML VIAL SUBCUT SCH ×3 (02:19→18:24)
[2019-05-07 05:29] LABS: Basophils % 0.4 % (0.0-0.8); Eosinophils # 0.3 10*3/uL (0.0-0.87); Eosinophils % 5.2 % (0.00-10.9); Hematocrit 31.7 VOL% (35.7-47.0); Hemoglobin 9.3 GM/DL (12.0-16.0); Immature Granulocytes % 0.2 %; Immature Granulocytes Absolute 0.01 #; Lymphocytes # 1.6 10*3/uL (1.4-4.0); Lymphocytes % 33.1 % (21.3-54.2); Mean Corpuscular HGB Conc 29.3 GM/DL (32-36); Mean Corpuscular Volume 90.1 FL (87-102); Mean Platelet Volume 10.5 FL (9.6-12.0); Monocytes % 8.2 % (1.7-12.7); Neutrophils % 52.9 % (38.7-73.9); Platelet Count 205 T/CUMM (130-400); Red Blood Count 3.52 MC/CUMM (3.8-5.5); Red Cell Distribution Width 15.9 % (9.3-17.3); White Blood Count 4.8 T/CUMM (4-12)
[2019-05-07 05:58] LABS: Calcium 8.7 MG/DL (8.5-10.1); Osmolality,Calculated 274.1 MOS/KG (273-304)
[2019-05-07] MEDS: CARVEDILOL 6.25 MG TABLET PO SCH ×2 (08:05→16:35)
[2019-05-07] MEDS: SEVELAMER CARBONATE 800 MG TABLET PO SCH ×3 (08:06→16:35)
[2019-05-07] MEDS: CITALOPRAM 20 MG TABLET PO SCH (08:19)
[2019-05-07] MEDS: DILTIAZEM 90 MG TABLET PO SCH ×2 (08:19→20:32)
[2019-05-07] MEDS: CINACALCET 30 MG TABLET PO SCH (08:19)
[2019-05-07] MEDS: PANTOPRAZOLE 40 MG TABLET PO SCH (08:20)
[2019-05-07] MEDS: ASPIRIN EC 81 MG TABLET PO SCH (08:20)
[2019-05-07] MEDS: levETIRAcetam 500 MG TABLET PO SCH (08:20)
[2019-05-07] MEDS: amLODIPine 10 MG TABLET PO SCH (08:20)
[2019-05-07] MEDS: CLOPIDOGREL 75 MG TABLET PO SCH (08:20)
[2019-05-07] MEDS: ROSUVASTATIN 10 MG TABLET PO SCH (20:32)
[2019-05-08] MEDS: PREGABALIN 75 MG CAPSULE PO SCH ×2 (01:31→08:33)
[2019-05-08] MEDS: HEPARIN 5,000 UNIT/1 ML VIAL SUBCUT SCH ×3 (01:31→10:36)
[2019-05-08 04:44] LABS: Basophils % 0.5 % (0.0-0.8); Eosinophils # 0.2 10*3/uL (0.0-0.87); Eosinophils % 4.2 % (0.00-10.9); Hematocrit 30.7 VOL% (35.7-47.0); Immature Granulocytes % 0.2 %; Immature Granulocytes Absolute 0.01 #; Lymphocytes # 1.5 10*3/uL (1.4-4.0); Lymphocytes % 34.9 % (21.3-54.2); Mean Corpuscular HGB Conc 29.3 GM/DL (32-36); Mean Corpuscular Volume 90.3 FL (87-102); Mean Platelet Volume 10.4 FL (9.6-12.0); Monocytes % 10.4 % (1.7-12.7); Neutrophils % 49.8 % (38.7-73.9); Platelet Count 184 T/CUMM (130-400); Red Cell Distribution Width 15.6 % (9.3-17.3); White Blood Count 4.3 T/CUMM (4-12)
[2019-05-08 05:05] LABS: Calcium 8.5 MG/DL (8.5-10.1); Osmolality,Calculated 274.8 MOS/KG (273-304)
[2019-05-08 08:09] VITALS: BP 180/97
[2019-05-08] MEDS: DILTIAZEM 90 MG TABLET PO SCH (08:32)
[2019-05-08] MEDS: levETIRAcetam 500 MG TABLET PO SCH (08:32)
[2019-05-08] MEDS: CITALOPRAM 20 MG TABLET PO SCH (08:32)
[2019-05-08] MEDS: CLOPIDOGREL 75 MG TABLET PO SCH (08:33)
[2019-05-08] MEDS: PANTOPRAZOLE 40 MG TABLET PO SCH (08:33)
[2019-05-08] MEDS: ASPIRIN EC 81 MG TABLET PO SCH (08:33)
[2019-05-08] MEDS: amLODIPine 10 MG TABLET PO SCH (08:33)
[2019-05-08] MEDS: CINACALCET 30 MG TABLET PO SCH (08:33)
[2019-05-08] MEDS: CARVEDILOL 6.25 MG TABLET PO SCH (08:34)
[2019-05-08] MEDS: SEVELAMER CARBONATE 800 MG TABLET PO SCH (08:35)
== END 2019-05-08 14:15 | disposition home or self-care (01) ==
LOC: N.CC 22:54 → INTOOBSV 22:54 → SUATTDRO 05-05 00:40 → N.TELEN 05-05 16:54
PROVIDERS: ADMIT Internal Medicine; ATTEND Internal Medicine

== ENCOUNTER 2019-07-14 14:30 | Observation (INO) ==
[2019-07-14] MEDS ORDERED: ONDANSETRON 4 MG/2 ML VIAL IV STA (14:53)
[2019-07-14] MEDS ORDERED: ENOXAPARIN 100 MG/ML SYRINGE SUBCUT STA (14:53)
[2019-07-14] MEDS ORDERED: ASPIRIN 325 MG TABLET PO STA (14:53)
[2019-07-14] MEDS ORDERED: NITROGLYCERIN 2% OINT 1 INCH/GM PACK TOP STA (14:53)
[2019-07-14 16:04] LABS: Basophils % 0.8 % (0.0-0.8); Eosinophils # 0.1 10*3/uL (0.0-0.87); Hematocrit 36.1 VOL% (35.7-47.0); Immature Granulocytes % 0.2 %; Immature Granulocytes Absolute 0.01 #; Lymphocytes # 1.1 10*3/uL (1.4-4.0); Lymphocytes % 23.2 % (21.3-54.2); Mean Corpuscular HGB Conc 30.5 GM/DL (32-36); Mean Platelet Volume 9.8 FL (9.6-12.0); Monocytes % 4.9 % (1.7-12.7); NRBC # 0.02 10*3/uL; Neutrophils % 67.9 % (38.7-73.9); Platelet Count 240 T/CUMM (130-400); Red Blood Count 4.15 MC/CUMM (3.8-5.5); White Blood Count 4.7 T/CUMM (4-12)
[2019-07-14 16:13] LABS: PT Patient Result 10.6 SECS (9.6-12.2); Partial Thromboplastin Time 29.5 SECS (20.8-36.0)
[2019-07-14 16:37] LABS: Albumin 3.8 G/DL (3.4-5.0); Bilirubin,Total 0.9 MG/DL (0.2-1.0); Calcium 9.1 MG/DL (8.5-10.1); Osmolality,Calculated 277.4 MOS/KG (273-304); Total Protein 8.3 G/DL (6.4-8.3)
[2019-07-14] MEDS ORDERED: hydrALAZINE 20 MG/1 ML VIAL ONE (18:17)
[2019-07-14] MEDS ORDERED: hydrALAZINE 20 MG/1 ML VIAL IV STA (18:25)
[2019-07-14] MEDS ORDERED: ACETAMINOPHEN 325 MG TABLET PO PRN (18:36)
[2019-07-14] MEDS ORDERED: MORPHINE 4 MG/1 ML VIAL IV PRN (18:36)
[2019-07-14] MEDS ORDERED: NITROGLYCERIN SL 0.4 MG TABLET SL PRN (18:38)
[2019-07-14 19:14] LABS: Troponin I 0.025 NG/ML (0.00-0.045)
[2019-07-14] MEDS: PREGABALIN 75 MG CAPSULE PO SCH (21:27)
[2019-07-14] MEDS: amLODIPine 10 MG TABLET PO SCH (21:27)
[2019-07-14] MEDS: CINACALCET 30 MG TABLET PO SCH (21:27)
[2019-07-14] MEDS: CITALOPRAM 20 MG TABLET PO SCH (21:27)
[2019-07-14] MEDS: ASPIRIN EC 81 MG TABLET PO SCH (21:28)
[2019-07-14] MEDS: ENOXAPARIN 30 MG/0.3 ML SYRINGE SUBCUT SCH (21:28)
[2019-07-14] MEDS: carvediloL 6.25 MG TABLET PO SCH (21:28)
[2019-07-14] MEDS: levETIRAcetam 500 MG TABLET PO SCH (21:28)
[2019-07-14] MEDS: CLOPIDOGREL 75 MG TABLET PO SCH (21:28)
[2019-07-14] MEDS: ONDANSETRON 4 MG/2 ML VIAL IV PRN (21:38)
[2019-07-14] MEDS: diphenhydrAMINE CAP 25 MG CAPSULE PO PRN (23:46)
[2019-07-15] MEDS: diphenhydrAMINE CAP 25 MG CAPSULE PO PRN (03:27)
[2019-07-15 06:35] LABS: Eosinophils # 0.1 10*3/uL (0.0-0.87); Eosinophils % 3.4 % (0.00-10.9); Hematocrit 32.6 VOL% (35.7-47.0); Hemoglobin 9.7 GM/DL (12.0-16.0); Immature Granulocytes % 0.2 %; Immature Granulocytes Absolute 0.01 #; Lymphocytes # 1.4 10*3/uL (1.4-4.0); Lymphocytes % 32.8 % (21.3-54.2); Mean Corpuscular HGB Conc 29.8 GM/DL (32-36); Mean Corpuscular Volume 87.9 FL (87-102); Mean Platelet Volume 10.5 FL (9.6-12.0); Monocytes % 9.6 % (1.7-12.7); Platelet Count 238 T/CUMM (130-400); Red Blood Count 3.71 MC/CUMM (3.8-5.5); Red Cell Distribution Width 17.2 % (9.3-17.3); White Blood Count 4.2 T/CUMM (4-12)
[2019-07-15 07:01] LABS: Alanine Aminotransferase < 6 U/L (13-56); Albumin 3.2 G/DL (3.4-5.0); Alkaline Phosphatase 76 U/L (45-117); Aspartate Amino Transferase 8 U/L (0-37); Blood Urea Nitrogen 16 MG/DL (7-18); Calcium 8.6 MG/DL (8.5-10.1); Estimated Glom Filtration Rate 8 ML/MIN; Glucose 72 MG/DL (74-106); HDL Cholesterol 78 MG/DL (40-60); Osmolality,Calculated 278.4 MOS/KG (273-304); Risk Ratio 2.04; Total Protein 6.4 G/DL (6.4-8.3); Triglycerides 53 MG/DL (2-150); VLDL CHOLESTEROL 10.6 MG/DL
[2019-07-15] MEDS: PANTOPRAZOLE 40 MG TABLET PO SCH (08:11)
[2019-07-15] MEDS: carvediloL 6.25 MG TABLET PO SCH ×2 (08:12→16:11)
[2019-07-15] MEDS: SEVELAMER CARBONATE 800 MG TABLET PO SCH ×3 (08:12→16:11)
[2019-07-15 15:02] LABS: Free T4 (Free Thyroxine) 1.25 NG/DL (0.76-1.46)
[2019-07-15] MEDS: ENOXAPARIN 30 MG/0.3 ML SYRINGE SUBCUT SCH (21:49)
[2019-07-15] MEDS: levETIRAcetam 500 MG TABLET PO SCH (21:49)
[2019-07-15] MEDS: amLODIPine 10 MG TABLET PO SCH (21:50)
[2019-07-15] MEDS: ASPIRIN EC 81 MG TABLET PO SCH (21:50)
[2019-07-15] MEDS: PREGABALIN 75 MG CAPSULE PO SCH (21:50)
[2019-07-15] MEDS: CITALOPRAM 20 MG TABLET PO SCH (21:50)
[2019-07-15] MEDS: CINACALCET 30 MG TABLET PO SCH (21:50)
[2019-07-15] MEDS: CLOPIDOGREL 75 MG TABLET PO SCH (21:51)
[2019-07-15] MEDS: ONDANSETRON 4 MG/2 ML VIAL IV PRN (22:07)
[2019-07-16] MEDS: SEVELAMER CARBONATE 800 MG TABLET PO SCH ×2 (08:18→14:15)
[2019-07-16] MEDS: carvediloL 6.25 MG TABLET PO SCH (08:18)
[2019-07-16] MEDS: PANTOPRAZOLE 40 MG TABLET PO SCH (08:19)
[2019-07-16] MEDS: ONDANSETRON 4 MG/2 ML VIAL IV PRN (08:24)
[2019-07-16 15:30] VITALS: BP 150/70
== END 2019-07-16 15:30 | disposition home or self-care (01) ==
LOC: N.ED 14:30 → N.EDINP 14:30 → N.5E 19:12
PROVIDERS: ADMIT Internal Medicine; ATTEND Internal Medicine

== ENCOUNTER 2019-08-02 08:38 | Observation (INO) ==
[2019-08-02] MEDS ORDERED: ONDANSETRON 4 MG/2 ML VIAL IV STA (08:57)
[2019-08-02] MEDS ORDERED: ASPIRIN 325 MG TABLET PO STA (08:57)
[2019-08-02] MEDS ORDERED: NITROGLYCERIN 2% OINT 1 INCH/GM PACK TOP STA (08:57)
[2019-08-02] MEDS ORDERED: NITROGLYCERIN SL 0.4 MG TABLET SL PRN (08:57)
[2019-08-02 09:27] LABS: Basophils % 0.5 % (0.0-0.8); Eosinophils # 0.2 10*3/uL (0.0-0.87); Hematocrit 33.6 VOL% (35.7-47.0); Hemoglobin 10.4 GM/DL (12.0-16.0); Immature Granulocytes % 0.5 %; Immature Granulocytes Absolute 0.02 #; Lymphocytes # 0.8 10*3/uL (1.4-4.0); Lymphocytes % 20.9 % (21.3-54.2); Mean Corpuscular Volume 85.3 FL (87-102); Mean Platelet Volume 9.8 FL (9.6-12.0); Monocytes % 6.5 % (1.7-12.7); Neutrophils % 66.6 % (38.7-73.9); Platelet Count 193 T/CUMM (130-400); Red Blood Count 3.94 MC/CUMM (3.8-5.5); Red Cell Distribution Width 16.5 % (9.3-17.3)
[2019-08-02 09:38] LABS: PT Patient Result 10.5 SECS (9.6-12.2); Partial Thromboplastin Time 29.9 SECS (20.8-36.0)
[2019-08-02 10:01] LABS: Calcium 8.9 MG/DL (8.5-10.1); Osmolality,Calculated 280.5 MOS/KG (273-304)
[2019-08-02] MEDS ORDERED: ONDANSETRON 4 MG/2 ML VIAL IV PRN (10:21)
[2019-08-02] MEDS ORDERED: ACETAMINOPHEN 325 MG TABLET PO PRN (10:23)
[2019-08-02] MEDS ORDERED: hydrALAZINE 20 MG/1 ML VIAL IV PRN (10:28)
[2019-08-02] MEDS ORDERED: hydrALAZINE 20 MG/1 ML VIAL IV STA (10:28)
[2019-08-02] MEDS: SEVELAMER CARBONATE 800 MG TABLET PO SCH ×2 (11:45→16:37)
[2019-08-02] MEDS: HEPARIN 5,000 UNIT/1 ML VIAL SUBCUT SCH ×2 (12:25→17:41)
[2019-08-02] MEDS: SUCRALFATE 1 GM/10 ML UDCUP PO SCH ×3 (15:23→21:53)
[2019-08-02] MEDS ORDERED: CLOPIDOGREL 75 MG TABLET PO SCH (21:00)
[2019-08-02] MEDS ORDERED: levETIRAcetam 500 MG TABLET PO SCH (21:00)
[2019-08-02] MEDS ORDERED: ASPIRIN EC 81 MG TABLET PO SCH (21:00)
[2019-08-02] MEDS ORDERED: PREGABALIN 75 MG CAPSULE PO SCH (21:00)
[2019-08-02] MEDS ORDERED: amLODIPine 10 MG TABLET PO SCH (21:00)
[2019-08-02] MEDS ORDERED: CINACALCET 30 MG TABLET PO SCH (21:00)
[2019-08-02] MEDS ORDERED: CITALOPRAM 20 MG TABLET PO SCH (21:00)
[2019-08-02] MEDS: PANTOPRAZOLE 40 MG TABLET PO SCH (21:50)
[2019-08-02] MEDS: carvediloL 6.25 MG TABLET PO SCH (21:50)
[2019-08-02] MEDS: DOCUSATE SODIUM 100 MG CAPSULE PO SCH (22:05)
[2019-08-03] MEDS: HEPARIN 5,000 UNIT/1 ML VIAL SUBCUT SCH ×2 (02:04→11:01)
[2019-08-03 05:42] LABS: Alanine Aminotransferase < 9 U/L (13-56); Albumin 2.9 G/DL (3.4-5.0); Alkaline Phosphatase 71 U/L (45-117); Aspartate Amino Transferase 11 U/L (0-37); Blood Urea Nitrogen 15 MG/DL (7-18); Calcium 8.4 MG/DL (8.5-10.1); Estimated Glom Filtration Rate 10 ML/MIN; Glucose 76 MG/DL (74-106); Osmolality,Calculated 274.7 MOS/KG (273-304); Total Protein 6.3 G/DL (6.4-8.3)
[2019-08-03 05:45] LABS: Basophils % 0.9 % (0.0-0.8); Eosinophils # 0.2 10*3/uL (0.0-0.87); Eosinophils % 5.7 % (0.00-10.9); Hematocrit 32.9 VOL% (35.7-47.0); Hemoglobin 9.9 GM/DL (12.0-16.0); Lymphocytes # 1.1 10*3/uL (1.4-4.0); Lymphocytes % 32.1 % (21.3-54.2); Mean Corpuscular HGB Conc 30.1 GM/DL (32-36); Mean Corpuscular Volume 86.4 FL (87-102); Mean Platelet Volume 10.7 FL (9.6-12.0); Monocytes % 9.2 % (1.7-12.7); Neutrophils % 52.1 % (38.7-73.9); Platelet Count 203 T/CUMM (130-400); Red Blood Count 3.81 MC/CUMM (3.8-5.5); Red Cell Distribution Width 16.5 % (9.3-17.3); White Blood Count 3.4 T/CUMM (4-12)
[2019-08-03] MEDS ORDERED: SODIUM POLYSTYRENE SULFATE 15 GM/60 ML BOTTLE PO STA (07:24)
[2019-08-03] MEDS: DOCUSATE SODIUM 100 MG CAPSULE PO SCH ×2 (07:50→08:24)
[2019-08-03] MEDS: carvediloL 6.25 MG TABLET PO SCH ×2 (07:50→08:23)
[2019-08-03] MEDS: SEVELAMER CARBONATE 800 MG TABLET PO SCH ×2 (07:50→12:45)
[2019-08-03] MEDS: SUCRALFATE 1 GM/10 ML UDCUP PO SCH ×3 (07:51→14:35)
[2019-08-03] MEDS: PANTOPRAZOLE 40 MG TABLET PO SCH ×2 (07:51→08:23)
[2019-08-03] MEDS ORDERED: carvediloL 12.5 MG TABLET PO SCH (11:00)
[2019-08-03 16:25] VITALS: BP 149/79
== END 2019-08-03 16:41 | disposition home or self-care (01) ==
LOC: N.ED 08:38 → N.EDINP 08:38 → N.2W 10:40

== ENCOUNTER 2019-08-07 08:50 | Inpatient (IN) ==
[2019-08-07] MEDS ORDERED: PANTOPRAZOLE 40 MG VIAL IV STA (09:14)
[2019-08-07] MEDS ORDERED: ONDANSETRON 4 MG/2 ML VIAL IV STA (09:14)
[2019-08-07 09:54] LABS: Basophils % 0.4 % (0.0-0.8); Eosinophils # 0.1 10*3/uL (0.0-0.87); Eosinophils % 1.1 % (0.00-10.9); Hematocrit 19.4 VOL% (35.7-47.0); Immature Granulocytes % 0.6 %; Immature Granulocytes Absolute 0.07 #; Lymphocytes # 1.5 10*3/uL (1.4-4.0); Mean Corpuscular HGB Conc 30.4 GM/DL (32-36); Mean Corpuscular Volume 86.6 FL (87-102); Mean Platelet Volume 10.7 FL (9.6-12.0); Monocytes % 4.2 % (1.7-12.7); Neutrophils % 80.7 % (38.7-73.9); Platelet Count 174 T/CUMM (130-400); Red Blood Count 2.24 MC/CUMM (3.8-5.5); Red Cell Distribution Width 16.9 % (9.3-17.3); White Blood Count 11.4 T/CUMM (4-12)
[2019-08-07 09:57] LABS: Hemoglobin 5.9 GM/DL (12.0-16.0)
[2019-08-07 09:58] LABS: Partial Thromboplastin Time 26.1 SECS (20.8-36.0)
[2019-08-07] MEDS ORDERED: SODIUM CHLORIDE 0.9% 1,000 ML IV PRN ×2 (10:21→13:27)
[2019-08-07 10:26] LABS: Calcium 9.3 MG/DL (8.5-10.1); Osmolality,Calculated 307.3 MOS/KG (273-304)
[2019-08-07] MEDS ORDERED: ALBUTEROL 2.5 MG/3 ML NEB RESP TX PRN (11:48)
[2019-08-07] MEDS ORDERED: ALBUTEROL/IPRATROPIUM 3 ML NEB RESP TX PRN (11:48)
[2019-08-07] MEDS ORDERED: hydrALAZINE 20 MG/1 ML VIAL IV PRN (11:51)
[2019-08-07] MEDS ORDERED: niCARdipine INJ 25 MG in SODIUM CHLORIDE 0.9% 240 ML IV PRN (11:51)
[2019-08-07] MEDS: PANTOPRAZOLE INJ 200 MG in SODIUM CHLORIDE 0.9% 250 ML IV SCH (14:53)
[2019-08-07] MEDS: hydrALAZINE 20 MG/1 ML VIAL IV PRN (20:16)
[2019-08-07] MEDS ORDERED: amLODIPine 10 MG TABLET PO SCH (21:00)
[2019-08-07] MEDS ORDERED: carvediloL 6.25 MG TABLET PO SCH (21:00)
[2019-08-07] MEDS ORDERED: hydrALAZINE 20 MG/1 ML VIAL IV ONE (22:06)
[2019-08-08] MEDS ORDERED: LABETALOL 20 MG/4 ML SYRINGE IV ONE (01:10)
[2019-08-08] MEDS: hydrALAZINE 20 MG/1 ML VIAL IV PRN (03:25)
[2019-08-08] MEDS: amLODIPine 10 MG TABLET PO SCH (09:24)
[2019-08-08] MEDS: carvediloL 6.25 MG TABLET PO SCH ×2 (09:24→20:15)
[2019-08-08] MEDS: PANTOPRAZOLE INJ 200 MG in SODIUM CHLORIDE 0.9% 250 ML IV SCH (16:36)
[2019-08-08] MEDS ORDERED: ACETAMINOPHEN 325 MG TABLET PO PRN (19:51)
[2019-08-08] MEDS: levETIRAcetam 500 MG TABLET PO SCH (20:14)
[2019-08-08] MEDS: ONDANSETRON 4 MG/2 ML VIAL IV PRN (23:22)
[2019-08-09] MEDS ORDERED: SODIUM CHLORIDE 0.9% 250 ML IV SCH (08:30)
[2019-08-09 09:41] LABS: Basophils % 0.6 % (0.0-0.8); Eosinophils # 0.2 10*3/uL (0.0-0.87); Eosinophils % 3.4 % (0.00-10.9); Hematocrit 23.8 VOL% (35.7-47.0); Hemoglobin 7.6 GM/DL (12.0-16.0); Immature Granulocytes % 0.2 %; Immature Granulocytes Absolute 0.01 #; Lymphocytes # 1.2 10*3/uL (1.4-4.0); Lymphocytes % 23.3 % (21.3-54.2); Mean Corpuscular HGB Conc 31.9 GM/DL (32-36); Mean Corpuscular Volume 82.9 FL (87-102); Mean Platelet Volume 10.7 FL (9.6-12.0); Monocytes % 6.1 % (1.7-12.7); Neutrophils % 66.4 % (38.7-73.9); Platelet Count 170 T/CUMM (130-400); Red Blood Count 2.87 MC/CUMM (3.8-5.5); Red Cell Distribution Width 18.7 % (9.3-17.3); White Blood Count 5.1 T/CUMM (4-12)
[2019-08-09 10:00] LABS: Calcium 8.7 MG/DL (8.5-10.1); Osmolality,Calculated 293.7 MOS/KG (273-304)
[2019-08-09 10:04] LABS: Alanine Aminotransferase < 9 U/L (13-56); Albumin 3.1 G/DL (3.4-5.0); Alkaline Phosphatase 57 U/L (45-117); Aspartate Amino Transferase 14 U/L (0-37); Blood Urea Nitrogen 67 MG/DL (7-18); Calcium 8.8 MG/DL (8.5-10.1); Estimated Glom Filtration Rate 7 ML/MIN; Glucose 61 MG/DL (74-106); Osmolality,Calculated 293.5 MOS/KG (273-304); Total Protein 5.9 G/DL (6.4-8.3)
[2019-08-09] MEDS: carvediloL 6.25 MG TABLET PO SCH ×2 (13:05→20:34)
[2019-08-09] MEDS: amLODIPine 10 MG TABLET PO SCH (13:05)
[2019-08-09] MEDS: PANTOPRAZOLE INJ 200 MG in SODIUM CHLORIDE 0.9% 250 ML IV SCH (18:59)
[2019-08-09] MEDS: levETIRAcetam 500 MG TABLET PO SCH (20:33)
[2019-08-09] MEDS: diphenhydrAMINE CAP 25 MG CAPSULE PO PRN (22:39)
[2019-08-09] MEDS: ONDANSETRON 4 MG/2 ML VIAL IV PRN (23:42)
[2019-08-10] MEDS: diphenhydrAMINE CAP 25 MG CAPSULE PO PRN ×3 (04:34→21:32)
[2019-08-10] MEDS: ONDANSETRON 4 MG/2 ML VIAL IV PRN ×3 (04:45→16:16)
[2019-08-10 04:55] LABS: Basophils % 0.9 % (0.0-0.8); Eosinophils # 0.2 10*3/uL (0.0-0.87); Eosinophils % 3.4 % (0.00-10.9); Hematocrit 24.7 VOL% (35.7-47.0); Hemoglobin 7.9 GM/DL (12.0-16.0); Immature Granulocytes % 0.5 %; Immature Granulocytes Absolute 0.02 #; Lymphocytes # 1.2 10*3/uL (1.4-4.0); Lymphocytes % 26.6 % (21.3-54.2); Mean Corpuscular Volume 83.7 FL (87-102); Mean Platelet Volume 10.1 FL (9.6-12.0); Monocytes % 8.6 % (1.7-12.7); Platelet Count 176 T/CUMM (130-400); Red Blood Count 2.95 MC/CUMM (3.8-5.5); Red Cell Distribution Width 17.7 % (9.3-17.3); White Blood Count 4.4 T/CUMM (4-12)
[2019-08-10 07:18] LABS: Alanine Aminotransferase < 9 U/L (13-56); Albumin 2.9 G/DL (3.4-5.0); Alkaline Phosphatase 55 U/L (45-117); Aspartate Amino Transferase 13 U/L (0-37); Blood Urea Nitrogen 25 MG/DL (7-18); Calcium 8.8 MG/DL (8.5-10.1); Estimated Glom Filtration Rate 11 ML/MIN; Glucose 68 MG/DL (74-106); Osmolality,Calculated 280.4 MOS/KG (273-304)
[2019-08-10] MEDS ORDERED: SODIUM CHLORIDE 0.9% 250 ML IV SCH (08:00)
[2019-08-10] MEDS ORDERED: LIDOCAINE 2% 5 ML VIAL ONE (10:00)
[2019-08-10] MEDS ORDERED: PROPOFOL 200 MG/20 ML VIAL IV ONE (10:00)
[2019-08-10] MEDS ORDERED: MEPERIDINE 25 MG/1 ML VIAL IV ONE (10:15)
[2019-08-10] MEDS: carvediloL 6.25 MG TABLET PO SCH ×2 (13:47→21:32)
[2019-08-10] MEDS: amLODIPine 10 MG TABLET PO SCH (13:47)
[2019-08-10] MEDS ORDERED: DEXTROSE 10% 250 ML IV ONE (14:13)
[2019-08-10] MEDS ORDERED: DEXTROSE 10% 200 ML IV SCH (14:20)
[2019-08-10] MEDS: PANTOPRAZOLE INJ 200 MG in SODIUM CHLORIDE 0.9% 250 ML IV SCH (21:00)
[2019-08-10] MEDS: levETIRAcetam 500 MG TABLET PO SCH (21:31)
[2019-08-11] MEDS: diphenhydrAMINE CAP 25 MG CAPSULE PO PRN ×2 (03:45→11:15)
[2019-08-11] MEDS ORDERED: PANTOPRAZOLE 40 MG VIAL IV SCH (09:00)
[2019-08-11 11:47] LABS: Basophils # 0.1 10*3/uL (0.0-0.2); Basophils % 1.3 % (0.0-0.8); Eosinophils # 0.2 10*3/uL (0.0-0.87); Eosinophils % 4.4 % (0.00-10.9); Hemoglobin 9.4 GM/DL (12.0-16.0); Immature Granulocytes % 0.4 %; Immature Granulocytes Absolute 0.02 #; Lymphocytes # 1.2 10*3/uL (1.4-4.0); Lymphocytes % 25.9 % (21.3-54.2); Mean Corpuscular HGB Conc 31.3 GM/DL (32-36); Mean Corpuscular Volume 84.3 FL (87-102); Mean Platelet Volume 9.8 FL (9.6-12.0); Monocytes % 5.9 % (1.7-12.7); Neutrophils % 62.1 % (38.7-73.9); Platelet Count 229 T/CUMM (130-400); Red Blood Count 3.56 MC/CUMM (3.8-5.5); Red Cell Distribution Width 17.2 % (9.3-17.3); White Blood Count 4.7 T/CUMM (4-12)
[2019-08-11] MEDS ORDERED: hydrALAZINE 10 MG TABLET PO SCH (12:00)
[2019-08-11 12:10] LABS: Albumin 3.4 G/DL (3.4-5.0); Bilirubin,Total 0.4 MG/DL (0.2-1.0); Calcium 8.8 MG/DL (8.5-10.1); Osmolality,Calculated 276.4 MOS/KG (273-304); Total Protein 7.2 G/DL (6.4-8.3)
[2019-08-11] MEDS: amLODIPine 10 MG TABLET PO SCH (13:53)
[2019-08-11] MEDS: carvediloL 6.25 MG TABLET PO SCH (13:53)
[2019-08-11 18:21] VITALS: BP 146/70
== END 2019-08-11 18:06 | disposition home health service (06) | DRG 377 ==
LOC: EDUNIT# → N.ED 08:50 → N.EDINP 11:48 → SUATTDRO 11:48 → N.CC 12:18 → N.5E 08-09 13:54
PROVIDERS: ADMIT Internal Medicine; ATTEND Family Medicine

== ENCOUNTER 2019-09-05 14:30 | Observation (INO) ==
[2019-09-05] MEDS ORDERED: NITROGLYCERIN SL 0.4 MG TABLET SL PRN (14:54)
[2019-09-05] MEDS ORDERED: NITROGLYCERIN 2% OINT 1 INCH/GM PACK TOP STA (14:54)
[2019-09-05 15:43] LABS: Basophils % 0.7 % (0.0-0.8); Eosinophils # 0.3 10*3/uL (0.0-0.87); Eosinophils % 5.4 % (0.00-10.9); Hematocrit 29.5 VOL% (35.7-47.0); Hemoglobin 8.7 GM/DL (12.0-16.0); Immature Granulocytes % 0.9 %; Immature Granulocytes Absolute 0.05 #; Lymphocytes # 1.4 10*3/uL (1.4-4.0); Lymphocytes % 24.6 % (21.3-54.2); Mean Corpuscular HGB Conc 29.5 GM/DL (32-36); Mean Corpuscular Volume 91.3 FL (87-102); Mean Platelet Volume 9.9 FL (9.6-12.0); Monocytes % 5.2 % (1.7-12.7); NRBC # 0.04 10*3/uL; Neutrophils % 63.2 % (38.7-73.9); Platelet Count 251 T/CUMM (130-400); Red Blood Count 3.23 MC/CUMM (3.8-5.5); White Blood Count 5.7 T/CUMM (4-12)
[2019-09-05 16:02] LABS: Calcium 9.2 MG/DL (8.5-10.1); Osmolality,Calculated 280.4 MOS/KG (273-304)
[2019-09-05] MEDS ORDERED: DEXTROSE 50% 25 GM/50 ML VIAL IV STA (16:04)
[2019-09-05] MEDS ORDERED: ALBUTEROL 2.5 MG/3 ML NEB RESP TX STA (16:05)
[2019-09-05] MEDS ORDERED: INSULIN REGULAR 100 UNIT/ML IV STA (16:05)
[2019-09-05] MEDS ORDERED: DEXTROSE 50% 25 GM/50 ML SYRINGE IV ONE (16:28)
[2019-09-05] MEDS ORDERED: DOCUSATE SODIUM 100 MG CAPSULE PO PRN (16:46)
[2019-09-05] MEDS ORDERED: ACETAMINOPHEN 325 MG TABLET PO PRN (16:46)
[2019-09-05] MEDS ORDERED: SODIUM POLYSTYRENE SULFATE 15 GM/60 ML BOTTLE PO ONE (16:54)
[2019-09-05] MEDS ORDERED: ENOXAPARIN 30 MG/0.3 ML SYRINGE SUBCUT SCH (17:00)
[2019-09-05] MEDS: hydrALAZINE 20 MG/1 ML VIAL IV PRN (17:15)
[2019-09-05] MEDS: ONDANSETRON 4 MG/2 ML VIAL IV PRN (17:18)
[2019-09-05] MEDS ORDERED: DEXTROSE 10% 250 ML BAG IV PRN (18:15)
[2019-09-05] MEDS: ASPIRIN EC 81 MG TABLET PO SCH (18:24)
[2019-09-05] MEDS: SEVELAMER CARBONATE 800 MG TABLET PO SCH (18:24)
[2019-09-05] MEDS: PREGABALIN 75 MG CAPSULE PO SCH (21:38)
[2019-09-05] MEDS: CITALOPRAM 20 MG TABLET PO SCH (21:38)
[2019-09-05] MEDS: CINACALCET 30 MG TABLET PO SCH (21:38)
[2019-09-05] MEDS: carvediloL 6.25 MG TABLET PO SCH (21:39)
[2019-09-05] MEDS: amLODIPine 10 MG TABLET PO SCH (21:39)
[2019-09-05] MEDS: levETIRAcetam 500 MG TABLET PO SCH (21:39)
[2019-09-05] MEDS: CLOPIDOGREL 75 MG TABLET PO SCH (21:42)
[2019-09-06] MEDS: ONDANSETRON 4 MG/2 ML VIAL IV PRN (05:25)
[2019-09-06] MEDS: carvediloL 6.25 MG TABLET PO SCH ×2 (08:47→21:29)
[2019-09-06] MEDS: ASPIRIN EC 81 MG TABLET PO SCH (08:47)
[2019-09-06] MEDS: PANTOPRAZOLE 40 MG TABLET PO SCH (08:47)
[2019-09-06] MEDS: SEVELAMER CARBONATE 800 MG TABLET PO SCH ×3 (08:47→17:28)
[2019-09-06] MEDS: SUCRALFATE 1 GM/10 ML UDCUP PO SCH ×3 (11:52→21:29)
[2019-09-06] MEDS: hydrALAZINE 20 MG/1 ML VIAL IV PRN (11:57)
[2019-09-06 14:46] LABS: Calcium 8.5 MG/DL (8.5-10.1); Osmolality,Calculated 282.4 MOS/KG (273-304)
[2019-09-06] MEDS: HEPARIN 5,000 UNIT/1 ML VIAL SUBCUT SCH (17:28)
[2019-09-06] MEDS: CITALOPRAM 20 MG TABLET PO SCH (21:27)
[2019-09-06] MEDS: PREGABALIN 75 MG CAPSULE PO SCH (21:28)
[2019-09-06] MEDS: CLOPIDOGREL 75 MG TABLET PO SCH (21:28)
[2019-09-06] MEDS: amLODIPine 10 MG TABLET PO SCH (21:28)
[2019-09-06] MEDS: CINACALCET 30 MG TABLET PO SCH (21:29)
[2019-09-06] MEDS: levETIRAcetam 500 MG TABLET PO SCH (21:29)
[2019-09-07] MEDS: HEPARIN 5,000 UNIT/1 ML VIAL SUBCUT SCH ×2 (00:53→08:27)
[2019-09-07] MEDS: PANTOPRAZOLE 40 MG TABLET PO SCH (08:23)
[2019-09-07] MEDS: ASPIRIN EC 81 MG TABLET PO SCH (08:23)
[2019-09-07] MEDS: carvediloL 6.25 MG TABLET PO SCH (08:25)
[2019-09-07] MEDS: SUCRALFATE 1 GM/10 ML UDCUP PO SCH ×2 (08:26→12:30)
[2019-09-07] MEDS: SEVELAMER CARBONATE 800 MG TABLET PO SCH ×2 (08:26→11:36)
[2019-09-07 09:11] LABS: Calcium 8.9 MG/DL (8.5-10.1); Osmolality,Calculated 278.4 MOS/KG (273-304)
[2019-09-07 09:22] LABS: Basophils % 0.4 % (0.0-0.8); Eosinophils # 0.4 10*3/uL (0.0-0.87); Eosinophils % 5.7 % (0.00-10.9); Hematocrit 30.2 VOL% (35.7-47.0); Immature Granulocytes % 0.6 %; Immature Granulocytes Absolute 0.04 #; Lymphocytes # 1.7 10*3/uL (1.4-4.0); Mean Corpuscular HGB Conc 28.8 GM/DL (32-36); Mean Corpuscular Volume 94.1 FL (87-102); Mean Platelet Volume 9.8 FL (9.6-12.0); Monocytes % 5.8 % (1.7-12.7); NRBC # 0.05 10*3/uL; Neutrophils % 61.5 % (38.7-73.9); Platelet Count 288 T/CUMM (130-400); Red Blood Count 3.21 MC/CUMM (3.8-5.5); Red Cell Distribution Width 19.4 % (9.3-17.3); White Blood Count 6.7 T/CUMM (4-12)
[2019-09-07 09:23] LABS: Hemoglobin 8.7 GM/DL (12.0-16.0)
[2019-09-07 09:29] LABS: Hypochromasia 1+; Ovalocytes Slight; Platelet Estimate Adequate
[2019-09-07 11:55] VITALS: BP 144/85
== END 2019-09-07 13:13 | disposition home or self-care (01) ==
LOC: EDBD → EDUNIT# → N.ED 14:30 → N.EDINP 14:30 → N.2E 17:11
PROVIDERS: ADMIT Internal Medicine; ATTEND Internal Medicine

== ENCOUNTER 2019-10-06 12:26 | Inpatient (IN) ==
[2019-10-06] MEDS ORDERED: LIDOCAINE 100 MG/5 ML SYRINGE IV STA (12:55)
[2019-10-06] MEDS ORDERED: ETOMIDATE 20 MG/10 ML VIAL IV ONE (12:55)
[2019-10-06] MEDS ORDERED: ROCURONIUM 100 MG/10 ML VIAL IV ONE (12:55)
[2019-10-06 13:20] LABS: ABG Base Excess -1.2 MMOL/L (-2.5-2.5); ABG HCO3 23.4 MMOL/L (20-26); ABG PCO2 38.1 MM HG (35-48); ABG PH 7.395 (7.35-7.45)
[2019-10-06] MEDS ORDERED: ALBUTEROL 2.5 MG/3 ML NEB RESP TX PRN (13:45)
[2019-10-06] MEDS ORDERED: DOCUSATE SODIUM 100 MG CAPSULE PO PRN (13:45)
[2019-10-06] MEDS ORDERED: ONDANSETRON 4 MG/2 ML VIAL IV PRN (13:45)
[2019-10-06 15:07] LABS: Bilirubin,Total 0.8 MG/DL (0.2-1.0); Calcium 8.5 MG/DL (8.5-10.1); Osmolality,Calculated 282.4 MOS/KG (273-304); Total Protein 7.1 G/DL (6.4-8.3)
[2019-10-06] MEDS: ENOXAPARIN 30 MG/0.3 ML SYRINGE SUBCUT SCH (15:15)
[2019-10-06] MEDS: PANTOPRAZOLE 40 MG VIAL IV SCH (15:19)
[2019-10-06 15:44] LABS: Basophils % 0.4 % (0.0-0.8); Hematocrit 34.5 VOL% (35.7-47.0); Hemoglobin 10.6 GM/DL (12.0-16.0); Immature Granulocytes % 0.3 %; Immature Granulocytes Absolute 0.02 #; Lymphocytes # 0.7 10*3/uL (1.4-4.0); Lymphocytes % 9.8 % (21.3-54.2); Mean Corpuscular HGB Conc 30.7 GM/DL (32-36); Mean Corpuscular Volume 85.6 FL (87-102); Mean Platelet Volume 10.3 FL (9.6-12.0); Monocytes % 4.4 % (1.7-12.7); Neutrophils % 85.1 % (38.7-73.9); Platelet Count 215 T/CUMM (130-400); Red Blood Count 4.03 MC/CUMM (3.8-5.5); White Blood Count 7.2 T/CUMM (4-12)
[2019-10-06] MEDS ORDERED: ASPIRIN 325 MG TABLET PO ONE (16:22)
[2019-10-06] MEDS: SEVELAMER CARBONATE 800 MG TABLET PO SCH (17:13)
[2019-10-06] MEDS: SUCRALFATE 1 GM/10 ML UDCUP PO SCH ×2 (17:15→22:30)
[2019-10-06] MEDS ORDERED: SODIUM BICARBONATE 50 MEQ/50 ML SYRINGE IV ONE ×2 (18:58→19:54)
[2019-10-06] MEDS ORDERED: EPINEPHrine 1 MG/10 ML SYRINGE ONE ×2 (18:58→19:54)
[2019-10-06] MEDS ORDERED: NOREPINEPHRINE 8 MG in SODIUM CHLORIDE 0.9% 242 ML IV PRN (19:00)
[2019-10-06 19:13] LABS: ABG Base Excess -0.5 MMOL/L (-2.5-2.5); ABG Oxygen Saturation 99.5 % (95-100); ABG PCO2 47.6 MM HG (35-48); Allen Test Positive; Pt O2 Delivery Device Ventilator
[2019-10-06 20:26] LABS: Calcium 8.6 MG/DL (8.5-10.1)
[2019-10-06 20:49] LABS: Albumin 2.8 G/DL (3.4-5.0); Bilirubin,Total 0.9 MG/DL (0.2-1.0); Calcium 8.4 MG/DL (8.5-10.1); Osmolality,Calculated 283.8 MOS/KG (273-304); Total Protein 6.9 G/DL (6.4-8.3)
[2019-10-06] MEDS ORDERED: levETIRAcetam 500 MG TABLET PO SCH (21:00)
[2019-10-06] MEDS: CLOPIDOGREL 75 MG TABLET PO SCH (22:30)
[2019-10-06] MEDS: amLODIPine 10 MG TABLET PO SCH (22:30)
[2019-10-06] MEDS: CINACALCET 30 MG TABLET PO SCH (22:30)
[2019-10-06] MEDS: carvediloL 6.25 MG TABLET PO SCH (22:30)
[2019-10-06] MEDS: CITALOPRAM 20 MG TABLET PO SCH (22:48)
[2019-10-06] MEDS ORDERED: LORazepam 2 MG/1 ML VIAL ONE (22:50)
[2019-10-06] MEDS ORDERED: LORazepam 2 MG/1 ML VIAL IV PRN (22:50)
[2019-10-07 03:54] LABS: ABG Base Excess 4.3 MMOL/L (-2.5-2.5); ABG HCO3 28.3 MMOL/L (20-26); ABG Oxygen Saturation 99.8 % (95-100); ABG PCO2 30.4 MM HG (35-48); ABG PH 7.546 (7.35-7.45); ABG TCO2 23.8 MMOL/L (23-27)
[2019-10-07 03:57] LABS: Basophils % 0.2 % (0.0-0.8); Eosinophils % 0.1 % (0.00-10.9); Hemoglobin 9.2 GM/DL (12.0-16.0); Immature Granulocytes % 0.3 %; Immature Granulocytes Absolute 0.03 #; Lymphocytes # 0.6 10*3/uL (1.4-4.0); Lymphocytes % 6.7 % (21.3-54.2); Mean Corpuscular HGB Conc 32.9 GM/DL (32-36); Mean Corpuscular Volume 81.6 FL (87-102); Mean Platelet Volume 10.2 FL (9.6-12.0); Monocytes % 2.3 % (1.7-12.7); Neutrophils % 90.4 % (38.7-73.9); Platelet Count 185 T/CUMM (130-400); Red Blood Count 3.43 MC/CUMM (3.8-5.5); White Blood Count 9.3 T/CUMM (4-12)
[2019-10-07 04:57] LABS: Albumin 2.3 G/DL (3.4-5.0); Bilirubin,Total 1.1 MG/DL (0.2-1.0); Calcium 7.7 MG/DL (8.5-10.1); Osmolality,Calculated 291.7 MOS/KG (273-304); Total Protein 5.8 G/DL (6.4-8.3)
[2019-10-07] MEDS: SEVELAMER CARBONATE 800 MG TABLET PO SCH ×3 (08:41→16:46)
[2019-10-07] MEDS: ASPIRIN EC 81 MG TABLET PO SCH (09:39)
[2019-10-07] MEDS: carvediloL 6.25 MG TABLET PO SCH ×2 (09:39→22:11)
[2019-10-07] MEDS: SUCRALFATE 1 GM/10 ML UDCUP PO SCH ×4 (09:39→20:30)
[2019-10-07] MEDS ORDERED: EPOETIN ALFA 10,000 UNIT/1 ML VIAL IV PRN (10:10)
[2019-10-07] MEDS ORDERED: GLUCAGON 1 MG VIAL IM PRN (12:49)
[2019-10-07] MEDS ORDERED: DEXTROSE 50% 25 GM/50 ML VIAL IV PRN (12:49)
[2019-10-07] MEDS: PANTOPRAZOLE 40 MG VIAL IV SCH (14:41)
[2019-10-07] MEDS: ENOXAPARIN 30 MG/0.3 ML SYRINGE SUBCUT SCH (14:41)
[2019-10-07] MEDS: INSULIN REGULAR 100 UNIT/ML SUBCUT SCH (18:36)
[2019-10-07] MEDS: ROSUVASTATIN 20 MG TABLET NG SCH (20:30)
[2019-10-07] MEDS: CINACALCET 30 MG TABLET PO SCH (20:30)
[2019-10-07] MEDS: CLOPIDOGREL 75 MG TABLET PO SCH (20:30)
[2019-10-07] MEDS: CITALOPRAM 20 MG TABLET PO SCH (22:11)
[2019-10-07] MEDS: amLODIPine 10 MG TABLET PO SCH (22:12)
[2019-10-08] MEDS: INSULIN REGULAR 100 UNIT/ML SUBCUT SCH ×4 (00:40→19:03)
[2019-10-08] MEDS: LORazepam 2 MG/1 ML VIAL IV PRN (01:55)
[2019-10-08 03:59] LABS: ABG Base Excess 5.3 MMOL/L (-2.5-2.5); ABG HCO3 29.3 MMOL/L (20-26); ABG PH 7.566 (7.35-7.45); ABG TCO2 24.7 MMOL/L (23-27)
[2019-10-08 04:04] LABS: Basophils % 0.1 % (0.0-0.8); Eosinophils % 0.2 % (0.00-10.9); Hematocrit 29.7 VOL% (35.7-47.0); Hemoglobin 9.4 GM/DL (12.0-16.0); Immature Granulocytes % 0.3 %; Immature Granulocytes Absolute 0.03 #; Lymphocytes % 10.7 % (21.3-54.2); Mean Corpuscular HGB Conc 31.6 GM/DL (32-36); Mean Platelet Volume 10.9 FL (9.6-12.0); Monocytes % 3.1 % (1.7-12.7); NRBC # 0.02 10*3/uL; Neutrophils % 85.6 % (38.7-73.9); Platelet Count 239 T/CUMM (130-400); Red Blood Count 3.62 MC/CUMM (3.8-5.5); Red Cell Distribution Width 16.6 % (9.3-17.3); White Blood Count 9.2 T/CUMM (4-12)
[2019-10-08 04:29] LABS: Bilirubin,Total 0.5 MG/DL (0.2-1.0); Calcium 7.8 MG/DL (8.5-10.1); Osmolality,Calculated 298.7 MOS/KG (273-304)
[2019-10-08 04:39] LABS: Prealbumin 11.1 MG/DL (20-40)
[2019-10-08] MEDS: carvediloL 6.25 MG TABLET PO SCH ×2 (08:43→21:25)
[2019-10-08] MEDS: SEVELAMER CARBONATE 800 MG TABLET PO SCH ×3 (08:43→17:38)
[2019-10-08] MEDS: ASPIRIN EC 81 MG TABLET PO SCH (08:43)
[2019-10-08] MEDS: SUCRALFATE 1 GM/10 ML UDCUP PO SCH ×4 (08:44→21:25)
[2019-10-08] MEDS: PANTOPRAZOLE 40 MG VIAL IV SCH (14:46)
[2019-10-08] MEDS: ENOXAPARIN 30 MG/0.3 ML SYRINGE SUBCUT SCH (14:47)
[2019-10-08] MEDS: ROSUVASTATIN 20 MG TABLET NG SCH (21:25)
[2019-10-08] MEDS: CITALOPRAM 20 MG TABLET PO SCH (21:25)
[2019-10-08] MEDS: POLYVINYL ALCOHOL 1.4% OPH SOLN 15 ML BOTTLE BOTH EYES PRN (21:26)
[2019-10-08] MEDS: CLOPIDOGREL 75 MG TABLET PO SCH (21:26)
[2019-10-08] MEDS: CINACALCET 30 MG TABLET PO SCH (21:26)
[2019-10-09] MEDS: INSULIN REGULAR 100 UNIT/ML SUBCUT SCH ×4 (00:05→18:12)
[2019-10-09 05:28] LABS: ABG Base Excess 6.6 MMOL/L (-2.5-2.5); ABG HCO3 30.5 MMOL/L (20-26); ABG Oxygen Saturation 99.6 % (95-100); ABG PCO2 35.6 MM HG (35-48); ABG PH 7.527 (7.35-7.45); ABG TCO2 25.9 MMOL/L (23-27)
[2019-10-09 06:12] LABS: Basophils % 0.1 % (0.0-0.8); Eosinophils # 0.1 10*3/uL (0.0-0.87); Eosinophils % 0.9 % (0.00-10.9); Hematocrit 29.4 VOL% (35.7-47.0); Immature Granulocytes % 0.5 %; Immature Granulocytes Absolute 0.05 #; Lymphocytes # 1.2 10*3/uL (1.4-4.0); Lymphocytes % 13.1 % (21.3-54.2); Mean Corpuscular HGB Conc 30.6 GM/DL (32-36); Mean Corpuscular Volume 83.8 FL (87-102); Mean Platelet Volume 11.3 FL (9.6-12.0); NRBC # 0.03 10*3/uL; Neutrophils % 81.4 % (38.7-73.9); Platelet Count 229 T/CUMM (130-400); Red Blood Count 3.51 MC/CUMM (3.8-5.5); Red Cell Distribution Width 16.8 % (9.3-17.3); White Blood Count 9.5 T/CUMM (4-12)
[2019-10-09 06:42] LABS: Osmolality,Calculated 285.7 MOS/KG (273-304)
[2019-10-09] MEDS ORDERED: LORazepam 2 MG/1 ML VIAL ONE (07:02)
[2019-10-09] MEDS: SEVELAMER CARBONATE 800 MG TABLET PO SCH ×3 (08:01→16:26)
[2019-10-09] MEDS: SUCRALFATE 1 GM/10 ML UDCUP PO SCH ×4 (08:01→20:38)
[2019-10-09] MEDS: ASPIRIN EC 81 MG TABLET PO SCH (08:01)
[2019-10-09] MEDS: carvediloL 6.25 MG TABLET PO SCH (08:02)
[2019-10-09] MEDS: LORazepam 2 MG/1 ML VIAL IV PRN (09:05)
[2019-10-09] MEDS: carvediloL 3.125 MG TABLET PO SCH ×2 (09:22→20:39)
[2019-10-09] MEDS: PANTOPRAZOLE 40 MG VIAL IV SCH (14:44)
[2019-10-09] MEDS: ENOXAPARIN 30 MG/0.3 ML SYRINGE SUBCUT SCH (14:45)
[2019-10-09] MEDS: CITALOPRAM 20 MG TABLET PO SCH (20:39)
[2019-10-09] MEDS: CINACALCET 30 MG TABLET PO SCH (20:39)
[2019-10-09] MEDS: ROSUVASTATIN 20 MG TABLET NG SCH (20:39)
[2019-10-09] MEDS: CLOPIDOGREL 75 MG TABLET PO SCH (20:39)
[2019-10-10] MEDS: INSULIN REGULAR 100 UNIT/ML SUBCUT SCH ×4 (00:30→18:28)
[2019-10-10 04:04] LABS: ABG Base Excess 7.5 MMOL/L (-2.5-2.5); ABG HCO3 31.1 MMOL/L (20-26); ABG Oxygen Saturation 97.2 % (95-100); ABG PCO2 40.1 MM HG (35-48); ABG PH 7.508 (7.35-7.45); ABG PO2 92.4 MM HG (80-95); ABG TCO2 32.4 MMOL/L (23-27); Pt O2 Delivery Device Ventilator
[2019-10-10 04:10] LABS: Basophils % 0.2 % (0.0-0.8); Eosinophils # 0.2 10*3/uL (0.0-0.87); Eosinophils % 1.7 % (0.00-10.9); Hematocrit 27.4 VOL% (35.7-47.0); Hemoglobin 8.4 GM/DL (12.0-16.0); Immature Granulocytes % 0.9 %; Lymphocytes # 1.4 10*3/uL (1.4-4.0); Lymphocytes % 12.3 % (21.3-54.2); Mean Corpuscular HGB Conc 30.7 GM/DL (32-36); Mean Corpuscular Volume 84.6 FL (87-102); Mean Platelet Volume 10.5 FL (9.6-12.0); Monocytes % 5.8 % (1.7-12.7); NRBC # 0.02 10*3/uL; Neutrophils % 79.1 % (38.7-73.9); Platelet Count 247 T/CUMM (130-400); Red Blood Count 3.24 MC/CUMM (3.8-5.5); Red Cell Distribution Width 16.6 % (9.3-17.3); White Blood Count 11.3 T/CUMM (4-12)
[2019-10-10 04:25] LABS: Calcium 7.9 MG/DL (8.5-10.1); Osmolality,Calculated 291.8 MOS/KG (273-304)
[2019-10-10 04:52] LABS: Anisocytosis Slight; Eosinophils 5 % (0-10); Hypochromasia 1+; Lymphocytes 7 % (20-55); Nucleated Red Blood Cells 1 (0-5); Platelet Estimate Normal; Segmented Neutrophils 81 % (50-85); Total Cells Counted 100
[2019-10-10 04:53] LABS: Microcytosis 1+; Polychromasia Slight
[2019-10-10 04:54] LABS: Ovalocytes Few; Target Cells Slight
[2019-10-10] MEDS: SEVELAMER CARBONATE 800 MG TABLET PO SCH ×3 (08:09→16:35)
[2019-10-10] MEDS: carvediloL 3.125 MG TABLET PO SCH (08:09)
[2019-10-10] MEDS: ASPIRIN EC 81 MG TABLET PO SCH (08:09)
[2019-10-10] MEDS: SUCRALFATE 1 GM/10 ML UDCUP PO SCH ×4 (08:09→22:11)
[2019-10-10] MEDS: DEXMEDETOMIDINE 200 MCG in SODIUM CHLORIDE 0.9% 48 ML IV PRN (10:32)
[2019-10-10] MEDS ORDERED: POLYETHYLENE GLYCOL POWDER 17 GM PACK PO SCH (10:55)
[2019-10-10] MEDS ORDERED: POLYETHYLENE GLYCOL POWDER 17 GM PACK PO ONE (12:00)
[2019-10-10] MEDS: PANTOPRAZOLE 40 MG VIAL IV SCH (14:09)
[2019-10-10] MEDS: ENOXAPARIN 30 MG/0.3 ML SYRINGE SUBCUT SCH (14:09)
[2019-10-10] MEDS ORDERED: hydrALAZINE 25 MG TABLET ONE (17:39)
[2019-10-10] MEDS: carvediloL 6.25 MG TABLET PO SCH (22:00)
[2019-10-10] MEDS: CITALOPRAM 20 MG TABLET PO SCH (22:11)
[2019-10-10] MEDS: POLYETHYLENE GLYCOL POWDER 17 GM PACK PO SCH (22:12)
[2019-10-10] MEDS: CINACALCET 30 MG TABLET PO SCH (22:12)
[2019-10-10] MEDS: CLOPIDOGREL 75 MG TABLET PO SCH (22:12)
[2019-10-10] MEDS: ROSUVASTATIN 20 MG TABLET NG SCH (22:12)
[2019-10-11] MEDS: DEXMEDETOMIDINE 200 MCG in SODIUM CHLORIDE 0.9% 48 ML IV PRN ×4 (00:29→13:38)
[2019-10-11] MEDS: INSULIN REGULAR 100 UNIT/ML SUBCUT SCH ×4 (00:32→18:34)
[2019-10-11 04:29] LABS: ABG Base Excess 6.1 MMOL/L (-2.5-2.5); ABG Oxygen Saturation 99.3 % (95-100); ABG PCO2 36.1 MM HG (35-48); ABG PH 7.517 (7.35-7.45); ABG TCO2 26.8 MMOL/L (23-27); Allen Test Positive; Pt O2 Delivery Device Ventilator
[2019-10-11 04:57] LABS: Basophils % 0.2 % (0.0-0.8); Eosinophils # 0.3 10*3/uL (0.0-0.87); Eosinophils % 2.3 % (0.00-10.9); Hematocrit 28.6 VOL% (35.7-47.0); Hemoglobin 8.7 GM/DL (12.0-16.0); Immature Granulocytes % 0.7 %; Immature Granulocytes Absolute 0.09 #; Lymphocytes # 1.5 10*3/uL (1.4-4.0); Mean Corpuscular HGB Conc 30.4 GM/DL (32-36); Mean Corpuscular Volume 84.1 FL (87-102); Mean Platelet Volume 10.9 FL (9.6-12.0); Monocytes % 6.6 % (1.7-12.7); Neutrophils % 78.2 % (38.7-73.9); Platelet Count 320 T/CUMM (130-400); Red Cell Distribution Width 16.3 % (9.3-17.3); White Blood Count 12.3 T/CUMM (4-12)
[2019-10-11 05:13] LABS: Prealbumin 14.9 MG/DL (20-40)
[2019-10-11 05:20] LABS: Calcium 8.2 MG/DL (8.5-10.1); Osmolality,Calculated 299.8 MOS/KG (273-304)
[2019-10-11] MEDS: SEVELAMER CARBONATE 800 MG TABLET PO SCH ×3 (10:38→16:42)
[2019-10-11] MEDS: ASPIRIN CHEW 81 MG TABLET PO SCH (10:38)
[2019-10-11] MEDS: amLODIPine 10 MG TABLET PO SCH (10:38)
[2019-10-11] MEDS: POLYETHYLENE GLYCOL POWDER 17 GM PACK PO SCH ×2 (10:39→21:33)
[2019-10-11] MEDS: SUCRALFATE 1 GM/10 ML UDCUP PO SCH ×4 (10:39→21:33)
[2019-10-11] MEDS: carvediloL 6.25 MG TABLET PO SCH ×2 (11:18→21:33)
[2019-10-11] MEDS ORDERED: VANCOMYCIN INJ 500 MG in SODIUM CHLORIDE 0.9% 100 ML IV PRN (12:46)
[2019-10-11] MEDS ORDERED: diphenhydrAMINE 50 MG/1 ML VIAL IV PRN (12:52)
[2019-10-11] MEDS: PANTOPRAZOLE 40 MG VIAL IV SCH (13:39)
[2019-10-11] MEDS: ENOXAPARIN 30 MG/0.3 ML SYRINGE SUBCUT SCH (13:39)
[2019-10-11] MEDS: DOXYCYCLINE HYCLATE INJ 100 MG in SODIUM CHLORIDE 0.9% 100 ML IV SCH (16:00)
[2019-10-11] MEDS ORDERED: VANCOMYCIN INJ 1,750 MG in SODIUM CHLORIDE 0.9% 500 ML IV ONE (17:00)
[2019-10-11] MEDS ORDERED: POTASSIUM PHOSPHATE 15 MMOL in SODIUM CHLORIDE 0.9% 100 ML IV ONE (18:00)
[2019-10-11] MEDS: CITALOPRAM 20 MG TABLET PO SCH (21:33)
[2019-10-11] MEDS: CINACALCET 30 MG TABLET PO SCH (21:33)
[2019-10-11] MEDS: ROSUVASTATIN 20 MG TABLET NG SCH (21:33)
[2019-10-11] MEDS: CLOPIDOGREL 75 MG TABLET PO SCH (21:33)
[2019-10-12] MEDS: INSULIN REGULAR 100 UNIT/ML SUBCUT SCH ×5 (01:17→20:51)
[2019-10-12] MEDS: DOXYCYCLINE HYCLATE INJ 100 MG in SODIUM CHLORIDE 0.9% 100 ML IV SCH ×2 (01:17→14:39)
[2019-10-12 06:31] LABS: Basophils # 0.1 10*3/uL (0.0-0.2); Basophils % 0.4 % (0.0-0.8); Eosinophils # 0.5 10*3/uL (0.0-0.87); Eosinophils % 3.2 % (0.00-10.9); Hematocrit 29.1 VOL% (35.7-47.0); Hemoglobin 8.8 GM/DL (12.0-16.0); Immature Granulocytes % 1.6 %; Immature Granulocytes Absolute 0.25 #; Lymphocytes # 1.3 10*3/uL (1.4-4.0); Lymphocytes % 8.2 % (21.3-54.2); Mean Corpuscular HGB Conc 30.2 GM/DL (32-36); Mean Corpuscular Volume 85.3 FL (87-102); Mean Platelet Volume 10.7 FL (9.6-12.0); Monocytes % 7.5 % (1.7-12.7); Neutrophils % 79.1 % (38.7-73.9); Platelet Count 419 T/CUMM (130-400); Red Blood Count 3.41 MC/CUMM (3.8-5.5); Red Cell Distribution Width 16.3 % (9.3-17.3); White Blood Count 15.4 T/CUMM (4-12)
[2019-10-12 06:38] LABS: Calcium 8.3 MG/DL (8.5-10.1); Osmolality,Calculated 291.5 MOS/KG (273-304)
[2019-10-12] MEDS: POLYETHYLENE GLYCOL POWDER 17 GM PACK PO SCH ×2 (09:49→20:52)
[2019-10-12] MEDS: amLODIPine 10 MG TABLET PO SCH ×2 (09:49→18:43)
[2019-10-12] MEDS: SUCRALFATE 1 GM/10 ML UDCUP PO SCH ×4 (09:52→20:50)
[2019-10-12] MEDS: SEVELAMER CARBONATE 800 MG TABLET PO SCH ×3 (09:52→18:35)
[2019-10-12] MEDS: ASPIRIN CHEW 81 MG TABLET PO SCH (09:53)
[2019-10-12] MEDS: carvediloL 6.25 MG TABLET PO SCH ×2 (09:53→20:50)
[2019-10-12] MEDS: hydrALAZINE 20 MG/1 ML VIAL IV PRN ×2 (10:07→17:17)
[2019-10-12] MEDS ORDERED: NITROFURANTOIN MACRO/MONO 100 MG CAPSULE PO SCH (11:30)
[2019-10-12] MEDS: ENOXAPARIN 30 MG/0.3 ML SYRINGE SUBCUT SCH (14:40)
[2019-10-12] MEDS: PANTOPRAZOLE 40 MG VIAL IV SCH (14:40)
[2019-10-12] MEDS ORDERED: VANCOMYCIN INJ 500 MG in SODIUM CHLORIDE 0.9% 100 ML IV ONE (17:00)
[2019-10-12] MEDS: CITALOPRAM 20 MG TABLET PO SCH (20:50)
[2019-10-12] MEDS: ROSUVASTATIN 20 MG TABLET NG SCH (20:50)
[2019-10-12] MEDS: CINACALCET 30 MG TABLET PO SCH (20:52)
[2019-10-12] MEDS: CLOPIDOGREL 75 MG TABLET PO SCH (20:52)
[2019-10-13] MEDS: DOXYCYCLINE HYCLATE INJ 100 MG in SODIUM CHLORIDE 0.9% 100 ML IV SCH ×2 (01:15→13:20)
[2019-10-13 05:00] LABS: Basophils % 0.4 % (0.0-0.8); Eosinophils # 0.4 10*3/uL (0.0-0.87); Eosinophils % 3.6 % (0.00-10.9); Hematocrit 28.4 VOL% (35.7-47.0); Hemoglobin 8.5 GM/DL (12.0-16.0); Immature Granulocytes % 1.6 %; Immature Granulocytes Absolute 0.18 #; Lymphocytes # 1.2 10*3/uL (1.4-4.0); Lymphocytes % 10.8 % (21.3-54.2); Mean Corpuscular HGB Conc 29.9 GM/DL (32-36); Mean Corpuscular Volume 85.5 FL (87-102); Mean Platelet Volume 10.4 FL (9.6-12.0); Monocytes % 11.7 % (1.7-12.7); Neutrophils % 71.9 % (38.7-73.9); Platelet Count 439 T/CUMM (130-400); Red Blood Count 3.32 MC/CUMM (3.8-5.5); Red Cell Distribution Width 15.9 % (9.3-17.3); White Blood Count 11.3 T/CUMM (4-12)
[2019-10-13 05:31] LABS: Calcium 8.3 MG/DL (8.5-10.1); Osmolality,Calculated 286.1 MOS/KG (273-304)
[2019-10-13] MEDS: INSULIN REGULAR 100 UNIT/ML SUBCUT SCH ×4 (07:56→21:33)
[2019-10-13] MEDS: SUCRALFATE 1 GM/10 ML UDCUP PO SCH ×4 (08:41→21:37)
[2019-10-13] MEDS: ASPIRIN CHEW 81 MG TABLET PO SCH (08:41)
[2019-10-13] MEDS: POLYETHYLENE GLYCOL POWDER 17 GM PACK PO SCH ×2 (08:41→21:38)
[2019-10-13] MEDS: SEVELAMER CARBONATE 800 MG TABLET PO SCH ×3 (08:42→16:30)
[2019-10-13] MEDS: carvediloL 6.25 MG TABLET PO SCH ×2 (08:42→21:36)
[2019-10-13] MEDS: amLODIPine 10 MG TABLET PO SCH (08:42)
[2019-10-13] MEDS ORDERED: ALUMINUM/MAGNES/SIMETH MAX STR 30 ML UDCUP PO PRN (11:57)
[2019-10-13] MEDS: MORPHINE 4 MG/1 ML VIAL IV ONE ×2 (12:30→12:48)
[2019-10-13] MEDS: PANTOPRAZOLE 40 MG VIAL IV SCH (13:19)
[2019-10-13] MEDS: ENOXAPARIN 30 MG/0.3 ML SYRINGE SUBCUT SCH (13:20)
[2019-10-13] MEDS: levETIRAcetam 500 MG TABLET PO SCH (16:30)
[2019-10-13] MEDS ORDERED: LORazepam 2 MG/1 ML VIAL ONE (20:19)
[2019-10-13] MEDS: CINACALCET 30 MG TABLET PO SCH (21:35)
[2019-10-13] MEDS: ROSUVASTATIN 20 MG TABLET NG SCH (21:36)
[2019-10-13] MEDS: CLOPIDOGREL 75 MG TABLET PO SCH (21:36)
[2019-10-13] MEDS: POLYVINYL ALCOHOL 1.4% OPH SOLN 15 ML BOTTLE BOTH EYES PRN (21:37)
[2019-10-13] MEDS: LORazepam 2 MG/1 ML VIAL IV PRN (21:39)
[2019-10-13] MEDS: CITALOPRAM 20 MG TABLET PO SCH (21:42)
[2019-10-14] MEDS: DOXYCYCLINE HYCLATE INJ 100 MG in SODIUM CHLORIDE 0.9% 100 ML IV SCH ×2 (01:26→13:08)
[2019-10-14] MEDS: levETIRAcetam 500 MG TABLET PO SCH ×3 (01:29→16:54)
[2019-10-14] MEDS ORDERED: PREGABALIN 75 MG CAPSULE PO SCH (04:24)
[2019-10-14] MEDS ORDERED: ROSUVASTATIN 10 MG TABLET PO SCH (04:24)
[2019-10-14] MEDS ORDERED: NITROGLYCERIN SL 0.4 MG TABLET SL PRN (04:24)
[2019-10-14 05:35] LABS: Basophils # 0.1 10*3/uL (0.0-0.2); Basophils % 0.5 % (0.0-0.8); Eosinophils # 0.4 10*3/uL (0.0-0.87); Eosinophils % 4.5 % (0.00-10.9); Hematocrit 26.9 VOL% (35.7-47.0); Immature Granulocytes Absolute 0.18 #; Lymphocytes # 1.4 10*3/uL (1.4-4.0); Lymphocytes % 15.6 % (21.3-54.2); Mean Corpuscular HGB Conc 29.7 GM/DL (32-36); Mean Corpuscular Volume 85.4 FL (87-102); Mean Platelet Volume 10.3 FL (9.6-12.0); Monocytes % 12.9 % (1.7-12.7); Neutrophils % 64.5 % (38.7-73.9); Platelet Count 505 T/CUMM (130-400); Red Blood Count 3.15 MC/CUMM (3.8-5.5); Red Cell Distribution Width 16.2 % (9.3-17.3); White Blood Count 9.2 T/CUMM (4-12)
[2019-10-14 05:50] LABS: Calcium 8.1 MG/DL (8.5-10.1); Osmolality,Calculated 275.1 MOS/KG (273-304)
[2019-10-14] MEDS: INSULIN REGULAR 100 UNIT/ML SUBCUT SCH ×4 (07:40→21:52)
[2019-10-14] MEDS: POLYETHYLENE GLYCOL POWDER 17 GM PACK PO SCH ×2 (08:46→21:52)
[2019-10-14] MEDS: carvediloL 6.25 MG TABLET PO SCH ×3 (08:47→22:23)
[2019-10-14] MEDS: SUCRALFATE 1 GM/10 ML UDCUP PO SCH ×4 (08:47→21:51)
[2019-10-14] MEDS: amLODIPine 10 MG TABLET PO SCH (08:47)
[2019-10-14] MEDS: ASPIRIN CHEW 81 MG TABLET PO SCH (08:48)
[2019-10-14] MEDS: SEVELAMER CARBONATE 800 MG TABLET PO SCH ×3 (08:48→16:55)
[2019-10-14] MEDS: PREGABALIN 75 MG CAPSULE PO SCH ×2 (08:49→16:46)
[2019-10-14 13:32] LABS: ABG Base Excess 3.8 MMOL/L (-2.5-2.5); ABG HCO3 27.8 MMOL/L (20-26); ABG Oxygen Saturation 95.7 % (95-100); ABG PO2 71.9 MM HG (80-95); ABG TCO2 25.7 MMOL/L (23-27); Allen Test Positive
[2019-10-14] MEDS: ENOXAPARIN 30 MG/0.3 ML SYRINGE SUBCUT SCH (14:36)
[2019-10-14] MEDS: PANTOPRAZOLE 40 MG VIAL IV SCH (14:36)
[2019-10-14] MEDS: ROSUVASTATIN 20 MG TABLET NG SCH (21:51)
[2019-10-14] MEDS: CLOPIDOGREL 75 MG TABLET PO SCH ×2 (21:52→22:23)
[2019-10-14] MEDS: CINACALCET 30 MG TABLET PO SCH ×2 (21:52→22:24)
[2019-10-15] MEDS: levETIRAcetam 500 MG TABLET PO SCH ×3 (01:45→17:00)
[2019-10-15] MEDS: DOXYCYCLINE HYCLATE INJ 100 MG in SODIUM CHLORIDE 0.9% 100 ML IV SCH (01:45)
[2019-10-15] MEDS: SUCRALFATE 1 GM/10 ML UDCUP PO SCH ×4 (08:04→20:12)
[2019-10-15] MEDS: POLYETHYLENE GLYCOL POWDER 17 GM PACK PO SCH (08:05)
[2019-10-15] MEDS: SEVELAMER CARBONATE 800 MG TABLET PO SCH ×3 (08:05→17:00)
[2019-10-15] MEDS: carvediloL 6.25 MG TABLET PO SCH ×2 (08:06→20:12)
[2019-10-15] MEDS: amLODIPine 10 MG TABLET PO SCH (08:06)
[2019-10-15] MEDS: INSULIN REGULAR 100 UNIT/ML SUBCUT SCH ×4 (08:07→20:13)
[2019-10-15] MEDS: ASPIRIN CHEW 81 MG TABLET PO SCH (08:07)
[2019-10-15] MEDS ORDERED: VANCOMYCIN INJ 500 MG in SODIUM CHLORIDE 0.9% 100 ML IV ONE (12:00)
[2019-10-15] MEDS: ENOXAPARIN 30 MG/0.3 ML SYRINGE SUBCUT SCH (13:40)
[2019-10-15] MEDS: CLOPIDOGREL 75 MG TABLET PO SCH (20:12)
[2019-10-15] MEDS: ROSUVASTATIN 20 MG TABLET NG SCH (20:12)
[2019-10-15] MEDS: CINACALCET 30 MG TABLET PO SCH (20:12)
[2019-10-15] MEDS: DOXYCYCLINE HYCLATE 100 MG CAPSULE PO SCH (21:45)
[2019-10-16] MEDS: levETIRAcetam 500 MG TABLET PO SCH ×3 (00:35→16:13)
[2019-10-16] MEDS: carvediloL 6.25 MG TABLET PO SCH ×2 (08:12→21:47)
[2019-10-16] MEDS: INSULIN REGULAR 100 UNIT/ML SUBCUT SCH ×4 (08:12→21:49)
[2019-10-16] MEDS: amLODIPine 10 MG TABLET PO SCH (08:13)
[2019-10-16] MEDS: ASPIRIN CHEW 81 MG TABLET PO SCH (08:13)
[2019-10-16] MEDS: SUCRALFATE 1 GM/10 ML UDCUP PO SCH ×4 (08:13→21:47)
[2019-10-16] MEDS: SEVELAMER CARBONATE 800 MG TABLET PO SCH ×3 (08:13→16:14)
[2019-10-16] MEDS: DOXYCYCLINE HYCLATE 100 MG CAPSULE PO SCH ×2 (08:14→21:47)
[2019-10-16] MEDS: ENOXAPARIN 30 MG/0.3 ML SYRINGE SUBCUT SCH (14:57)
[2019-10-16] MEDS: CINACALCET 30 MG TABLET PO SCH (21:47)
[2019-10-16] MEDS: CLOPIDOGREL 75 MG TABLET PO SCH (21:47)
[2019-10-16] MEDS: ROSUVASTATIN 20 MG TABLET NG SCH (21:47)
[2019-10-17] MEDS: levETIRAcetam 500 MG TABLET PO SCH ×3 (01:25→16:56)
[2019-10-17 06:29] LABS: Hemoglobin 8.6 GM/DL (12.0-16.0); Red Blood Count 3.41 MC/CUMM (3.8-5.5); White Blood Count 8.3 T/CUMM (4-12)
[2019-10-17 06:30] LABS: Basophils % 0.5 % (0.0-0.8); Eosinophils # 0.3 10*3/uL (0.0-0.87); Eosinophils % 3.4 % (0.00-10.9); Hematocrit 28.4 VOL% (35.7-47.0); Immature Granulocytes % 0.5 %; Immature Granulocytes Absolute 0.04 #; Lymphocytes # 1.6 10*3/uL (1.4-4.0); Lymphocytes % 19.6 % (21.3-54.2); Mean Corpuscular HGB Conc 30.3 GM/DL (32-36); Mean Corpuscular Volume 83.3 FL (87-102); Mean Platelet Volume 9.5 FL (9.6-12.0); Monocytes % 9.2 % (1.7-12.7); Neutrophils % 66.8 % (38.7-73.9); Platelet Count 583 T/CUMM (130-400); Red Cell Distribution Width 15.9 % (9.3-17.3)
[2019-10-17 06:45] LABS: Calcium 8.3 MG/DL (8.5-10.1); Osmolality,Calculated 276.8 MOS/KG (273-304)
[2019-10-17] MEDS: amLODIPine 10 MG TABLET PO SCH (08:49)
[2019-10-17] MEDS: ASPIRIN CHEW 81 MG TABLET PO SCH (08:49)
[2019-10-17] MEDS: SUCRALFATE 1 GM/10 ML UDCUP PO SCH ×4 (08:49→21:26)
[2019-10-17] MEDS: SEVELAMER CARBONATE 800 MG TABLET PO SCH ×3 (08:49→16:57)
[2019-10-17] MEDS: carvediloL 6.25 MG TABLET PO SCH ×2 (08:49→21:26)
[2019-10-17] MEDS: INSULIN REGULAR 100 UNIT/ML SUBCUT SCH ×3 (08:50→17:00)
[2019-10-17] MEDS: DOXYCYCLINE HYCLATE 100 MG CAPSULE PO SCH ×2 (08:50→21:26)
[2019-10-17] MEDS: ENOXAPARIN 30 MG/0.3 ML SYRINGE SUBCUT SCH (13:28)
[2019-10-17] MEDS: ROSUVASTATIN 20 MG TABLET NG SCH (21:26)
[2019-10-17] MEDS: CLOPIDOGREL 75 MG TABLET PO SCH (21:26)
[2019-10-17] MEDS: CINACALCET 30 MG TABLET PO SCH (21:26)
[2019-10-18] MEDS: INSULIN REGULAR 100 UNIT/ML SUBCUT SCH ×5 (00:22→22:12)
[2019-10-18] MEDS: levETIRAcetam 500 MG TABLET PO SCH ×3 (01:45→17:18)
[2019-10-18] MEDS: ASPIRIN CHEW 81 MG TABLET PO SCH (08:30)
[2019-10-18] MEDS: DOXYCYCLINE HYCLATE 100 MG CAPSULE PO SCH ×2 (08:30→21:14)
[2019-10-18] MEDS: SUCRALFATE 1 GM/10 ML UDCUP PO SCH ×4 (08:30→21:14)
[2019-10-18] MEDS: SEVELAMER CARBONATE 800 MG TABLET PO SCH ×3 (08:30→17:18)
[2019-10-18] MEDS: amLODIPine 10 MG TABLET PO SCH (09:45)
[2019-10-18] MEDS: carvediloL 6.25 MG TABLET PO SCH ×2 (09:45→22:11)
[2019-10-18] MEDS: ENOXAPARIN 30 MG/0.3 ML SYRINGE SUBCUT SCH (14:12)
[2019-10-18] MEDS: ROSUVASTATIN 20 MG TABLET NG SCH (21:14)
[2019-10-18] MEDS: CLOPIDOGREL 75 MG TABLET PO SCH (21:14)
[2019-10-18] MEDS: CINACALCET 30 MG TABLET PO SCH (21:14)
[2019-10-19] MEDS: levETIRAcetam 500 MG TABLET PO SCH ×3 (00:31→18:16)
[2019-10-19 07:41] LABS: Calcium 9.2 MG/DL (8.5-10.1); Osmolality,Calculated 265.4 MOS/KG (273-304)
[2019-10-19 08:25] LABS: Basophils # 0.1 10*3/uL (0.0-0.2); Basophils % 0.6 % (0.0-0.8); Eosinophils # 0.3 10*3/uL (0.0-0.87); Hematocrit 36.5 VOL% (35.7-47.0); Immature Granulocytes % 0.6 %; Immature Granulocytes Absolute 0.07 #; Lymphocytes # 1.5 10*3/uL (1.4-4.0); Lymphocytes % 12.1 % (21.3-54.2); Mean Corpuscular HGB Conc 29.9 GM/DL (32-36); Mean Corpuscular Volume 83.9 FL (87-102); Mean Platelet Volume 9.2 FL (9.6-12.0); Monocytes % 6.5 % (1.7-12.7); Neutrophils % 78.2 % (38.7-73.9); Platelet Count 626 T/CUMM (130-400); Red Blood Count 4.35 MC/CUMM (3.8-5.5); Red Cell Distribution Width 16.1 % (9.3-17.3); White Blood Count 12.5 T/CUMM (4-12)
[2019-10-19 08:28] LABS: Hemoglobin 10.9 GM/DL (12.0-16.0)
[2019-10-19] MEDS: INSULIN REGULAR 100 UNIT/ML SUBCUT SCH ×4 (09:09→20:27)
[2019-10-19] MEDS: SEVELAMER CARBONATE 800 MG TABLET PO SCH ×3 (09:10→18:16)
[2019-10-19] MEDS: SUCRALFATE 1 GM/10 ML UDCUP PO SCH ×4 (09:10→20:29)
[2019-10-19] MEDS: ASPIRIN CHEW 81 MG TABLET PO SCH (09:11)
[2019-10-19] MEDS: DOXYCYCLINE HYCLATE 100 MG CAPSULE PO SCH ×2 (09:11→20:29)
[2019-10-19] MEDS: carvediloL 6.25 MG TABLET PO SCH ×2 (09:11→20:28)
[2019-10-19] MEDS: amLODIPine 10 MG TABLET PO SCH (09:11)
[2019-10-19] MEDS: MENTHOL/ZINC OXIDE OINT 71 GM JAR TOP SCH ×2 (14:12→20:35)
[2019-10-19] MEDS: ENOXAPARIN 30 MG/0.3 ML SYRINGE SUBCUT SCH (14:14)
[2019-10-19] MEDS: CINACALCET 30 MG TABLET PO SCH (20:29)
[2019-10-19] MEDS: ROSUVASTATIN 20 MG TABLET NG SCH (20:29)
[2019-10-19] MEDS: CLOPIDOGREL 75 MG TABLET PO SCH (20:30)
[2019-10-20] MEDS: levETIRAcetam 500 MG TABLET PO SCH ×3 (00:53→18:06)
[2019-10-20] MEDS: INSULIN REGULAR 100 UNIT/ML SUBCUT SCH ×3 (13:14→22:29)
[2019-10-20] MEDS: SEVELAMER CARBONATE 800 MG TABLET PO SCH ×3 (13:15→18:06)
[2019-10-20] MEDS: MENTHOL/ZINC OXIDE OINT 71 GM JAR TOP SCH ×2 (13:16→21:09)
[2019-10-20] MEDS: SUCRALFATE 1 GM/10 ML UDCUP PO SCH ×4 (13:16→21:08)
[2019-10-20] MEDS: carvediloL 6.25 MG TABLET PO SCH ×2 (13:16→21:08)
[2019-10-20] MEDS: ASPIRIN CHEW 81 MG TABLET PO SCH (13:16)
[2019-10-20] MEDS: ENOXAPARIN 30 MG/0.3 ML SYRINGE SUBCUT SCH (13:17)
[2019-10-20] MEDS: amLODIPine 10 MG TABLET PO SCH (13:17)
[2019-10-20] MEDS: DOXYCYCLINE HYCLATE 100 MG CAPSULE PO SCH ×2 (13:17→21:08)
[2019-10-20] MEDS: ROSUVASTATIN 20 MG TABLET NG SCH (21:08)
[2019-10-20] MEDS: CLOPIDOGREL 75 MG TABLET PO SCH (21:08)
[2019-10-20] MEDS: CINACALCET 30 MG TABLET PO SCH (21:08)
[2019-10-21] MEDS: levETIRAcetam 500 MG TABLET PO SCH ×3 (01:12→18:40)
[2019-10-21 05:53] LABS: Basophils # 0.1 10*3/uL (0.0-0.2); Basophils % 0.7 % (0.0-0.8); Eosinophils # 0.2 10*3/uL (0.0-0.87); Eosinophils % 1.9 % (0.00-10.9); Hematocrit 37.8 VOL% (35.7-47.0); Hemoglobin 11.5 GM/DL (12.0-16.0); Immature Granulocytes % 0.4 %; Immature Granulocytes Absolute 0.03 #; Lymphocytes # 1.7 10*3/uL (1.4-4.0); Lymphocytes % 19.9 % (21.3-54.2); Mean Corpuscular HGB Conc 30.4 GM/DL (32-36); Mean Corpuscular Volume 80.4 FL (87-102); Mean Platelet Volume 9.5 FL (9.6-12.0); Monocytes % 9.7 % (1.7-12.7); Neutrophils % 67.4 % (38.7-73.9); Platelet Count 544 T/CUMM (130-400); Red Cell Distribution Width 15.7 % (9.3-17.3); White Blood Count 8.4 T/CUMM (4-12)
[2019-10-21 06:19] LABS: Osmolality,Calculated 261.7 MOS/KG (273-304)
[2019-10-21] MEDS: SUCRALFATE 1 GM/10 ML UDCUP PO SCH ×4 (10:08→20:22)
[2019-10-21] MEDS: carvediloL 6.25 MG TABLET PO SCH ×2 (10:09→20:22)
[2019-10-21] MEDS: DOXYCYCLINE HYCLATE 100 MG CAPSULE PO SCH ×2 (10:10→20:22)
[2019-10-21] MEDS: amLODIPine 10 MG TABLET PO SCH (10:10)
[2019-10-21] MEDS: SEVELAMER CARBONATE 800 MG TABLET PO SCH ×3 (10:11→18:40)
[2019-10-21] MEDS: ASPIRIN CHEW 81 MG TABLET PO SCH (10:11)
[2019-10-21] MEDS: MENTHOL/ZINC OXIDE OINT 71 GM JAR TOP SCH (10:11)
[2019-10-21] MEDS: INSULIN REGULAR 100 UNIT/ML SUBCUT SCH ×4 (10:42→21:00)
[2019-10-21] MEDS: ENOXAPARIN 30 MG/0.3 ML SYRINGE SUBCUT SCH (15:45)
[2019-10-21] MEDS: DESITIN 4OZ/NYSTATIN 15 GRAM MIXTURE PASTE TOP SCH ×2 (17:54→20:22)
[2019-10-21] MEDS: ROSUVASTATIN 20 MG TABLET NG SCH (20:21)
[2019-10-21] MEDS: CINACALCET 30 MG TABLET PO SCH (20:22)
[2019-10-21] MEDS: CLOPIDOGREL 75 MG TABLET PO SCH (20:22)
[2019-10-22] MEDS: levETIRAcetam 500 MG TABLET PO SCH ×3 (02:16→17:55)
[2019-10-22] MEDS: INSULIN REGULAR 100 UNIT/ML SUBCUT SCH ×4 (08:51→21:23)
[2019-10-22] MEDS: SEVELAMER CARBONATE 800 MG TABLET PO SCH ×3 (09:17→17:55)
[2019-10-22] MEDS: ASPIRIN CHEW 81 MG TABLET PO SCH (09:18)
[2019-10-22] MEDS: DOXYCYCLINE HYCLATE 100 MG CAPSULE PO SCH ×2 (09:18→21:17)
[2019-10-22] MEDS: SUCRALFATE 1 GM/10 ML UDCUP PO SCH ×4 (09:19→21:18)
[2019-10-22] MEDS: DESITIN 4OZ/NYSTATIN 15 GRAM MIXTURE PASTE TOP SCH ×2 (09:19→21:20)
[2019-10-22] MEDS: carvediloL 6.25 MG TABLET PO SCH ×2 (14:49→21:17)
[2019-10-22] MEDS: amLODIPine 10 MG TABLET PO SCH (14:49)
[2019-10-22] MEDS: ENOXAPARIN 30 MG/0.3 ML SYRINGE SUBCUT SCH (15:07)
[2019-10-22] MEDS: CINACALCET 30 MG TABLET PO SCH (21:17)
[2019-10-22] MEDS: CLOPIDOGREL 75 MG TABLET PO SCH (21:17)
[2019-10-22] MEDS: ROSUVASTATIN 20 MG TABLET NG SCH (21:17)
[2019-10-22] MEDS: SERTRALINE 25 MG TABLET PO SCH (21:17)
[2019-10-23] MEDS: levETIRAcetam 500 MG TABLET PO SCH ×3 (00:13→16:11)
[2019-10-23] MEDS: INSULIN REGULAR 100 UNIT/ML SUBCUT SCH ×4 (08:53→21:43)
[2019-10-23] MEDS: carvediloL 6.25 MG TABLET PO SCH ×2 (09:13→21:42)
[2019-10-23] MEDS: SEVELAMER CARBONATE 800 MG TABLET PO SCH ×3 (09:13→18:48)
[2019-10-23] MEDS: SUCRALFATE 1 GM/10 ML UDCUP PO SCH ×4 (09:14→21:42)
[2019-10-23] MEDS: amLODIPine 10 MG TABLET PO SCH (09:14)
[2019-10-23] MEDS: ASPIRIN CHEW 81 MG TABLET PO SCH (09:14)
[2019-10-23] MEDS: ENOXAPARIN 30 MG/0.3 ML SYRINGE SUBCUT SCH ×2 (16:09→16:25)
[2019-10-23] MEDS: DESITIN 4OZ/NYSTATIN 15 GRAM MIXTURE PASTE TOP SCH ×2 (16:10→21:43)
[2019-10-23] MEDS: CLOPIDOGREL 75 MG TABLET PO SCH (21:42)
[2019-10-23] MEDS: CINACALCET 30 MG TABLET PO SCH (21:42)
[2019-10-23] MEDS: ROSUVASTATIN 20 MG TABLET NG SCH (21:42)
[2019-10-23] MEDS: SERTRALINE 25 MG TABLET PO SCH (21:42)
[2019-10-24] MEDS: levETIRAcetam 500 MG TABLET PO SCH ×3 (00:32→16:49)
[2019-10-24] MEDS: SEVELAMER CARBONATE 800 MG TABLET PO SCH ×3 (09:07→16:49)
[2019-10-24] MEDS: amLODIPine 10 MG TABLET PO SCH (09:07)
[2019-10-24] MEDS: ASPIRIN CHEW 81 MG TABLET PO SCH (09:08)
[2019-10-24] MEDS: carvediloL 6.25 MG TABLET PO SCH ×2 (09:08→20:42)
[2019-10-24] MEDS: SUCRALFATE 1 GM/10 ML UDCUP PO SCH ×4 (09:08→20:41)
[2019-10-24] MEDS: INSULIN REGULAR 100 UNIT/ML SUBCUT SCH ×4 (09:08→20:46)
[2019-10-24] MEDS: DESITIN 4OZ/NYSTATIN 15 GRAM MIXTURE PASTE TOP SCH ×2 (09:09→20:45)
[2019-10-24 11:40] LABS: Calcium 9.1 MG/DL (8.5-10.1); Osmolality,Calculated 268.4 MOS/KG (273-304)
[2019-10-24] MEDS: ENOXAPARIN 30 MG/0.3 ML SYRINGE SUBCUT SCH (14:34)
[2019-10-24] MEDS: CINACALCET 30 MG TABLET PO SCH (20:42)
[2019-10-24] MEDS: SERTRALINE 25 MG TABLET PO SCH (20:42)
[2019-10-24] MEDS: CLOPIDOGREL 75 MG TABLET PO SCH (20:42)
[2019-10-24] MEDS: ROSUVASTATIN 20 MG TABLET NG SCH (20:42)
[2019-10-25] MEDS: levETIRAcetam 500 MG TABLET PO SCH ×3 (00:21→18:38)
[2019-10-25] MEDS: INSULIN REGULAR 100 UNIT/ML SUBCUT SCH ×4 (09:00→20:25)
[2019-10-25] MEDS: SUCRALFATE 1 GM/10 ML UDCUP PO SCH ×4 (10:16→20:39)
[2019-10-25] MEDS: amLODIPine 10 MG TABLET PO SCH (10:17)
[2019-10-25] MEDS: SEVELAMER CARBONATE 800 MG TABLET PO SCH ×3 (10:17→18:38)
[2019-10-25] MEDS: carvediloL 6.25 MG TABLET PO SCH ×2 (10:17→20:39)
[2019-10-25] MEDS: ASPIRIN CHEW 81 MG TABLET PO SCH (10:17)
[2019-10-25] MEDS: DESITIN 4OZ/NYSTATIN 15 GRAM MIXTURE PASTE TOP SCH ×2 (10:17→20:41)
[2019-10-25] MEDS: ENOXAPARIN 30 MG/0.3 ML SYRINGE SUBCUT SCH (13:48)
[2019-10-25] MEDS: CLOPIDOGREL 75 MG TABLET PO SCH (20:39)
[2019-10-25] MEDS: SERTRALINE 25 MG TABLET PO SCH (20:39)
[2019-10-25] MEDS: CINACALCET 30 MG TABLET PO SCH (20:39)
[2019-10-25] MEDS: ROSUVASTATIN 20 MG TABLET NG SCH (20:39)
[2019-10-26] MEDS: levETIRAcetam 500 MG TABLET PO SCH ×3 (00:11→17:02)
[2019-10-26] MEDS: INSULIN REGULAR 100 UNIT/ML SUBCUT SCH ×4 (08:20→21:13)
[2019-10-26] MEDS: SUCRALFATE 1 GM/10 ML UDCUP PO SCH ×4 (08:51→20:59)
[2019-10-26] MEDS: SEVELAMER CARBONATE 800 MG TABLET PO SCH ×3 (08:53→17:02)
[2019-10-26] MEDS: ASPIRIN CHEW 81 MG TABLET PO SCH (08:55)
[2019-10-26] MEDS: amLODIPine 10 MG TABLET PO SCH (08:56)
[2019-10-26] MEDS: carvediloL 6.25 MG TABLET PO SCH ×2 (08:56→20:58)
[2019-10-26] MEDS: DESITIN 4OZ/NYSTATIN 15 GRAM MIXTURE PASTE TOP SCH ×2 (08:57→20:59)
[2019-10-26] MEDS: ENOXAPARIN 30 MG/0.3 ML SYRINGE SUBCUT SCH (15:37)
[2019-10-26] MEDS: ROSUVASTATIN 20 MG TABLET NG SCH (20:58)
[2019-10-26] MEDS: SERTRALINE 25 MG TABLET PO SCH (20:58)
[2019-10-26] MEDS: CINACALCET 30 MG TABLET PO SCH (20:58)
[2019-10-26] MEDS: CLOPIDOGREL 75 MG TABLET PO SCH (20:58)
[2019-10-27] MEDS: levETIRAcetam 500 MG TABLET PO SCH ×3 (00:20→16:03)
[2019-10-27] MEDS: INSULIN REGULAR 100 UNIT/ML SUBCUT SCH ×4 (08:13→23:08)
[2019-10-27] MEDS: SUCRALFATE 1 GM/10 ML UDCUP PO SCH ×4 (08:14→21:47)
[2019-10-27] MEDS: ASPIRIN CHEW 81 MG TABLET PO SCH (08:14)
[2019-10-27] MEDS: SEVELAMER CARBONATE 800 MG TABLET PO SCH ×3 (08:14→16:03)
[2019-10-27] MEDS: amLODIPine 10 MG TABLET PO SCH (08:15)
[2019-10-27] MEDS: carvediloL 6.25 MG TABLET PO SCH ×2 (08:15→21:46)
[2019-10-27] MEDS: DESITIN 4OZ/NYSTATIN 15 GRAM MIXTURE PASTE TOP SCH ×2 (08:16→21:45)
[2019-10-27] MEDS: ENOXAPARIN 30 MG/0.3 ML SYRINGE SUBCUT SCH (15:05)
[2019-10-27] MEDS: CINACALCET 30 MG TABLET PO SCH (21:45)
[2019-10-27] MEDS: ROSUVASTATIN 20 MG TABLET NG SCH (21:45)
[2019-10-27] MEDS: SERTRALINE 25 MG TABLET PO SCH (21:46)
[2019-10-27] MEDS: CLOPIDOGREL 75 MG TABLET PO SCH (21:46)
[2019-10-28] MEDS: levETIRAcetam 500 MG TABLET PO SCH ×3 (00:46→17:07)
[2019-10-28] MEDS: INSULIN REGULAR 100 UNIT/ML SUBCUT SCH ×4 (07:47→21:29)
[2019-10-28 07:59] LABS: Basophils # 0.1 10*3/uL (0.0-0.2); Basophils % 1.9 % (0.0-0.8); Eosinophils # 0.4 10*3/uL (0.0-0.87); Eosinophils % 6.6 % (0.00-10.9); Hematocrit 37.8 VOL% (35.7-47.0); Hemoglobin 11.4 GM/DL (12.0-16.0); Immature Granulocytes % 0.2 %; Immature Granulocytes Absolute 0.01 #; Lymphocytes # 1.5 10*3/uL (1.4-4.0); Lymphocytes % 27.6 % (21.3-54.2); Mean Corpuscular HGB Conc 30.2 GM/DL (32-36); Mean Corpuscular Volume 83.1 FL (87-102); Mean Platelet Volume 8.9 FL (9.6-12.0); Monocytes % 8.1 % (1.7-12.7); Neutrophils % 55.6 % (38.7-73.9); Platelet Count 425 T/CUMM (130-400); Red Blood Count 4.55 MC/CUMM (3.8-5.5); Red Cell Distribution Width 16.3 % (9.3-17.3); White Blood Count 5.3 T/CUMM (4-12)
[2019-10-28] MEDS: carvediloL 6.25 MG TABLET PO SCH ×2 (08:48→21:17)
[2019-10-28] MEDS: SUCRALFATE 1 GM/10 ML UDCUP PO SCH ×5 (08:48→21:28)
[2019-10-28] MEDS: amLODIPine 10 MG TABLET PO SCH (08:49)
[2019-10-28] MEDS: SEVELAMER CARBONATE 800 MG TABLET PO SCH ×3 (08:49→17:07)
[2019-10-28] MEDS: DESITIN 4OZ/NYSTATIN 15 GRAM MIXTURE PASTE TOP SCH ×2 (08:49→21:28)
[2019-10-28] MEDS: ASPIRIN CHEW 81 MG TABLET PO SCH (08:49)
[2019-10-28] MEDS: ENOXAPARIN 30 MG/0.3 ML SYRINGE SUBCUT SCH (14:34)
[2019-10-28] MEDS: CINACALCET 30 MG TABLET PO SCH (21:16)
[2019-10-28] MEDS: SERTRALINE 25 MG TABLET PO SCH (21:17)
[2019-10-28] MEDS: CLOPIDOGREL 75 MG TABLET PO SCH (21:17)
[2019-10-28] MEDS: ROSUVASTATIN 20 MG TABLET NG SCH (21:17)
[2019-10-29] MEDS: levETIRAcetam 500 MG TABLET PO SCH ×3 (01:52→17:18)
[2019-10-29] MEDS: INSULIN REGULAR 100 UNIT/ML SUBCUT SCH ×4 (09:13→21:02)
[2019-10-29] MEDS: SUCRALFATE 1 GM/10 ML UDCUP PO SCH ×4 (09:14→21:01)
[2019-10-29] MEDS: carvediloL 6.25 MG TABLET PO SCH ×2 (09:14→21:02)
[2019-10-29] MEDS: SEVELAMER CARBONATE 800 MG TABLET PO SCH ×3 (09:15→17:18)
[2019-10-29] MEDS: ASPIRIN CHEW 81 MG TABLET PO SCH (09:15)
[2019-10-29] MEDS: amLODIPine 10 MG TABLET PO SCH (09:16)
[2019-10-29] MEDS: DESITIN 4OZ/NYSTATIN 15 GRAM MIXTURE PASTE TOP SCH ×2 (09:19→21:03)
[2019-10-29] MEDS: ENOXAPARIN 30 MG/0.3 ML SYRINGE SUBCUT SCH (15:11)
[2019-10-29] MEDS: CINACALCET 30 MG TABLET PO SCH (21:02)
[2019-10-29] MEDS: SERTRALINE 25 MG TABLET PO SCH (21:02)
[2019-10-29] MEDS: ROSUVASTATIN 20 MG TABLET NG SCH (21:02)
[2019-10-29] MEDS: CLOPIDOGREL 75 MG TABLET PO SCH (21:02)
[2019-10-30] MEDS: levETIRAcetam 500 MG TABLET PO SCH ×3 (02:43→17:29)
[2019-10-30] MEDS: INSULIN REGULAR 100 UNIT/ML SUBCUT SCH ×4 (07:29→19:40)
[2019-10-30] MEDS: ASPIRIN CHEW 81 MG TABLET PO SCH (08:58)
[2019-10-30] MEDS: amLODIPine 10 MG TABLET PO SCH (08:59)
[2019-10-30] MEDS: carvediloL 6.25 MG TABLET PO SCH ×2 (08:59→21:05)
[2019-10-30] MEDS: SEVELAMER CARBONATE 800 MG TABLET PO SCH ×3 (09:00→17:29)
[2019-10-30] MEDS: DESITIN 4OZ/NYSTATIN 15 GRAM MIXTURE PASTE TOP SCH ×2 (09:04→21:06)
[2019-10-30] MEDS: SUCRALFATE 1 GM/10 ML UDCUP PO SCH ×5 (09:04→21:06)
[2019-10-30] MEDS: ENOXAPARIN 30 MG/0.3 ML SYRINGE SUBCUT SCH (14:20)
[2019-10-30] MEDS: ACETAMINOPHEN 325 MG TABLET PO PRN (19:01)
[2019-10-30] MEDS: CINACALCET 30 MG TABLET PO SCH (21:05)
[2019-10-30] MEDS: CLOPIDOGREL 75 MG TABLET PO SCH (21:05)
[2019-10-30] MEDS: SERTRALINE 25 MG TABLET PO SCH (21:05)
[2019-10-30] MEDS: ROSUVASTATIN 20 MG TABLET NG SCH (21:05)
[2019-10-31] MEDS ORDERED: SODIUM CHLORIDE 0.9% 500 ML IV ONE (00:34)
[2019-10-31] MEDS: levETIRAcetam 500 MG TABLET PO SCH ×3 (00:44→17:04)
[2019-10-31] MEDS: INSULIN REGULAR 100 UNIT/ML SUBCUT SCH ×4 (07:49→19:50)
[2019-10-31] MEDS: ASPIRIN CHEW 81 MG TABLET PO SCH (09:29)
[2019-10-31] MEDS: SUCRALFATE 1 GM/10 ML UDCUP PO SCH ×4 (09:29→22:00)
[2019-10-31] MEDS: amLODIPine 10 MG TABLET PO SCH (09:29)
[2019-10-31] MEDS: carvediloL 6.25 MG TABLET PO SCH ×2 (09:29→22:00)
[2019-10-31] MEDS: SEVELAMER CARBONATE 800 MG TABLET PO SCH ×3 (09:29→17:03)
[2019-10-31] MEDS: DESITIN 4OZ/NYSTATIN 15 GRAM MIXTURE PASTE TOP SCH ×2 (09:30→22:00)
[2019-10-31] MEDS: ENOXAPARIN 30 MG/0.3 ML SYRINGE SUBCUT SCH (13:29)
[2019-10-31] MEDS: CINACALCET 30 MG TABLET PO SCH (21:59)
[2019-10-31] MEDS: SERTRALINE 25 MG TABLET PO SCH (21:59)
[2019-10-31] MEDS: ROSUVASTATIN 20 MG TABLET NG SCH (22:00)
[2019-10-31] MEDS: CLOPIDOGREL 75 MG TABLET PO SCH (22:00)
[2019-11-01] MEDS: levETIRAcetam 500 MG TABLET PO SCH ×3 (01:19→17:10)
[2019-11-01] MEDS: INSULIN REGULAR 100 UNIT/ML SUBCUT SCH ×4 (07:43→21:28)
[2019-11-01] MEDS: DESITIN 4OZ/NYSTATIN 15 GRAM MIXTURE PASTE TOP SCH ×2 (10:20→21:31)
[2019-11-01] MEDS: amLODIPine 10 MG TABLET PO SCH (10:20)
[2019-11-01] MEDS: PANTOPRAZOLE 40 MG TABLET PO SCH (10:21)
[2019-11-01] MEDS: ASPIRIN CHEW 81 MG TABLET PO SCH (10:21)
[2019-11-01] MEDS: SUCRALFATE 1 GM/10 ML UDCUP PO SCH ×4 (10:21→21:26)
[2019-11-01] MEDS: SEVELAMER CARBONATE 800 MG TABLET PO SCH ×3 (10:21→17:20)
[2019-11-01] MEDS: carvediloL 6.25 MG TABLET PO SCH ×2 (10:21→21:26)
[2019-11-01 15:02] LABS: Eosinophils # 0.4 10*3/uL (0.0-0.87); Eosinophils % 9.9 % (0.00-10.9); Hematocrit 30.9 VOL% (35.7-47.0); Hemoglobin 9.6 GM/DL (12.0-16.0); Immature Granulocytes % 0.3 %; Immature Granulocytes Absolute 0.01 #; Lymphocytes # 1.2 10*3/uL (1.4-4.0); Lymphocytes % 30.5 % (21.3-54.2); Mean Corpuscular HGB Conc 31.1 GM/DL (32-36); Mean Corpuscular Volume 80.7 FL (87-102); Monocytes % 4.9 % (1.7-12.7); Neutrophils % 53.4 % (38.7-73.9); Platelet Count 307 T/CUMM (130-400); Red Blood Count 3.83 MC/CUMM (3.8-5.5); Red Cell Distribution Width 16.1 % (9.3-17.3); White Blood Count 3.8 T/CUMM (4-12)
[2019-11-01 15:17] LABS: Free T4 (Free Thyroxine) 1.41 NG/DL (0.76-1.46); Osmolality,Calculated 269.1 MOS/KG (273-304); Thyroid Stimulating Hormone 0.084 uIU/ml (0.358-3.74)
[2019-11-01] MEDS: ENOXAPARIN 30 MG/0.3 ML SYRINGE SUBCUT SCH (17:03)
[2019-11-01] MEDS: ACETAMINOPHEN 325 MG TABLET PO PRN (17:10)
[2019-11-01] MEDS: ROSUVASTATIN 20 MG TABLET NG SCH (21:26)
[2019-11-01] MEDS: CINACALCET 30 MG TABLET PO SCH (21:26)
[2019-11-01] MEDS: CLOPIDOGREL 75 MG TABLET PO SCH (21:27)
[2019-11-01] MEDS: SERTRALINE 25 MG TABLET PO SCH (21:27)
[2019-11-02] MEDS: levETIRAcetam 500 MG TABLET PO SCH ×3 (00:02→18:04)
[2019-11-02 05:46] LABS: Basophils # 0.1 10*3/uL (0.0-0.2); Basophils % 1.6 % (0.0-0.8); Eosinophils # 0.4 10*3/uL (0.0-0.87); Eosinophils % 8.7 % (0.00-10.9); Hematocrit 34.9 VOL% (35.7-47.0); Hemoglobin 10.5 GM/DL (12.0-16.0); Immature Granulocytes % 0.2 %; Immature Granulocytes Absolute 0.01 #; Lymphocytes # 1.3 10*3/uL (1.4-4.0); Lymphocytes % 29.8 % (21.3-54.2); Mean Corpuscular HGB Conc 30.1 GM/DL (32-36); Mean Corpuscular Volume 83.7 FL (87-102); Mean Platelet Volume 9.4 FL (9.6-12.0); Monocytes % 11.1 % (1.7-12.7); Neutrophils % 48.6 % (38.7-73.9); Platelet Count 330 T/CUMM (130-400); Red Blood Count 4.17 MC/CUMM (3.8-5.5); Red Cell Distribution Width 16.2 % (9.3-17.3); White Blood Count 4.5 T/CUMM (4-12)
[2019-11-02 06:17] LABS: Calcium 8.6 MG/DL (8.5-10.1); Osmolality,Calculated 268.1 MOS/KG (273-304)
[2019-11-02] MEDS: ACETAMINOPHEN 325 MG TABLET PO PRN ×2 (08:02→21:47)
[2019-11-02] MEDS: SUCRALFATE 1 GM/10 ML UDCUP PO SCH ×4 (08:02→21:46)
[2019-11-02] MEDS: amLODIPine 10 MG TABLET PO SCH (08:38)
[2019-11-02] MEDS: SEVELAMER CARBONATE 800 MG TABLET PO SCH ×3 (08:38→18:08)
[2019-11-02] MEDS: PANTOPRAZOLE 40 MG TABLET PO SCH (08:38)
[2019-11-02] MEDS: carvediloL 6.25 MG TABLET PO SCH ×2 (08:41→21:46)
[2019-11-02] MEDS: INSULIN REGULAR 100 UNIT/ML SUBCUT SCH ×4 (08:43→22:48)
[2019-11-02] MEDS: ASPIRIN CHEW 81 MG TABLET PO SCH (08:51)
[2019-11-02] MEDS: DESITIN 4OZ/NYSTATIN 15 GRAM MIXTURE PASTE TOP SCH ×2 (08:52→21:52)
[2019-11-02] MEDS: ENOXAPARIN 30 MG/0.3 ML SYRINGE SUBCUT SCH (15:00)
[2019-11-02] MEDS: CINACALCET 30 MG TABLET PO SCH (21:46)
[2019-11-02] MEDS: SERTRALINE 25 MG TABLET PO SCH (21:46)
[2019-11-02] MEDS: ROSUVASTATIN 20 MG TABLET NG SCH (21:47)
[2019-11-02] MEDS: CLOPIDOGREL 75 MG TABLET PO SCH (21:47)
[2019-11-03] MEDS: levETIRAcetam 500 MG TABLET PO SCH ×2 (02:30→08:15)
[2019-11-03 07:10] LABS: Calcium 8.5 MG/DL (8.5-10.1); Osmolality,Calculated 267.2 MOS/KG (273-304)
[2019-11-03 07:46] LABS: Basophils # 0.1 10*3/uL (0.0-0.2); Basophils % 1.8 % (0.0-0.8); Eosinophils # 0.4 10*3/uL (0.0-0.87); Eosinophils % 9.1 % (0.00-10.9); Hematocrit 36.5 VOL% (35.7-47.0); Hemoglobin 10.9 GM/DL (12.0-16.0); Immature Granulocytes % 0.3 %; Immature Granulocytes Absolute 0.01 #; Lymphocytes # 1.4 10*3/uL (1.4-4.0); Lymphocytes % 34.8 % (21.3-54.2); Mean Corpuscular HGB Conc 29.9 GM/DL (32-36); Mean Corpuscular Volume 83.1 FL (87-102); Mean Platelet Volume 9.4 FL (9.6-12.0); Monocytes % 12.1 % (1.7-12.7); Neutrophils % 41.9 % (38.7-73.9); Platelet Count 323 T/CUMM (130-400); Red Blood Count 4.39 MC/CUMM (3.8-5.5); Red Cell Distribution Width 16.3 % (9.3-17.3)
[2019-11-03] MEDS: INSULIN REGULAR 100 UNIT/ML SUBCUT SCH ×3 (08:11→16:47)
[2019-11-03] MEDS: amLODIPine 10 MG TABLET PO SCH (08:12)
[2019-11-03] MEDS: carvediloL 6.25 MG TABLET PO SCH (08:12)
[2019-11-03] MEDS: SEVELAMER CARBONATE 800 MG TABLET PO SCH ×2 (08:12→14:01)
[2019-11-03] MEDS: PANTOPRAZOLE 40 MG TABLET PO SCH (08:15)
[2019-11-03] MEDS: ASPIRIN CHEW 81 MG TABLET PO SCH (08:15)
[2019-11-03] MEDS: SUCRALFATE 1 GM/10 ML UDCUP PO SCH ×2 (08:15→14:01)
[2019-11-03] MEDS: DESITIN 4OZ/NYSTATIN 15 GRAM MIXTURE PASTE TOP SCH (08:16)
[2019-11-03] MEDS ORDERED: TUBERCULIN SKIN TEST 0.1 ML SYRINGE INTRADERM ONE (08:39)
[2019-11-03] MEDS: ENOXAPARIN 30 MG/0.3 ML SYRINGE SUBCUT SCH (14:01)
[2019-11-03 15:59] VITALS: BP 118/67
[2019-11-05 12:20] LABS: Thyroglob. AB < 1.8 IU/mL (<4.0)
== END 2019-11-03 16:55 | DRG 207 ==
LOC: EDUNIT# → EDBD → N.ED 12:26 → SUATTDRO 13:45 → N.EDINP 13:45 → N.ICU 14:31 → N.5E 10-15 12:36
PROVIDERS: ADMIT Internal Medicine; ATTEND Internal Medicine

== ENCOUNTER 2019-11-24 15:38 | Observation (INO) ==
[2019-11-24] MEDS ORDERED: LABETALOL 100 MG/20 ML VIAL IV STA (16:11)
[2019-11-24 16:52] LABS: Basophils % 0.5 % (0.0-0.8); Eosinophils # 0.1 10*3/uL (0.0-0.87); Eosinophils % 1.4 % (0.00-10.9); Hemoglobin 10.6 GM/DL (12.0-16.0); Immature Granulocytes % 0.5 %; Immature Granulocytes Absolute 0.03 #; Lymphocytes # 0.7 10*3/uL (1.4-4.0); Mean Corpuscular HGB Conc 31.2 GM/DL (32-36); Mean Corpuscular Volume 82.3 FL (87-102); Mean Platelet Volume 9.7 FL (9.6-12.0); Neutrophils % 82.6 % (38.7-73.9); Platelet Count 250 T/CUMM (130-400); Red Blood Count 4.13 MC/CUMM (3.8-5.5); Red Cell Distribution Width 18.7 % (9.3-17.3); White Blood Count 5.7 T/CUMM (4-12)
[2019-11-24] MEDS ORDERED: ACETAMINOPHEN 325 MG TABLET PO ONE (17:00)
[2019-11-24 17:11] LABS: Albumin 3.5 G/DL (3.4-5.0); Bilirubin,Total 0.7 MG/DL (0.2-1.0); Calcium 9.4 MG/DL (8.5-10.1); Osmolality,Calculated 292.4 MOS/KG (273-304)
[2019-11-24] MEDS ORDERED: guaiFENesin/DM ER 600-30 MG TABLET PO PRN (17:30)
[2019-11-24] MEDS ORDERED: PROMETHAZINE 25 MG TABLET PO PRN (17:30)
[2019-11-24] MEDS ORDERED: PROMETHAZINE 25 MG/1 ML VIAL IM PRN (17:30)
[2019-11-24] MEDS ORDERED: traZODone 50 MG TABLET PO PRN (17:30)
[2019-11-24] MEDS ORDERED: diphenhydrAMINE CAP 25 MG CAPSULE PO PRN (17:30)
[2019-11-24] MEDS ORDERED: ZALEPLON 5 MG CAPSULE PO PRN (17:30)
[2019-11-24] MEDS ORDERED: ONDANSETRON 4 MG/2 ML VIAL IV PRN (17:30)
[2019-11-24] MEDS ORDERED: NITROGLYCERIN SL 0.4 MG TABLET SL PRN (17:31)
[2019-11-24] MEDS ORDERED: ONDANSETRON 4 MG TABLET PO PRN (17:31)
[2019-11-24] MEDS ORDERED: DOCUSATE SODIUM 100 MG CAPSULE PO SCH (21:00)
[2019-11-24] MEDS ORDERED: PREGABALIN 75 MG CAPSULE PO SCH (21:00)
[2019-11-24] MEDS: carvediloL 6.25 MG TABLET PO SCH (21:10)
[2019-11-24] MEDS: HEPARIN 5,000 UNIT/1 ML VIAL SUBCUT SCH (21:53)
[2019-11-25 03:36] VITALS: BP 151/90
[2019-11-25 05:28] LABS: Basophils % 0.8 % (0.0-0.8); Eosinophils # 0.2 10*3/uL (0.0-0.87); Eosinophils % 3.7 % (0.00-10.9); Hematocrit 21.9 VOL% (35.7-47.0); Hemoglobin 6.8 GM/DL (12.0-16.0); Immature Granulocytes % 0.6 %; Immature Granulocytes Absolute 0.03 #; Lymphocytes # 1.1 10*3/uL (1.4-4.0); Mean Corpuscular HGB Conc 31.1 GM/DL (32-36); Mean Corpuscular Volume 81.4 FL (87-102); Mean Platelet Volume 10.2 FL (9.6-12.0); Monocytes % 6.1 % (1.7-12.7); Neutrophils % 66.8 % (38.7-73.9); Platelet Count 264 T/CUMM (130-400); Red Blood Count 2.69 MC/CUMM (3.8-5.5); White Blood Count 5.1 T/CUMM (4-12)
[2019-11-25 06:26] LABS: Albumin 2.9 G/DL (3.4-5.0); Bilirubin,Total 1.5 MG/DL (0.2-1.0); Calcium 9.3 MG/DL (8.5-10.1); Osmolality,Calculated 299.1 MOS/KG (273-304); Total Protein 6.8 G/DL (6.4-8.3)
[2019-11-25] MEDS: HEPARIN 5,000 UNIT/1 ML VIAL SUBCUT SCH (06:55)
[2019-11-25] MEDS ORDERED: SODIUM CHLORIDE 0.9% 1,000 ML IV PRN (07:21)
[2019-11-25] MEDS ORDERED: SODIUM POLYSTYRENE SULFATE 15 GM/60 ML BOTTLE PO ONE (07:22)
[2019-11-25] MEDS ORDERED: INSULIN REGULAR 100 UNIT/ML SUBCUT ONE (07:23)
[2019-11-25] MEDS ORDERED: DEXTROSE 10% 25 GM/250 ML BAG IV ONE ×2 (08:00→09:00)
[2019-11-25] MEDS ORDERED: SEVELAMER CARBONATE 800 MG TABLET PO SCH (08:00)
[2019-11-25 08:49] LABS: Hematocrit 22.8 VOL% (35.7-47.0); Hemoglobin 7.1 GM/DL (12.0-16.0)
[2019-11-25] MEDS ORDERED: CLOPIDOGREL 75 MG TABLET PO SCH (09:00)
[2019-11-25] MEDS ORDERED: ROSUVASTATIN 10 MG TABLET PO SCH (09:00)
[2019-11-25] MEDS ORDERED: PANTOPRAZOLE 40 MG TABLET PO SCH ×2 (09:00)
[2019-11-25] MEDS ORDERED: DEXTROSE 10% 250 ML BAG IV ONE (09:00)
[2019-11-25] MEDS ORDERED: levETIRAcetam 500 MG TABLET PO SCH (09:00)
[2019-11-25] MEDS ORDERED: amLODIPine 10 MG TABLET PO SCH (09:00)
[2019-11-25] MEDS ORDERED: ASPIRIN EC 81 MG TABLET PO SCH (09:00)
[2019-11-25] MEDS: carvediloL 6.25 MG TABLET PO SCH (12:00)
[2019-11-25] MEDS ORDERED: CINACALCET 30 MG TABLET PO SCH (16:30)
== END 2019-11-25 15:18 | disposition home or self-care (01) ==
LOC: EDUNIT# → EDBD → N.ED 15:38 → N.EDINP 15:38 → N.2W 18:41
PROVIDERS: ADMIT Internal Medicine; ATTEND Internal Medicine

== ENCOUNTER 2019-12-10 05:57 | Observation (INO) ==
[2019-12-10 07:14] LABS: Basophils # 0.1 10*3/uL (0.0-0.2); Basophils % 0.5 % (0.0-0.8); Eosinophils # 0.3 10*3/uL (0.0-0.87); Hematocrit 31.9 VOL% (35.7-47.0); Hemoglobin 9.5 GM/DL (12.0-16.0); Immature Granulocytes % 0.5 %; Immature Granulocytes Absolute 0.08 #; Lymphocytes # 1.1 10*3/uL (1.4-4.0); Lymphocytes % 7.2 % (21.3-54.2); Mean Corpuscular HGB Conc 29.8 GM/DL (32-36); Mean Corpuscular Volume 88.9 FL (87-102); Mean Platelet Volume 9.9 FL (9.6-12.0); Monocytes % 2.1 % (1.7-12.7); Neutrophils % 87.7 % (38.7-73.9); Platelet Count 265 T/CUMM (130-400); Red Blood Count 3.59 MC/CUMM (3.8-5.5); Red Cell Distribution Width 16.9 % (9.3-17.3); White Blood Count 15.2 T/CUMM (4-12)
[2019-12-10] MEDS ORDERED: hydrALAZINE 20 MG/1 ML VIAL IV STA (07:15)
[2019-12-10] MEDS ORDERED: LABETALOL 100 MG/20 ML VIAL IV STA (07:17)
[2019-12-10] MEDS ORDERED: MEPERIDINE 50 MG/1 ML VIAL IM STA (07:36)
[2019-12-10] MEDS ORDERED: DEXTROSE 50% 25 GM/50 ML VIAL IV PRN (09:11)
[2019-12-10] MEDS ORDERED: GLUCAGON 1 MG VIAL IM PRN (09:11)
[2019-12-10] MEDS ORDERED: ONDANSETRON 4 MG/2 ML VIAL IV PRN (09:11)
[2019-12-10] MEDS: ACETAMINOPHEN 325 MG TABLET PO PRN ×3 (10:58→20:44)
[2019-12-10] MEDS: hydrALAZINE 20 MG/1 ML VIAL IV PRN ×2 (10:59→20:43)
[2019-12-11 06:08] LABS: Basophils # 0.1 10*3/uL (0.0-0.2); Basophils % 0.8 % (0.0-0.8); Eosinophils # 0.3 10*3/uL (0.0-0.87); Eosinophils % 3.6 % (0.00-10.9); Hematocrit 27.1 VOL% (35.7-47.0); Hemoglobin 8.6 GM/DL (12.0-16.0); Immature Granulocytes % 0.3 %; Immature Granulocytes Absolute 0.02 #; Lymphocytes # 1.3 10*3/uL (1.4-4.0); Lymphocytes % 17.1 % (21.3-54.2); Mean Corpuscular HGB Conc 31.7 GM/DL (32-36); Monocytes % 7.8 % (1.7-12.7); Neutrophils % 70.4 % (38.7-73.9); Platelet Count 255 T/CUMM (130-400); Red Blood Count 3.15 MC/CUMM (3.8-5.5); Red Cell Distribution Width 17.1 % (9.3-17.3); White Blood Count 7.4 T/CUMM (4-12)
[2019-12-11 06:53] LABS: Calcium 8.9 MG/DL (8.5-10.1); Osmolality,Calculated 274.2 MOS/KG (273-304)
[2019-12-11] MEDS: ACETAMINOPHEN 325 MG TABLET PO PRN (07:37)
[2019-12-11] MEDS: hydrALAZINE 20 MG/1 ML VIAL IV PRN (08:30)
[2019-12-11] MEDS ORDERED: PANTOPRAZOLE 40 MG TABLET PO SCH ×2 (09:00→21:00)
[2019-12-11] MEDS ORDERED: NITROGLYCERIN SL 0.4 MG TABLET SL PRN (09:38)
[2019-12-11] MEDS ORDERED: CITALOPRAM 20 MG TABLET PO SCH (09:45)
[2019-12-11] MEDS ORDERED: ASPIRIN EC 81 MG TABLET PO SCH (10:00)
[2019-12-11] MEDS ORDERED: carvediloL 6.25 MG TABLET PO SCH (10:00)
[2019-12-11] MEDS ORDERED: levETIRAcetam 500 MG TABLET PO SCH (10:00)
[2019-12-11] MEDS ORDERED: CLOPIDOGREL 75 MG TABLET PO SCH (10:00)
[2019-12-11] MEDS ORDERED: ROSUVASTATIN 10 MG TABLET PO SCH (10:00)
[2019-12-11] MEDS ORDERED: amLODIPine 10 MG TABLET PO SCH (10:00)
[2019-12-11] MEDS ORDERED: SEVELAMER CARBONATE 800 MG TABLET PO SCH (12:00)
[2019-12-11 13:17] VITALS: BP 162/82
[2019-12-11] MEDS ORDERED: PREGABALIN 75 MG CAPSULE PO SCH (15:00)
[2019-12-11] MEDS ORDERED: CINACALCET 30 MG TABLET PO SCH (16:30)
[2019-12-11] MEDS ORDERED: DIAZEPAM 5 MG TABLET PO SCH (21:00)
== END 2019-12-11 12:25 | disposition home health service (06) ==
LOC: EDBD → EDUNIT# → N.EDINP 05:57 → N.ED 05:57 → SUATTDRO 09:11 → N.2W 09:41 → N.5E 17:51
PROVIDERS: ADMIT Internal Medicine; ATTEND Emergency Medicine

== ENCOUNTER 2019-12-13 04:22 | Inpatient (IN) ==
[2019-12-13] MEDS ORDERED: ALBUTEROL/IPRATROPIUM 3 ML NEB RESP TX STA (04:32)
[2019-12-13] MEDS ORDERED: hydrALAZINE 20 MG/1 ML VIAL IV STA (04:33)
[2019-12-13 05:15] LABS: Basophils # 0.1 10*3/uL (0.0-0.2); Basophils % 0.8 % (0.0-0.8); Eosinophils # 0.3 10*3/uL (0.0-0.87); Eosinophils % 3.3 % (0.00-10.9); Hematocrit 26.6 VOL% (35.7-47.0); Hemoglobin 8.1 GM/DL (12.0-16.0); Immature Granulocytes % 0.4 %; Immature Granulocytes Absolute 0.04 #; Lymphocytes # 1.2 10*3/uL (1.4-4.0); Lymphocytes % 12.6 % (21.3-54.2); Mean Corpuscular HGB Conc 30.5 GM/DL (32-36); Mean Platelet Volume 9.6 FL (9.6-12.0); Monocytes % 3.8 % (1.7-12.7); Neutrophils % 79.1 % (38.7-73.9); Platelet Count 290 T/CUMM (130-400); Red Blood Count 2.99 MC/CUMM (3.8-5.5); Red Cell Distribution Width 16.8 % (9.3-17.3); White Blood Count 9.6 T/CUMM (4-12)
[2019-12-13 05:36] LABS: Albumin 3.4 G/DL (3.4-5.0); Bilirubin,Total 1.5 MG/DL (0.2-1.0); Calcium 9.1 MG/DL (8.5-10.1); Osmolality,Calculated 286.8 MOS/KG (273-304); Total Protein 6.9 G/DL (6.4-8.3)
[2019-12-13] MEDS ORDERED: DOCUSATE SODIUM 100 MG CAPSULE PO PRN (07:24)
[2019-12-13] MEDS ORDERED: ONDANSETRON 4 MG/2 ML VIAL IV PRN (07:24)
[2019-12-13] MEDS ORDERED: ALBUTEROL 2.5 MG/3 ML NEB RESP TX PRN (07:24)
[2019-12-13] MEDS ORDERED: hydrALAZINE 20 MG/1 ML VIAL IV PRN (07:24)
[2019-12-13] MEDS ORDERED: NITROGLYCERIN SL 0.4 MG TABLET SL PRN (07:24)
[2019-12-13] MEDS ORDERED: ACETAMINOPHEN 325 MG TABLET PO PRN ×2 (07:24→12:08)
[2019-12-13] MEDS: amLODIPine 10 MG TABLET PO SCH (10:03)
[2019-12-13] MEDS: CLOPIDOGREL 75 MG TABLET PO SCH (10:03)
[2019-12-13] MEDS: ROSUVASTATIN 10 MG TABLET PO SCH (10:03)
[2019-12-13] MEDS: levETIRAcetam 500 MG TABLET PO SCH (10:03)
[2019-12-13] MEDS: ASPIRIN EC 81 MG TABLET PO SCH (10:03)
[2019-12-13] MEDS: PANTOPRAZOLE 40 MG TABLET PO SCH ×2 (10:03→21:47)
[2019-12-13] MEDS: CITALOPRAM 20 MG TABLET PO SCH (10:03)
[2019-12-13] MEDS: carvediloL 6.25 MG TABLET PO SCH ×2 (10:03→21:47)
[2019-12-13] MEDS: PREGABALIN 75 MG CAPSULE PO SCH ×3 (10:03→21:47)
[2019-12-13] MEDS: SEVELAMER CARBONATE 800 MG TABLET PO SCH ×3 (10:04→18:48)
[2019-12-13] MEDS ORDERED: SODIUM CHLORIDE 0.9% 1,000 ML IV PRN (12:08)
[2019-12-13] MEDS ORDERED: diphenhydrAMINE CAP 25 MG CAPSULE PO PRN (12:08)
[2019-12-13] MEDS ORDERED: TUBERCULIN SKIN TEST 0.1 ML SYRINGE INTRADERM ONE (12:41)
[2019-12-13] MEDS: CINACALCET 30 MG TABLET PO SCH (18:31)
[2019-12-13] MEDS: DIAZEPAM 5 MG TABLET PO SCH (21:47)
[2019-12-14 01:17] LABS: Basophils # 0.1 10*3/uL (0.0-0.2); Basophils % 0.8 % (0.0-0.8); Eosinophils # 0.3 10*3/uL (0.0-0.87); Hematocrit 29.8 VOL% (35.7-47.0); Hemoglobin 9.4 GM/DL (12.0-16.0); Immature Granulocytes % 0.5 %; Immature Granulocytes Absolute 0.03 #; Lymphocytes % 15.3 % (21.3-54.2); Mean Corpuscular HGB Conc 31.5 GM/DL (32-36); Mean Corpuscular Volume 86.1 FL (87-102); Mean Platelet Volume 9.6 FL (9.6-12.0); Monocytes % 5.9 % (1.7-12.7); Neutrophils % 72.5 % (38.7-73.9); Platelet Count 263 T/CUMM (130-400); Red Blood Count 3.46 MC/CUMM (3.8-5.5); Red Cell Distribution Width 16.8 % (9.3-17.3); White Blood Count 6.3 T/CUMM (4-12)
[2019-12-14 01:21] LABS: Calcium 8.6 MG/DL (8.5-10.1); Osmolality,Calculated 274.1 MOS/KG (273-304)
[2019-12-14] MEDS: PREGABALIN 75 MG CAPSULE PO SCH ×3 (09:27→21:10)
[2019-12-14] MEDS: ASPIRIN EC 81 MG TABLET PO SCH (09:27)
[2019-12-14] MEDS: levETIRAcetam 500 MG TABLET PO SCH (09:27)
[2019-12-14] MEDS: ROSUVASTATIN 10 MG TABLET PO SCH (09:27)
[2019-12-14] MEDS: SEVELAMER CARBONATE 800 MG TABLET PO SCH ×3 (09:27→17:23)
[2019-12-14] MEDS: amLODIPine 10 MG TABLET PO SCH (09:27)
[2019-12-14] MEDS: PANTOPRAZOLE 40 MG TABLET PO SCH ×2 (09:28→21:10)
[2019-12-14] MEDS: carvediloL 6.25 MG TABLET PO SCH ×2 (09:28→21:10)
[2019-12-14] MEDS: CITALOPRAM 20 MG TABLET PO SCH (09:28)
[2019-12-14] MEDS: CLOPIDOGREL 75 MG TABLET PO SCH (09:28)
[2019-12-14] MEDS: CINACALCET 30 MG TABLET PO SCH (17:22)
[2019-12-14] MEDS: DIAZEPAM 5 MG TABLET PO SCH (21:10)
[2019-12-15 08:22] LABS: Basophils # 0.1 10*3/uL (0.0-0.2); Basophils % 0.8 % (0.0-0.8); Eosinophils # 0.4 10*3/uL (0.0-0.87); Eosinophils % 5.7 % (0.00-10.9); Hemoglobin 8.9 GM/DL (12.0-16.0); Immature Granulocytes % 0.2 %; Immature Granulocytes Absolute 0.01 #; Lymphocytes # 1.7 10*3/uL (1.4-4.0); Mean Corpuscular HGB Conc 29.7 GM/DL (32-36); Mean Corpuscular Volume 90.6 FL (87-102); Mean Platelet Volume 9.6 FL (9.6-12.0); Monocytes % 7.9 % (1.7-12.7); Neutrophils % 58.4 % (38.7-73.9); Platelet Count 287 T/CUMM (130-400); Red Blood Count 3.31 MC/CUMM (3.8-5.5); Red Cell Distribution Width 16.6 % (9.3-17.3); White Blood Count 6.2 T/CUMM (4-12)
[2019-12-15 08:40] LABS: Calcium 8.3 MG/DL (8.5-10.1); Osmolality,Calculated 279.2 MOS/KG (273-304)
[2019-12-15] MEDS: SEVELAMER CARBONATE 800 MG TABLET PO SCH ×3 (09:24→17:33)
[2019-12-15] MEDS: ASPIRIN EC 81 MG TABLET PO SCH (09:24)
[2019-12-15] MEDS: CITALOPRAM 20 MG TABLET PO SCH (09:25)
[2019-12-15] MEDS: PREGABALIN 75 MG CAPSULE PO SCH ×3 (09:25→20:58)
[2019-12-15] MEDS: amLODIPine 10 MG TABLET PO SCH (09:26)
[2019-12-15] MEDS: PANTOPRAZOLE 40 MG TABLET PO SCH ×2 (09:26→20:58)
[2019-12-15] MEDS: CLOPIDOGREL 75 MG TABLET PO SCH (09:26)
[2019-12-15] MEDS: levETIRAcetam 500 MG TABLET PO SCH (09:26)
[2019-12-15] MEDS: ROSUVASTATIN 10 MG TABLET PO SCH (09:26)
[2019-12-15] MEDS: carvediloL 6.25 MG TABLET PO SCH ×2 (09:26→20:57)
[2019-12-15 11:07] LABS: Free T4 (Free Thyroxine) 0.93 NG/DL (0.76-1.46)
[2019-12-15] MEDS: CINACALCET 30 MG TABLET PO SCH (17:33)
[2019-12-15] MEDS: DIAZEPAM 5 MG TABLET PO SCH (20:57)
[2019-12-16 08:09] LABS: Basophils # 0.1 10*3/uL (0.0-0.2); Basophils % 0.9 % (0.0-0.8); Eosinophils # 0.3 10*3/uL (0.0-0.87); Hematocrit 29.5 VOL% (35.7-47.0); Hemoglobin 8.8 GM/DL (12.0-16.0); Immature Granulocytes % 0.5 %; Immature Granulocytes Absolute 0.03 #; Lymphocytes # 1.1 10*3/uL (1.4-4.0); Lymphocytes % 16.9 % (21.3-54.2); Mean Corpuscular HGB Conc 29.8 GM/DL (32-36); Mean Corpuscular Volume 90.8 FL (87-102); Monocytes % 6.8 % (1.7-12.7); Neutrophils % 69.9 % (38.7-73.9); Platelet Count 297 T/CUMM (130-400); Red Blood Count 3.25 MC/CUMM (3.8-5.5); Red Cell Distribution Width 16.3 % (9.3-17.3); White Blood Count 6.6 T/CUMM (4-12)
[2019-12-16 08:26] LABS: Calcium 8.3 MG/DL (8.5-10.1); Osmolality,Calculated 271.4 MOS/KG (273-304)
[2019-12-16] MEDS: ROSUVASTATIN 10 MG TABLET PO SCH (09:20)
[2019-12-16] MEDS: SEVELAMER CARBONATE 800 MG TABLET PO SCH ×2 (09:20→12:40)
[2019-12-16] MEDS: ASPIRIN EC 81 MG TABLET PO SCH (09:20)
[2019-12-16] MEDS: PANTOPRAZOLE 40 MG TABLET PO SCH (09:21)
[2019-12-16] MEDS: amLODIPine 10 MG TABLET PO SCH (09:21)
[2019-12-16] MEDS: CITALOPRAM 20 MG TABLET PO SCH (09:21)
[2019-12-16] MEDS: carvediloL 6.25 MG TABLET PO SCH (09:21)
[2019-12-16] MEDS: levETIRAcetam 500 MG TABLET PO SCH (09:21)
[2019-12-16] MEDS: PREGABALIN 75 MG CAPSULE PO SCH (09:21)
[2019-12-16] MEDS: CLOPIDOGREL 75 MG TABLET PO SCH (09:21)
[2019-12-16] MEDS ORDERED: TUBERCULIN SKIN TEST 0.1 ML SYRINGE INTRADERM ONE (09:41)
[2019-12-16 12:59] VITALS: BP 119/73
== END 2019-12-16 13:01 | DRG 291 ==
LOC: N.EDINP 04:22 → N.ED 04:22 → N.TELEN 06:07 → N.2W 11:01 → N.5E 12-14 12:52
PROVIDERS: ADMIT Internal Medicine; ATTEND Internal Medicine

== ENCOUNTER 2019-12-19 17:21 | Inpatient (IN) ==
[2019-12-19] MEDS ORDERED: NITROGLYCERIN 2% OINT 1 INCH/GM PACK TOP STA (18:33)
[2019-12-19 18:40] LABS: Basophils % 0.3 % (0.0-0.8); Eosinophils # 0.3 10*3/uL (0.0-0.87); Eosinophils % 2.3 % (0.00-10.9); Hematocrit 31.8 VOL% (35.7-47.0); Hemoglobin 9.7 GM/DL (12.0-16.0); Immature Granulocytes % 0.4 %; Immature Granulocytes Absolute 0.06 #; Lymphocytes # 1.1 10*3/uL (1.4-4.0); Lymphocytes % 7.9 % (21.3-54.2); Mean Corpuscular HGB Conc 30.5 GM/DL (32-36); Mean Corpuscular Volume 90.9 FL (87-102); Mean Platelet Volume 10.4 FL (9.6-12.0); Monocytes % 3.6 % (1.7-12.7); Neutrophils % 85.5 % (38.7-73.9); Platelet Count 321 T/CUMM (130-400); Red Cell Distribution Width 16.5 % (9.3-17.3); White Blood Count 13.9 T/CUMM (4-12)
[2019-12-19 19:10] LABS: Allen Test Positive
[2019-12-19 19:11] LABS: ABG Base Excess 4.2 MMOL/L (-2.5-2.5); ABG HCO3 28.2 MMOL/L (20-26); ABG PCO2 54.6 MM HG (35-48); ABG PH 7.358 (7.35-7.45); ABG PO2 98.4 MM HG (80-95); ABG TCO2 28.4 MMOL/L (23-27)
[2019-12-19] MEDS ORDERED: ACETAMINOPHEN 325 MG TABLET PO PRN (20:25)
[2019-12-19] MEDS ORDERED: LIDOCAINE 1%/EPI INJ 20 ML VIAL ONE (20:36)
[2019-12-19] MEDS ORDERED: FUROSEMIDE 100 MG/10 ML VIAL IV STA (21:00)
[2019-12-19 21:10] LABS: INR 0.9; PT Patient Result 10.3 SECS (9.6-12.2)
[2019-12-19 21:21] LABS: Bilirubin,Total 0.5 MG/DL (0.2-1.0); Calcium 9.4 MG/DL (8.5-10.1); Osmolality,Calculated 279.2 MOS/KG (273-304); Total Protein 7.3 G/DL (6.4-8.3)
[2019-12-19] MEDS ORDERED: NITROGLYCERIN SL 0.4 MG TABLET SL PRN (21:53)
[2019-12-19] MEDS ORDERED: ALBUTEROL 2.5 MG/3 ML NEB RESP TX PRN (21:53)
[2019-12-19] MEDS ORDERED: FUROSEMIDE 20 MG/2 ML VIAL ONE (21:59)
[2019-12-19] MEDS: HEPARIN 5,000 UNIT/1 ML VIAL SUBCUT SCH (23:24)
[2019-12-19] MEDS: hydrALAZINE 20 MG/1 ML VIAL IV PRN (23:25)
[2019-12-20] MEDS: DOXYCYCLINE HYCLATE INJ 100 MG in SODIUM CHLORIDE 0.9% 100 ML IV SCH ×2 (00:23→14:41)
[2019-12-20] MEDS: ONDANSETRON 4 MG/2 ML VIAL IV PRN ×4 (00:40→22:53)
[2019-12-20] MEDS: MEPERIDINE 25 MG/1 ML VIAL IV PRN ×3 (01:24→21:43)
[2019-12-20 06:06] LABS: Basophils % 0.3 % (0.0-0.8); Eosinophils # 0.2 10*3/uL (0.0-0.87); Eosinophils % 2.6 % (0.00-10.9); Hematocrit 25.4 VOL% (35.7-47.0); Hemoglobin 7.8 GM/DL (12.0-16.0); Immature Granulocytes % 0.2 %; Immature Granulocytes Absolute 0.01 #; Lymphocytes # 1.3 10*3/uL (1.4-4.0); Mean Corpuscular HGB Conc 30.7 GM/DL (32-36); Mean Corpuscular Volume 89.4 FL (87-102); Mean Platelet Volume 9.9 FL (9.6-12.0); Monocytes % 7.6 % (1.7-12.7); Neutrophils % 69.3 % (38.7-73.9); Platelet Count 275 T/CUMM (130-400); Red Blood Count 2.84 MC/CUMM (3.8-5.5); Red Cell Distribution Width 16.2 % (9.3-17.3); White Blood Count 6.6 T/CUMM (4-12)
[2019-12-20 06:37] LABS: Albumin 3.1 G/DL (3.4-5.0); Calcium 9.4 MG/DL (8.5-10.1); Total Protein 7.1 G/DL (6.4-8.3)
[2019-12-20] MEDS: hydrALAZINE 20 MG/1 ML VIAL IV PRN (06:38)
[2019-12-20 07:42] LABS: ABG Base Excess 4.1 MMOL/L (-2.5-2.5); ABG Oxygen Saturation 91.2 % (95-100); ABG PH 7.353 (7.35-7.45); ABG PO2 63.1 MM HG (80-95); ABG TCO2 28.5 MMOL/L (23-27)
[2019-12-20] MEDS: ASPIRIN EC 81 MG TABLET PO SCH (08:26)
[2019-12-20] MEDS: amLODIPine 10 MG TABLET PO SCH (08:26)
[2019-12-20] MEDS: CITALOPRAM 20 MG TABLET PO SCH (08:26)
[2019-12-20] MEDS: carvediloL 6.25 MG TABLET PO SCH ×2 (08:26→16:34)
[2019-12-20] MEDS: levETIRAcetam 500 MG TABLET PO SCH (08:27)
[2019-12-20] MEDS: SEVELAMER CARBONATE 800 MG TABLET PO SCH ×3 (08:27→16:35)
[2019-12-20] MEDS: PREGABALIN 75 MG CAPSULE PO SCH ×3 (08:27→20:48)
[2019-12-20] MEDS: ROSUVASTATIN 10 MG TABLET PO SCH (08:27)
[2019-12-20] MEDS: PANTOPRAZOLE 40 MG TABLET PO SCH (08:28)
[2019-12-20] MEDS: CLOPIDOGREL 75 MG TABLET PO SCH (08:28)
[2019-12-20] MEDS: HEPARIN 5,000 UNIT/1 ML VIAL SUBCUT SCH ×2 (08:28→20:48)
[2019-12-20] MEDS: CINACALCET 30 MG TABLET PO SCH (16:34)
[2019-12-21] MEDS: DOXYCYCLINE HYCLATE INJ 100 MG in SODIUM CHLORIDE 0.9% 100 ML IV SCH ×2 (01:49→14:50)
[2019-12-21 03:31] LABS: Basophils % 0.5 % (0.0-0.8); Eosinophils # 0.3 10*3/uL (0.0-0.87); Eosinophils % 4.3 % (0.00-10.9); Hematocrit 24.5 VOL% (35.7-47.0); Hemoglobin 7.2 GM/DL (12.0-16.0); Immature Granulocytes % 0.3 %; Immature Granulocytes Absolute 0.02 #; Lymphocytes # 1.5 10*3/uL (1.4-4.0); Mean Corpuscular HGB Conc 29.4 GM/DL (32-36); Mean Corpuscular Volume 93.5 FL (87-102); Mean Platelet Volume 9.2 FL (9.6-12.0); Monocytes % 8.1 % (1.7-12.7); Neutrophils % 62.8 % (38.7-73.9); Platelet Count 242 T/CUMM (130-400); Red Blood Count 2.62 MC/CUMM (3.8-5.5); Red Cell Distribution Width 16.3 % (9.3-17.3)
[2019-12-21 03:49] LABS: Albumin 2.8 G/DL (3.4-5.0); Bilirubin,Total 0.5 MG/DL (0.2-1.0); Calcium 8.5 MG/DL (8.5-10.1); Total Protein 6.6 G/DL (6.4-8.3)
[2019-12-21] MEDS: SEVELAMER CARBONATE 800 MG TABLET PO SCH ×3 (08:05→20:25)
[2019-12-21] MEDS: ASPIRIN EC 81 MG TABLET PO SCH (08:06)
[2019-12-21] MEDS: CLOPIDOGREL 75 MG TABLET PO SCH (08:06)
[2019-12-21] MEDS: ROSUVASTATIN 10 MG TABLET PO SCH (08:06)
[2019-12-21] MEDS: CITALOPRAM 20 MG TABLET PO SCH (08:07)
[2019-12-21] MEDS: levETIRAcetam 500 MG TABLET PO SCH (08:07)
[2019-12-21] MEDS: PREGABALIN 75 MG CAPSULE PO SCH ×3 (08:08→21:24)
[2019-12-21] MEDS: carvediloL 6.25 MG TABLET PO SCH ×2 (08:08→16:52)
[2019-12-21] MEDS: PANTOPRAZOLE 40 MG TABLET PO SCH (08:09)
[2019-12-21] MEDS: amLODIPine 10 MG TABLET PO SCH (08:09)
[2019-12-21] MEDS: MEPERIDINE 25 MG/1 ML VIAL IV PRN ×3 (08:09→22:10)
[2019-12-21] MEDS: HEPARIN 5,000 UNIT/1 ML VIAL SUBCUT SCH ×3 (08:10→21:25)
[2019-12-21] MEDS: ONDANSETRON 4 MG/2 ML VIAL IV PRN ×2 (14:46→22:10)
[2019-12-21] MEDS: CINACALCET 30 MG TABLET PO SCH (16:52)
[2019-12-22] MEDS ORDERED: diphenhydrAMINE CAP 25 MG CAPSULE PO PRN (01:29)
[2019-12-22] MEDS: DOXYCYCLINE HYCLATE INJ 100 MG in SODIUM CHLORIDE 0.9% 100 ML IV SCH ×2 (02:51→14:53)
[2019-12-22] MEDS: ONDANSETRON 4 MG/2 ML VIAL IV PRN ×2 (02:51→13:08)
[2019-12-22] MEDS: MEPERIDINE 25 MG/1 ML VIAL IV PRN ×2 (02:51→13:08)
[2019-12-22 04:44] LABS: Calcium 8.7 MG/DL (8.5-10.1); Osmolality,Calculated 276.5 MOS/KG (273-304)
[2019-12-22] MEDS: SEVELAMER CARBONATE 800 MG TABLET PO SCH ×3 (09:32→16:53)
[2019-12-22] MEDS: ASPIRIN EC 81 MG TABLET PO SCH ×2 (09:32→13:11)
[2019-12-22] MEDS: carvediloL 6.25 MG TABLET PO SCH ×3 (09:32→16:53)
[2019-12-22] MEDS: PANTOPRAZOLE 40 MG TABLET PO SCH ×2 (09:33→13:12)
[2019-12-22] MEDS: levETIRAcetam 500 MG TABLET PO SCH ×2 (09:33→13:11)
[2019-12-22] MEDS: CITALOPRAM 20 MG TABLET PO SCH ×2 (09:33→13:12)
[2019-12-22] MEDS: CLOPIDOGREL 75 MG TABLET PO SCH ×2 (09:33→13:11)
[2019-12-22] MEDS: HEPARIN 5,000 UNIT/1 ML VIAL SUBCUT SCH (09:33)
[2019-12-22] MEDS: amLODIPine 10 MG TABLET PO SCH ×2 (09:33→13:11)
[2019-12-22] MEDS: ROSUVASTATIN 10 MG TABLET PO SCH ×2 (09:33→13:10)
[2019-12-22] MEDS: PREGABALIN 75 MG CAPSULE PO SCH ×3 (09:33→14:53)
[2019-12-22 16:36] VITALS: BP 145/97
[2019-12-22] MEDS: CINACALCET 30 MG TABLET PO SCH (16:53)
== END 2019-12-22 18:54 | disposition home health service (06) | DRG 291 ==
LOC: EDUNIT# → EDBD → N.ED 17:21 → N.EDINP 20:25 → N.5E 22:11 → N.CC 12-20 06:59 → N.5E 12-21 11:23
PROVIDERS: ADMIT Internal Medicine; ATTEND Internal Medicine

== ENCOUNTER 2019-12-24 08:57 | Inpatient (IN) ==
[2019-12-24] MEDS ORDERED: hydrALAZINE 20 MG/1 ML VIAL IV ONE ×2 (10:28→13:53)
[2019-12-24] MEDS ORDERED: niCARdipine INJ 25 MG in SODIUM CHLORIDE 0.9% 240 ML IV PRN (10:29)
[2019-12-24] MEDS ORDERED: amLODIPine 10 MG TABLET PO ONE (12:10)
[2019-12-24] MEDS ORDERED: carvediloL 6.25 MG TABLET PO ONE (12:11)
[2019-12-24] MEDS ORDERED: hydrALAZINE 20 MG/1 ML VIAL IV PRN (13:49)
[2019-12-24] MEDS ORDERED: ONDANSETRON 4 MG/2 ML VIAL IV PRN (13:49)
[2019-12-24] MEDS ORDERED: ALBUTEROL 2.5 MG/3 ML NEB RESP TX PRN ×2 (13:49→14:24)
[2019-12-24] MEDS ORDERED: ACETAMINOPHEN 325 MG TABLET PO PRN (13:49)
[2019-12-24] MEDS ORDERED: ONDANSETRON 4 MG TABLET PO PRN (14:24)
[2019-12-24] MEDS ORDERED: NITROGLYCERIN SL 0.4 MG TABLET SL PRN (14:24)
[2019-12-24] MEDS: PREGABALIN 75 MG CAPSULE PO SCH ×2 (15:03→21:25)
[2019-12-24] MEDS ORDERED: TUBERCULIN SKIN TEST 0.1 ML SYRINGE INTRADERM ONE (15:40)
[2019-12-24] MEDS: SEVELAMER CARBONATE 800 MG TABLET PO SCH (17:23)
[2019-12-24] MEDS: CINACALCET 30 MG TABLET PO SCH (18:41)
[2019-12-24] MEDS: DIAZEPAM 5 MG TABLET PO SCH (21:25)
[2019-12-24] MEDS: PANTOPRAZOLE 40 MG TABLET PO SCH (21:25)
[2019-12-24] MEDS: carvediloL 6.25 MG TABLET PO SCH (21:25)
[2019-12-25] MEDS ORDERED: LORazepam 1 MG TABLET PO ONE (02:43)
[2019-12-25 04:36] LABS: Basophils % 0.3 % (0.0-0.8); Eosinophils % 0.1 % (0.00-10.9); Hematocrit 24.3 VOL% (35.7-47.0); Hemoglobin 7.4 GM/DL (12.0-16.0); Immature Granulocytes % 0.5 %; Immature Granulocytes Absolute 0.05 #; Lymphocytes # 1.2 10*3/uL (1.4-4.0); Lymphocytes % 12.1 % (21.3-54.2); Mean Corpuscular HGB Conc 30.5 GM/DL (32-36); Mean Corpuscular Volume 90.7 FL (87-102); Mean Platelet Volume 10.4 FL (9.6-12.0); Monocytes % 5.3 % (1.7-12.7); Neutrophils % 81.7 % (38.7-73.9); Platelet Count 273 T/CUMM (130-400); Red Blood Count 2.68 MC/CUMM (3.8-5.5); Red Cell Distribution Width 16.2 % (9.3-17.3); White Blood Count 10.2 T/CUMM (4-12)
[2019-12-25 04:59] LABS: Albumin 3.5 G/DL (3.4-5.0); Bilirubin,Total 0.7 MG/DL (0.2-1.0); Calcium 9.3 MG/DL (8.5-10.1); Osmolality,Calculated 286.9 MOS/KG (273-304); Total Protein 7.9 G/DL (6.4-8.3)
[2019-12-25] MEDS: levETIRAcetam 500 MG TABLET PO SCH (09:21)
[2019-12-25] MEDS: amLODIPine 10 MG TABLET PO SCH (09:21)
[2019-12-25] MEDS: SEVELAMER CARBONATE 800 MG TABLET PO SCH ×3 (09:21→17:00)
[2019-12-25] MEDS: PANTOPRAZOLE 40 MG TABLET PO SCH ×2 (09:21→22:03)
[2019-12-25] MEDS: CITALOPRAM 20 MG TABLET PO SCH (09:22)
[2019-12-25] MEDS: CLOPIDOGREL 75 MG TABLET PO SCH (09:22)
[2019-12-25] MEDS: PREGABALIN 75 MG CAPSULE PO SCH ×3 (09:22→22:03)
[2019-12-25] MEDS: carvediloL 6.25 MG TABLET PO SCH ×2 (09:22→22:03)
[2019-12-25] MEDS: ASPIRIN EC 81 MG TABLET PO SCH (09:22)
[2019-12-25] MEDS: ROSUVASTATIN 10 MG TABLET PO SCH (09:22)
[2019-12-25] MEDS ORDERED: LORazepam 2 MG/1 ML VIAL IV ONE (12:38)
[2019-12-25 13:05] LABS: Basophils % 0.2 % (0.0-0.8); Eosinophils # 0.1 10*3/uL (0.0-0.87); Eosinophils % 0.9 % (0.00-10.9); Hematocrit 21.2 VOL% (35.7-47.0); Immature Granulocytes % 0.6 %; Immature Granulocytes Absolute 0.08 #; Lymphocytes # 1.1 10*3/uL (1.4-4.0); Lymphocytes % 8.7 % (21.3-54.2); Mean Corpuscular HGB Conc 30.2 GM/DL (32-36); Mean Corpuscular Volume 90.2 FL (87-102); Mean Platelet Volume 9.5 FL (9.6-12.0); Neutrophils % 83.6 % (38.7-73.9); Platelet Count 234 T/CUMM (130-400); Red Blood Count 2.35 MC/CUMM (3.8-5.5); Red Cell Distribution Width 16.3 % (9.3-17.3)
[2019-12-25 13:07] LABS: Hemoglobin 6.4 GM/DL (12.0-16.0)
[2019-12-25] MEDS ORDERED: SODIUM CHLORIDE 0.9% 1,000 ML IV PRN (13:19)
[2019-12-25] MEDS: CINACALCET 30 MG TABLET PO SCH (17:00)
[2019-12-25] MEDS ORDERED: HALOPERIDOL 5 MG/ML AMP IM PRN (17:33)
[2019-12-25] MEDS ORDERED: HALOPERIDOL 5 MG TABLET PO ONE (17:59)
[2019-12-25] MEDS ORDERED: HALOPERIDOL 5 MG TABLET PO SCH (21:00)
[2019-12-25] MEDS: DIAZEPAM 5 MG TABLET PO SCH (22:03)
[2019-12-25] MEDS ORDERED: NALOXONE 0.4 MG/ML VIAL IM ONE (22:43)
[2019-12-26] MEDS: CITALOPRAM 20 MG TABLET PO SCH (09:44)
[2019-12-26] MEDS: ASPIRIN EC 81 MG TABLET PO SCH (09:44)
[2019-12-26] MEDS: ROSUVASTATIN 10 MG TABLET PO SCH (09:44)
[2019-12-26] MEDS: amLODIPine 10 MG TABLET PO SCH (09:45)
[2019-12-26] MEDS: PREGABALIN 75 MG CAPSULE PO SCH ×2 (09:45→16:12)
[2019-12-26] MEDS: carvediloL 6.25 MG TABLET PO SCH (09:45)
[2019-12-26] MEDS: PANTOPRAZOLE 40 MG TABLET PO SCH (09:45)
[2019-12-26] MEDS: SEVELAMER CARBONATE 800 MG TABLET PO SCH ×3 (09:45→16:12)
[2019-12-26] MEDS: levETIRAcetam 500 MG TABLET PO SCH (09:45)
[2019-12-26] MEDS: CLOPIDOGREL 75 MG TABLET PO SCH (09:45)
[2019-12-26 12:05] VITALS: BP 136/65
[2019-12-26] MEDS: CINACALCET 30 MG TABLET PO SCH (16:12)
[2019-12-26] MEDS ORDERED: HALOPERIDOL 5 MG TABLET PO SCH (21:00)
== END 2019-12-26 16:44 | disposition home health service (06) | DRG 291 ==
LOC: N.CC 09:52 → SUATTDRO 09:52 → N.2E 16:37
PROVIDERS: ADMIT Internal Medicine; ATTEND Family Medicine

== ENCOUNTER 2019-12-27 15:10 | Observation (INO) ==
[2019-12-27 17:21] LABS: Basophils # 0.1 10*3/uL (0.0-0.2); Basophils % 0.8 % (0.0-0.8); Eosinophils # 0.3 10*3/uL (0.0-0.87); Eosinophils % 4.5 % (0.00-10.9); Hematocrit 22.1 VOL% (35.7-47.0); Hemoglobin 6.8 GM/DL (12.0-16.0); Immature Granulocytes % 0.3 %; Immature Granulocytes Absolute 0.02 #; Lymphocytes # 1.4 10*3/uL (1.4-4.0); Mean Corpuscular HGB Conc 30.8 GM/DL (32-36); Mean Corpuscular Volume 89.8 FL (87-102); Mean Platelet Volume 10.6 FL (9.6-12.0); Neutrophils % 65.4 % (38.7-73.9); Platelet Count 269 T/CUMM (130-400); Red Blood Count 2.46 MC/CUMM (3.8-5.5); White Blood Count 6.3 T/CUMM (4-12)
[2019-12-27 17:37] LABS: Calcium 8.4 MG/DL (8.5-10.1); Osmolality,Calculated 282.4 MOS/KG (273-304)
[2019-12-27] MEDS: CINACALCET 30 MG TABLET PO SCH (21:32)
[2019-12-27] MEDS: DIAZEPAM 5 MG TABLET PO SCH (21:32)
[2019-12-27] MEDS: carvediloL 6.25 MG TABLET PO SCH (21:33)
[2019-12-27] MEDS: PREGABALIN 75 MG CAPSULE PO SCH (21:33)
[2019-12-28] MEDS ORDERED: diphenhydrAMINE CAP 25 MG CAPSULE PO ONE (02:36)
[2019-12-28] MEDS ORDERED: ONDANSETRON ODT 4 MG TABLET PO PRN (03:31)
[2019-12-28] MEDS: carvediloL 6.25 MG TABLET PO SCH ×2 (09:15→17:44)
[2019-12-28] MEDS: levETIRAcetam 500 MG TABLET PO SCH (09:15)
[2019-12-28] MEDS: amLODIPine 10 MG TABLET PO SCH (09:15)
[2019-12-28] MEDS: CITALOPRAM 20 MG TABLET PO SCH (09:15)
[2019-12-28] MEDS: SEVELAMER CARBONATE 800 MG TABLET PO SCH ×3 (09:16→17:44)
[2019-12-28] MEDS: CLOPIDOGREL 75 MG TABLET PO SCH (09:16)
[2019-12-28] MEDS: ROSUVASTATIN 10 MG TABLET PO SCH (09:16)
[2019-12-28] MEDS: ASPIRIN EC 81 MG TABLET PO SCH (09:16)
[2019-12-28] MEDS: PREGABALIN 75 MG CAPSULE PO SCH ×3 (09:16→20:58)
[2019-12-28] MEDS ORDERED: SODIUM CHLORIDE 0.9% 1,000 ML IV PRN (14:06)
[2019-12-28] MEDS ORDERED: ACETAMINOPHEN 325 MG TABLET PO PRN (14:11)
[2019-12-28] MEDS: CINACALCET 30 MG TABLET PO SCH (17:33)
[2019-12-28] MEDS: DIAZEPAM 5 MG TABLET PO SCH (20:58)
[2019-12-28] MEDS ORDERED: ZALEPLON 5 MG CAPSULE PO PRN (21:00)
[2019-12-29 08:14] LABS: Basophils # 0.1 10*3/uL (0.0-0.2); Basophils % 0.7 % (0.0-0.8); Eosinophils # 0.3 10*3/uL (0.0-0.87); Eosinophils % 4.6 % (0.00-10.9); Hematocrit 28.5 VOL% (35.7-47.0); Immature Granulocytes % 0.4 %; Immature Granulocytes Absolute 0.03 #; Lymphocytes # 1.3 10*3/uL (1.4-4.0); Lymphocytes % 18.4 % (21.3-54.2); Mean Corpuscular HGB Conc 31.2 GM/DL (32-36); Mean Corpuscular Volume 90.5 FL (87-102); Mean Platelet Volume 10.6 FL (9.6-12.0); Monocytes % 5.3 % (1.7-12.7); Neutrophils % 70.6 % (38.7-73.9); Platelet Count 259 T/CUMM (130-400); Red Cell Distribution Width 16.3 % (9.3-17.3); White Blood Count 7.1 T/CUMM (4-12)
[2019-12-29 08:15] LABS: Red Blood Count 3.15 MC/CUMM (3.8-5.5)
[2019-12-29 08:16] LABS: Hemoglobin 8.9 GM/DL (12.0-16.0)
[2019-12-29 08:29] LABS: Calcium 8.3 MG/DL (8.5-10.1); Osmolality,Calculated 277.4 MOS/KG (273-304)
[2019-12-29] MEDS: carvediloL 6.25 MG TABLET PO SCH ×2 (08:37→17:14)
[2019-12-29] MEDS: CLOPIDOGREL 75 MG TABLET PO SCH (08:37)
[2019-12-29] MEDS: levETIRAcetam 500 MG TABLET PO SCH (08:38)
[2019-12-29] MEDS: PREGABALIN 75 MG CAPSULE PO SCH ×2 (08:38→14:01)
[2019-12-29] MEDS: ROSUVASTATIN 10 MG TABLET PO SCH (08:39)
[2019-12-29] MEDS: ASPIRIN EC 81 MG TABLET PO SCH (08:39)
[2019-12-29] MEDS: SEVELAMER CARBONATE 800 MG TABLET PO SCH ×3 (08:39→17:14)
[2019-12-29] MEDS: amLODIPine 10 MG TABLET PO SCH (08:39)
[2019-12-29] MEDS: CITALOPRAM 20 MG TABLET PO SCH (08:39)
[2019-12-29 17:10] VITALS: BP 151/78
[2019-12-29] MEDS: CINACALCET 30 MG TABLET PO SCH (17:14)
== END 2019-12-29 18:40 | disposition home health service (06) ==
LOC: EDUNIT# → N.ED 15:10 → N.EDINP 15:10 → N.5E 19:34
PROVIDERS: ADMIT Internal Medicine; ATTEND Internal Medicine

== ENCOUNTER 2020-01-26 06:08 | Inpatient (IN) ==
[2020-01-26] MEDS ORDERED: niCARdipine INJ 50 MG in SODIUM CHLORIDE 0.9% 230 ML IV PRN (08:44)
[2020-01-26] MEDS ORDERED: DEXTROSE 10% 250 ML BAG IV PRN (08:59)
[2020-01-26] MEDS ORDERED: GLUCAGON 1 MG VIAL IM PRN (08:59)
[2020-01-26] MEDS ORDERED: ALBUTEROL 2.5 MG/3 ML NEB RESP TX PRN (11:09)
[2020-01-26] MEDS ORDERED: ONDANSETRON 4 MG TABLET PO PRN (11:09)
[2020-01-26] MEDS: levETIRAcetam 500 MG TABLET PO SCH (12:10)
[2020-01-26] MEDS: ASPIRIN EC 81 MG TABLET PO SCH (12:10)
[2020-01-26] MEDS: CITALOPRAM 20 MG TABLET PO SCH (12:10)
[2020-01-26] MEDS: ROSUVASTATIN 10 MG TABLET PO SCH (12:10)
[2020-01-26] MEDS: carvediloL 6.25 MG TABLET PO SCH ×2 (12:10→22:15)
[2020-01-26] MEDS: amLODIPine 10 MG TABLET PO SCH (12:10)
[2020-01-26] MEDS: SEVELAMER CARBONATE 800 MG TABLET PO SCH ×2 (12:11→16:01)
[2020-01-26] MEDS: PIPERACILLIN/TAZOBACTAM 3,375 MG in SODIUM CHLORIDE 0.9% 100 ML IV SCH ×2 (12:11→22:59)
[2020-01-26] MEDS: CLOPIDOGREL 75 MG TABLET PO SCH (12:11)
[2020-01-26 13:50] LABS: Basophils # 0.1 10*3/uL (0.0-0.2); Basophils % 0.4 % (0.0-0.8); Eosinophils # 0.1 10*3/uL (0.0-0.87); Eosinophils % 0.6 % (0.00-10.9); Hematocrit 24.3 VOL% (35.7-47.0); Hemoglobin 7.7 GM/DL (12.0-16.0); Immature Granulocytes % 0.4 %; Immature Granulocytes Absolute 0.05 #; Lymphocytes # 0.9 10*3/uL (1.4-4.0); Lymphocytes % 7.5 % (21.3-54.2); Mean Corpuscular HGB Conc 31.7 GM/DL (32-36); Mean Corpuscular Volume 90.7 FL (87-102); Mean Platelet Volume 9.3 FL (9.6-12.0); Monocytes % 4.7 % (1.7-12.7); Neutrophils % 86.4 % (38.7-73.9); Platelet Count 307 T/CUMM (130-400); Red Blood Count 2.68 MC/CUMM (3.8-5.5); Red Cell Distribution Width 15.5 % (9.3-17.3); White Blood Count 11.8 T/CUMM (4-12)
[2020-01-26 14:09] LABS: Albumin 3.7 G/DL (3.4-5.0); Bilirubin,Total 0.9 MG/DL (0.2-1.0); Calcium 9.1 MG/DL (8.5-10.1); Osmolality,Calculated 278.1 MOS/KG (273-304); Total Protein 8.1 G/DL (6.4-8.3)
[2020-01-26 14:10] LABS: Ferritin 1011.7 ng/ml (8-252)
[2020-01-26] MEDS: PREGABALIN 75 MG CAPSULE PO SCH ×2 (14:20→22:15)
[2020-01-26] MEDS: CINACALCET 30 MG TABLET PO SCH (16:01)
[2020-01-27 05:45] LABS: Basophils # 0.1 10*3/uL (0.0-0.2); Basophils % 0.6 % (0.0-0.8); Eosinophils # 0.3 10*3/uL (0.0-0.87); Eosinophils % 3.9 % (0.00-10.9); Hematocrit 22.9 VOL% (35.7-47.0); Hemoglobin 7.2 GM/DL (12.0-16.0); Immature Granulocytes % 0.5 %; Immature Granulocytes Absolute 0.04 #; Lymphocytes # 0.9 10*3/uL (1.4-4.0); Lymphocytes % 10.9 % (21.3-54.2); Mean Corpuscular HGB Conc 31.4 GM/DL (32-36); Mean Platelet Volume 9.7 FL (9.6-12.0); Monocytes % 6.2 % (1.7-12.7); Neutrophils % 77.9 % (38.7-73.9); Platelet Count 289 T/CUMM (130-400); Red Blood Count 2.49 MC/CUMM (3.8-5.5); Red Cell Distribution Width 15.4 % (9.3-17.3); White Blood Count 7.8 T/CUMM (4-12)
[2020-01-27 06:13] LABS: Albumin 3.4 G/DL (3.4-5.0); Bilirubin,Total 0.8 MG/DL (0.2-1.0); Calcium 9.4 MG/DL (8.5-10.1); Osmolality,Calculated 273.2 MOS/KG (273-304); Total Protein 7.4 G/DL (6.4-8.3)
[2020-01-27] MEDS: ROSUVASTATIN 10 MG TABLET PO SCH (10:21)
[2020-01-27] MEDS: levETIRAcetam 500 MG TABLET PO SCH (10:21)
[2020-01-27] MEDS: SEVELAMER CARBONATE 800 MG TABLET PO SCH ×4 (10:21→18:04)
[2020-01-27] MEDS: carvediloL 6.25 MG TABLET PO SCH ×2 (10:22→20:26)
[2020-01-27] MEDS: amLODIPine 10 MG TABLET PO SCH (10:22)
[2020-01-27] MEDS: CITALOPRAM 20 MG TABLET PO SCH (10:22)
[2020-01-27] MEDS: CLOPIDOGREL 75 MG TABLET PO SCH (10:22)
[2020-01-27] MEDS: PREGABALIN 75 MG CAPSULE PO SCH ×3 (10:22→20:26)
[2020-01-27] MEDS: ASPIRIN EC 81 MG TABLET PO SCH (10:22)
[2020-01-27] MEDS: PANTOPRAZOLE 40 MG TABLET PO SCH (10:22)
[2020-01-27] MEDS: PIPERACILLIN/TAZOBACTAM 3,375 MG in SODIUM CHLORIDE 0.9% 100 ML IV SCH ×2 (11:41→22:44)
[2020-01-27] MEDS ORDERED: SODIUM CHLORIDE 0.9% 1,000 ML IV PRN (15:31)
[2020-01-27] MEDS: CINACALCET 30 MG TABLET PO SCH (15:49)
[2020-01-28] MEDS ORDERED: EPOETIN ALFA 10,000 UNIT/1 ML VIAL IV PRN (08:29)
[2020-01-28] MEDS: ASPIRIN EC 81 MG TABLET PO SCH (09:33)
[2020-01-28] MEDS: SEVELAMER CARBONATE 800 MG TABLET PO SCH ×4 (09:33→17:19)
[2020-01-28] MEDS: CLOPIDOGREL 75 MG TABLET PO SCH (09:34)
[2020-01-28] MEDS: ROSUVASTATIN 10 MG TABLET PO SCH (09:34)
[2020-01-28] MEDS: levETIRAcetam 500 MG TABLET PO SCH (09:34)
[2020-01-28] MEDS: PREGABALIN 75 MG CAPSULE PO SCH ×3 (09:34→20:07)
[2020-01-28] MEDS: amLODIPine 10 MG TABLET PO SCH (09:34)
[2020-01-28] MEDS: CITALOPRAM 20 MG TABLET PO SCH (09:34)
[2020-01-28] MEDS: PANTOPRAZOLE 40 MG TABLET PO SCH (09:34)
[2020-01-28] MEDS: carvediloL 6.25 MG TABLET PO SCH ×2 (09:34→20:07)
[2020-01-28 12:13] LABS: Albumin 3.3 G/DL (3.4-5.0); Bilirubin,Total 0.5 MG/DL (0.2-1.0); Calcium 8.5 MG/DL (8.5-10.1); Osmolality,Calculated 280.2 MOS/KG (273-304); Total Protein 7.6 G/DL (6.4-8.3)
[2020-01-28] MEDS: PIPERACILLIN/TAZOBACTAM 3,375 MG in SODIUM CHLORIDE 0.9% 100 ML IV SCH ×2 (12:30→23:35)
[2020-01-28] MEDS: CINACALCET 30 MG TABLET PO SCH (15:42)
[2020-01-28 16:24] LABS: Basophils # 0.1 10*3/uL (0.0-0.2); Basophils % 0.7 % (0.0-0.8); Eosinophils # 0.6 10*3/uL (0.0-0.87); Eosinophils % 6.6 % (0.00-10.9); Hematocrit 24.1 VOL% (35.7-47.0); Hemoglobin 7.3 GM/DL (12.0-16.0); Immature Granulocytes % 0.6 %; Immature Granulocytes Absolute 0.05 #; Lymphocytes # 0.6 10*3/uL (1.4-4.0); Lymphocytes % 6.9 % (21.3-54.2); Mean Corpuscular HGB Conc 30.3 GM/DL (32-36); Mean Corpuscular Volume 93.8 FL (87-102); Mean Platelet Volume 9.2 FL (9.6-12.0); Monocytes % 5.1 % (1.7-12.7); Neutrophils % 80.1 % (38.7-73.9); Platelet Count 305 T/CUMM (130-400); Red Blood Count 2.57 MC/CUMM (3.8-5.5); Red Cell Distribution Width 15.1 % (9.3-17.3)
[2020-01-29] MEDS: CLOPIDOGREL 75 MG TABLET PO SCH (09:40)
[2020-01-29] MEDS: amLODIPine 10 MG TABLET PO SCH (09:40)
[2020-01-29] MEDS: PREGABALIN 75 MG CAPSULE PO SCH ×2 (09:40→16:45)
[2020-01-29] MEDS: levETIRAcetam 500 MG TABLET PO SCH (09:40)
[2020-01-29] MEDS: PANTOPRAZOLE 40 MG TABLET PO SCH (09:40)
[2020-01-29] MEDS: CITALOPRAM 20 MG TABLET PO SCH (09:40)
[2020-01-29] MEDS: ASPIRIN EC 81 MG TABLET PO SCH (09:40)
[2020-01-29] MEDS: ROSUVASTATIN 10 MG TABLET PO SCH (09:40)
[2020-01-29] MEDS: carvediloL 6.25 MG TABLET PO SCH (09:40)
[2020-01-29] MEDS: SEVELAMER CARBONATE 800 MG TABLET PO SCH ×2 (10:25→12:18)
[2020-01-29 11:55] VITALS: BP 137/76
[2020-01-29] MEDS: PIPERACILLIN/TAZOBACTAM 3,375 MG in SODIUM CHLORIDE 0.9% 100 ML IV SCH (11:55)
== END 2020-01-29 15:50 | disposition home health service (06) | DRG 280 ==
LOC: N.ICU 08:16 → SUATTDRO 08:16 → N.2E 21:26
PROVIDERS: ADMIT Internal Medicine; ATTEND Internal Medicine

== ENCOUNTER 2020-02-02 11:23 | Inpatient (IN) ==
[2020-02-02] MEDS ORDERED: LABETALOL 20 MG/4 ML SYRINGE IV STA (12:05)
[2020-02-02 13:40] LABS: Basophils % 0.3 % (0.0-0.8); Hematocrit 29.8 VOL% (35.7-47.0); Hemoglobin 9.2 GM/DL (12.0-16.0); Immature Granulocytes % 0.6 %; Immature Granulocytes Absolute 0.06 #; Lymphocytes # 0.5 10*3/uL (1.4-4.0); Lymphocytes % 4.9 % (21.3-54.2); Mean Corpuscular HGB Conc 30.9 GM/DL (32-36); Mean Corpuscular Volume 93.7 FL (87-102); Mean Platelet Volume 9.9 FL (9.6-12.0); Monocytes % 2.9 % (1.7-12.7); Neutrophils % 91.3 % (38.7-73.9); Platelet Count 239 T/CUMM (130-400); Red Blood Count 3.18 MC/CUMM (3.8-5.5); Red Cell Distribution Width 14.7 % (9.3-17.3); White Blood Count 9.4 T/CUMM (4-12)
[2020-02-02 13:59] LABS: Albumin 3.3 G/DL (3.4-5.0); Bilirubin,Total 0.7 MG/DL (0.2-1.0); Calcium 8.7 MG/DL (8.5-10.1); Osmolality,Calculated 302.5 MOS/KG (273-304); Total Protein 7.8 G/DL (6.4-8.3)
[2020-02-02 14:12] LABS: Lymphocytes 4 % (20-55); Macrocytosis Slight; Segmented Neutrophils 94 % (50-85); Total Cells Counted 100
[2020-02-02 14:13] LABS: Anisocytosis 1+; Burr Cells 1+; Poikilocytosis 2+; Polychromasia Slight
[2020-02-02 14:14] LABS: Platelet Estimate Normal
[2020-02-02] MEDS ORDERED: BISACODYL 5 MG TABLET PO PRN (14:53)
[2020-02-02] MEDS ORDERED: DEXTROSE 10% 250 ML BAG IV PRN (14:53)
[2020-02-02] MEDS ORDERED: SIMETHICONE CHEW 125 MG TABLET PO PRN (14:53)
[2020-02-02] MEDS ORDERED: LACTULOSE 20 GM/30 ML UDCUP PO PRN (14:53)
[2020-02-02] MEDS ORDERED: DOCUSATE SODIUM 100 MG CAPSULE PO PRN (14:53)
[2020-02-02] MEDS ORDERED: GLUCAGON 1 MG VIAL IM PRN (14:53)
[2020-02-02] MEDS ORDERED: ALUMINUM/MAGNES/SIMETH MAX STR 30 ML UDCUP PO PRN (14:53)
[2020-02-02] MEDS ORDERED: CALCIUM CARBONATE CHEW 500 MG TABLET PO PRN (14:53)
[2020-02-03 01:02] LABS: Basophils % 0.1 % (0.0-0.8); Eosinophils % 0.1 % (0.00-10.9); Hematocrit 26.3 VOL% (35.7-47.0); Hemoglobin 8.2 GM/DL (12.0-16.0); Immature Granulocytes % 0.6 %; Immature Granulocytes Absolute 0.04 #; Lymphocytes # 0.4 10*3/uL (1.4-4.0); Mean Corpuscular HGB Conc 31.2 GM/DL (32-36); Mean Corpuscular Volume 91.3 FL (87-102); Mean Platelet Volume 9.5 FL (9.6-12.0); Monocytes % 2.9 % (1.7-12.7); Neutrophils % 90.3 % (38.7-73.9); Platelet Count 211 T/CUMM (130-400); Red Blood Count 2.88 MC/CUMM (3.8-5.5); Red Cell Distribution Width 14.6 % (9.3-17.3); White Blood Count 7.1 T/CUMM (4-12)
[2020-02-03 01:12] LABS: Albumin 2.7 G/DL (3.4-5.0); Bilirubin,Total 1.2 MG/DL (0.2-1.0); Calcium 8.6 MG/DL (8.5-10.1); Total Protein 7.2 G/DL (6.4-8.3)
[2020-02-03] MEDS ORDERED: ONDANSETRON 4 MG TABLET PO PRN (09:49)
[2020-02-03] MEDS ORDERED: NITROGLYCERIN SL 0.4 MG TABLET SL PRN (09:49)
[2020-02-03] MEDS: SEVELAMER CARBONATE 800 MG TABLET PO SCH ×2 (14:07→18:14)
[2020-02-03] MEDS: DESITIN 4OZ/NYSTATIN 15 GRAM MIXTURE PASTE TOP SCH ×2 (14:19→21:48)
[2020-02-03] MEDS: PREGABALIN 75 MG CAPSULE PO SCH ×2 (14:29→21:48)
[2020-02-03] MEDS: HEPARIN 5,000 UNIT/1 ML VIAL SUBCUT SCH (14:29)
[2020-02-03] MEDS: CINACALCET 30 MG TABLET PO SCH (18:14)
[2020-02-03] MEDS: carvediloL 6.25 MG TABLET PO SCH (21:48)
[2020-02-03] MEDS: hydrALAZINE 20 MG/1 ML VIAL IV PRN (22:50)
[2020-02-04] MEDS: hydrALAZINE 20 MG/1 ML VIAL IV PRN (04:36)
[2020-02-04] MEDS ORDERED: LABETALOL 20 MG/4 ML SYRINGE IV STA (06:29)
[2020-02-04 07:10] LABS: Basophils % 0.2 % (0.0-0.8); Hematocrit 32.7 VOL% (35.7-47.0); Hemoglobin 10.3 GM/DL (12.0-16.0); Immature Granulocytes % 0.5 %; Immature Granulocytes Absolute 0.03 #; Lymphocytes # 0.6 10*3/uL (1.4-4.0); Lymphocytes % 10.1 % (21.3-54.2); Mean Corpuscular HGB Conc 31.5 GM/DL (32-36); Mean Corpuscular Volume 89.8 FL (87-102); Monocytes % 2.8 % (1.7-12.7); Neutrophils % 86.4 % (38.7-73.9); Platelet Count 255 T/CUMM (130-400); Red Blood Count 3.64 MC/CUMM (3.8-5.5); Red Cell Distribution Width 14.5 % (9.3-17.3); White Blood Count 6.4 T/CUMM (4-12)
[2020-02-04 07:34] LABS: Albumin 2.6 G/DL (3.4-5.0); Bilirubin,Total 1.2 MG/DL (0.2-1.0); Calcium 8.9 MG/DL (8.5-10.1); Osmolality,Calculated 288.8 MOS/KG (273-304); Total Protein 7.4 G/DL (6.4-8.3)
[2020-02-04] MEDS: carvediloL 6.25 MG TABLET PO SCH ×2 (09:23→20:46)
[2020-02-04] MEDS: CITALOPRAM 20 MG TABLET PO SCH (09:23)
[2020-02-04] MEDS: ASPIRIN EC 81 MG TABLET PO SCH (09:23)
[2020-02-04] MEDS: SEVELAMER CARBONATE 800 MG TABLET PO SCH ×3 (09:23→16:18)
[2020-02-04] MEDS: ROSUVASTATIN 10 MG TABLET PO SCH (09:23)
[2020-02-04] MEDS: PREGABALIN 75 MG CAPSULE PO SCH ×3 (09:24→20:46)
[2020-02-04] MEDS: levETIRAcetam 500 MG TABLET PO SCH (09:24)
[2020-02-04] MEDS: DESITIN 4OZ/NYSTATIN 15 GRAM MIXTURE PASTE TOP SCH ×2 (09:24→21:00)
[2020-02-04] MEDS: CLOPIDOGREL 75 MG TABLET PO SCH (09:24)
[2020-02-04] MEDS: amLODIPine 10 MG TABLET PO SCH (09:24)
[2020-02-04] MEDS: HEPARIN 5,000 UNIT/1 ML VIAL SUBCUT SCH ×2 (09:30→20:44)
[2020-02-04] MEDS: CINACALCET 30 MG TABLET PO SCH (16:17)
[2020-02-05 05:55] LABS: Basophils % 0.2 % (0.0-0.8); Eosinophils % 0.7 % (0.00-10.9); Hematocrit 27.3 VOL% (35.7-47.0); Hemoglobin 8.4 GM/DL (12.0-16.0); Immature Granulocytes % 0.5 %; Immature Granulocytes Absolute 0.03 #; Lymphocytes # 0.8 10*3/uL (1.4-4.0); Lymphocytes % 13.5 % (21.3-54.2); Mean Corpuscular HGB Conc 30.8 GM/DL (32-36); Mean Corpuscular Volume 91.9 FL (87-102); Mean Platelet Volume 10.5 FL (9.6-12.0); Monocytes % 3.2 % (1.7-12.7); Neutrophils % 81.9 % (38.7-73.9); Platelet Count 238 T/CUMM (130-400); Red Blood Count 2.97 MC/CUMM (3.8-5.5); Red Cell Distribution Width 14.5 % (9.3-17.3); White Blood Count 5.9 T/CUMM (4-12)
[2020-02-05 06:19] LABS: Albumin 2.4 G/DL (3.4-5.0); Bilirubin,Total 0.6 MG/DL (0.2-1.0); Calcium 7.8 MG/DL (8.5-10.1); Total Protein 6.5 G/DL (6.4-8.3)
[2020-02-05 06:23] LABS: Hypochromasia 2+; Microcytosis 1+; Ovalocytes Slight
[2020-02-05 06:24] LABS: Platelet Estimate Normal; Polychromasia Slight
[2020-02-05] MEDS: CITALOPRAM 20 MG TABLET PO SCH (09:28)
[2020-02-05] MEDS: CLOPIDOGREL 75 MG TABLET PO SCH (09:28)
[2020-02-05] MEDS: HEPARIN 5,000 UNIT/1 ML VIAL SUBCUT SCH ×2 (09:28→20:48)
[2020-02-05] MEDS: levETIRAcetam 500 MG TABLET PO SCH (09:29)
[2020-02-05] MEDS: SEVELAMER CARBONATE 800 MG TABLET PO SCH ×3 (09:30→16:33)
[2020-02-05] MEDS: ROSUVASTATIN 10 MG TABLET PO SCH (09:31)
[2020-02-05] MEDS: carvediloL 6.25 MG TABLET PO SCH ×2 (09:31→20:29)
[2020-02-05] MEDS: PREGABALIN 75 MG CAPSULE PO SCH ×3 (09:31→20:29)
[2020-02-05] MEDS: ASPIRIN EC 81 MG TABLET PO SCH (09:31)
[2020-02-05] MEDS: amLODIPine 10 MG TABLET PO SCH (09:31)
[2020-02-05] MEDS: DESITIN 4OZ/NYSTATIN 15 GRAM MIXTURE PASTE TOP SCH ×2 (09:32→20:49)
[2020-02-05] MEDS: CINACALCET 30 MG TABLET PO SCH (16:34)
[2020-02-06] MEDS: SEVELAMER CARBONATE 800 MG TABLET PO SCH ×3 (09:22→16:24)
[2020-02-06] MEDS: ASPIRIN EC 81 MG TABLET PO SCH (09:22)
[2020-02-06] MEDS: levETIRAcetam 500 MG TABLET PO SCH (09:23)
[2020-02-06] MEDS: CLOPIDOGREL 75 MG TABLET PO SCH (09:23)
[2020-02-06] MEDS: ROSUVASTATIN 10 MG TABLET PO SCH (09:23)
[2020-02-06] MEDS: carvediloL 6.25 MG TABLET PO SCH ×2 (09:23→22:16)
[2020-02-06] MEDS: HEPARIN 5,000 UNIT/1 ML VIAL SUBCUT SCH ×2 (09:24→20:55)
[2020-02-06] MEDS: PREGABALIN 75 MG CAPSULE PO SCH ×3 (09:24→22:16)
[2020-02-06] MEDS: CITALOPRAM 20 MG TABLET PO SCH (09:24)
[2020-02-06] MEDS: DESITIN 4OZ/NYSTATIN 15 GRAM MIXTURE PASTE TOP SCH ×2 (09:25→22:16)
[2020-02-06] MEDS: amLODIPine 10 MG TABLET PO SCH (09:55)
[2020-02-06] MEDS: CINACALCET 30 MG TABLET PO SCH (16:24)
[2020-02-07] MEDS: amLODIPine 10 MG TABLET PO SCH (08:13)
[2020-02-07] MEDS: PREGABALIN 75 MG CAPSULE PO SCH ×3 (08:14→21:42)
[2020-02-07] MEDS: ASPIRIN EC 81 MG TABLET PO SCH (08:14)
[2020-02-07] MEDS: levETIRAcetam 500 MG TABLET PO SCH (08:14)
[2020-02-07] MEDS: SEVELAMER CARBONATE 800 MG TABLET PO SCH ×3 (08:14→16:07)
[2020-02-07] MEDS: ROSUVASTATIN 10 MG TABLET PO SCH (08:14)
[2020-02-07] MEDS: CITALOPRAM 20 MG TABLET PO SCH (08:14)
[2020-02-07] MEDS: CLOPIDOGREL 75 MG TABLET PO SCH (08:14)
[2020-02-07] MEDS: DESITIN 4OZ/NYSTATIN 15 GRAM MIXTURE PASTE TOP SCH ×2 (08:15→21:43)
[2020-02-07] MEDS: carvediloL 6.25 MG TABLET PO SCH ×2 (08:15→21:42)
[2020-02-07] MEDS: HEPARIN 5,000 UNIT/1 ML VIAL SUBCUT SCH ×2 (08:15→21:42)
[2020-02-07] MEDS: HYDROXYCHLOROQUINE 200 MG TABLET PO SCH (16:07)
[2020-02-07] MEDS: CINACALCET 30 MG TABLET PO SCH (16:08)
[2020-02-07] MEDS: ZINC SULFATE 220 MG CAPSULE PO SCH (16:08)
[2020-02-08] MEDS: CLOPIDOGREL 75 MG TABLET PO SCH (08:35)
[2020-02-08] MEDS: levETIRAcetam 500 MG TABLET PO SCH (08:35)
[2020-02-08] MEDS: SEVELAMER CARBONATE 800 MG TABLET PO SCH ×3 (08:35→17:28)
[2020-02-08] MEDS: amLODIPine 10 MG TABLET PO SCH (08:35)
[2020-02-08] MEDS: DESITIN 4OZ/NYSTATIN 15 GRAM MIXTURE PASTE TOP SCH ×2 (08:35→21:13)
[2020-02-08] MEDS: ROSUVASTATIN 10 MG TABLET PO SCH (08:35)
[2020-02-08] MEDS: carvediloL 6.25 MG TABLET PO SCH ×2 (08:35→21:13)
[2020-02-08] MEDS: ASPIRIN EC 81 MG TABLET PO SCH (08:35)
[2020-02-08] MEDS: PREGABALIN 75 MG CAPSULE PO SCH ×3 (08:35→21:13)
[2020-02-08] MEDS: CITALOPRAM 20 MG TABLET PO SCH (08:35)
[2020-02-08] MEDS: HYDROXYCHLOROQUINE 200 MG TABLET PO SCH ×2 (08:35→21:12)
[2020-02-08] MEDS: HEPARIN 5,000 UNIT/1 ML VIAL SUBCUT SCH ×2 (08:35→21:11)
[2020-02-08 14:32] LABS: Basophils % 0.3 % (0.0-0.8); Eosinophils # 0.1 10*3/uL (0.0-0.87); Eosinophils % 2.1 % (0.00-10.9); Hematocrit 32.8 VOL% (35.7-47.0); Immature Granulocytes % 1.1 %; Immature Granulocytes Absolute 0.07 #; Lymphocytes # 0.6 10*3/uL (1.4-4.0); Lymphocytes % 9.4 % (21.3-54.2); Mean Corpuscular HGB Conc 30.5 GM/DL (32-36); Mean Corpuscular Volume 92.4 FL (87-102); Mean Platelet Volume 11.1 FL (9.6-12.0); Monocytes % 3.6 % (1.7-12.7); Neutrophils % 83.5 % (38.7-73.9); Platelet Count 107 T/CUMM (130-400); Red Blood Count 3.55 MC/CUMM (3.8-5.5); Red Cell Distribution Width 13.7 % (9.3-17.3); White Blood Count 6.2 T/CUMM (4-12)
[2020-02-08 14:50] LABS: Osmolality,Calculated 272.2 MOS/KG (273-304)
[2020-02-08 14:58] LABS: Band Neutrophils 1 % (0-10); Eosinophils 1 % (0-10); Hypochromasia Slight; Lymphocytes 10 % (20-55); Platelet Estimate Adequate; Segmented Neutrophils 88 % (50-85)
[2020-02-08 14:59] LABS: Total Cells Counted 100
[2020-02-08] MEDS: CINACALCET 30 MG TABLET PO SCH (17:28)
[2020-02-09 09:25] LABS: Basophils % 0.3 % (0.0-0.8); Eosinophils # 0.1 10*3/uL (0.0-0.87); Eosinophils % 1.4 % (0.00-10.9); Hematocrit 30.6 VOL% (35.7-47.0); Immature Granulocytes % 1.3 %; Immature Granulocytes Absolute 0.08 #; Lymphocytes # 0.6 10*3/uL (1.4-4.0); Lymphocytes % 10.2 % (21.3-54.2); Mean Corpuscular HGB Conc 29.4 GM/DL (32-36); Mean Corpuscular Volume 95.6 FL (87-102); Mean Platelet Volume 10.2 FL (9.6-12.0); Monocytes % 4.2 % (1.7-12.7); Neutrophils % 82.6 % (38.7-73.9); Platelet Count 260 T/CUMM (130-400); Red Cell Distribution Width 13.8 % (9.3-17.3); White Blood Count 6.3 T/CUMM (4-12)
[2020-02-09 09:43] LABS: Calcium 7.6 MG/DL (8.5-10.1); Osmolality,Calculated 276.2 MOS/KG (273-304)
[2020-02-09 09:49] LABS: Band Neutrophils 1 % (0-10); Lymphocytes 9 % (20-55); Segmented Neutrophils 86 % (50-85); Total Cells Counted 100
[2020-02-09 09:50] LABS: Acanthocytes Few; Hypochromasia 1+; Microcytosis Slight; Ovalocytes Slight
[2020-02-09 09:51] LABS: Platelet Estimate Normal
[2020-02-09] MEDS: ZINC SULFATE 220 MG CAPSULE PO SCH (10:11)
[2020-02-09] MEDS: HEPARIN 5,000 UNIT/1 ML VIAL SUBCUT SCH (10:11)
[2020-02-09] MEDS: ROSUVASTATIN 10 MG TABLET PO SCH (10:11)
[2020-02-09] MEDS: ASPIRIN EC 81 MG TABLET PO SCH (10:11)
[2020-02-09] MEDS: CITALOPRAM 20 MG TABLET PO SCH (10:11)
[2020-02-09] MEDS: SEVELAMER CARBONATE 800 MG TABLET PO SCH ×3 (10:11→18:42)
[2020-02-09] MEDS: CLOPIDOGREL 75 MG TABLET PO SCH (10:11)
[2020-02-09] MEDS: HYDROXYCHLOROQUINE 200 MG TABLET PO SCH (10:11)
[2020-02-09] MEDS: DESITIN 4OZ/NYSTATIN 15 GRAM MIXTURE PASTE TOP SCH (10:11)
[2020-02-09] MEDS: levETIRAcetam 500 MG TABLET PO SCH (10:11)
[2020-02-09] MEDS: PREGABALIN 75 MG CAPSULE PO SCH ×2 (10:11→16:06)
[2020-02-09] MEDS: carvediloL 6.25 MG TABLET PO SCH (11:23)
[2020-02-09] MEDS: amLODIPine 10 MG TABLET PO SCH (11:24)
[2020-02-09] MEDS ORDERED: TUBERCULIN SKIN TEST 0.1 ML SYRINGE INTRADERM ONE (15:00)
[2020-02-09] MEDS: CINACALCET 30 MG TABLET PO SCH (18:43)
[2020-02-10] MEDS: carvediloL 6.25 MG TABLET PO SCH ×3 (00:04→21:30)
[2020-02-10] MEDS: HEPARIN 5,000 UNIT/1 ML VIAL SUBCUT SCH ×3 (00:05→21:30)
[2020-02-10] MEDS: HYDROXYCHLOROQUINE 200 MG TABLET PO SCH ×3 (00:05→21:30)
[2020-02-10] MEDS: PREGABALIN 75 MG CAPSULE PO SCH ×4 (00:05→21:30)
[2020-02-10] MEDS: DESITIN 4OZ/NYSTATIN 15 GRAM MIXTURE PASTE TOP SCH ×3 (00:06→21:30)
[2020-02-10] MEDS: levETIRAcetam 500 MG TABLET PO SCH (09:31)
[2020-02-10] MEDS: ASPIRIN EC 81 MG TABLET PO SCH (09:31)
[2020-02-10] MEDS: SEVELAMER CARBONATE 800 MG TABLET PO SCH ×3 (09:31→17:23)
[2020-02-10] MEDS: CITALOPRAM 20 MG TABLET PO SCH (09:31)
[2020-02-10] MEDS: amLODIPine 10 MG TABLET PO SCH (09:31)
[2020-02-10] MEDS: ROSUVASTATIN 10 MG TABLET PO SCH (09:31)
[2020-02-10] MEDS: CLOPIDOGREL 75 MG TABLET PO SCH (09:31)
[2020-02-10 10:23] LABS: Basophils % 0.6 % (0.0-0.8); Eosinophils # 0.2 10*3/uL (0.0-0.87); Eosinophils % 3.2 % (0.00-10.9); Hematocrit 28.1 VOL% (35.7-47.0); Hemoglobin 8.9 GM/DL (12.0-16.0); Immature Granulocytes % 1.5 %; Immature Granulocytes Absolute 0.07 #; Lymphocytes # 0.7 10*3/uL (1.4-4.0); Lymphocytes % 14.1 % (21.3-54.2); Mean Corpuscular HGB Conc 31.7 GM/DL (32-36); Mean Corpuscular Volume 90.6 FL (87-102); Mean Platelet Volume 10.1 FL (9.6-12.0); Monocytes % 5.1 % (1.7-12.7); Neutrophils % 75.5 % (38.7-73.9); Platelet Count 286 T/CUMM (130-400); Red Cell Distribution Width 13.8 % (9.3-17.3); White Blood Count 4.8 T/CUMM (4-12)
[2020-02-10 10:35] LABS: Calcium 7.9 MG/DL (8.5-10.1); Osmolality,Calculated 275.7 MOS/KG (273-304)
[2020-02-10 10:42] LABS: Eosinophils 5 % (0-10); Lymphocytes 13 % (20-55); Segmented Neutrophils 76 % (50-85); Total Cells Counted 100
[2020-02-10 10:43] LABS: Hypochromasia 1+; Microcytosis Slight; Ovalocytes Slight; Platelet Estimate Adequate
[2020-02-10] MEDS: DEXTROSE 50% 25 GM/50 ML SYRINGE IV PRN ×3 (11:11→18:03)
[2020-02-10] MEDS ORDERED: GLUCAGON 1 MG VIAL IM PRN (12:18)
[2020-02-10] MEDS ORDERED: DEXTROSE 50% 25 GM/50 ML VIAL IV PRN (12:18)
[2020-02-10] MEDS: CINACALCET 30 MG TABLET PO SCH (16:08)
[2020-02-11] MEDS: ACETAMINOPHEN 325 MG TABLET PO PRN ×2 (06:17→09:37)
[2020-02-11 06:23] LABS: Basophils % 0.5 % (0.0-0.8); Eosinophils # 0.1 10*3/uL (0.0-0.87); Eosinophils % 3.3 % (0.00-10.9); Hematocrit 30.3 VOL% (35.7-47.0); Hemoglobin 9.8 GM/DL (12.0-16.0); Immature Granulocytes % 1.9 %; Immature Granulocytes Absolute 0.08 #; Lymphocytes # 0.7 10*3/uL (1.4-4.0); Lymphocytes % 16.8 % (21.3-54.2); Mean Corpuscular HGB Conc 32.3 GM/DL (32-36); Mean Corpuscular Volume 88.1 FL (87-102); Mean Platelet Volume 11.3 FL (9.6-12.0); Neutrophils % 70.5 % (38.7-73.9); Platelet Count 221 T/CUMM (130-400); Red Blood Count 3.44 MC/CUMM (3.8-5.5); Red Cell Distribution Width 13.9 % (9.3-17.3); White Blood Count 4.3 T/CUMM (4-12)
[2020-02-11 07:30] LABS: Anisocytosis 1+; Band Neutrophils 2 % (0-10); Eosinophils 5 % (0-10); Lymphocytes 15 % (20-55); Macrocytosis Slight; Metamyelocytes 2 %; Platelet Estimate Normal; Segmented Neutrophils 71 % (50-85); Total Cells Counted 100
[2020-02-11] MEDS: CITALOPRAM 20 MG TABLET PO SCH (09:25)
[2020-02-11] MEDS: ASPIRIN EC 81 MG TABLET PO SCH (09:25)
[2020-02-11] MEDS: carvediloL 6.25 MG TABLET PO SCH ×2 (09:25→20:45)
[2020-02-11] MEDS: ROSUVASTATIN 10 MG TABLET PO SCH (09:25)
[2020-02-11] MEDS: SEVELAMER CARBONATE 800 MG TABLET PO SCH ×3 (09:25→16:58)
[2020-02-11] MEDS: DESITIN 4OZ/NYSTATIN 15 GRAM MIXTURE PASTE TOP SCH ×2 (09:26→20:45)
[2020-02-11] MEDS: PREGABALIN 75 MG CAPSULE PO SCH ×3 (09:26→20:45)
[2020-02-11] MEDS: amLODIPine 10 MG TABLET PO SCH (09:26)
[2020-02-11] MEDS: levETIRAcetam 500 MG TABLET PO SCH (09:26)
[2020-02-11] MEDS: CLOPIDOGREL 75 MG TABLET PO SCH (09:26)
[2020-02-11] MEDS: HEPARIN 5,000 UNIT/1 ML VIAL SUBCUT SCH ×2 (09:26→20:45)
[2020-02-11] MEDS: ZINC SULFATE 220 MG CAPSULE PO SCH (09:26)
[2020-02-11] MEDS: HYDROXYCHLOROQUINE 200 MG TABLET PO SCH ×2 (09:26→20:45)
[2020-02-11 09:46] LABS: Calcium 7.9 MG/DL (8.5-10.1); Osmolality,Calculated 272.1 MOS/KG (273-304)
[2020-02-11] MEDS: CINACALCET 30 MG TABLET PO SCH (16:57)
[2020-02-12] MEDS: amLODIPine 10 MG TABLET PO SCH (08:45)
[2020-02-12] MEDS: DESITIN 4OZ/NYSTATIN 15 GRAM MIXTURE PASTE TOP SCH ×2 (08:45→20:05)
[2020-02-12] MEDS: carvediloL 6.25 MG TABLET PO SCH ×2 (08:45→20:05)
[2020-02-12] MEDS: SEVELAMER CARBONATE 800 MG TABLET PO SCH ×3 (08:45→16:10)
[2020-02-12] MEDS: ASPIRIN EC 81 MG TABLET PO SCH (11:39)
[2020-02-12] MEDS: ROSUVASTATIN 10 MG TABLET PO SCH (11:39)
[2020-02-12] MEDS: HEPARIN 5,000 UNIT/1 ML VIAL SUBCUT SCH ×2 (11:39→20:05)
[2020-02-12] MEDS: CLOPIDOGREL 75 MG TABLET PO SCH (11:39)
[2020-02-12] MEDS: PREGABALIN 75 MG CAPSULE PO SCH ×3 (11:39→20:05)
[2020-02-12] MEDS: HYDROXYCHLOROQUINE 200 MG TABLET PO SCH (11:39)
[2020-02-12] MEDS: CITALOPRAM 20 MG TABLET PO SCH (11:39)
[2020-02-12] MEDS: levETIRAcetam 500 MG TABLET PO SCH (11:39)
[2020-02-12] MEDS: DEXTROSE 50% 25 GM/50 ML SYRINGE IV PRN (11:50)
[2020-02-12] MEDS: CINACALCET 30 MG TABLET PO SCH (16:10)
[2020-02-13] MEDS: amLODIPine 10 MG TABLET PO SCH (09:52)
[2020-02-13] MEDS: ROSUVASTATIN 10 MG TABLET PO SCH (09:52)
[2020-02-13] MEDS: SEVELAMER CARBONATE 800 MG TABLET PO SCH ×3 (09:52→16:31)
[2020-02-13] MEDS: CITALOPRAM 20 MG TABLET PO SCH (09:52)
[2020-02-13] MEDS: CLOPIDOGREL 75 MG TABLET PO SCH (09:52)
[2020-02-13] MEDS: levETIRAcetam 500 MG TABLET PO SCH (09:52)
[2020-02-13] MEDS: HEPARIN 5,000 UNIT/1 ML VIAL SUBCUT SCH ×2 (09:52→20:30)
[2020-02-13] MEDS: ASPIRIN EC 81 MG TABLET PO SCH (09:52)
[2020-02-13] MEDS: carvediloL 6.25 MG TABLET PO SCH ×2 (09:52→20:30)
[2020-02-13] MEDS: PREGABALIN 75 MG CAPSULE PO SCH ×3 (09:52→20:30)
[2020-02-13] MEDS: DESITIN 4OZ/NYSTATIN 15 GRAM MIXTURE PASTE TOP SCH ×2 (09:52→20:30)
[2020-02-13] MEDS: CINACALCET 30 MG TABLET PO SCH (17:06)
[2020-02-14] MEDS: SEVELAMER CARBONATE 800 MG TABLET PO SCH ×3 (09:18→18:52)
[2020-02-14] MEDS: PREGABALIN 75 MG CAPSULE PO SCH ×3 (09:19→21:44)
[2020-02-14] MEDS: ASPIRIN EC 81 MG TABLET PO SCH (09:19)
[2020-02-14] MEDS: CITALOPRAM 20 MG TABLET PO SCH (09:19)
[2020-02-14] MEDS: levETIRAcetam 500 MG TABLET PO SCH (09:19)
[2020-02-14] MEDS: CLOPIDOGREL 75 MG TABLET PO SCH (09:19)
[2020-02-14] MEDS: carvediloL 6.25 MG TABLET PO SCH ×2 (09:20→21:44)
[2020-02-14] MEDS: DESITIN 4OZ/NYSTATIN 15 GRAM MIXTURE PASTE TOP SCH ×2 (09:20→21:45)
[2020-02-14] MEDS: ROSUVASTATIN 10 MG TABLET PO SCH (09:20)
[2020-02-14] MEDS: HEPARIN 5,000 UNIT/1 ML VIAL SUBCUT SCH ×2 (09:20→21:44)
[2020-02-14] MEDS: amLODIPine 10 MG TABLET PO SCH (09:20)
[2020-02-14] MEDS: CINACALCET 30 MG TABLET PO SCH (16:51)
[2020-02-15] MEDS: levETIRAcetam 500 MG TABLET PO SCH (08:31)
[2020-02-15] MEDS: CLOPIDOGREL 75 MG TABLET PO SCH (08:31)
[2020-02-15] MEDS: ASPIRIN EC 81 MG TABLET PO SCH (08:31)
[2020-02-15] MEDS: CITALOPRAM 20 MG TABLET PO SCH (08:31)
[2020-02-15] MEDS: HEPARIN 5,000 UNIT/1 ML VIAL SUBCUT SCH ×2 (08:31→22:55)
[2020-02-15] MEDS: ROSUVASTATIN 10 MG TABLET PO SCH (08:31)
[2020-02-15] MEDS: DESITIN 4OZ/NYSTATIN 15 GRAM MIXTURE PASTE TOP SCH ×2 (08:31→21:55)
[2020-02-15] MEDS: PREGABALIN 75 MG CAPSULE PO SCH ×3 (08:31→21:50)
[2020-02-15] MEDS: amLODIPine 10 MG TABLET PO SCH (08:31)
[2020-02-15] MEDS: SEVELAMER CARBONATE 800 MG TABLET PO SCH ×3 (09:28→18:18)
[2020-02-15] MEDS: carvediloL 6.25 MG TABLET PO SCH ×2 (09:29→21:50)
[2020-02-15] MEDS: CINACALCET 30 MG TABLET PO SCH (17:22)
[2020-02-16 03:49] LABS: Basophils % 0.6 % (0.0-0.8); Eosinophils # 0.1 10*3/uL (0.0-0.87); Eosinophils % 1.9 % (0.00-10.9); Hematocrit 25.8 VOL% (35.7-47.0); Hemoglobin 7.8 GM/DL (12.0-16.0); Immature Granulocytes % 1.1 %; Immature Granulocytes Absolute 0.06 #; Lymphocytes # 1.3 10*3/uL (1.4-4.0); Lymphocytes % 25.6 % (21.3-54.2); Mean Corpuscular HGB Conc 30.2 GM/DL (32-36); Mean Corpuscular Volume 93.5 FL (87-102); Mean Platelet Volume 10.3 FL (9.6-12.0); Neutrophils % 57.8 % (38.7-73.9); Platelet Count 333 T/CUMM (130-400); Red Blood Count 2.76 MC/CUMM (3.8-5.5); Red Cell Distribution Width 14.8 % (9.3-17.3); White Blood Count 5.2 T/CUMM (4-12)
[2020-02-16 04:20] LABS: Alanine Aminotransferase 13 U/L (13-56); Albumin 2.2 G/DL (3.4-5.0); Alkaline Phosphatase 89 U/L (45-117); Aspartate Amino Transferase 27 U/L (0-37); Bilirubin,Total < 0.39 MG/DL (0.2-1.0); Blood Urea Nitrogen 35 MG/DL (7-18); Calcium 7.6 MG/DL (8.5-10.1); Estimated Glom Filtration Rate 7 ML/MIN; Glucose 76 MG/DL (74-106); Osmolality,Calculated 270.5 MOS/KG (273-304); Total Protein 6.2 G/DL (6.4-8.3)
[2020-02-16] MEDS ORDERED: SODIUM CHLORIDE 0.9% 1,000 ML IV PRN (08:52)
[2020-02-16] MEDS: HEPARIN 5,000 UNIT/1 ML VIAL SUBCUT SCH ×2 (10:02→20:43)
[2020-02-16] MEDS: PREGABALIN 75 MG CAPSULE PO SCH ×3 (10:02→20:43)
[2020-02-16] MEDS: ASPIRIN EC 81 MG TABLET PO SCH (10:02)
[2020-02-16] MEDS: levETIRAcetam 500 MG TABLET PO SCH (10:02)
[2020-02-16] MEDS: amLODIPine 10 MG TABLET PO SCH (10:02)
[2020-02-16] MEDS: SEVELAMER CARBONATE 800 MG TABLET PO SCH ×3 (10:03→17:05)
[2020-02-16] MEDS: CLOPIDOGREL 75 MG TABLET PO SCH (10:03)
[2020-02-16] MEDS: CITALOPRAM 20 MG TABLET PO SCH (10:03)
[2020-02-16] MEDS: carvediloL 6.25 MG TABLET PO SCH ×2 (10:03→20:42)
[2020-02-16] MEDS: DESITIN 4OZ/NYSTATIN 15 GRAM MIXTURE PASTE TOP SCH ×2 (10:03→20:53)
[2020-02-16] MEDS: ROSUVASTATIN 10 MG TABLET PO SCH (10:03)
[2020-02-16] MEDS: CINACALCET 30 MG TABLET PO SCH (15:41)
[2020-02-17 06:18] LABS: Albumin 2.3 G/DL (3.4-5.0); Bilirubin,Total 0.6 MG/DL (0.2-1.0); Calcium 7.8 MG/DL (8.5-10.1); Osmolality,Calculated 266.4 MOS/KG (273-304); Total Protein 6.3 G/DL (6.4-8.3)
[2020-02-17] MEDS: HEPARIN 5,000 UNIT/1 ML VIAL SUBCUT SCH ×2 (08:53→21:57)
[2020-02-17] MEDS: PREGABALIN 75 MG CAPSULE PO SCH ×3 (08:53→21:57)
[2020-02-17] MEDS: DESITIN 4OZ/NYSTATIN 15 GRAM MIXTURE PASTE TOP SCH ×2 (08:53→21:59)
[2020-02-17] MEDS: ROSUVASTATIN 10 MG TABLET PO SCH (08:53)
[2020-02-17] MEDS: levETIRAcetam 500 MG TABLET PO SCH (08:53)
[2020-02-17] MEDS: ASPIRIN EC 81 MG TABLET PO SCH (08:53)
[2020-02-17] MEDS: CLOPIDOGREL 75 MG TABLET PO SCH (08:53)
[2020-02-17] MEDS: CITALOPRAM 20 MG TABLET PO SCH (08:53)
[2020-02-17] MEDS: carvediloL 6.25 MG TABLET PO SCH ×2 (08:53→21:57)
[2020-02-17] MEDS: SEVELAMER CARBONATE 800 MG TABLET PO SCH ×3 (09:53→18:13)
[2020-02-17] MEDS: amLODIPine 10 MG TABLET PO SCH (09:56)
[2020-02-17] MEDS ORDERED: IRON SUCROSE 300 MG in SODIUM CHLORIDE 0.9% 100 ML IV ONE (12:00)
[2020-02-17 14:36] LABS: Basophils # 0.1 10*3/uL (0.0-0.2); Basophils % 1.1 % (0.0-0.8); Eosinophils # 0.1 10*3/uL (0.0-0.87); Eosinophils % 1.5 % (0.00-10.9); Hematocrit 36.8 VOL% (35.7-47.0); Hemoglobin 11.5 GM/DL (12.0-16.0); Immature Granulocytes % 0.7 %; Immature Granulocytes Absolute 0.04 #; Lymphocytes % 18.3 % (21.3-54.2); Mean Corpuscular HGB Conc 31.3 GM/DL (32-36); Mean Platelet Volume 10.3 FL (9.6-12.0); Monocytes % 7.9 % (1.7-12.7); Neutrophils % 70.5 % (38.7-73.9); Platelet Count 346 T/CUMM (130-400); Red Cell Distribution Width 15.3 % (9.3-17.3); White Blood Count 5.5 T/CUMM (4-12)
[2020-02-17] MEDS: CINACALCET 30 MG TABLET PO SCH (16:30)
[2020-02-18] MEDS: CITALOPRAM 20 MG TABLET PO SCH (08:41)
[2020-02-18] MEDS: CLOPIDOGREL 75 MG TABLET PO SCH (08:41)
[2020-02-18] MEDS: ROSUVASTATIN 10 MG TABLET PO SCH (08:41)
[2020-02-18] MEDS: carvediloL 6.25 MG TABLET PO SCH ×2 (08:41→21:15)
[2020-02-18] MEDS: HEPARIN 5,000 UNIT/1 ML VIAL SUBCUT SCH ×2 (08:41→21:15)
[2020-02-18] MEDS: SEVELAMER CARBONATE 800 MG TABLET PO SCH ×3 (08:41→16:46)
[2020-02-18] MEDS: PREGABALIN 75 MG CAPSULE PO SCH ×3 (08:41→21:15)
[2020-02-18] MEDS: DESITIN 4OZ/NYSTATIN 15 GRAM MIXTURE PASTE TOP SCH ×2 (08:41→21:15)
[2020-02-18] MEDS: amLODIPine 10 MG TABLET PO SCH (08:41)
[2020-02-18] MEDS: levETIRAcetam 500 MG TABLET PO SCH (08:41)
[2020-02-18] MEDS: ASPIRIN EC 81 MG TABLET PO SCH (08:41)
[2020-02-18 12:06] LABS: Basophils % 0.8 % (0.0-0.8); Eosinophils # 0.1 10*3/uL (0.0-0.87); Eosinophils % 1.9 % (0.00-10.9); Hematocrit 29.4 VOL% (35.7-47.0); Immature Granulocytes % 0.8 %; Immature Granulocytes Absolute 0.04 #; Lymphocytes # 1.3 10*3/uL (1.4-4.0); Lymphocytes % 23.8 % (21.3-54.2); Mean Corpuscular HGB Conc 31.6 GM/DL (32-36); Mean Corpuscular Volume 90.2 FL (87-102); Mean Platelet Volume 10.4 FL (9.6-12.0); Monocytes % 10.9 % (1.7-12.7); Neutrophils % 61.8 % (38.7-73.9); Red Blood Count 3.26 MC/CUMM (3.8-5.5); White Blood Count 5.3 T/CUMM (4-12)
[2020-02-18 12:07] LABS: Hemoglobin 9.3 GM/DL (12.0-16.0); Platelet Count 269 T/CUMM (130-400)
[2020-02-18 12:20] LABS: Alanine Aminotransferase 13 U/L (13-56); Albumin 2.2 G/DL (3.4-5.0); Alkaline Phosphatase 89 U/L (45-117); Aspartate Amino Transferase 21 U/L (0-37); Bilirubin,Total < 0.39 MG/DL (0.2-1.0); Blood Urea Nitrogen 33 MG/DL (7-18); Calcium 7.8 MG/DL (8.5-10.1); Estimated Glom Filtration Rate 7 ML/MIN; Glucose 72 MG/DL (74-106); Osmolality,Calculated 265.8 MOS/KG (273-304); Total Protein 6.1 G/DL (6.4-8.3)
[2020-02-18] MEDS ORDERED: EPOETIN ALFA 2,000 UNIT/1 ML VIAL IV PRN (12:23)
[2020-02-18] MEDS: CINACALCET 30 MG TABLET PO SCH (16:46)
[2020-02-19 07:28] LABS: Basophils # 0.1 10*3/uL (0.0-0.2); Basophils % 0.7 % (0.0-0.8); Eosinophils # 0.1 10*3/uL (0.0-0.87); Eosinophils % 1.3 % (0.00-10.9); Hematocrit 31.1 VOL% (35.7-47.0); Hemoglobin 9.8 GM/DL (12.0-16.0); Immature Granulocytes % 0.6 %; Immature Granulocytes Absolute 0.04 #; Lymphocytes # 1.3 10*3/uL (1.4-4.0); Lymphocytes % 18.4 % (21.3-54.2); Mean Corpuscular HGB Conc 31.5 GM/DL (32-36); Mean Corpuscular Volume 92.6 FL (87-102); Mean Platelet Volume 10.2 FL (9.6-12.0); Monocytes % 9.5 % (1.7-12.7); Neutrophils % 69.5 % (38.7-73.9); Platelet Count 278 T/CUMM (130-400); Red Blood Count 3.36 MC/CUMM (3.8-5.5); Red Cell Distribution Width 14.9 % (9.3-17.3); White Blood Count 7.1 T/CUMM (4-12)
[2020-02-19 08:28] LABS: Alanine Aminotransferase 12 U/L (13-56); Albumin 2.2 G/DL (3.4-5.0); Alkaline Phosphatase 98 U/L (45-117); Aspartate Amino Transferase 20 U/L (0-37); Bilirubin,Total < 0.39 MG/DL (0.2-1.0); Blood Urea Nitrogen 24 MG/DL (7-18); Calcium 7.8 MG/DL (8.5-10.1); Estimated Glom Filtration Rate 10 ML/MIN; Glucose 71 MG/DL (74-106); Osmolality,Calculated 267.4 MOS/KG (273-304); Total Protein 6.2 G/DL (6.4-8.3)
[2020-02-19 08:32] LABS: Sedimentation Rate-Westergren 70 MM/HR (0-20)
[2020-02-19] MEDS: carvediloL 6.25 MG TABLET PO SCH ×2 (08:35→21:40)
[2020-02-19] MEDS: PREGABALIN 75 MG CAPSULE PO SCH ×3 (08:35→21:40)
[2020-02-19] MEDS: CLOPIDOGREL 75 MG TABLET PO SCH (08:35)
[2020-02-19] MEDS: amLODIPine 10 MG TABLET PO SCH (08:35)
[2020-02-19] MEDS: ASPIRIN EC 81 MG TABLET PO SCH (08:35)
[2020-02-19] MEDS: levETIRAcetam 500 MG TABLET PO SCH (08:35)
[2020-02-19] MEDS: SEVELAMER CARBONATE 800 MG TABLET PO SCH ×3 (08:35→16:20)
[2020-02-19] MEDS: HEPARIN 5,000 UNIT/1 ML VIAL SUBCUT SCH ×2 (08:35→21:14)
[2020-02-19] MEDS: DESITIN 4OZ/NYSTATIN 15 GRAM MIXTURE PASTE TOP SCH ×2 (08:35→21:15)
[2020-02-19] MEDS: CITALOPRAM 20 MG TABLET PO SCH (08:35)
[2020-02-19] MEDS: ROSUVASTATIN 10 MG TABLET PO SCH (08:35)
[2020-02-19] MEDS: CINACALCET 30 MG TABLET PO SCH (16:19)
[2020-02-20] MEDS: ASPIRIN EC 81 MG TABLET PO SCH (08:38)
[2020-02-20] MEDS: DESITIN 4OZ/NYSTATIN 15 GRAM MIXTURE PASTE TOP SCH ×2 (08:38→20:15)
[2020-02-20] MEDS: amLODIPine 10 MG TABLET PO SCH (08:38)
[2020-02-20] MEDS: ROSUVASTATIN 10 MG TABLET PO SCH (08:38)
[2020-02-20] MEDS: SEVELAMER CARBONATE 800 MG TABLET PO SCH ×3 (08:38→17:02)
[2020-02-20] MEDS: HEPARIN 5,000 UNIT/1 ML VIAL SUBCUT SCH ×2 (08:38→20:15)
[2020-02-20] MEDS: PREGABALIN 75 MG CAPSULE PO SCH ×3 (08:38→20:15)
[2020-02-20] MEDS: CITALOPRAM 20 MG TABLET PO SCH (08:38)
[2020-02-20] MEDS: carvediloL 6.25 MG TABLET PO SCH ×2 (08:38→20:15)
[2020-02-20] MEDS: levETIRAcetam 500 MG TABLET PO SCH (08:38)
[2020-02-20] MEDS: CLOPIDOGREL 75 MG TABLET PO SCH (08:38)
[2020-02-20] MEDS: CINACALCET 30 MG TABLET PO SCH (15:21)
[2020-02-21] MEDS: SEVELAMER CARBONATE 800 MG TABLET PO SCH ×3 (09:38→18:25)
[2020-02-21] MEDS: DESITIN 4OZ/NYSTATIN 15 GRAM MIXTURE PASTE TOP SCH ×2 (09:38→21:30)
[2020-02-21] MEDS: amLODIPine 10 MG TABLET PO SCH (09:38)
[2020-02-21] MEDS: ROSUVASTATIN 10 MG TABLET PO SCH (09:38)
[2020-02-21] MEDS: CITALOPRAM 20 MG TABLET PO SCH (09:38)
[2020-02-21] MEDS: levETIRAcetam 500 MG TABLET PO SCH (09:38)
[2020-02-21] MEDS: ASPIRIN EC 81 MG TABLET PO SCH (09:38)
[2020-02-21] MEDS: PREGABALIN 75 MG CAPSULE PO SCH ×3 (09:38→21:30)
[2020-02-21] MEDS: HEPARIN 5,000 UNIT/1 ML VIAL SUBCUT SCH ×2 (09:38→21:30)
[2020-02-21] MEDS: carvediloL 6.25 MG TABLET PO SCH ×2 (09:38→21:30)
[2020-02-21] MEDS: CLOPIDOGREL 75 MG TABLET PO SCH (09:38)
[2020-02-21] MEDS ORDERED: EPOETIN ALFA-EPBX 2,000 UNIT/ML VIAL IV PRN (14:00)
[2020-02-21] MEDS: CINACALCET 30 MG TABLET PO SCH (18:24)
[2020-02-22] MEDS: CLOPIDOGREL 75 MG TABLET PO SCH (09:07)
[2020-02-22] MEDS: ASPIRIN EC 81 MG TABLET PO SCH (09:07)
[2020-02-22] MEDS: HEPARIN 5,000 UNIT/1 ML VIAL SUBCUT SCH (09:07)
[2020-02-22] MEDS: amLODIPine 10 MG TABLET PO SCH (09:07)
[2020-02-22] MEDS: levETIRAcetam 500 MG TABLET PO SCH (09:07)
[2020-02-22] MEDS: CITALOPRAM 20 MG TABLET PO SCH (09:07)
[2020-02-22] MEDS: DESITIN 4OZ/NYSTATIN 15 GRAM MIXTURE PASTE TOP SCH (09:07)
[2020-02-22] MEDS: ROSUVASTATIN 10 MG TABLET PO SCH (09:07)
[2020-02-22] MEDS: SEVELAMER CARBONATE 800 MG TABLET PO SCH (09:07)
[2020-02-22] MEDS: PREGABALIN 75 MG CAPSULE PO SCH (09:07)
[2020-02-22] MEDS: carvediloL 6.25 MG TABLET PO SCH (09:07)
[2020-02-22 10:05] VITALS: BP 152/70
== END 2020-02-22 10:30 | disposition swing bed (61) | DRG 177 ==
LOC: EDUNIT# → EDBD → N.ED 11:23 → N.EDINP 11:23 → SUATTDRO 14:53 → N.3E 15:40 → N.2E 02-03 11:35 → N.2W 02-07 14:19 → SUATTDRO 02-08 10:07
PROVIDERS: ADMIT Internal Medicine; ATTEND Internal Medicine

== ENCOUNTER 2020-04-04 03:02 | Inpatient (IN) ==
[2020-04-04 03:33] LABS: Basophils # 0.1 10*3/uL (0.0-0.2); Basophils % 0.6 % (0.0-0.8); Eosinophils # 0.4 10*3/uL (0.0-0.87); Eosinophils % 3.4 % (0.00-10.9); Hematocrit 26.5 VOL% (35.7-47.0); Hemoglobin 8.3 GM/DL (12.0-16.0); Immature Granulocytes % 0.6 %; Immature Granulocytes Absolute 0.07 #; Lymphocytes # 1.2 10*3/uL (1.4-4.0); Lymphocytes % 10.7 % (21.3-54.2); Mean Corpuscular HGB Conc 31.3 GM/DL (32-36); Mean Corpuscular Volume 89.2 FL (87-102); Mean Platelet Volume 10.1 FL (9.6-12.0); Monocytes % 4.9 % (1.7-12.7); Neutrophils % 79.8 % (38.7-73.9); Platelet Count 271 T/CUMM (130-400); Red Blood Count 2.97 MC/CUMM (3.8-5.5); Red Cell Distribution Width 13.8 % (9.3-17.3)
[2020-04-04 03:49] LABS: Alanine Aminotransferase < 9 U/L (13-56); Albumin 2.5 G/DL (3.4-5.0); Alkaline Phosphatase 95 U/L (45-117); Aspartate Amino Transferase 15 U/L (0-37); Blood Urea Nitrogen 74 MG/DL (7-18); Estimated Glom Filtration Rate 3 ML/MIN; Glucose 66 MG/DL (74-106); Osmolality,Calculated 285.4 MOS/KG (273-304); Total Protein 7.8 G/DL (6.4-8.3)
[2020-04-04] MEDS ORDERED: hydrALAZINE 20 MG/1 ML VIAL IV STA (05:08)
[2020-04-04] MEDS ORDERED: fentaNYL 100 MCG/2 ML VIAL IV STA (05:09)
[2020-04-04] MEDS ORDERED: DEXTROSE 50% 25 GM/50 ML VIAL IV STA (05:16)
[2020-04-04] MEDS ORDERED: DEXTROSE 50% 25 GM/50 ML SYRINGE IV ONE (05:24)
[2020-04-04] MEDS ORDERED: GLUCAGON 1 MG VIAL IM PRN (05:33)
[2020-04-04] MEDS ORDERED: ONDANSETRON 4 MG/2 ML VIAL IV PRN (05:33)
[2020-04-04] MEDS ORDERED: hydrALAZINE 20 MG/1 ML VIAL IV PRN (05:33)
[2020-04-04] MEDS ORDERED: INSULIN REGULAR 100 UNIT/ML IV STA (05:55)
[2020-04-04] MEDS: ENOXAPARIN 30 MG/0.3 ML SYRINGE SUBCUT SCH (09:56)
[2020-04-04] MEDS: PANTOPRAZOLE 40 MG TABLET PO SCH (09:57)
[2020-04-04] MEDS ORDERED: TUBERCULIN SKIN TEST 0.1 ML SYRINGE INTRADERM ONE (14:08)
[2020-04-04] MEDS: MENTHOL/ZINC OXIDE OINT 71 GM JAR TOP SCH (17:09)
[2020-04-04] MEDS: DEXTROSE 10% 250 ML BAG IV PRN (17:09)
[2020-04-05] MEDS: ACETAMINOPHEN 325 MG TABLET PO PRN ×2 (03:53→13:16)
[2020-04-05 07:44] LABS: SARS-CoV-2 Total Ab Interp Reactive
[2020-04-05 09:27] LABS: Basophils % 0.6 % (0.0-0.8); Eosinophils # 0.5 10*3/uL (0.0-0.87); Eosinophils % 7.3 % (0.00-10.9); Hematocrit 24.6 VOL% (35.7-47.0); Hemoglobin 7.7 GM/DL (12.0-16.0); Immature Granulocytes % 0.5 %; Immature Granulocytes Absolute 0.03 #; Lymphocytes % 15.6 % (21.3-54.2); Mean Corpuscular HGB Conc 31.3 GM/DL (32-36); Mean Corpuscular Volume 89.8 FL (87-102); Mean Platelet Volume 10.1 FL (9.6-12.0); Monocytes % 8.5 % (1.7-12.7); Neutrophils % 67.5 % (38.7-73.9); Platelet Count 253 T/CUMM (130-400); Red Blood Count 2.74 MC/CUMM (3.8-5.5); Red Cell Distribution Width 13.7 % (9.3-17.3); White Blood Count 6.5 T/CUMM (4-12)
[2020-04-05 09:55] LABS: Alanine Aminotransferase < 9 U/L (13-56); Albumin 2.5 G/DL (3.4-5.0); Alkaline Phosphatase 85 U/L (45-117); Aspartate Amino Transferase 12 U/L (0-37); Blood Urea Nitrogen 34 MG/DL (7-18); Calcium 8.9 MG/DL (8.5-10.1); Estimated Glom Filtration Rate 6 ML/MIN; Glucose 93 MG/DL (74-106); Osmolality,Calculated 275.2 MOS/KG (273-304); Total Protein 7.2 G/DL (6.4-8.3)
[2020-04-05] MEDS: ENOXAPARIN 30 MG/0.3 ML SYRINGE SUBCUT SCH (10:39)
[2020-04-05] MEDS: PANTOPRAZOLE 40 MG TABLET PO SCH ×2 (10:39→21:37)
[2020-04-05] MEDS: MENTHOL/ZINC OXIDE OINT 71 GM JAR TOP SCH (10:57)
[2020-04-05] MEDS ORDERED: NITROGLYCERIN SL 0.4 MG TABLET SL PRN (12:13)
[2020-04-05] MEDS ORDERED: ALBUTEROL 2.5 MG/3 ML NEB RESP TX PRN (12:13)
[2020-04-05] MEDS: CITALOPRAM 20 MG TABLET PO SCH (13:17)
[2020-04-05] MEDS: CLOPIDOGREL 75 MG TABLET PO SCH (13:17)
[2020-04-05] MEDS: amLODIPine 10 MG TABLET PO SCH (13:17)
[2020-04-05] MEDS: levETIRAcetam 500 MG TABLET PO SCH (13:17)
[2020-04-05] MEDS: ASPIRIN EC 81 MG TABLET PO SCH (13:17)
[2020-04-05] MEDS: PREGABALIN 75 MG CAPSULE PO SCH ×2 (16:00→21:36)
[2020-04-05] MEDS: SEVELAMER CARBONATE 800 MG TABLET PO SCH (17:28)
[2020-04-05] MEDS: CINACALCET 30 MG TABLET PO SCH (17:28)
[2020-04-05] MEDS ORDERED: LORazepam 2 MG/1 ML VIAL IV ONE (17:31)
[2020-04-05] MEDS ORDERED: NON-FORMULARY MEDICATION (Esomeprazole Magnesium 40 MG) PO SCH (21:00)
[2020-04-05] MEDS: carvediloL 6.25 MG TABLET PO SCH (21:36)
[2020-04-05] MEDS: DIAZEPAM 5 MG TABLET PO SCH (21:37)
[2020-04-06 06:41] LABS: Basophils % 0.4 % (0.0-0.8); Eosinophils # 0.4 10*3/uL (0.0-0.87); Eosinophils % 5.5 % (0.00-10.9); Hematocrit 27.4 VOL% (35.7-47.0); Hemoglobin 8.5 GM/DL (12.0-16.0); Immature Granulocytes % 0.4 %; Immature Granulocytes Absolute 0.03 #; Lymphocytes # 1.2 10*3/uL (1.4-4.0); Lymphocytes % 16.5 % (21.3-54.2); Mean Corpuscular Volume 90.1 FL (87-102); Mean Platelet Volume 10.1 FL (9.6-12.0); Monocytes % 5.6 % (1.7-12.7); Neutrophils % 71.6 % (38.7-73.9); Platelet Count 289 T/CUMM (130-400); Red Blood Count 3.04 MC/CUMM (3.8-5.5); Red Cell Distribution Width 13.6 % (9.3-17.3); White Blood Count 7.4 T/CUMM (4-12)
[2020-04-06 07:01] LABS: Calcium 8.8 MG/DL (8.5-10.1); Osmolality,Calculated 273.4 MOS/KG (273-304)
[2020-04-06] MEDS: SEVELAMER CARBONATE 800 MG TABLET PO SCH ×3 (10:00→17:33)
[2020-04-06] MEDS: levETIRAcetam 500 MG TABLET PO SCH (14:00)
[2020-04-06] MEDS: ASPIRIN EC 81 MG TABLET PO SCH (14:00)
[2020-04-06] MEDS: CITALOPRAM 20 MG TABLET PO SCH (14:00)
[2020-04-06] MEDS: PREGABALIN 75 MG CAPSULE PO SCH ×3 (14:00→22:10)
[2020-04-06] MEDS: amLODIPine 10 MG TABLET PO SCH (14:01)
[2020-04-06] MEDS: PANTOPRAZOLE 40 MG TABLET PO SCH ×2 (14:01→22:10)
[2020-04-06] MEDS: MENTHOL/ZINC OXIDE OINT 71 GM JAR TOP SCH (14:01)
[2020-04-06] MEDS: carvediloL 6.25 MG TABLET PO SCH ×2 (14:01→22:10)
[2020-04-06] MEDS: ENOXAPARIN 30 MG/0.3 ML SYRINGE SUBCUT SCH (14:01)
[2020-04-06] MEDS: CLOPIDOGREL 75 MG TABLET PO SCH (14:01)
[2020-04-06] MEDS: CINACALCET 30 MG TABLET PO SCH (17:33)
[2020-04-06] MEDS: DIAZEPAM 5 MG TABLET PO SCH (22:10)
[2020-04-07] MEDS: ACETAMINOPHEN 325 MG TABLET PO PRN (04:49)
[2020-04-07] MEDS: MEPERIDINE 25 MG/1 ML VIAL IV PRN ×2 (06:20→12:03)
[2020-04-07 07:45] LABS: Basophils % 0.4 % (0.0-0.8); Eosinophils # 0.5 10*3/uL (0.0-0.87); Eosinophils % 7.8 % (0.00-10.9); Hematocrit 23.8 VOL% (35.7-47.0); Hemoglobin 7.5 GM/DL (12.0-16.0); Immature Granulocytes % 0.3 %; Immature Granulocytes Absolute 0.02 #; Lymphocytes # 0.9 10*3/uL (1.4-4.0); Mean Corpuscular HGB Conc 31.5 GM/DL (32-36); Mean Corpuscular Volume 89.1 FL (87-102); Mean Platelet Volume 9.9 FL (9.6-12.0); Monocytes % 5.5 % (1.7-12.7); Platelet Count 241 T/CUMM (130-400); Red Blood Count 2.67 MC/CUMM (3.8-5.5); Red Cell Distribution Width 13.5 % (9.3-17.3); White Blood Count 6.9 T/CUMM (4-12)
[2020-04-07 08:07] LABS: Calcium 8.2 MG/DL (8.5-10.1); Osmolality,Calculated 272.1 MOS/KG (273-304)
[2020-04-07] MEDS: CITALOPRAM 20 MG TABLET PO SCH (10:14)
[2020-04-07] MEDS: CALCIUM CARBONATE CHEW 500 MG TABLET PO PRN (10:15)
[2020-04-07] MEDS: carvediloL 6.25 MG TABLET PO SCH (10:15)
[2020-04-07] MEDS: PREGABALIN 75 MG CAPSULE PO SCH ×2 (10:15→16:30)
[2020-04-07] MEDS: ASPIRIN EC 81 MG TABLET PO SCH (10:16)
[2020-04-07] MEDS: PANTOPRAZOLE 40 MG TABLET PO SCH (10:16)
[2020-04-07] MEDS: CLOPIDOGREL 75 MG TABLET PO SCH (10:16)
[2020-04-07] MEDS: levETIRAcetam 500 MG TABLET PO SCH (10:16)
[2020-04-07] MEDS: SEVELAMER CARBONATE 800 MG TABLET PO SCH ×3 (10:17→16:30)
[2020-04-07] MEDS: MENTHOL/ZINC OXIDE OINT 71 GM JAR TOP SCH (10:17)
[2020-04-07] MEDS: ENOXAPARIN 30 MG/0.3 ML SYRINGE SUBCUT SCH (11:39)
[2020-04-07] MEDS: amLODIPine 10 MG TABLET PO SCH (11:40)
[2020-04-07] MEDS: CINACALCET 30 MG TABLET PO SCH (16:30)
[2020-04-08] MEDS: PANTOPRAZOLE 40 MG TABLET PO SCH ×2 (01:19→09:44)
[2020-04-08] MEDS: carvediloL 6.25 MG TABLET PO SCH ×2 (01:19→10:35)
[2020-04-08] MEDS: PREGABALIN 75 MG CAPSULE PO SCH ×3 (01:19→16:54)
[2020-04-08] MEDS: DIAZEPAM 5 MG TABLET PO SCH (01:19)
[2020-04-08] MEDS: DEXTROSE 10% 250 ML BAG IV PRN (05:28)
[2020-04-08 06:59] LABS: Basophils % 0.8 % (0.0-0.8); Eosinophils # 0.6 10*3/uL (0.0-0.87); Eosinophils % 11.9 % (0.00-10.9); Hematocrit 24.1 VOL% (35.7-47.0); Hemoglobin 7.4 GM/DL (12.0-16.0); Immature Granulocytes % 0.4 %; Immature Granulocytes Absolute 0.02 #; Lymphocytes # 1.1 10*3/uL (1.4-4.0); Lymphocytes % 21.1 % (21.3-54.2); Mean Corpuscular HGB Conc 30.7 GM/DL (32-36); Mean Corpuscular Volume 90.6 FL (87-102); Mean Platelet Volume 9.7 FL (9.6-12.0); Neutrophils % 57.8 % (38.7-73.9); Platelet Count 241 T/CUMM (130-400); Red Blood Count 2.66 MC/CUMM (3.8-5.5); Red Cell Distribution Width 13.7 % (9.3-17.3); White Blood Count 5.1 T/CUMM (4-12)
[2020-04-08 07:23] LABS: Calcium 8.3 MG/DL (8.5-10.1); Osmolality,Calculated 271.4 MOS/KG (273-304)
[2020-04-08] MEDS ORDERED: LOPERAMIDE 2 MG CAPSULE PO PRN (09:21)
[2020-04-08] MEDS: ASPIRIN EC 81 MG TABLET PO SCH (09:44)
[2020-04-08] MEDS: CLOPIDOGREL 75 MG TABLET PO SCH (09:44)
[2020-04-08] MEDS: CITALOPRAM 20 MG TABLET PO SCH (09:45)
[2020-04-08] MEDS: ACETAMINOPHEN 325 MG TABLET PO PRN (09:46)
[2020-04-08] MEDS: MENTHOL/ZINC OXIDE OINT 71 GM JAR TOP SCH (09:46)
[2020-04-08] MEDS: CALCIUM CARBONATE CHEW 500 MG TABLET PO PRN (09:46)
[2020-04-08] MEDS: SEVELAMER CARBONATE 800 MG TABLET PO SCH ×3 (10:33→17:12)
[2020-04-08] MEDS: levETIRAcetam 500 MG TABLET PO SCH (10:35)
[2020-04-08] MEDS: amLODIPine 10 MG TABLET PO SCH (10:36)
[2020-04-08] MEDS: ENOXAPARIN 30 MG/0.3 ML SYRINGE SUBCUT SCH (10:37)
[2020-04-08 11:57] LABS: Eosinophils 10 % (0-10); Lymphocytes 19 % (20-55); Segmented Neutrophils 68 % (50-85); Total Cells Counted 100
[2020-04-08 11:58] LABS: Platelet Estimate Adequate
[2020-04-08 17:06] VITALS: BP 141/77
[2020-04-08] MEDS: CINACALCET 30 MG TABLET PO SCH (17:12)
== END 2020-04-08 18:10 | disposition home health service (06) | DRG 640 ==
LOC: EDUNIT# → EDBD → N.ED 03:02 → N.EDINP 06:01 → SUATTDRO 06:01 → N.3E 07:36
PROVIDERS: ADMIT Family Medicine; ATTEND Emergency Medicine

== ENCOUNTER 2020-08-17 10:19 | Observation (INO) ==
[2020-08-17] MEDS ORDERED: cloNIDine 0.1 MG TABLET PO STA (11:06)
[2020-08-17 13:12] LABS: Calcium 9.4 MG/DL (8.5-10.1); Osmolality,Calculated 286.5 MOS/KG (273-304)
[2020-08-17] MEDS ORDERED: EPOETIN ALFA-EPBX 10,000 UNIT/ML VIAL IV PRN (14:56)
[2020-08-17] MEDS ORDERED: DOCUSATE SODIUM 100 MG CAPSULE PO PRN (15:22)
[2020-08-17] MEDS ORDERED: ACETAMINOPHEN 325 MG TABLET PO PRN (15:22)
[2020-08-17] MEDS ORDERED: GLUCAGON 1 MG VIAL IM PRN (15:22)
[2020-08-17] MEDS ORDERED: DEXTROSE 50% 25 GM/50 ML VIAL IV PRN (15:22)
[2020-08-17] MEDS ORDERED: ONDANSETRON 4 MG/2 ML VIAL IV PRN (15:22)
[2020-08-17] MEDS ORDERED: CALCIUM CARBONATE CHEW 500 MG TABLET PO PRN (15:24)
[2020-08-17] MEDS ORDERED: ONDANSETRON 4 MG TABLET PO PRN (15:24)
[2020-08-17] MEDS ORDERED: ALBUTEROL 2.5 MG/3 ML NEB RESP TX PRN (15:24)
[2020-08-17] MEDS ORDERED: NITROGLYCERIN SL 0.4 MG TABLET SL PRN (15:24)
[2020-08-17] MEDS ORDERED: AZITHROMYCIN INJ 500 MG in SODIUM CHLORIDE 0.9% 250 ML IV ONE (15:28)
[2020-08-17] MEDS ORDERED: HEPARIN 5,000 UNIT/1 ML VIAL SUBCUT SCH (15:30)
[2020-08-17 20:43] VITALS: BP 184/99
[2020-08-17] MEDS ORDERED: DIAZEPAM 5 MG TABLET PO SCH (21:00)
[2020-08-18] MEDS ORDERED: MEROPENEM 500 MG in SODIUM CHLORIDE 0.9% 100 ML IV SCH (06:30)
[2020-08-18] MEDS ORDERED: PREGABALIN 75 MG CAPSULE PO SCH (09:00)
[2020-08-18] MEDS ORDERED: ASPIRIN EC 81 MG TABLET PO SCH (09:00)
[2020-08-18] MEDS ORDERED: CLOPIDOGREL 75 MG TABLET PO SCH (09:00)
[2020-08-18] MEDS ORDERED: DIVALPROEX 500 MG TABLET PO SCH (09:00)
[2020-08-18] MEDS ORDERED: amLODIPine 10 MG TABLET PO SCH (09:00)
[2020-08-18] MEDS ORDERED: PANTOPRAZOLE 40 MG TABLET PO SCH (09:00)
[2020-08-18] MEDS ORDERED: tiZANidine 4 MG TABLET PO SCH (09:00)
[2020-08-18] MEDS ORDERED: MULTIVITAMIN (BEROCCA) TABLET PO SCH (09:00)
[2020-08-18] MEDS ORDERED: SERTRALINE 50 MG TABLET PO SCH (09:00)
[2020-08-18] MEDS ORDERED: risperiDONE 1 MG TABLET PO SCH (09:00)
[2020-08-18] MEDS ORDERED: levETIRAcetam 500 MG TABLET PO SCH (16:00)
[2020-08-18] MEDS ORDERED: SENNA 8.6 MG TABLET PO SCH (21:00)
[2020-08-18] MEDS ORDERED: ROSUVASTATIN 10 MG TABLET PO SCH (21:00)
[2020-08-18] MEDS ORDERED: traZODone 50 MG TABLET PO SCH (21:00)
[2020-08-21] MEDS ORDERED: cloNIDine 0.3 MG/24 HR PATCH TRANSDERM SCH (09:00)
== END 2020-08-17 22:58 | disposition home or self-care (01) ==
LOC: EDBD → EDUNIT# → N.ED 10:19 → N.EDINP 10:19
PROVIDERS: ADMIT Hospitalist; ATTEND Hospitalist

== ENCOUNTER 2020-09-04 12:31 | Inpatient (IN) ==
[2020-09-04] MEDS ORDERED: hydrALAZINE 20 MG/1 ML VIAL IV STA (13:16)
[2020-09-04] MEDS ORDERED: ALBUTEROL/IPRATROPIUM 3 ML NEB RESP TX STA (13:16)
[2020-09-04] MEDS ORDERED: NITROGLYCERIN SL 0.4 MG TABLET SL STA (13:33)
[2020-09-04 15:05] LABS: Basophils # 0.1 10*3/uL (0.0-0.2); Basophils % 1.2 % (0.0-0.8); Eosinophils # 0.3 10*3/uL (0.0-0.87); Hematocrit 24.7 VOL% (35.7-47.0); Hemoglobin 7.4 GM/DL (12.0-16.0); Immature Granulocytes % 0.6 %; Immature Granulocytes Absolute 0.03 #; Lymphocytes # 0.8 10*3/uL (1.4-4.0); Lymphocytes % 14.9 % (21.3-54.2); Mean Corpuscular Volume 93.2 FL (87-102); Neutrophils % 74.3 % (38.7-73.9); Platelet Count 249 T/CUMM (130-400); Red Blood Count 2.65 MC/CUMM (3.8-5.5); Red Cell Distribution Width 22.4 % (9.3-17.3)
[2020-09-04 15:15] LABS: INR 1.1; PT Patient Result 11.8 SECS (9.8-11.9)
[2020-09-04 15:39] LABS: Albumin 3.4 G/DL (3.4-5.0); Bilirubin,Total 1.1 MG/DL (0.2-1.0); Calcium 8.6 MG/DL (8.5-10.1); Osmolality,Calculated 296.5 MOS/KG (273-304); Potassium 5.5 MMOL/L (3.5-5.1); Total Protein 7.9 G/DL (6.4-8.3)
[2020-09-04 15:43] LABS: CKMB % 6.5 %; Thyroid Stimulating Hormone 0.476 uIU/ml (0.358-3.74)
[2020-09-04 15:44] LABS: Troponin I 0.696 NG/ML (0.00-0.045)
[2020-09-04] MEDS ORDERED: LABETALOL 100 MG/20 ML VIAL IV STA (16:47)
[2020-09-04] MEDS ORDERED: LABETALOL 20 MG/4 ML SYRINGE IV ONE (16:51)
[2020-09-04] MEDS ORDERED: MORPHINE 4 MG/1 ML VIAL ONE (17:10)
[2020-09-04] MEDS ORDERED: MORPHINE 4 MG/1 ML VIAL IV STA (17:13)
[2020-09-04] MEDS ORDERED: DEXTROSE 50% 25 GM/50 ML VIAL IV PRN (17:43)
[2020-09-04] MEDS ORDERED: ACETAMINOPHEN 325 MG TABLET PO PRN (17:43)
[2020-09-04] MEDS ORDERED: GLUCAGON 1 MG VIAL IM PRN (17:43)
[2020-09-04] MEDS ORDERED: ONDANSETRON 4 MG/2 ML VIAL IV PRN (17:43)
[2020-09-04] MEDS ORDERED: SODIUM CHLORIDE 0.9% 1,000 ML IV PRN (17:48)
[2020-09-04] MEDS: HEPARIN 5,000 UNIT/1 ML VIAL SUBCUT SCH (18:11)
[2020-09-04] MEDS: ALBUTEROL/IPRATROPIUM 3 ML NEB RESP TX SCH (19:50)
[2020-09-05 01:10] LABS: Basophils # 0.1 10*3/uL (0.0-0.2); Basophils % 1.5 % (0.0-0.8); Eosinophils # 0.3 10*3/uL (0.0-0.87); Eosinophils % 6.9 % (0.00-10.9); Hemoglobin 7.2 GM/DL (12.0-16.0); Immature Granulocytes % 0.4 %; Immature Granulocytes Absolute 0.02 #; Lymphocytes # 0.8 10*3/uL (1.4-4.0); Lymphocytes % 16.2 % (21.3-54.2); Mean Corpuscular Volume 92.7 FL (87-102); Mean Platelet Volume 10.3 FL (9.6-12.0); Monocytes % 4.2 % (1.7-12.7); Neutrophils % 70.8 % (38.7-73.9); Platelet Count 216 T/CUMM (130-400); Red Blood Count 2.59 MC/CUMM (3.8-5.5); White Blood Count 4.8 T/CUMM (4-12)
[2020-09-05] MEDS: HEPARIN 5,000 UNIT/1 ML VIAL SUBCUT SCH ×3 (01:18→17:21)
[2020-09-05] MEDS: ALBUTEROL/IPRATROPIUM 3 ML NEB RESP TX SCH ×4 (01:21→19:43)
[2020-09-05 01:31] LABS: Albumin 3.2 G/DL (3.4-5.0); Bilirubin,Total 1.2 MG/DL (0.2-1.0); Calcium 8.4 MG/DL (8.5-10.1); Total Protein 8.1 G/DL (6.4-8.3)
[2020-09-05 03:00] LABS: CKMB % 6.3 %
[2020-09-05 03:02] LABS: Troponin I 0.648 NG/ML (0.00-0.045)
[2020-09-05] MEDS ORDERED: hydrALAZINE 20 MG/1 ML VIAL IV ONE (04:31)
[2020-09-05] MEDS: cloNIDine 0.3 MG/24 HR PATCH TRANSDERM SCH ×2 (04:45→09:12)
[2020-09-05] MEDS: PANTOPRAZOLE 40 MG TABLET PO SCH (09:19)
[2020-09-05] MEDS ORDERED: EPOETIN ALFA-EPBX 10,000 UNIT/ML VIAL IV SCH (12:31)
[2020-09-05] MEDS: CLOPIDOGREL 75 MG TABLET PO SCH (14:43)
[2020-09-05] MEDS: ASPIRIN EC 81 MG TABLET PO SCH (14:43)
[2020-09-05] MEDS ORDERED: amLODIPine 10 MG TABLET PO ONE (15:00)
[2020-09-05] MEDS: levETIRAcetam 500 MG TABLET PO SCH (17:21)
[2020-09-05] MEDS: DIVALPROEX 500 MG TABLET PO SCH (20:37)
[2020-09-05] MEDS ORDERED: traZODone 50 MG TABLET PO SCH (22:30)
[2020-09-05] MEDS ORDERED: DIAZEPAM 5 MG TABLET PO SCH (22:30)
[2020-09-06] MEDS ORDERED: ZALEPLON 5 MG CAPSULE PO PRN (00:31)
[2020-09-06] MEDS: ALBUTEROL/IPRATROPIUM 3 ML NEB RESP TX SCH ×4 (01:39→20:30)
[2020-09-06 06:45] LABS: Basophils # 0.1 10*3/uL (0.0-0.2); Basophils % 1.2 % (0.0-0.8); Eosinophils # 0.4 10*3/uL (0.0-0.87); Hemoglobin 8.5 GM/DL (12.0-16.0); Immature Granulocytes % 0.4 %; Immature Granulocytes Absolute 0.02 #; Lymphocytes # 0.7 10*3/uL (1.4-4.0); Lymphocytes % 12.6 % (21.3-54.2); Mean Corpuscular HGB Conc 30.4 GM/DL (32-36); Mean Corpuscular Volume 91.5 FL (87-102); Mean Platelet Volume 10.4 FL (9.6-12.0); Monocytes % 5.6 % (1.7-12.7); Neutrophils % 72.2 % (38.7-73.9); Platelet Count 211 T/CUMM (130-400); Red Blood Count 3.06 MC/CUMM (3.8-5.5); Red Cell Distribution Width 21.5 % (9.3-17.3); White Blood Count 5.1 T/CUMM (4-12)
[2020-09-06] MEDS: HEPARIN 5,000 UNIT/1 ML VIAL SUBCUT SCH ×3 (06:50→21:33)
[2020-09-06 06:56] LABS: Albumin 3.1 G/DL (3.4-5.0); Bilirubin,Total 0.7 MG/DL (0.2-1.0); Potassium 5.2 MMOL/L (3.5-5.1); Total Protein 8.1 G/DL (6.4-8.3)
[2020-09-06] MEDS ORDERED: SODIUM POLYSTYRENE SULFATE 15 GM/60 ML BOTTLE PO ONE (09:30)
[2020-09-06] MEDS ORDERED: flumazeniL 0.5 MG/5 ML VIAL IV ONE (10:00)
[2020-09-06] MEDS: ASPIRIN EC 81 MG TABLET PO SCH (10:38)
[2020-09-06] MEDS: CLOPIDOGREL 75 MG TABLET PO SCH (10:39)
[2020-09-06] MEDS: PANTOPRAZOLE 40 MG TABLET PO SCH (10:39)
[2020-09-06] MEDS: DIVALPROEX 500 MG TABLET PO SCH ×2 (10:39→21:28)
[2020-09-06] MEDS ORDERED: traZODone 50 MG TABLET PO PRN (13:38)
[2020-09-06 15:39] LABS: Calcium 7.7 MG/DL (8.5-10.1); Osmolality,Calculated 286.1 MOS/KG (273-304); Potassium 4.9 MMOL/L (3.5-5.1)
[2020-09-06] MEDS: COLLAGENASE OINT 30 GM TUBE TOP SCH (17:22)
[2020-09-06] MEDS: levETIRAcetam 500 MG TABLET PO SCH (17:22)
[2020-09-07] MEDS: ALBUTEROL/IPRATROPIUM 3 ML NEB RESP TX SCH ×4 (01:20→19:52)
[2020-09-07] MEDS: HEPARIN 5,000 UNIT/1 ML VIAL SUBCUT SCH ×3 (05:44→21:14)
[2020-09-07 07:46] LABS: Basophils # 0.1 10*3/uL (0.0-0.2); Basophils % 1.3 % (0.0-0.8); Eosinophils # 0.5 10*3/uL (0.0-0.87); Eosinophils % 10.3 % (0.00-10.9); Hematocrit 26.5 VOL% (35.7-47.0); Immature Granulocytes % 0.4 %; Immature Granulocytes Absolute 0.02 #; Lymphocytes # 0.8 10*3/uL (1.4-4.0); Lymphocytes % 16.5 % (21.3-54.2); Mean Corpuscular HGB Conc 30.2 GM/DL (32-36); Mean Corpuscular Volume 90.4 FL (87-102); Mean Platelet Volume 10.6 FL (9.6-12.0); Monocytes % 5.1 % (1.7-12.7); Neutrophils % 66.4 % (38.7-73.9); Platelet Count 205 T/CUMM (130-400); Red Blood Count 2.93 MC/CUMM (3.8-5.5); Red Cell Distribution Width 20.7 % (9.3-17.3); White Blood Count 4.7 T/CUMM (4-12)
[2020-09-07 08:09] LABS: Calcium 8.1 MG/DL (8.5-10.1); Osmolality,Calculated 283.7 MOS/KG (273-304); Potassium 5.1 MMOL/L (3.5-5.1)
[2020-09-07 08:12] LABS: Bilirubin,Total 0.7 MG/DL (0.2-1.0); Calcium 8.1 MG/DL (8.5-10.1); Osmolality,Calculated 285.5 MOS/KG (273-304); Potassium 5.1 MMOL/L (3.5-5.1); Total Protein 7.8 G/DL (6.4-8.3)
[2020-09-07] MEDS: CLOPIDOGREL 75 MG TABLET PO SCH (08:19)
[2020-09-07] MEDS: ASPIRIN EC 81 MG TABLET PO SCH (08:19)
[2020-09-07] MEDS: PANTOPRAZOLE 40 MG TABLET PO SCH (08:19)
[2020-09-07] MEDS: DIVALPROEX 500 MG TABLET PO SCH ×3 (08:19→22:32)
[2020-09-07] MEDS: COLLAGENASE OINT 30 GM TUBE TOP SCH (08:20)
[2020-09-07] MEDS ORDERED: TUBERCULIN SKIN TEST 0.1 ML SYRINGE INTRADERM ONE (12:00)
[2020-09-07] MEDS: amLODIPine 10 MG TABLET PO SCH (12:03)
[2020-09-07] MEDS: SODIUM HYPOCHLORITE 0.25% IRRIG 473 ML BOTTLE TOP SCH (13:24)
[2020-09-07] MEDS: SERTRALINE 50 MG TABLET PO SCH (13:24)
[2020-09-07] MEDS: levETIRAcetam 500 MG TABLET PO SCH (17:23)
[2020-09-08] MEDS: ALBUTEROL/IPRATROPIUM 3 ML NEB RESP TX SCH ×4 (02:13→19:22)
[2020-09-08] MEDS: HEPARIN 5,000 UNIT/1 ML VIAL SUBCUT SCH ×3 (05:27→21:43)
[2020-09-08] MEDS: COLLAGENASE OINT 30 GM TUBE TOP SCH (09:59)
[2020-09-08] MEDS: PANTOPRAZOLE 40 MG TABLET PO SCH (09:59)
[2020-09-08] MEDS: ASPIRIN EC 81 MG TABLET PO SCH (09:59)
[2020-09-08] MEDS: SERTRALINE 50 MG TABLET PO SCH (09:59)
[2020-09-08] MEDS: DIVALPROEX 500 MG TABLET PO SCH ×2 (09:59→20:26)
[2020-09-08] MEDS: SODIUM HYPOCHLORITE 0.25% IRRIG 473 ML BOTTLE TOP SCH (09:59)
[2020-09-08] MEDS: amLODIPine 10 MG TABLET PO SCH (09:59)
[2020-09-08] MEDS: CLOPIDOGREL 75 MG TABLET PO SCH (09:59)
[2020-09-08] MEDS ORDERED: cefTRIAXone 1,000 MG in SYRINGE 1 EACH IV SCH (17:30)
[2020-09-08] MEDS: levETIRAcetam 500 MG TABLET PO SCH (18:32)
[2020-09-09] MEDS: ALBUTEROL/IPRATROPIUM 3 ML NEB RESP TX SCH ×2 (00:38→07:54)
[2020-09-09] MEDS: HEPARIN 5,000 UNIT/1 ML VIAL SUBCUT SCH (05:11)
[2020-09-09 08:15] VITALS: BP 113/98
[2020-09-09] MEDS ORDERED: LEVOFLOXACIN INJ 250 MG in PREMIX 1 EACH IV SCH (09:00)
[2020-09-09] MEDS: ASPIRIN EC 81 MG TABLET PO SCH (11:18)
[2020-09-09] MEDS: SODIUM HYPOCHLORITE 0.25% IRRIG 473 ML BOTTLE TOP SCH (11:18)
[2020-09-09] MEDS: DIVALPROEX 500 MG TABLET PO SCH (11:18)
[2020-09-09] MEDS: COLLAGENASE OINT 30 GM TUBE TOP SCH (11:19)
[2020-09-09] MEDS: CLOPIDOGREL 75 MG TABLET PO SCH (11:19)
[2020-09-09] MEDS: SERTRALINE 50 MG TABLET PO SCH (11:19)
[2020-09-09] MEDS: PANTOPRAZOLE 40 MG TABLET PO SCH (11:19)
[2020-09-09] MEDS: amLODIPine 10 MG TABLET PO SCH (11:19)
== END 2020-09-09 12:10 | DRG 291 ==
LOC: N.ED 12:31 → N.5E 18:38
PROVIDERS: ADMIT Internal Medicine; ATTEND Internal Medicine